=== PATIENT | female | born 1950 ===

== ENCOUNTER 2024-10-18 08:11 | Emergency (ER) | payer MEDICARE, SELFPAY ==
[2024-10-18] VITALS (7 sets, daily range): BP systolic 130–153; BP diastolic 64–79; PULSE 57–75; RESP 15–16; TEMP 36.6; O2SAT 95–98
--- NOTE | ~2024-10-18 | CT_ITS ---
EXAMINATION: CT brain wo con DATE: 10/18/2024 08:46 INDICATION: Unresponsive. Recent stroke. TECHNIQUE: Computed tomography (CT) of the head was performed without intravenous contrast. Sagittal and coronal reconstructions were performed. The mA was adjusted according to patient size. Iterative reconstruction technique was employed. The dose-length product was 605.33 mGy-cm. COMPARISON: None FINDINGS: There is vasogenic edema surrounding a intraparenchymal hemorrhage in the left frontal lobe white mat ter which measures 5.8 x 2.0 x 3.5 cm. There is asymmetric effacement of the left frontal lobe sulci and up to 4 mm left to right midline shift at the septum pellucidum. There is also mass effect upon t he left lateral ventricle which appears slightly decreased in size relative to the right. No uncal he rniation. No evident acute ischemic infarction or abnormal extra axial fluid collection. Centimeters from the hemorrhage, no other masses identified. The orbits are normal with rightward gaze. The paran leta sinuses and mastoid air cells are normal. IMPRESSION: 1. There is vasogenic edema surrounding a 5.8 x 2.0 x 3.5 cm intraparenchymal hemorrhage the left fro ntal lobe with 4 mm left to right midline shift. Dr. Lynch discussed these findings with Dr. Mario martinez at 8:49 AM. Reviewed, dictated and finalized at location A. R SALES REPRESENTATIVE IMPRESSION: 1. There is vasogenic edema surrounding a 5.8 x 2.0 x 3.5 cm intraparenchymal h emorrhage the left frontal lobe with 4 mm left to right midline shift. Dr. Keagan balderas discussed these findings with Dr. Carbajal at 8:49 AM.
--- NOTE | 2024-10-18 08:18 | ECG_ITS ---
Test Date: 2024-10-18 08:16:29 Measurements Intervals [place] Rate: 67 P: 47 WY: 224 QRS: -1 QRSD: 104 T: 25 QT: 373 QTc: 396 Interpretive Statements SINUS RHYTHM WITH FIRST DEGREE AV BLOCK CONSIDER INFERIOR INFARCT, AGE INDETERMINATE BASELINE ARTIFACT- I, II, AVR ABNORMAL ECG No previous ECG available for comparison Electronically Signed On 10-18-2024 08:25:18 LEGAL JOB TITLES by Facundo Oakley D.O.
[2024-10-18 08:39] LABS: Basophils Percent Auto 0.5 % (0.2-1.2); Eosinophils Absolute Auto 0.2 K/mm3 (0-0.3); Eosinophils Percent Auto 2.1 % (0-4.4); Hematocrit 40.4 % (37.0-47.0); Hemoglobin 12.9 g/dL (12.0-15.0); Immature Granulocyte Absolute 0.03 K/mm3 (0.00-0.031); Immature Granulocyte Percent A 0.4 % (0-0.5); Lymphocytes Absolute Auto 2.21 K/mm3 (0.9-3.2); Lymphocytes Percent Auto 27.7 % (18.3-44.2); Mean Corpuscular HGB Conc 31.9 g/dl (32-36); Mean Corpuscular Hemoglobin 28.4 pg (26-34); Mean Platelet Volume 9.9 fl (7.4-10.4); Monocytes Absolute Auto 0.5 K/mm3 (0.1-0.6); Neutrophils Percent Auto 63.3 % (45.5-73.1); Platelet Count Result 281 k/mm3 (150-375); Red Blood Count 4.54 M/mm3 (4.2-5.4); Red Cell Distribution Width 13.3 % (11.5-14.5)
[2024-10-18 08:45] LABS: Add Urine Microscopic? NO; Appearance Urine Clear (Clear); Bilirubin Urine Negative (Negative); Blood Urine Negative (Negative); Color Urine Yellow (Yellow); Glucose Urine UA Negative (Negative); Ketones Urine Trace mg/dL (Negative); Leukocyte Esterase Ur Negative LEU/UL (Negative); Nitrate Urine Negative (Negative); Protein Urine Negative (Negative); Specific Grav Ur 1.026 (1.001-1.035); pH Urine 5.5 (5.0-9.0)
[2024-10-18 08:52] LABS: Alanine Aminotransferase 48 U/L (6-35); Albumin Level 3.8 g/dL (3.5-5.1); Alkaline Phosphatase 75 U/L (38-126); Anion Gap 8 mmol/L (4-12); Aspartate Amino Transferase 50 U/L (14-36); Bilirubin,Total 0.7 mg/dL (0.2-1.3); Blood Urea Nitrogen 24 mg/dL (7-17); Calcium 9.4 mg/dL (8.4-10.2); Carbon Dioxide 30 mmol/L (22-30); Chloride 106 mmol/L (98-107); Estimated CRCL calculation 54 ml/min; Estimated Glomerular Filt Rate > 60; Glucose 90 mg/dL (65-110); Potassium 3.7 mmol/L (3.4-5.0); Sodium 144 mmol/L (137-145)
--- NOTE | 2024-10-18 09:01 | ED_ITS ---
HPI - Altered Mental Status General Chief Complaint: Altered Mental Status Stated Complaint: AMS Time Seen by Provider: 10/18/24 08:49 History of Present Illness HPI narrative: Pt presents unresponsive. Pt had recent cva and was admitted to [facility]. Pt was discharged yesterday to [facility]. Pt was awake and alert this morning sitting up in bed when she suddenly went unresponsive. Pt is not known to be on blood thinners per . Pt is unresponsive no verbal stimuli now, does respond to painful stimuli. Related Data Home Medications ?Medication ?Instructions ?Recorded ?Confirmed ?Last Taken ?Type atorvastatin 40 mg tablet 40 mg PO DAILY 10/18/24 10/18/24 10/17/24 History clotrimazole 1 % topical cream 1 applic topical BID 10/18/24 10/18/24 Unknown History diclofenac sodium 1 % topical gel 4 g topical Q6H PRN knee pain 10/18/24 10/18/24 Unknown History (Arthritis Pain (diclofenac)) docusate sodium 100 mg capsule 100 mg PO BID 10/18/24 10/18/24 Unknown History famotidine 40 mg tablet 40 mg PO HS PRN indigestion 10/18/24 10/18/24 10/17/24 History lisinopril 10 mg tablet 10 mg PO DAILY 10/18/24 10/18/24 10/17/24 History polyethylene glycol 3350 17 gram 17 g PO DAILY 10/18/24 10/18/24 Unknown History oral powder packet (Miralax) Allergies Allergy/AdvReac Type Severity Reaction Status Date / Time Sulfa (Sulfonamide Allergy Unknown Unknown Verified 10/18/24 00:56 Antibiotics) Review of Systems 2 Review of Systems: ROS unobtainable: Yes unobtainable due to mental status [facility] Social History Social History Smoking status: Never smoker Exam 2 Const: Limitations: altered mental status (unresponsive) HENMT: Head: normal to inspection Eyes: Other: eyes deviated to right to midline when eyelids opened then back to right. Resp: Effort & Inspection: normal respiratory effort Auscultation: clear to auscultation bilaterally Cardio: Rate: regular rate Rhythm: regular rhythm GI: GI Palp: Yes Soft to palpation and Yes Tenderness to palpation present (GI) Auscultation: normal bowel sounds Skin: General skin exam: normal color Rashes: no rashes Wounds: no wounds Neuro: Other: responds to painful stimuli only Extrem: General: normal to inspection and no clubbing, cyanosis or edema Psych: Other: unresponsive Course Vital Signs Vital signs: Vital Signs Temperature 97.8 F 10/18/24 08:07 Pulse Rate 72 10/18/24 08:07 Respiratory Rate 16 10/18/24 08:07 Blood Pressure 153/79 H 10/18/24 08:07 Pulse Oximetry 95 10/18/24 08:07 Oxygen Delivery Room Air 10/18/24 08:07 Temperature 97.8 F 10/18/24 08:07 Pulse Rate 57 L 10/18/24 12:04 Respiratory Rate 16 10/18/24 12:04 Blood Pressure 130/66 10/18/24 12:04 Pulse Oximetry 97 10/18/24 12:04 Oxygen Delivery Room Air 10/18/24 09:09 MDM - Altered Mental Status MDM Narrative Medical decision making narrative: discussed with and son. Pt is full code. says not on thinners that he is aware of. discussed with [facility] access line for transfer will call back. Pt has large intraparenchymal bleed with shift. discussd with Dr Weaver at [facility] bleed is in same area but possible larger. discussed with Latoya in neuro ICU at [facility] will accept patient. Would recommend loading with mannitol for swelling and will accept transfer. Lab Data 10/18/24 08:25 10/18/24 08:25 Labs: Lab Results 10/18/24 Range/Units 08:25 WBC 8.0 (4.5-10.0) K/mm3 RBC 4.54 (4.2-5.4) M/mm3 Hgb 12.9 (12.0-15.0) g/dL Hct 40.4 (37.0-47.0) % MCV 89.0 (80-100) fl MCH 28.4 (26-34) pg MCHC 31.9 L (32-36) g/dl RDW 13.3 (11.5-14.5) % Plt Count 281 (150-375) k/mm3 MPV 9.9 (7.4-10.4) fl Immature Gran % (Auto) 0.4 (0-0.5) % Neut % (Auto) 63.3 (45.5-73.1) % Lymph % (Auto) 27.7 (18.3-44.2) % [place] % (Auto) 6.0 (2.6-8.5) % Eos % (Auto) 2.1 (0-4.4) % Baso % (Auto) 0.5 (0.2-1.2) % Lymph # (Auto) 2.21 (0.9-3.2) K/mm3 [place] # (Auto) 0.5 (0.1-0.6) K/mm3 Eos # (Auto) 0.2 (0-0.3) K/mm3 Baso # (Auto) 0.0 (0.0-0.1) K/mm3 Abs Immat Gran (auto) 0.03 (0.00-0.031) K/mm3 Absolute Neuts (auto) 5.0 (1.3-6.7) K/mm3 Absolute Nucleated RBC 0.000 (0.0-0.012) K/mm3 Nucleated RBC % 0.0 (0.0-0.2) % PT 13.4 (11.1-14.7) Seconds INR 1.0 APTT 24.4 (22.3-36.8) Seconds Sodium 144 (137-145) mmol/L Potassium 3.7 (3.4-5.0) mmol/L Chloride 106 (98-107) mmol/L Carbon Dioxide 30 (22-30) mmol/L Anion Gap 8 (4-12) mmol/L BUN 24 H (7-17) mg/dL Creatinine 0.82 (0.7-1.0) mg/dL Estim Creat Clear Calc 54 ml/min Estimated GFR > 60 (59 - ) Glucose 90 (65-110) mg/dL Calcium 9.4 (8.4-10.2) mg/dL Total Bilirubin 0.7 (0.2-1.3) mg/dL AST 50 H (14-36) U/L ALT 48 H (6-35) U/L Alkaline Phosphatase 75 (38-126) U/L Total Protein 7.0 (6.3-8.2) g/dL Albumin 3.8 (3.5-5.1) g/dL Urine Color Yellow (Yellow) Urine Appearance Clear (Clear) Urine pH 5.5 (5.0-9.0) Ur Specific [place] 1.026 (1.001-1.035) Urine Protein Negative (Negative) mg/dL Urine Glucose (UA) Negative (Negative) mg/dL Urine Ketones Trace H (Negative) mg/dL Ur Blood (Man) Negative (Negative) Urine Nitrate Negative (Negative) Urine Bilirubin Negative (Negative) Urine Urobilinogen 1.0 (<2.0) mg/dL Leukocyte Esterase Rfl Negative (Negative) KRISTINA/UL Discharge Plan Discharge Clinical Impression: Altered mental status, Intraparenchymal hemorrhage of brain Patient Disposition: Acute Care Hospital Condition: Critical Patient Language: Serbian Prescriptions: No Action atorvastatin 40 mg tablet 40 mg PO DAILY clotrimazole 1 % cream 1 applic TOPICAL BID Rx Instructions: apply to feet diclofenac sodium [Arthritis Pain (diclofenac)] 1 % gel 4 g topical Q6H PRN (Reason: knee pain) Rx Instructions: apply for knee pain docusate sodium 100 mg capsule 100 mg PO BID famotidine 40 mg tablet 40 mg PO HS PRN (Reason: indigestion) lisinopril 10 mg tablet 10 mg PO DAILY polyethylene glycol 3350 [Miralax] 17 gram powder in packet 17 g PO DAILY Follow-up/Referrals: Dana,MD Nancy [Primary Care Provider] -
[2024-10-18 09:02] LABS: Prothrombin Time 13.4 Seconds (11.1-14.7)
[2024-10-18 09:03] LABS: Partial Thromboplastin Time 24.4 Seconds (22.3-36.8)
--- OUTSIDE RECORDS SUMMARY | 2024-10-18 09:20 | XMS_ITS | Continuity of Care Document ---
Author Organization [facility] Address [address] [place] [address] [place] [address] Phone Care Team Providers Care Food Preparation Supervisor Name Role Phone Joey Sidhu MD Unavailable Unavailable Allergies, Adverse Reactions, Alerts Substance Reaction Status Criticality POLYMYXIN B SULFATE Active No Infor mation Sulfa (Sulfonamide Antibiotics) Active No Information Medications Medication Instructions Dosage Effective Dates (start - stop) Status Comments alprazolam 0.5 mg tablet take 1 tablet by oral route 3 times every day 0.5 MG - Active famotidine 20 mg tablet take 1 tablet by oral route every day 20 MG - Active simvastatin 40 mg tablet take 1 tablet by oral route every day in the evening 40 MG - Active neomycin-polymyxin- dexameth 3.5 mg/mL-10,000 unit/mL-0.1% eye drops instill 1 drop by ophthalmic route 4 times every day into right eye until seen - No Longer Active Procedures Procedure Date No Charge Optomap Fundus Photos 023 Eye Exam & Treatment Office/outpatient Visit, Est Office/outpatient Visit, Est Office/outpatient Visit, Est Office/outpatient Visit, New Advance Directives Directive Yes / No Effective Date File Name No Information Encounters Encounter Description Practice Location Reason(s) For Visit Diagnoses Date Provider Providers Copied on Encounter [facility], [address], [place], [place], [address], [place] tel:[phone] SEC Isaiah CLAUDIO Professional Complete Exam (chief complaint) Unspecified exotropiaAge- related nuclear cataract, bilateralEndo thelial corneal dystrophy, bilateral Edwin- 3 Nahum Cook. [address], [place], [place], [address], . tel:[phone] Referring Provider: Joey Dover, [address], [place], [address] . tel:[phone] Office/outpa tient Visit, [facility], [address] [place] [address] [address], [place], [place], [address], [place] tel:[phone] SEC [place] Professional Follow up visit (chief complaint) Episcleritis, right Apr-0 3 Nahum Cook. [address] [facility], [place], [place], [address], [place]. tel:[phone] Referring Provider: Joey Dover, [address], [place], [address] . tel:[phone] Office/outpa tient Visit, [facility], [address] [place] [address] [address], [place], [place], [address], [place] tel:[phone] SEC [place] Professional pain (chief complaint) Conjunctiviti s of right eye, unspecified conjunctiviti s type Nov-3 3 Nahum Cook. [address], [place], [place], [address], [place]. tel:[phone] Referring Provider: Joey Dover, [address], [place], [address] . tel:[phone] Office/outpa tient Visit, [facility], [address] [place] [address] [address], [place], [place], [address], [place] tel:[phone] SEC [place] Professional Follow up visit (chief complaint) Acute follicular conjunctiviti s, bilateral Dec- 2 Nahum Cook. [address] [facility], [place], [place], [address], . tel:[phone] Referring Provider: Joey Dover, [address] [facility] [address], [place], [address] . tel:[phone] Office/outpa tient Visit, [facility], [address], [place], [place], [address], tel:[phone] [facility] Professional evaluation (chief complaint) Endothelial corneal dystrophy, right eyeAnterior basement membrane dystrophy of right eyeAcute follicular conjunctiviti s, bilateralPter ygium, bilateralAge- related nuclear cataract, bilateral Aug- 2 Nahum Cook. [address] [facility], [place], [place], [address], . tel:[phone] Referring Provider: Joey Dover, [address] [facility], [place], [address] . tel:[phone] Family History Family Member Type Diagnosis Age At Onset No Information Payers Payer name Insurance type Covered alliance party ID Authoriza yaronjosé miguel(s) AARP Medicare Complete CI [id number] Social History Type Description Quantity Date Captured Comments Alcohol Use Details No Caffeine Use Details Tobacco Use Status Current non-smoker Smoking Status Never smoker Non-Smoking Tobacco Use Details : No Details Available : No Details Available Sex Female Chief Complaint And Reason For Visit From encounter dated '02/26/2023 13:00'. Complete Exam (chief complaint). Description: The 72 year old patient presents for evaluation of Complete Exam in the right eye and left eye. Patient denies any changes with [facility]. Patient she will use an OTC tear if eyes get tired or dry. Reason For Referral Reason For Referral No Information Plan Of Treatment Date Type Action Status Patient Education Cataracts: Care Instruc tions completed Patient Education Pinkeye: Care Instructi ons completed Patient Education Pinkeye: Care Instructi ons completed History Of Present Illness Encounter Date Complaint History Of Prese nt Illness Complete Exam The 72 year old patient presents for evaluation of Complete Exam in the right eye and left eye. Patient denies any changes with [facility]. Patient she will use an OTC tear if eyes get tired or dry. Follow up visit The 72 year old patient presents for a 1 week follow up for conjunctivitis OD. Patient is using Luis/poly/dex bid OD. Patient did not use today. Patient states on Wednesday when she put the drop in it burned. Patient states OD is feeling better. Patient states OD is just slightly red. pain The 72 year old patient presents for evaluation of pain in the right eye. Patient states yesterday the right eye started out with feeling tender, woke up this am the right eye was red, tearing, and some pain. Patient using an OTC gtt prn OU Follow up visit The 71 year old patient presents for a 2 week acute follicular conjunctivitis ou. Patient is using FML tid ou. Patient states eyes are better. Patient states she notices if she skips a drop her eyes become itchy again. Patient states sometimes she gets pain in ou. evaluation The 71 year old patient presents for evaluation of possible infection. Patient states on July 03 OS was red and she used Pataday. Patient states ou became itching and burning and on July 21 she seen her PCPs NEW ORDER CLERK and told her to continue Pataday and she added Poly. Patient states July 28 she started Poly and eyes were burning and itching and D/c. Patient hasn't used anything for a few days. Functional Status Date Functional Assessmen t No Information Instructions Date Instruction Additional Infor lizzette Impression/Plan Impression/Plan Impression/Plan Impression/Plan Impression/Plan Assessments Type Assessment Date assessment Unspecified exotropia assessment Age-related nuclear cataract, bi lateral assessment Endothelial corneal dystrophy, b ilateral Patient Care Teams Name Effective Dates (start - stop) Status Members No Information
--- OUTSIDE RECORDS SUMMARY | 2024-10-18 09:20 | XMS_ITS | Encounter Summary ---
Author Organization [facility] Address [address] [place] [address] Care Team Providers Care Debt And Budget Counselor Name Role Phone Unavailable Primary Care Provider Unavailabl e Encounter Details Date Type Department Care Team (Late st Contact Info) Description 10/13/2005 Outpatient Historical [facility] Internal Medicine [address] [address] Daryn Mercado MD [address] [place] [phone] Social History Tobacco Use Types Packs/Day Years Used Date Smoking Tobacco: Never Assessed Comments Unknown Sex and Gender Information Value Date Recorded Sex Assigned at Not on file Legal Sex Female 4:43 AM INSTRUMENT TECH Gender Identity Not on file Sexual Orientation Not on file documented as of this encounter Plan of Treatment Not on file documented as of this encounter Visit Diagnoses Not on filedocumented in this encounter
--- OUTSIDE RECORDS SUMMARY | 2024-10-18 09:20 | XMS_ITS | Encounter Summary ---
Author Organization [facility] Address [address] [place] [address] Care Team Providers Care Return To Service Inspector Name Role Phone Shahana Guzman MD Unavailable Nancy Cortez MD Primary Care Provider [phone] Shiraz Gillespie PT Unavailable Unavailable Joey Sidhu MD Unavailable [phone] Reason for Visit * Reason Onset Date Comments Scheduling Appointments 06/30/2021 Confirmi ng mammogram appt Encounter Details Date Type Department Care Team (Late st Contact Info) Description 06/30/2021 Telephone [facility] [address] [place] [address] Anastasia Greene, Scheduling Appointments (Confirming mammogram appt) Social History Tobacco Use Types Packs/Day Years Used Date Smoking Tobacco: Never Smokeless Tobacco: Never Alcohol Use Standard Drinks/Week Comments Yes 0 (1 standard drink = 0.6 oz pur e alcohol) PHQ-2 Answer Date Recorded PHQ-2 Total Score (If total score is 3 or more points, staff should administer the PHQ-9) 0 04/10/2021 Education Answer Date Recorded What is the highest level of school you have completed or the highest degree you have received? 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[employer] ([employer] & [employer]() Not on f ile Not on file Not on file documented as of this encounter Plan of Treatment Not on file documented as of this encounter Visit Diagnoses Not on filedocumented in this encounter Additional Health Concerns Infection Onset Date Last Indicated Resolved Time COVID: Suspected 07/18/2024 07/18/2024 07/18/2024 11:49 AM VENEER SAWYER documented as of this encounter Care Teams Return To Service Inspector Relationship Specialty [place] [id number] [address] [facility] [address] [place] [address] PCP - General Family Medicine 03/20/19 [place] [address] [facility] [address] [place] [address] Consulting Physician Obstetrics and Gynecology 12/26/18 Shiraz Gillespie, PT Physical Therapist Physical Therapy 01/22/23 Joey Sihdu MD [address] [place] [address] Referring Physician Ophthalmology 05/24/24 documented as of this encounter
--- OUTSIDE RECORDS SUMMARY | 2024-10-18 09:20 | XMS_ITS | Encounter Summary ---
Author Organization [facility] Address [address] [place] [address] Care Team Providers Care Furniture Sander Name Role Phone Unavailable Primary Care Provider Unavailabl e Encounter Details Date Type Department Care Team (Late st Contact Info) Description 10/13/2005 Orders Only [facility] Internal Medicine [address] [address] Daryn Mercado MD [address] [place] [phone] Social History Tobacco Use Types Packs/Day Years Used Date Smoking Tobacco: Never Assessed Comments Unknown Sex and Gender Information Value Date Recorded Sex Assigned at Not on file Legal Sex Female 4:43 AM PRODUCE WEIGHER Gender Identity Not on file Sexual Orientation Not on file documented as of this encounter Progress Notes * Daryn Mercado MD - 06/14/2008 1:57 PM CDT WEIGHT: 170lbs BLOOD PRESSURE: 140/80 Right Arm Sitting NURSE NAME: Mae Lu R CHIEF COMPLAINT c/o heartburn HISTORY: HISTORY: 300.00-ANXIETY occ use of xanax, some inc stress recently 530.81-GASTROESOPHAGEAL REFLUX (GERD) off med, hx of gastritis, worse with spicy foods 786.50-CHEST PAIN UNSPECIFIED vague., occ left arm, not with exertion 401.1-HYPERTENSION ESSENTIAL BENIGN borderline with nurse at [facility] 272.4-HYPERLIPIDEMIA high but HDL 74 ROS: ENT: No hearing loss, epistaxis, hoarseness or dysphagia. No sinus congestion. ENDOCRINE: No heat or cold intolerance, no excessive thirst. RESPIRATORY: No dyspnea, cough, hemoptysis or wheezing. : No frequency, urgency, hematuria or dysuria. FAMILY HISTORY: father LA 62, had first LA 54, mother CVA73 SOCIAL HISTORY: TOBACCO USE: Has no significant smoking history. DISCUSSED SMOKING: neg. 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 CAFFEINE: A minimal amount of caffeinated beverages daily. PHYSICAL EXAMINATION: CONSTITUTIONAL: GENERAL APPEARANCE: Healthy appearing patient in no distress. EARS, NOSE, MOUTH AND THROAT: EXTERNAL/EARS AND NOSE: Overall appearance normal with no scars, lesions or masses. EARS: Tympanic membranes shiny without retraction. Canals unremarkable. Hearing grossly normal. ORAL: Inspection of gums, lips, palate, and teeth normal. No scars, lesions, or masses. Oral mucosaunremarkable with non-inflamed posterior pharynx. NECK/THYROID: Trachea midline. No thyroid enlargement, tenderness, or mass. No supraclavicular or cervical adenopathy. RESPIRATORY: Clear to auscultation and percussion. Normal respiratory effort. CARDIOVASCULAR: CARDIAC: Regular rhythm. No murmurs, rubs, or gallops. ARTERIAL: Aortic pulses of normal amplitude with no bruits. EDEMA/VARICOSITIES OF EXTREMITIES: No edema or varicosities. GASTROINTESTINAL: ABDOMEN: Soft, non-tender, without masses. Bowel sounds active. LIVER/SPLEEN/KIDNEY: No hepatosplenomegaly, tenderness or nodularity. Kidneys not palpable. SKIN: SKIN: Warm, dry, no diaphoresis, no significant lesions, irritation, rashes or ulcers. No induration, obvious subcutaneous nodules or tightening. OFFICE PROCEDURES: EKG INTERPRETATION EKG RHYTHM: The EKG shows normal sinus rhythm. No ischemic changes noted. ASSESSMENT/PLAN: 300.00-ANXIETY discussed, ok prn med MEDICATIONS: ALPRAZOLAM ORAL TABLET 0.25 MG, 1 Every Twelve Hours, As Needed, 40 Dispensed, 1 Fills, status: NEWPRESCRIPTION, 12/26/2004. 272.4-HYPERLIPIDEMIA discussed, likely start med reassess 401.1-HYPERTENSION ESSENTIAL BENIGN start low dose med MEDICATIONS: LISINOPRIL ORAL TABLET 2.5 MG, 1 Every Day, 30 Dispensed, 1 Fills, status: NEW PRESCRIPTION, 10/13/2005. 530.81-GASTROESOPHAGEAL REFLUX (GERD) start med, EGD MEDICATIONS: PREVACID ORAL CAPSULE DELAYED RELEASE 30 MG, 1 Every Day, 30 Dispensed, 3 Fills, status: NEW PRESCRIPTION, 10/13/2005. 786.50-CHEST PAIN UNSPECIFIED vague sx, consider stress test if continues LAB ORDERS: 6 weeks Order number: [id number] Test Ordered: COMPREHENSIVE METABOLIC PANEL 01591 Order number: [id number] Test Ordered: LIPID PANEL 7600 Order number: [id number] Test Ordered: TSH 899 Order number: [id number] Test Ordered: EKG W/ INTERPRETATION & REPORT [id number] SPECIALTY REFERRAL: GASTROENTEROLOGY Isaiah Carbajal , ANAYELI PREVENTIVE COUNSELING The patient was counseled regarding diet, regular sustained exercise for at least 30 minutes 3-4 times per week. RETURN VISIT : Patient instructed to return in 2 months. Electronically Signed by: Daryn Mercado MD on Thursday, October 13, 2005 documented in this encounter Plan of Treatment Not on file documented as of this encounter Visit Diagnoses Not on filedocumented in this encounter
--- OUTSIDE RECORDS SUMMARY | 2024-10-18 09:20 | XMS_ITS | Encounter Summary ---
Author Organization [facility] Address [address] [place] [address] Care Team Providers Care Rod Mill Operator Name Role Phone Unavailable Primary Care Provider Unavailabl e Encounter Details Date Type Department Care Team (Late st Contact Info) Description 12/15/2005 Outpatient Historical [facility] Internal Medicine [address] [address] Daryn Mercado MD [address] [place] [phone] Social History Tobacco Use Types Packs/Day Years Used Date Smoking Tobacco: Never Assessed Comments Unknown Sex and Gender Information Value Date Recorded Sex Assigned at Not on file Legal Sex Female 4:43 AM VP OF GLOBAL MARKETING Gender Identity Not on file Sexual Orientation Not on file documented as of this encounter Last Filed Vital Signs Vital Sign Reading Time Taken Comments Blood Pressure 120/60 12/15/2005 3:00 PM CDT Pulse - - Temperature - - Respiratory Rate - - Oxygen Saturation - - Inhaled Oxygen Concentration - - Weight 75.8 kg (167 lb) 12/15/2005 3:00 PM CDT Height - - Body Mass Index - - documented in this encounter Plan of Treatment Not on file documented as of this encounter Visit Diagnoses Not on filedocumented in this encounter
--- OUTSIDE RECORDS SUMMARY | 2024-10-18 09:20 | XMS_ITS | Encounter Summary ---
Author Organization [facility] Address [address] [place] [address] Care Team Providers Care Corporate Development Analyst Name Role Phone Unavailable Primary Care Provider Unavailabl e Encounter Details Date Type Department Care Team (Late st Contact Info) Description 10/13/[address] [facility] Internal Medicine [address] [address] Daryn Mercado MD [address] [place] [phone] Social History Tobacco Use Types Packs/Day Years Used Date Smoking Tobacco: Never Assessed Comments Unknown Sex and Gender Information Value Date Recorded Sex Assigned at Not on file Legal Sex Female 4:43 AM KITCHEN CLERK Gender Identity Not on file Sexual Orientation Not on file documented as of this encounter Plan of Treatment Not on file documented as of this encounter Visit Diagnoses Not on filedocumented in this encounter
--- OUTSIDE RECORDS SUMMARY | 2024-10-18 09:20 | XMS_ITS | Encounter Summary ---
Author Organization [facility] Address 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
--- OUTSIDE RECORDS SUMMARY | 2024-10-18 09:21 | XMS_ITS | Referral Summary ---
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 prescription medication to help with weight loss including phentermine and GLP-1RAs. She is not a good candidate for phentermine because of her elevated blood pressure. Reviewed side effects assoc with GLP-1RAs. Possible cost, possible availability issues. Potential for weight re-gain once medication is stopped She will consider Assessment & Plan (04/13/2022 9:17 AM CDT): discussed healthy diet, exercise and adequate sleep Body mass index is 36.5 kg/m . Comorbidity - Hyperlipidemia Assessment & Plan (04/10/2021 1:50 PM CDT): discussed healthy diet, exercise and adequate sleep Body mass index is 36.32 kg/m . Comorbidity - Hyperlipidemia Assessment & Plan (05/07/2020 11:23 AM CDT): discussed healthy diet, exercise and adequate sleep Body mass index is 36.32 kg/m . Comorbidity - Hyperlipidemia Assessment & Plan (10/09/2019 5:11 PM SALES AND MERCHANDISING ASSOCIATE): discussed healthy diet, exercise and adequate sleep Body mass index is 37.03 kg/m . Comorbidity - Hyperlipidemia Assessment & Plan (03/20/2019 9:57 AM CDT): discussed healthy diet, exercise and adequate sleep Body mass index is 37.02 kg/m . Comorbidity - Hyperlipidemia Psoriasis 03/20/2019 Generalized anxiety disorder 03/20/2019 Assessment & Plan (04/25/2024 2:45 PM CDT): Acute flare, along with depressive symptoms Start sertraline 25 mg daily Continue alprazolam 0.25 mg t.i.d. p.r.n. Reviewed signs and symptoms to report 4-6 week follow-up with PCP Assessment & Plan (04/06/2024 6:52 AM CDT): Alprazolam 0.25 mg TID PRN stable Assessment & Plan (12/02/2023 6:45 AM CDT): Alprazolam 0.25 mg TID PRN stable Assessment & Plan (07/22/2023 11:53 AM SALES AND MERCHANDISING ASSOCIATE): Alprazolam 0.25 mg TID PRN stable Assessment & Plan (04/20/2023 10:28 PM CDT): Alprazolam 0.25 mg TID PRN stable Assessment & Plan (04/13/2022 6:32 AM CDT): Alprazolam 0.25 mg TID PRN stable Assessment & Plan (04/10/2021 1:53 PM CDT): Alprazolam 0.25 mg TID PRN stable Assessment & Plan (05/07/2020 11:37 AM CDT): Stable on current Assessment & Plan (10/09/2019 5:11 PM SALES AND MERCHANDISING ASSOCIATE): Chronic. Stable on current [place]ed [place] Cont [place] Assessment & Plan (03/20/2019 10:36 AM CDT): Chronic. 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 Changed simvastatin 40 mg daily to atorvastatin November 2023. Cholesterol controlled on current prescription medication Assessment & Plan (04/06/2024 6:53 AM CDT): 04/2023 - Total 171; Trig 56; HDL 74; LDL 86 TSH 2.13 Atorvastatin 40 mg daily Has been on simvastatin since at least 2012. Changed simvastatin 40 mg daily to atorvastatin last office visit (November 2023) Assessment & Plan (12/02/2023 2:10 PM CDT): 04/2023 - Total 171; Trig 56; HDL 74; LDL 86 TSH 2.13 Simvastatin 40 mg QHS Well controlled Has been on simvastatin since at least 2012. Recommend change to atorvastatin 40 mg daily high intensity statin Assessment & Plan (07/22/2023 11:52 AM SALES AND MERCHANDISING ASSOCIATE): 04/23/2023 - Total 171; Trig 56; HDL 74; LDL 86 TSH 2.13 Simvastatin 40 mg QHS Well controlled Assessment & Plan (04/20/2023 10:27 PM CDT): 04/2022 - total 183; Trig 91; HDL 71; LDL 94 TSH 2.27 Simvastatin 40 mg QHS Assessment & Plan (04/13/2022 6:32 AM CDT): 04/2021 - total 152; Trig 74; HDL 67; LDL 70 Simvastatin 40 mg daily Assessment & Plan (04/10/2021 1:51 PM CDT): 06/2020 - total 159; Trig 101; HDL 61; LDL 78 Zocor 40 mg daily Assessment & Plan (05/07/2020 11:37 AM CDT): 12/2018 - total 170; Trig 82; HDL 70; LDL 84 Stable on statin Monitor annually Assessment & Plan (10/09/2019 5:11 PM SALES AND MERCHANDISING ASSOCIATE): 12/2018 - total 170; Trig 82; HDL 70; LDL 84 Stable on statin Monitor annually Assessment & Plan (03/20/2019 10:32 AM CDT): 12/2018 - total 170; Trig 82; HDL 70; LDL 84 Stable on statin Release for prior records. Resolved Problems Problem Noted Date Diagnosed Date Resolved Date Annual physical exam 05/07/2020 023 Assessment & Plan (04/13/2022 10:14 AM CDT): 04/2021 - Cr 0.82, eGFR 73 [facility] go to [facility] for imaging and labs Assessment & Plan (04/10/2021 2:18 PM CDT): DEXA stable 11/2016 - 12/2017 Likely limited usefulness in repeating Patient independant in all ADLs and IADLs. no significant decline in overall physical or mental health over last 12 months. no ER visits or hospital stays. Discussed Hepatitis C screening Assessment & Plan (05/07/2020 11:37 AM CDT): Patient independant in all ADLs and IADLs. no significant decline in overall physical or mental health over last 12 months. no ER visits or hospital stays. recommend at least 10 minutes of moderate intensity exercise most days of the week with a goal of 150 minutes weekly. Screening for condition 05/07/2020 08/0 09/2023 Assessment & Plan (12/02/2023 2:14 PM CDT): Patient screened for future fall risk; documentation of no falls in the past year or only 1 fall without injury in the past year Assessment & Plan (07/22/2023 11:54 AM SALES AND MERCHANDISING ASSOCIATE): Patient screened for future fall risk; documentation of no falls in the past year or only 1 fall without injury in the past year Assessment & Plan (04/21/2023 4:54 PM CDT): Patient screened for future fall risk; documentation of no falls in the past year or only 1 fall without injury in the past year Assessment & Plan (04/13/2022 6:33 AM CDT): Patient screened for future fall risk; documentation of no falls in the past year or only 1 fall without injury in the past year Assessment & Plan (04/10/2021 2:01 PM CDT): Patient screened for future fall risk; documentation of no falls in the past year or only 1 fall without injury in the past year Assessment & Plan (05/07/2020 11:31 AM CDT): Patient screened for future fall risk; documentation of no falls in the past year or only 1 fall without injury in the past year Ingrown nail of great toe of right foot 05/07/2020 04/10/2021 Bronchitis 01/16/2020 05/06/2020 Assessment & Plan (01/16/2020 1:00 PM CDT): Prolonged course, worsening symptoms. Will treat with Zithromax If symptoms continue or worsen, will ask patient to be seen in Respiratory clinic Eye irritation 10/09/2019 05/07/2020 Assessment & Plan (10/09/2019 5:12 PM SALES AND MERCHANDISING ASSOCIATE): I am not convinced that this was pink eye. I did not see her the initial time, but the more recent symptoms last week do not sound like pink eye Normal exam today I recommend follow-up with eye care provider She will call with his name so we can do a referral. Ingrown nail 03/20/2019 05/07/2020 Sprain of ankle 06/19/2016 03/20/2019 Immunizations Name Administration Dates Next Due COVID-19 mRNA (PFIZER) 0.3 m L (30 mcg) vaccine (12 years and up) 06/08/2023 Influenza, Quadrivalent, Hig h Dose, Preservative Free, Intrr 06/08/2023,05/25/2022,06/17/2021,05/21 Influenza, Trivalent, Adjuva nted, Intramuscular 06/23/2024 Influenza, Unspecified 05/21/2020,05/08/2019,09/2017 Pfizer SARS-CoV-2 Monovalent Vaccination (12+ Yrs) PURPLE 07/12/2021,11/24/2020,11/03/2020 Pneumococcal Conjugate PCV 13 10/09/2019 Pneumococcal Polysaccharide PPV23 04/10/2021,03/2010 RSV Vaccine, Pref, Recombina nt, Subunit, Adjuvanted, PF, IM (Arexvy) 08/05/2023 Td, adsorbed 06/04/1999 ZOSTER Recombinant 10/20/2021,08/08/2021 Social History Tobacco Use Types Packs/Day Years Used Date Smoking Tobacco: Never Smokeless Tobacco: Never Tobacco Cessation:Counseling Given: Not Answered Alcohol Use Standard Drinks/Week Comments Yes 0 (1 standard drink = 0.6 oz pur e alcohol) AUDIT-C Answer Date Recorded Q1: How often do you have a drink containing alc ohol? 2-4 times a month 04/21/2023 Q2: How many drinks containi ng alcohol do you have on a typical day when you are drinking? 1 or 2 04/21/2023 Q3: How often do you have si x or more drinks on one occasion? Never 04/21/2023 PHQ-2 Answer Date Recorded PHQ-2 Total Score (If total score is 3 or more points, staff should administer the PHQ-9) 0 12/02/2023 Personal Safety Answer Date Recorded Have you ever been in or are you currently in a harmful physical or emotional relationship or is someone making you feel afraid or unsafe? Patient unable to answer 10/08/2024 Education Answer Date Recorded What is the highest level of school you have completed or the highest degree you have received? 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[employer] ([employer] & [employer]() Not on f ile Not on file Not on file Last Filed Vital Signs Vital Sign Reading Time Taken Comments Blood Pressure 142/88 10/17/2024 9:44 PM SALES AND MERCHANDISING ASSOCIATE Pulse 75 10/17/2024 9:44 PM SALES AND MERCHANDISING ASSOCIATE Temperature 37.1 C (98.8 F) 10/17/2024 9:44 PM SALES AND MERCHANDISING ASSOCIATE Respiratory Rate 16 10/17/2024 9:44 PM SALES AND MERCHANDISING ASSOCIATE Oxygen Saturation 95% 10/17/2024 9:44 PM SALES AND MERCHANDISING ASSOCIATE Inhaled Oxygen Concentration - - Weight 86.5 kg (190 lb 11.2 oz) 025 12:00 PM SALES AND MERCHANDISING ASSOCIATE Height 160 cm (5' 3 ) 10/08/2024 12:00 PM SALES AND MERCHANDISING ASSOCIATE Body Mass Index 33.78 10/08/2024 12:00 PM SALES AND MERCHANDISING ASSOCIATE Plan of Treatment Not on file Procedures Procedure Name Priority Date/Time Associated Diagnosis Comments EGFR Routine 10/17/2024 9:12 PM SALES AND MERCHANDISING ASSOCIATE CBC WITHOUT DIFFERENTIAL Routine 10/17/2024 9:12 PM SALES AND MERCHANDISING ASSOCIATE BASIC METABOLIC PANEL Routine 10/17/2024 9:12 PM SALES AND MERCHANDISING ASSOCIATE XR ABDOMEN AP 1 VIEW ED Urgent/IP Urgent 10/17/2024 2:07 PM SALES AND MERCHANDISING ASSOCIATE EGFR Routine 10/16/2024 8:34 PM SALES AND MERCHANDISING ASSOCIATE CBC WITHOUT DIFFERENTIAL Routine 10/16/2024 8:34 PM SALES AND MERCHANDISING ASSOCIATE BASIC METABOLIC PANEL Routine 10/16/2024 8:34 PM SALES AND MERCHANDISING ASSOCIATE EGFR Routine 10/16/2024 4:14 AM SALES AND MERCHANDISING ASSOCIATE CBC WITHOUT DIFFERENTIAL Routine 10/16/2024 4:14 AM SALES AND MERCHANDISING ASSOCIATE BASIC METABOLIC PANEL Routine 10/16/2024 4:14 AM SALES AND MERCHANDISING ASSOCIATE EGFR Timed 10/14/2024 9:01 PM SALES AND MERCHANDISING ASSOCIATE MAGNESIUM Timed 10/14/2024 9:01 PM SALES AND MERCHANDISING ASSOCIATE CBC WITHOUT DIFFERENTIAL Routine 10/14/2024 9:01 PM SALES AND MERCHANDISING ASSOCIATE PHOSPHORUS Timed 10/14/2024 9:01 PM SALES AND MERCHANDISING ASSOCIATE COMPREHENSIVE METABOLIC PANEL Timed 10/14/2024 9:01 PM SALES AND MERCHANDISING ASSOCIATE POCT GLUCOSE DEVICE Routine 10/14/2024 12:21 PM SALES AND MERCHANDISING ASSOCIATE EGFR Routine 10/13/2024 10:21 PM SALES AND MERCHANDISING ASSOCIATE CBC WITHOUT DIFFERENTIAL Routine 10/13/2024 10:21 PM SALES AND MERCHANDISING ASSOCIATE BASIC METABOLIC PANEL Routine 10/13/2024 10:21 PM SALES AND MERCHANDISING ASSOCIATE EGFR Routine 10/12/2024 8:23 PM SALES AND MERCHANDISING ASSOCIATE CBC WITHOUT DIFFERENTIAL Routine 10/12/2024 8:23 PM SALES AND MERCHANDISING ASSOCIATE BASIC METABOLIC PANEL Routine 10/12/2024 8:23 PM SALES AND MERCHANDISING ASSOCIATE FL MODIFIED BARIUM SWALLOW W VIDEO IP Routine 10/12/2024 2:45 PM SALES AND MERCHANDISING ASSOCIATE HOSE OPERATOR EVALUATE AND TREAT VIDEOFLUOROSCOPIC SWALLOW STUDY Routine 10/12/2024 2:35 PM SALES AND MERCHANDISING ASSOCIATE EGFR Routine 10/11/2024 9:06 PM SALES AND MERCHANDISING ASSOCIATE CBC WITHOUT DIFFERENTIAL Routine 10/11/2024 9:06 PM SALES AND MERCHANDISING ASSOCIATE BASIC METABOLIC PANEL Routine 10/11/2024 9:06 PM SALES AND MERCHANDISING ASSOCIATE CBC WITHOUT DIFFERENTIAL STAT 10/11/2024 2:11 AM SALES AND MERCHANDISING ASSOCIATE POTASSIUM, WHOLE BLOOD STAT 2:11 AM SALES AND MERCHANDISING ASSOCIATE EGFR Routine 10/10/2024 9:30 PM SALES AND MERCHANDISING ASSOCIATE MAGNESIUM Routine 10/10/2024 9:30 PM SALES AND MERCHANDISING ASSOCIATE BASIC METABOLIC PANEL Routine 10/10/2024 9:30 PM SALES AND MERCHANDISING ASSOCIATE XR ABDOMEN AP 1 VIEW ED Urgent/IP Urgent 10/10/2024 9:06 PM SALES AND MERCHANDISING ASSOCIATE EGFR Routine 10/09/2024 9:26 PM SALES AND MERCHANDISING ASSOCIATE MAGNESIUM Routine 10/09/2024 9:26 PM SALES AND MERCHANDISING ASSOCIATE BASIC METABOLIC PANEL Routine 10/09/2024 9:26 PM SALES AND MERCHANDISING ASSOCIATE CBC WITHOUT DIFFERENTIAL Routine 10/09/2024 9:26 PM SALES AND MERCHANDISING ASSOCIATE CONTINUOUS VIDEO EEG Routine 10/09/2024 1:26 PM SALES AND MERCHANDISING ASSOCIATE POCT GLUCOSE DEVICE Routine 10/09/2024 7:53 AM SALES AND MERCHANDISING ASSOCIATE CT HEAD WO CONTRAST IP Routine 10/09/2024 4:37 AM SALES AND MERCHANDISING ASSOCIATE XR ABDOMEN AP 1 VIEW IP Routine 10/08/2024 10:39 PM SALES AND MERCHANDISING ASSOCIATE EGFR Timed 10/08/2024 9:56 PM SALES AND MERCHANDISING ASSOCIATE PHOSPHORUS Timed 10/08/2024 9:56 PM SALES AND MERCHANDISING ASSOCIATE MAGNESIUM Timed 10/08/2024 9:56 PM SALES AND MERCHANDISING ASSOCIATE COMPREHENSIVE METABOLIC PANEL Timed 10/08/2024 9:56 PM SALES AND MERCHANDISING ASSOCIATE CBC WITHOUT DIFFERENTIAL Routine 10/08/2024 9:56 PM SALES AND MERCHANDISING ASSOCIATE XR ABDOMEN AP 1 VIEW IP Routine 10/08/2024 8:39 PM SALES AND MERCHANDISING ASSOCIATE DRUGS OF ABUSE SCREEN, URINE WITH REFLEX CONFIRMATION STAT 10/08/2024 4:48 PM SALES AND MERCHANDISING ASSOCIATE URINALYSIS AND REFLEX TO MICROSCOPIC AND CULTURE STAT 10/08/2024 4:48 PM SALES AND MERCHANDISING ASSOCIATE XR CHEST 1 VIEW ED Urgent/IP Urgent 10/08/2024 12:53 PM SALES AND MERCHANDISING ASSOCIATE CT HEAD WO CONTRAST ED Urgent/IP Urgent 10/08/2024 12:45 PM SALES AND MERCHANDISING ASSOCIATE BLOOD GAS, VENOUS STAT 10/08/2024 12:28 PM SALES AND MERCHANDISING ASSOCIATE B CHECK SAMPLE STAT 10/08/2024 12:07 PM SALES AND MERCHANDISING ASSOCIATE ECG 12-LEAD STAT 10/08/2024 11:55 AM SALES AND MERCHANDISING ASSOCIATE ETHANOL STAT 10/08/2024 11:51 AM SALES AND MERCHANDISING ASSOCIATE EGFR STAT 10/08/2024 11:51 AM SALES AND MERCHANDISING ASSOCIATE TROPONIN I HIGH-SENSITIVITY SERIES (BASELINE, 2HR, 4HR, 6HR) STAT 10/08/2024 11:51 AM SALES AND MERCHANDISING ASSOCIATE PROTIME-INR STAT 10/08/2024 11:51 AM SALES AND MERCHANDISING ASSOCIATE APTT STAT 10/08/2024 11:51 AM SALES AND MERCHANDISING ASSOCIATE TYPE AND SCREEN STAT 10/08/2024 11:51 AM SALES AND MERCHANDISING ASSOCIATE CBC WITHOUT DIFFERENTIAL STAT 10/08/2024 11:51 AM SALES AND MERCHANDISING ASSOCIATE PHOSPHORUS STAT 10/08/2024 11:51 AM SALES AND MERCHANDISING ASSOCIATE MAGNESIUM STAT 10/08/2024 11:51 AM SALES AND MERCHANDISING ASSOCIATE COMPREHENSIVE METABOLIC PANEL STAT 10/08/2024 11:51 AM SALES AND MERCHANDISING ASSOCIATE POCT GLUCOSE DEVICE Routine 10/08/2024 11:34 AM SALES AND MERCHANDISING ASSOCIATE OH CRITICAL CARE ILL/INJURED PATIENT INIT 30-74 MIN Routine 10/08/2024 10:43 AM SALES AND MERCHANDISING ASSOCIATE XR CHEST 1 VIEW ED 10/08/2024 9:50 AM SALES AND MERCHANDISING ASSOCIATE CT STROKE PROTOCOL W WO CONTRAST Critical/Life- Threatening 10/08/2024 9:42 AM SALES AND MERCHANDISING ASSOCIATE ECG 12-LEAD STAT 10/08/2024 9:39 AM SALES AND MERCHANDISING ASSOCIATE EGFR STAT 10/08/2024 9:32 AM SALES AND MERCHANDISING ASSOCIATE MAGNESIUM Add-On 10/08/2024 9:32 AM SALES AND MERCHANDISING ASSOCIATE OSMOLALITY, BLOOD Add-On 10/08/2024 9:32 AM SALES AND MERCHANDISING ASSOCIATE DIFFERENTIAL AUTO STAT 10/08/2024 9:32 AM SALES AND MERCHANDISING ASSOCIATE ANTIBODY SCREEN STAT 10/08/2024 9:32 AM SALES AND MERCHANDISING ASSOCIATE ABO/RH STAT 10/08/2024 9:32 AM SALES AND MERCHANDISING ASSOCIATE TYPE AND SCREEN STAT 10/08/2024 9:32 AM SALES AND MERCHANDISING ASSOCIATE PROTIME-INR STAT 10/08/2024 9:32 AM SALES AND MERCHANDISING ASSOCIATE TROPONIN T HIGH-SENSITIVITY SERIES (BASELINE, 2HR, 4HR, 6HR) STAT 10/08/2024 9:32 AM SALES AND MERCHANDISING ASSOCIATE COMPREHENSIVE METABOLIC PANEL STAT 10/08/2024 9:32 AM SALES AND MERCHANDISING ASSOCIATE CBC WITH AUTO DIFFERENTIAL STAT 10/08/2024 9:32 AM SALES AND MERCHANDISING ASSOCIATE CT STROKE PROTOCOL WO CONTRAST Critical/Life- Threatening 10/08/2024 9:31 AM SALES AND MERCHANDISING ASSOCIATE POCT GLUCOSE DEVICE Routine 10/08/2024 9:20 AM SALES AND MERCHANDISING ASSOCIATE POCT RAPID STREP Routine 07/18/2024 11:48 AM SALES AND MERCHANDISING ASSOCIATE Acute sore throat POCT RAPID RSV Routine 07/18/2024 11:48 AM SALES AND MERCHANDISING ASSOCIATE Bronchitis POC INFLUENZA A/B, COVID-19 ANTIGEN Routine 07/18/2024 11:48 AM SALES AND MERCHANDISING ASSOCIATE Bronchitis SCREENING MAMMOGRAM BILATERAL W BRIAN Schedule Routine, Read Routine (OP Routine) 09/14/2023 9:02 AM SALES AND MERCHANDISING ASSOCIATE Medicare annual wellness visit, subsequent Visit for screening mammogram DEXA AXIAL SKELETON BONE DENSITY 1 OR MORE SITES Schedule Routine, Read Routine (OP Routine) 07/15/2022 10:37 AM SALES AND MERCHANDISING ASSOCIATE Annual physical exam Osteopenia of multiple sites Asymptomatic postmenopausal state COLONOSCOPY 07/17/2021 8:35 AM SALES AND MERCHANDISING ASSOCIATE HEPATITIS C ANTIBODY Routine 04/15/2021 8:55 AM CDT Annual physical exam Screening for viral disease from Last 3 Months or Most Recently Relevant to Health Maintenance Results * eGFR (10/17/2024 9:12 PM SALES AND MERCHANDISING ASSOCIATE) eGFR 69 >=60 mL/min/1. 73 m2 Comment: Interpretive Data Reference Interval Normal >/= 90 mL/min/1.73m2 Mildly decreased* 60 - 89 mL/min/1.73m2 Mildly to moderately decreased 45 - 59 mL/min/1.73m2 Moderately to severely decreased 30 - 44 mL/min/1.73m2 Severely decreased 15 - 29 mL/min/1.73m2 Kidney Failure < 15 mL/min/1.73m2 *Relative to young adult level Estimated glomerular filtration rate is determined by the 2020 CKD-EPI equation recommended by the National Kidney Foundation (A Unifying Approach to GFR Estimation: Recommendations of the NKF-ASK Task Force on Reassessing the Inclusion of Race in Diagnosing Kidney Disease, JASN 2020). The CKD-EPI equation should not be used for patients with unstable renal function and has not been validated in children and those over 70. Current interpretive data was last reviewed 2021. Blood 10/17/2024 9:12 PM SALES AND MERCHANDISING ASSOCIATE 10/17/2024 9:44 PM SALES AND MERCHANDISING ASSOCIATE us Francy Stinson NP LAB BLOOD ORDERABLES Final Result [facility] Department [place] [address] * (ABNORMAL) CBC without differential (10/17/2024 9:12 PM SALES AND MERCHANDISING ASSOCIATE) [facility] WBC 10.5(H) 3.8 - 9.9 K/cumm Hgb 13.0 11.9 - 15.5 g/dL [facility] Hct 40.8 35.6 - 45.5 % [facility] Plt 281 150 - 400 K/cumm [facility] MPV 10.1 9.1 - 12.3 fL [facility] RBC 4.72 3.90 - 5.20 M/cumm [facility] MCV 86.4 81.3 - 96.4 fL [facility] MCH 27.5 27.1 - 33.3 pg [facility] MCHC 31.9(L) 32.3 - 35.7 g/dL [facility] RDW CV 13.0 11.1 - 14.9 % [facility] RDW SD 40.7 35.7 - 48.1 fL [facility] NRBC abs 0.00 0.00 - 0.01 K/cumm [facility] Blood 10/17/2024 9:12 PM SALES AND MERCHANDISING ASSOCIATE 10/17/2024 9:44 PM SALES AND MERCHANDISING ASSOCIATE Josefa Keller NP LAB BLOOD ORDERABLES Final Result [facility] Department [place] [address] * (ABNORMAL) Basic metabolic panel (10/17/2024 9:12 PM SALES AND MERCHANDISING ASSOCIATE) [facility] Sodium 146(H) 135 - 145 mmol/L Potassium, pl 3.9 3.3 - 4.9 mmol/L [facility] Chloride 108 97 - 110 mmol/L [facility] CO2 28 22 - 32 mmol/L [facility] Anion gap 10 2 - 15 mmol/L [facility] BUN 21 6 - 25 mg/dL [facility] Creatinine 0.88 0.60 - 1.10 mg/dL [facility] Glucose 108 70 - 199 mg/dL [facility] Comment: Interpretive Data Fasting glucose >/= 126 mg/dl is diagnostic for diabetes. Fasting is defined as no caloric intake for at least 8 hours. Fasting glucose between 100 mg/dl to 125 mg/dl is diagnostic of prediabetes. In a patient with classic symptoms of hyperglycemia or hyperglycemic crisis, a random glucose >/= 200 mg/dl is diagnostic for diabetes. In the absence of unequivocal hyperglycemia, results should be confirmed by repeat testing. The classification and Diagnosis of Diabetes Diabetes Care 2021; 46: S19-S40. Current interpretive data was last revised 2022. Calcium 9.3 8.5 - 10.3 mg/dL [facility] Blood 10/17/2024 9:12 PM SALES AND MERCHANDISING ASSOCIATE 10/17/2024 9:44 PM SALES AND MERCHANDISING ASSOCIATE Francy Stinson FLYER REPAIRER LAB BLOOD ORDERABLES Final Result Performing Organization Address City/State/[facility] Co de Phone Number [facility] Department [place] [address] * XR Abdomen Ap 1 Vw (10/17/2024 2:07 PM SALES AND MERCHANDISING ASSOCIATE) Anatomical Region Laterality Modality Body, Abdomen N/A Computed Radiogr aphy 10/17/2024 3:01 PM SALES AND MERCHANDISING ASSOCIATE Impressions 10/17/2024 4:32 PM SALES AND MERCHANDISING ASSOCIATE There is contrast material throughout the colon likely post modified barium swallow. Fecal material and contrast in the normally calibrated colon. No dilated small bowel loops. Dictated by: Anastasiia Guillaume M.D. The radiology attending physician has personally reviewed this study, and had reviewed and/or edited this written report and agrees with it. Electronically signed by: Phillip Yoon M.D. Narrative 10/17/2024 4:32 PM SALES AND MERCHANDISING ASSOCIATE EXAMINATION: Abdomen, one view. HISTORY: Constipation. COMPARISON: Radiograph dated 10/11/2024. Procedure Note Phillip Yoon MD - 10/17/2024 EXAMINATION: Abdomen, one view. HISTORY: Constipation. COMPARISON: Radiograph dated 10/11/2024. IMPRESSION: There is contrast material throughout the colon likely post modified barium swallow. Fecal material and contrast in the normally calibrated colon. No dilated small bowel loops. Dictated by: Anastasiia Guillaume M.D. The radiology attending physician has personally reviewed this study, and had reviewed and/or edited this written report and agrees with it. Electronically signed by: Phillip Yono M.D. us Eliceo Sapp MD IMG XR PROCEDURES Final Re sult * eGFR (10/16/2024 8:34 PM SALES AND MERCHANDISING ASSOCIATE) eGFR 73 >=60 mL/min/1. 73 m2 Comment: Interpretive Data Reference Interval Normal >/= 90 mL/min/1.73m2 Mildly decreased* 60 - 89 mL/min/1.73m2 Mildly to moderately decreased 45 - 59 mL/min/1.73m2 Moderately to severely decreased 30 - 44 mL/min/1.73m2 Severely decreased 15 - 29 mL/min/1.73m2 Kidney Failure < 15 mL/min/1.73m2 *Relative to young adult level Estimated glomerular filtration rate is determined by the 2020 CKD-EPI equation recommended by the National Kidney Foundation (A Unifying Approach to GFR Estimation: Recommendations of the NKF-ASK Task Force on Reassessing the Inclusion of Race in Diagnosing Kidney Disease, JASN 202). The CKD-EPI equation should not be used for patients with unstable renal function and has not been validated in children and those over 70. Current interpretive data was last reviewed 2021. Blood 10/16/2024 8:34 PM SALES AND MERCHANDISING ASSOCIATE 10/16/2024 9:44 PM SALES AND MERCHANDISING ASSOCIATE us Francy Stinson NP LAB BLOOD ORDERABLES Final Result [facility] Department [place] [address] * CBC without differential (10/16/2024 8:34 PM SALES AND MERCHANDISING ASSOCIATE) WBC 8.8 3.8 - 9.9 K/cumm Hgb 12.6 11.9 - 15.5 g/dL [facility] Hct 38.9 35.6 - 45.5 % [facility] Plt 253 150 - 400 K/cumm [facility] MPV 10.5 9.1 - 12.3 fL [facility] RBC 4.52 3.90 - 5.20 M/cumm [facility] MCV 86.1 81.3 - 96.4 fL [facility] MCH 27.9 27.1 - 33.3 pg [facility] MCHC 32.4 32.3 - 35.7 g/dL [facility] RDW CV 13.0 11.1 - 14.9 % [facility] RDW SD 40.7 35.7 - 48.1 fL [facility] NRBC abs 0.00 0.00 - 0.01 K/cumm [facility] Blood 10/16/2024 8:34 PM SALES AND MERCHANDISING ASSOCIATE 10/16/2024 9:44 PM SALES AND MERCHANDISING ASSOCIATE Josefa Keller NP LAB BLOOD ORDERABLES Final Result [facility] Department [place] [address] * Basic metabolic panel (10/16/2024 8:34 PM SALES AND MERCHANDISING ASSOCIATE) [facility] Sodium 143 135 - 145 mmol/L Potassium, pl 3.8 3.3 - 4.9 mmol/L [facility] Chloride 105 97 - 110 mmol/L [facility] CO2 27 22 - 32 mmol/L [facility] Anion gap 11 2 - 15 mmol/L [facility] BUN 17 6 - 25 mg/dL [facility] Creatinine 0.84 0.60 - 1.10 mg/dL [facility] Glucose 173 70 - 199 mg/dL [facility] Comment: Interpretive Data Fasting glucose >/= 126 mg/dl is diagnostic for diabetes. Fasting is defined as no caloric intake for at least 8 hours. Fasting glucose between 100 mg/dl to 125 mg/dl is diagnostic of prediabetes. In a patient with classic symptoms of hyperglycemia or hyperglycemic crisis, a random glucose >/= 200 mg/dl is diagnostic for diabetes. In the absence of unequivocal hyperglycemia, results should be confirmed by repeat testing. The classification and Diagnosis of Diabetes Diabetes Care 202; 46: S19-S40. Current interpretive data was last revised 2022. Calcium 8.9 8.5 - 10.3 mg/dL [facility] Blood 10/16/2024 8:34 PM SALES AND MERCHANDISING ASSOCIATE 10/16/2024 9:44 PM SALES AND MERCHANDISING ASSOCIATE Francy Stinson NP LAB BLOOD ORDERABLES Final Result [facility] Department [place] [address] * eGFR (10/16/2024 4:14 AM SALES AND MERCHANDISING ASSOCIATE) eGFR 90 >=60 mL/min/1. 73 m2 Comment: Interpretive Data Reference Interval Normal >/= 90 mL/min/1.73m2 Mildly decreased* 60 - 89 mL/min/1.73m2 Mildly to moderately decreased 45 - 59 mL/min/1.73m2 Moderately to severely decreased 30 - 44 mL/min/1.73m2 Severely decreased 15 - 29 mL/min/1.73m2 Kidney Failure < 15 mL/min/1.73m2 *Relative to young adult level Estimated glomerular filtration rate is determined by the 2020 CKD-EPI equation recommended by the National Kidney Foundation (A Unifying Approach to GFR Estimation: Recommendations of the NKF-ASK Task Force on Reassessing the Inclusion of Race in Diagnosing Kidney Disease, JASN 2020). The CKD-EPI equation should not be used for patients with unstable renal function and has not been validated in children and those over 70. Current interpretive data was last reviewed 2021. Blood 10/16/2024 4:14 AM SALES AND MERCHANDISING ASSOCIATE 10/16/2024 4:24 AM SALES AND MERCHANDISING ASSOCIATE Francy Stinson NP LAB BLOOD ORDERABLES Final Result [facility] Department [place] [address] * (ABNORMAL) CBC without differential (10/16/2024 4:14 AM SALES AND MERCHANDISING ASSOCIATE) [facility] WBC 8.2 3.8 - 9.9 K/cumm Hgb 11.7(L) 11.9 - 15.5 g/dL [facility] Hct 37.1 35.6 - 45.5 % [facility] Plt 257 150 - 400 K/cumm [facility] MPV 9.9 9.1 - 12.3 fL [facility] RBC 4.31 3.90 - 5.20 M/cumm [facility] MCV 86.1 81.3 - 96.4 fL [facility] MCH 27.1 27.1 - 33.3 pg [facility] MCHC 31.5(L) 32.3 - 35.7 g/dL [facility] RDW CV 13.2 11.1 - 14.9 % [facility] RDW SD 41.8 35.7 - 48.1 fL [facility] NRBC abs 0.00 0.00 - 0.01 K/cumm [facility] Blood 10/16/2024 4:14 AM SALES AND MERCHANDISING ASSOCIATE 10/16/2024 4:24 AM SALES AND MERCHANDISING ASSOCIATE Josefa Keller NP LAB BLOOD ORDERABLES Final Result Performing Organization Address City/[facility] Co de Phone Number [facility] Department [place] [address] * Basic metabolic panel (10/16/2024 4:14 AM SALES AND MERCHANDISING ASSOCIATE) [facility] Sodium 144 135 - 145 mmol/L Potassium, pl 3.8 3.3 - 4.9 mmol/L [facility] Chloride 109 97 - 110 mmol/L [facility] CO2 29 22 - 32 mmol/L [facility] Anion gap 6 2 - 15 mmol/L [facility] BUN 20 6 - 25 mg/dL [facility] Creatinine 0.71 0.60 - 1.10 mg/dL [facility] Glucose 105 70 - 199 mg/dL [facility] Comment: Interpretive Data Fasting glucose >/= 126 mg/dl is diagnostic for diabetes. Fasting is defined as no caloric intake for at least 8 hours. Fasting glucose between 100 mg/dl to 125 mg/dl is diagnostic of prediabetes. In a patient with classic symptoms of hyperglycemia or hyperglycemic crisis, a random glucose >/= 200 mg/dl is diagnostic for diabetes. In the absence of unequivocal hyperglycemia, results should be confirmed by repeat testing. The classification and Diagnosis of Diabetes Diabetes Care 2021; 46: S19-S40. Current interpretive data was last revised 2022. Calcium 8.8 8.5 - 10.3 mg/dL [facility] Blood 10/16/2024 4:14 AM SALES AND MERCHANDISING ASSOCIATE 10/16/2024 4:24 AM SALES AND MERCHANDISING ASSOCIATE Francy Stinson NP LAB BLOOD ORDERABLES Final Result [facility] Department [place] [address] * eGFR (10/14/2024 9:01 PM SALES AND MERCHANDISING ASSOCIATE) eGFR 72 >=60 mL/min/1. 73 m2 Comment: Interpretive Data Reference Interval Normal >/= 90 mL/min/1.73m2 Mildly decreased* 60 - 89 mL/min/1.73m2 Mildly to moderately decreased 45 - 59 mL/min/1.73m2 Moderately to severely decreased 30 - 44 mL/min/1.73m2 Severely decreased 15 - 29 mL/min/1.73m2 Kidney Failure < 15 mL/min/1.73m2 *Relative to young adult level Estimated glomerular filtration rate is determined by the 2020 CKD-EPI equation recommended by the National Kidney Foundation (A Unifying Approach to GFR Estimation: Recommendations of the NKF-ASK Task Force on Reassessing the Inclusion of Race in Diagnosing Kidney Disease, JASN 2020). The CKD-EPI equation should not be used for patients with unstable renal function and has not been validated in children and those over 70. Current interpretive data was last reviewed 2021. Blood 10/14/2024 9:01 PM SALES AND MERCHANDISING ASSOCIATE 10/14/2024 9:21 PM SALES AND MERCHANDISING ASSOCIATE Francy Stinson FLYER REPAIRER LAB BLOOD ORDERABLES Final Result Performing Organization Address City/[facility]/ZIP Co de Phone Number [facility] [place] [address] * (ABNORMAL) CBC without differential (10/14/2024 9:01 PM SALES AND MERCHANDISING ASSOCIATE) Pathologist [facility] WBC 9.7 3.8 - 9.9 K/cumm Hgb 13.3 11.9 - 15.5 g/dL [facility] Hct 42.4 35.6 - 45.5 % [facility] Plt 247 150 - 400 K/cumm [facility] MPV 9.7 9.1 - 12.3 fL [facility] RBC 4.91 3.90 - 5.20 M/cumm [facility] MCV 86.4 81.3 - 96.4 fL [facility] MCH 27.1 27.1 - 33.3 pg [facility] MCHC 31.4(L) 32.3 - 35.7 g/dL [facility] RDW CV 13.2 11.1 - 14.9 % [facility] RDW SD 41.6 35.7 - 48.1 fL [facility] NRBC abs 0.00 0.00 - 0.01 K/cumm [facility] Blood 10/14/2024 9:01 PM SALES AND MERCHANDISING ASSOCIATE 10/14/2024 9:20 PM SALES AND MERCHANDISING ASSOCIATE Josefa Keller FLYER REPAIRER LAB BLOOD ORDERABLES Final Result [facility] [place] [address] * Phosphorus (10/14/2024 9:01 PM SALES AND MERCHANDISING ASSOCIATE) Pathologist [facility] Phosphorus, pl 3.3 2.3 - 4.5 mg/dL Blood 10/14/2024 9:01 PM SALES AND MERCHANDISING ASSOCIATE 10/14/2024 9:21 PM SALES AND MERCHANDISING ASSOCIATE Francy Stinson FLYER REPAIRER LAB BLOOD ORDERABLES Final Result [facility] Department [place] [address] * (ABNORMAL) Magnesium (10/14/2024 9:01 PM SALES AND MERCHANDISING ASSOCIATE) Pathologist [facility] Magnesium 2.7(H) 1.4 - 2.5 mg/dL Blood 10/14/2024 9:01 PM SALES AND MERCHANDISING ASSOCIATE 10/14/2024 9:21 PM SALES AND MERCHANDISING ASSOCIATE Josefa Keller FLYER REPAIRER LAB BLOOD ORDERABLES Final Result Performing Organization Address [facility] Co de Phone Number [facility] [place] [address] * (ABNORMAL) Comprehensive metabolic panel (10/14/2024 9:01 PM SALES AND MERCHANDISING ASSOCIATE) Pathologist [facility] Sodium 147(H) 135 - 145 mmol/L Potassium, pl 3.9 3.3 - 4.9 mmol/L [facility] Chloride 109 97 - 110 mmol/L [facility] CO2 31 22 - 32 mmol/L [facility] Anion gap 7 2 - 15 mmol/L [facility] BUN 26(H) 6 - 25 mg/dL [facility] Creatinine 0.85 0.60 - 1.10 mg/dL [facility] Glucose 124 70 - 199 mg/dL [facility] Comment: Interpretive Data Fasting glucose >/= 126 mg/dl is diagnostic for diabetes. Fasting is defined as no caloric intake for at least 8 hours. Fasting glucose between 100 mg/dl to 125 mg/dl is diagnostic of prediabetes. In a patient with classic symptoms of hyperglycemia or hyperglycemic crisis, a random glucose >/= 200 mg/dl is diagnostic for diabetes. In the absence of unequivocal hyperglycemia, results should be confirmed by repeat testing. The classification and Diagnosis of Diabetes Diabetes Care 202; 46: S19-S40. Current interpretive data was last revised 2022. Calcium 9.7 8.5 - 10.3 mg/dL [facility] Bilirubin, total 0.4 0.1 - 1.2 mg/dL [facility] Protein, pl 7.1 6.5 - 8.5 g/dL [facility] Albumin 3.7 3.5 - 5.0 g/dL [facility] Alk phos 76 40 - 130 Units/L [facility] ALT 15 7 - 45 Units/L [facility] AST 22 10 - 45 Units/L [facility] Blood 10/14/2024 9:01 PM SALES AND MERCHANDISING ASSOCIATE 10/14/2024 9:21 PM SALES AND MERCHANDISING ASSOCIATE us Francy Stinson NP LAB BLOOD ORDERABLES Final Result Performing Organization Address City/[facility]/ZIP Co de Phone Number [facility] Department [place] [address] * POCT glucose (10/14/2024 12:21 PM SALES AND MERCHANDISING ASSOCIATE) Glucose, POC 111 70 - 199 mg/dL Blood 10/14/2024 12:2 1 PM SALES AND MERCHANDISING ASSOCIATE 10/14/2024 12:21 PM SALES AND MERCHANDISING ASSOCIATE us Germania Mota MD LAB POCT ORDERABLES - D EVICE Final Result Performing Organization Address City/[facility]/ZIP Co de Phone Number [facility] Department [place] [address] * eGFR (10/13/2024 10:21 PM SALES AND MERCHANDISING ASSOCIATE) eGFR 71 >=60 mL/min/1. 73 m2 Comment: Interpretive Data Reference Interval Normal >/= 90 mL/min/1.73m2 Mildly decreased* 60 - 89 mL/min/1.73m2 Mildly to moderately decreased 45 - 59 mL/min/1.73m2 Moderately to severely decreased 30 - 44 mL/min/1.73m2 Severely decreased 15 - 29 mL/min/1.73m2 Kidney Failure < 15 mL/min/1.73m2 *Relative to young adult level Estimated glomerular filtration rate is determined by the 2020 CKD-EPI equation recommended by the National Kidney Foundation (A Unifying Approach to GFR Estimation: Recommendations of the NKF-ASK Task Force on Reassessing the Inclusion of Race in Diagnosing Kidney Disease, JASN 2020). The CKD-EPI equation should not be used for patients with unstable renal function and has not been validated in children and those over 70. Current interpretive data was last reviewed 2021. Blood 10/13/2024 10:2 1 PM SALES AND MERCHANDISING ASSOCIATE 10/13/2024 10:33 PM SALES AND MERCHANDISING ASSOCIATE Francy Stinson NP LAB BLOOD ORDERABLES Final Result [facility] Department [place] [address] * (ABNORMAL) CBC without differential (10/13/2024 10:21 PM SALES AND MERCHANDISING ASSOCIATE) WBC 10.2(H) 3.8 - 9.9 K/cumm Hgb 12.1 11.9 - 15.5 g/dL [facility] Hct 38.1 35.6 - 45.5 % [facility] Plt 253 150 - 400 K/cumm [facility] MPV 9.5 9.1 - 12.3 fL [facility] RBC 4.47 3.90 - 5.20 M/cumm [facility] MCV 85.2 81.3 - 96.4 fL [facility] MCH 27.1 27.1 - 33.3 pg [facility] MCHC 31.8(L) 32.3 - 35.7 g/dL [facility] RDW CV 13.4 11.1 - 14.9 % [facility] RDW SD 41.9 35.7 - 48.1 fL [facility] NRBC abs 0.00 0.00 - 0.01 K/cumm [facility] Blood 10/13/2024 10:2 1 PM SALES AND MERCHANDISING ASSOCIATE 10/13/2024 10:34 PM SALES AND MERCHANDISING ASSOCIATE us Josefa Keller FLYER REPAIRER LAB BLOOD ORDERABLES Final Result [facility] Department [place] [address] * (ABNORMAL) Basic metabolic panel (10/13/2024 10:21 PM SALES AND MERCHANDISING ASSOCIATE) Pathologist [facility] Sodium 146(H) 135 - 145 mmol/L Potassium, pl 4.2 3.3 - 4.9 mmol/L [facility] Chloride 108 97 - 110 mmol/L [facility] CO2 30 22 - 32 mmol/L [facility] Anion gap 8 2 - 15 mmol/L [facility] BUN 25 6 - 25 mg/dL [facility] Creatinine 0.86 0.60 - 1.10 mg/dL [facility] Glucose 100 70 - 199 mg/dL [facility] Comment: Interpretive Data Fasting glucose >/= 126 mg/dl is diagnostic for diabetes. Fasting is defined as no caloric intake for at least 8 hours. Fasting glucose between 100 mg/dl to 125 mg/dl is diagnostic of prediabetes. In a patient with classic symptoms of hyperglycemia or hyperglycemic crisis, a random glucose >/= 200 mg/dl is diagnostic for diabetes. In the absence of unequivocal hyperglycemia, results should be confirmed by repeat testing. The classification and Diagnosis of Diabetes Diabetes Care 2021; 46: S19-S40. Current interpretive data was last revised 2022. Calcium 9.6 8.5 - 10.3 mg/dL [facility] Blood 10/13/2024 10:2 1 PM SALES AND MERCHANDISING ASSOCIATE 10/13/2024 10:33 PM SALES AND MERCHANDISING ASSOCIATE Francy Stinson FLYER REPAIRER LAB BLOOD ORDERABLES Final Result Performing Organization Address [facility]/ZIP Co de Phone Number [facility] Department [place] [address] * eGFR (10/12/2024 8:23 PM SALES AND MERCHANDISING ASSOCIATE) Pathologist [facility] eGFR 87 >=60 mL/min/1. 73 m2 Comment: Interpretive Data Reference Interval Normal >/= 90 mL/min/1.73m2 Mildly decreased* 60 - 89 mL/min/1.73m2 Mildly to moderately decreased 45 - 59 mL/min/1.73m2 Moderately to severely decreased 30 - 44 mL/min/1.73m2 Severely decreased 15 - 29 mL/min/1.73m2 Kidney Failure < 15 mL/min/1.73m2 *Relative to young adult level Estimated glomerular filtration rate is determined by the 2020 CKD-EPI equation recommended by the National Kidney Foundation (A Unifying Approach to GFR Estimation: Recommendations of the NKF-ASK Task Force on Reassessing the Inclusion of Race in Diagnosing Kidney Disease, JASN 2020). The CKD-EPI equation should not be used for patients with unstable renal function and has not been validated in children and those over 70. Current interpretive data was last reviewed 2021. Blood 10/12/2024 8:23 PM SALES AND MERCHANDISING ASSOCIATE 10/12/2024 9:48 PM SALES AND MERCHANDISING ASSOCIATE Francy Stinson NP LAB BLOOD ORDERABLES Final Result [facility] Department of Laboratories [place], [place] [id number] * (ABNORMAL) CBC without differential (10/12/2024 8:23 PM SALES AND MERCHANDISING ASSOCIATE) WBC 11.1(H) 3.8 - 9.9 K/cumm Hgb 13.1 11.9 - 15.5 g/dL [facility] Hct 41.6 35.6 - 45.5 % [facility] Plt 225 150 - 400 K/cumm [facility] MPV 10.4 9.1 - 12.3 fL [facility] RBC 4.81 3.90 - 5.20 M/cumm [facility] MCV 86.5 81.3 - 96.4 fL [facility] MCH 27.2 27.1 - 33.3 pg [facility] MCHC 31.5(L) 32.3 - 35.7 g/dL [facility] RDW CV 13.6 11.1 - 14.9 % [facility] RDW SD 42.8 35.7 - 48.1 fL [facility] NRBC abs 0.00 0.00 - 0.01 K/cumm [facility] Blood 10/12/2024 8:23 PM SALES AND MERCHANDISING ASSOCIATE 10/12/2024 9:47 PM SALES AND MERCHANDISING ASSOCIATE Josefa Keller FLYER REPAIRER LAB BLOOD ORDERABLES Final Result [facility] Department [place] [address] * Basic metabolic panel (10/12/2024 8:23 PM SALES AND MERCHANDISING ASSOCIATE) Sodium 143 135 - 145 mmol/L Potassium, pl 4.2 3.3 - 4.9 mmol/L [facility] Chloride 104 97 - 110 mmol/L [facility] CO2 30 22 - 32 mmol/L [facility] Anion gap 9 2 - 15 mmol/L [facility] BUN 17 6 - 25 mg/dL [facility] Creatinine 0.73 0.60 - 1.10 mg/dL [facility] Glucose 105 70 - 199 mg/dL [facility] Comment: Interpretive Data Fasting glucose >/= 126 mg/dl is diagnostic for diabetes. Fasting is defined as no caloric intake for at least 8 hours. Fasting glucose between 100 mg/dl to 125 mg/dl is diagnostic of prediabetes. In a patient with classic symptoms of hyperglycemia or hyperglycemic crisis, a random glucose >/= 200 mg/dl is diagnostic for diabetes. In the absence of unequivocal hyperglycemia, results should be confirmed by repeat testing. The classification and Diagnosis of Diabetes Diabetes Care 202; 46: S19-S40. Current interpretive data was last revised 2022. Calcium 9.3 8.5 - 10.3 mg/dL [facility] Blood 10/12/2024 8:23 PM SALES AND MERCHANDISING ASSOCIATE 10/12/2024 9:48 PM SALES AND MERCHANDISING ASSOCIATE Francy Stinson FLYER REPAIRER LAB BLOOD ORDERABLES Final Result [facility] Department [place] [address] * FL Modified Barium Swallow W Video (10/12/2024 2:45 PM SALES AND MERCHANDISING ASSOCIATE) Anatomical Region Laterality Modality Head and Neck N/A Computed Radiogr aphy 10/12/2024 3:29 PM SALES AND MERCHANDISING ASSOCIATE Impressions 10/12/2024 3:29 PM SALES AND MERCHANDISING ASSOCIATE The swallowing mechanism is abnormal; see above comments. Please refer to the Speech Pathology procedure note for safe swallow recommendations as well as additional information regarding the oral-pharyngeal swallow function, plan of care, and recommended follow up. Dictated by: Mario Alberto Quach M.D. ([place]) The radiology attending physician has personally reviewed this study, and had reviewed and/or edited this written report and agrees with it. Electronically signed by: Anjelica Ding M.D. Narrative 10/12/2024 3:29 PM SALES AND MERCHANDISING ASSOCIATE EXAMINATION: MODIFIED BARIUM SWALLOW HISTORY: Dysphagia. TECHNIQUE: This procedure was completed in conjunction with a Speech Language Pathologist. The patient was given barium of multiple different consistencies to swallow. Video fluoroscopy was employed during the exam. FINDINGS: Oral-pharyngeal swallow function is moderately impaired. Penetration: Yes There is penetration of thin liquid, nectar thick liquid. Penetration is sometimes sensed. The penetrated material is not cleared. Aspiration: Yes There is aspiration of nectar thick liquid. Aspiration is sensed. The aspirated material is not cleared. Residue:Yes There is residue of thin liquid, nectar thick liquid, honey thick liquid, puree, solid. Residue is sensed. The residual material is cleared. Other comments: None Procedure Note Anjelica Ding MD - 10/12/2024 EXAMINATION: MODIFIED BARIUM SWALLOW HISTORY: Dysphagia. TECHNIQUE: This procedure was completed in conjunction with a Speech Language Pathologist. The patient was given barium of multiple different consistencies to swallow. Video fluoroscopy was employed during the exam. FINDINGS: Oral-pharyngeal swallow function is moderately impaired. Penetration: Yes There is penetration of thin liquid, nectar thick liquid. Penetration is sometimes sensed. The penetrated material is not cleared. Aspiration: Yes There is aspiration of nectar thick liquid. Aspiration is sensed. The aspirated material is not cleared. Residue:Yes There is residue of thin liquid, nectar thick liquid, honey thick liquid, puree, solid. Residue is sensed. The residual material is cleared. Other comments: None IMPRESSION: The swallowing mechanism is abnormal; see above comments. Please refer to the Speech Pathology procedure note for safe swallow recommendations as well as additional information regarding the oral-pharyngeal swallow function, plan of care, and recommended follow up. Dictated by: Mario Alberto Quach M.D. ([place]) The radiology attending physician has personally reviewed this study, and had reviewed and/or edited this written report and agrees with it. Electronically signed by: Anjelica Ding M.D. Lelia Freitas FLYER REPAIRER IMG FLUOROSCOPY STEPHY CHAVES Final Result * HOSE OPERATOR Evaluate and Treat (VFSS) (10/12/2024 2:35 PM SALES AND MERCHANDISING ASSOCIATE) Narrative Ingris Pierson SLP - 10/12/2024 2:35 PM SALES AND MERCHANDISING ASSOCIATE Ingris Pierson SLP 10/12/2024 3:50 PM Speech-Language Pathology: Videofluoroscopic Study of Swallow (VFSS/MBS) HPI/PMH HPI/PMH: 74 year old woman with history of hypertension, hyperlipidemia, GERD, anxiety disorder who is transferred here from [facility] with a L BG/Internal capsule ICH after a fall (without LOC). Respiratory/Intubation Status: 2L O2 via NC Imaging: hCT 2/3: 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 No definite intraventricular extension or significant midline shift. CXR 2/2: No focal opacity, pleural effusion, or pneumothorax. Precautions: fall, SHAMAR Current Diet Order: NPO Baseline Diet: regular diet/thin liquids General Information Megan Salas 10/12/24 HOSE OPERATOR Received On: 10/12/24 General Observations: Pt seen sitting upright in the evaluation chair with right mitten and right wrist restraint in place, RN present. Pt alert, garbled speech, not following commands, accepting of PO. Reason for Referral: To further assess current function, r/o aspiration, and to determine safest and least restrictive diet. Pain Score: 0 - No pain If pain >4, was RN notified? N/A Patient Stated Goal/Comments: Pt with garbled speech, unintelligible. Clinical Impression & Professional Recommendations Diet Solids Recommendation: Dysphagia diet-Phase 2 Diet Liquids Recommendations: Honey thick via SPOON only (No ice in drinks, no ice cream and no jello, soup must be thickened) Recommended Form of Medications: Crushed, With puree Compensatory Strategies/Modifications: Small bites, Single sips (small sips via spoon only) Postural Recommendations: Upright 90 degrees Assistance with feeding/swallowing: One to one assist with meals Specialty Instructions: (Please assist pt with oral care 2-3 times a day, including teeth brushing (gums and tongue) to improve the oral biome and reduce the risk of aspiration related complications (i.e., PNA) Overall Clinical Impression/Additional Information: 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 Containment improved with spoon sips. Slow, prolonged AP transit of bolus across consistencies and prolonged mastication of hard solids. Reduced lingual to palatal contact resulting in premature spillage of bolus into pharynx. Trace to mild oral residue. Pharyngeal Phase Deficits: delayed swallow initiation to the level of the pyriform sinuses with thin liquid, reduced hyo-laryngeal elevation and excursion, incomplete epiglottic inversion, incomplete laryngeal vestibule closure, base of tongue and pharyngeal weakness Deficits result in: With thin liquids, pt with small bolus size given significant anterior spillage 2/2 poor labial seal. Inconsistent deep penetration to the level of the vocal folds observed with thin liquid; pt did not sense deep penetration and unable to follow commands to attempt cued cough/modifications. Improved oral containment with thicker consistencies with improved containment of nectar thickened liquid and honey thickened liquid via spoon and no anterior spillage with puree or solid consistencies. Pt with consistent aspiration of nectar thickened liquid during the swallow; reflexive cough not productive to clear material from trachea. No penetration or aspiration with any honey thickened liquid (via spoon), puree, or solid trials this date. Assessment Details & Results Purpose and Procedure of Videofluoroscopic Study of Swallow: Videofluoroscopic Study of Swallow completed to assess oropharyngeal swallow function and safety/efficiency of the swallow so that diet recommendations can be made. This test is completed in conjunction with Radiology. Results of this test are indicative of performance at the time of the exam. Standard procedure is in lateral view at 90 degrees. Consistencies Administered: Thin liquids, [place] thickened liquids, Honey thickened liquids, Purees, Solids Administered consistencies contain barium product. Thin Liquids: Laryngeal Penetration: Present Aspiration Present: No Penetration Aspiration Scale-Thin: 5-Material enters the airway, contacts the vocal folds and is not ejected from the airway [place] Thickened Liquids: Laryngeal Penetration: Present Aspiration Present: Yes Amount: Moderate Response to aspiration: Cough reflex Cough: Non-productive Penetration Aspiration Scale-[place]: 7-Material enters the airway, passes below the vocal folds and is not ejected from the trachea despite effort Honey Thickened Liquids: Laryngeal Penetration: None Aspiration Present: No Penetration Aspiration Scale-Honey: 1-Material does not enter airway Purees: Laryngeal Penetration: None Aspiration Present: No Penetration Aspiration Scale-Puree: 1-Material does not enter airway Solids: Laryngeal Penetration: None Aspiration Present: No Penetration Aspiration Scale-Solids: 1-Material does not enter airway MBSImp: MBSImp Results: Lip closure : 4-Escape beyond mid-chin Tongue Control with Bolus Hold: 2-Posterior escape of less than half of bolus Bolus Preparation/Mastication : 2-Disorganized chewing/mashing with solid pieces of bolus unchewed Bolus Transport/Lingual Motion : 2-Slowed tongue motion Oral Residue: 2-Residue collection on oral structures Initiation of Pharyngeal Swallow : 3-Bolus head in pyriforms Soft Palate : 0-No bolus between soft palate and pharyngeal wall Laryngeal Elevation : 1-Partial superior movement of thyroid cartilage with partial approximation of arytenoids to epiglottic petiole Anterior Hyoid Excursion: 1-Partial anterior movement Epiglottic Movement: 1-Partial inversion Laryngeal Vestibular Closure: 1-Incomplete, narrow column of air/contrast in laryngeal vestibule Pharyngeal Stripping Wave: 0-Present and complete Pharyngeal Contraction (AP view only): Not assessed, No AP view Pharyngoesophageal Segment Opening : 0-Complete distention and complete duration, no obstruction of flow Tongue Base Retraction : 2-Narrow column of contrast or air between tongue base and posterior pharyngeal wall Pharyngeal Residue : 2-Collection of residue within or on pharyngeal structures Esophageal Clearance (upright position): Not assessed, No AP view Dysphagia Outcome and Severity Scale: Dysphagia Outcomes and Severity Scale: 3 Moderate dysphagia Levels 1 & 2 on the VALENTE indicate need for nonoral nutrition. Treatment Treatment was not provided this date. Please reference care plan for treatment goals and details, if indicated. Plan HOSE OPERATOR Frequency of Services during current admission: 2-4x/wk HOSE OPERATOR Recommendation (Add'l Services): Inpatient Rehab Facility Next Visit Plan: treatment/therapy Additional Referrals: PT/OT Discharge Summary Statement If this is the last swallow therapy visit, this serves as the discharge summary. Lelia Freitas FLYER REPAIRER HOSE OPERATOR ORDERABLES Edite d Result - Final * eGFR (10/11/2024 9:06 PM SALES AND MERCHANDISING ASSOCIATE) eGFR 85 >=60 mL/min/1. 73 m2 Comment: Interpretive Data Reference Interval Normal >/= 90 mL/min/1.73m2 Mildly decreased* 60 - 89 mL/min/1.73m2 Mildly to moderately decreased 45 - 59 mL/min/1.73m2 Moderately to severely decreased 30 - 44 mL/min/1.73m2 Severely decreased 15 - 29 mL/min/1.73m2 Kidney Failure < 15 mL/min/1.73m2 *Relative to young adult level Estimated glomerular filtration rate is determined by the 2020 CKD-EPI equation recommended by the National Kidney Foundation (A Unifying Approach to GFR Estimation: Recommendations of the NKF-ASK Task Force on Reassessing the Inclusion of Race in Diagnosing Kidney Disease, JASN 2020). The CKD-EPI equation should not be used for patients with unstable renal function and has not been validated in children and those over 70. Current interpretive data was last reviewed 2021. Blood 10/11/2024 9:06 PM SALES AND MERCHANDISING ASSOCIATE 10/11/2024 9:46 PM SALES AND MERCHANDISING ASSOCIATE us Francy Stinson NP LAB BLOOD ORDERABLES Final Result OZIEL SHEPPARD [facility] Department [place] [address] * (ABNORMAL) CBC without differential (10/11/2024 9:06 PM SALES AND MERCHANDISING ASSOCIATE) WBC 12.6(H) 3.8 - 9.9 K/cumm Hgb 12.2 11.9 - 15.5 g/dL [facility] Hct 38.0 35.6 - 45.5 % [facility] Plt 256 150 - 400 K/cumm [facility] MPV 9.8 9.1 - 12.3 fL [facility] RBC 4.37 3.90 - 5.20 M/cumm [facility] MCV 87.0 81.3 - 96.4 fL [facility] MCH 27.9 27.1 - 33.3 pg [facility] MCHC 32.1(L) 32.3 - 35.7 g/dL [facility] RDW CV 13.6 11.1 - 14.9 % [facility] RDW SD 43.5 35.7 - 48.1 fL [facility] NRBC abs 0.00 0.00 - 0.01 K/cumm [facility] Blood 10/11/2024 9:06 PM SALES AND MERCHANDISING ASSOCIATE 10/11/2024 9:45 PM SALES AND MERCHANDISING ASSOCIATE Josefa Kelelr NP LAB BLOOD ORDERABLES Final Result [facility] Department [place] [address] * Basic metabolic panel (10/11/2024 9:06 PM SALES AND MERCHANDISING ASSOCIATE) Sodium 145 135 - 145 mmol/L Potassium, pl 4.2 3.3 - 4.9 mmol/L [facility] Chloride 108 97 - 110 mmol/L [facility] CO2 29 22 - 32 mmol/L [facility] Anion gap 8 2 - 15 mmol/L [facility] BUN 17 6 - 25 mg/dL [facility] Creatinine 0.74 0.60 - 1.10 mg/dL [facility] Glucose 137 70 - 199 mg/dL [facility] Comment: Interpretive Data Fasting glucose >/= 126 mg/dl is diagnostic for diabetes. Fasting is defined as no caloric intake for at least 8 hours. Fasting glucose between 100 mg/dl to 125 mg/dl is diagnostic of prediabetes. In a patient with classic symptoms of hyperglycemia or hyperglycemic crisis, a random glucose >/= 200 mg/dl is diagnostic for diabetes. In the absence of unequivocal hyperglycemia, results should be confirmed by repeat testing. The classification and Diagnosis of Diabetes Diabetes Care 2021; 46: S19-S40. Current interpretive data was last revised 2022. Calcium 9.5 8.5 - 10.3 mg/dL [facility] Blood 10/11/2024 9:06 PM SALES AND MERCHANDISING ASSOCIATE 10/11/2024 9:46 PM SALES AND MERCHANDISING ASSOCIATE Francy Stinson NP LAB BLOOD ORDERABLES Final Result Performing Organization Address City/[facility]/ZIP Co de Phone Number [facility] Department [place] [address] * Potassium, whole blood (10/11/2024 2:11 AM SALES AND MERCHANDISING ASSOCIATE) Pathologist [facility] Potassium, bld 4.8 3.3 - 4.9 mmol/L Blood 10/11/2024 2:11 AM SALES AND MERCHANDISING ASSOCIATE 10/11/2024 2:26 AM SALES AND MERCHANDISING ASSOCIATE Avi Rahman MD LAB BLOOD ORDERABLES Final Resul t Performing Organization Address City/[facility] Co de Phone Number [facility] Department [place] [address] * (ABNORMAL) CBC without differential (10/11/2024 2:11 AM SALES AND MERCHANDISING ASSOCIATE) Pathologist [facility] WBC 10.1(H) 3.8 - 9.9 K/cumm Hgb 12.2 11.9 - 15.5 g/dL [facility] Hct 38.5 35.6 - 45.5 % [facility] Plt 238 150 - 400 K/cumm [facility] MPV 9.7 9.1 - 12.3 fL [facility] RBC 4.40 3.90 - 5.20 M/cumm [facility] MCV 87.5 81.3 - 96.4 fL [facility] MCH 27.7 27.1 - 33.3 pg [facility] MCHC 31.7(L) 32.3 - 35.7 g/dL [facility] RDW CV 13.6 11.1 - 14.9 % [facility] RDW SD 44.1 35.7 - 48.1 fL [facility] NRBC abs 0.00 0.00 - 0.01 K/cumm [facility] Blood 10/11/2024 2:11 AM SALES AND MERCHANDISING ASSOCIATE 10/11/2024 2:36 AM SALES AND MERCHANDISING ASSOCIATE us Avi Rahman MD LAB BLOOD ORDERABLES Final Resul t Performing Organization Address [facility] Co de Phone Number [facility] Department [place] [address] * eGFR (10/10/2024 9:30 PM SALES AND MERCHANDISING ASSOCIATE) eGFR 90 >=60 mL/min/1. 73 m2 Comment: Interpretive Data Reference Interval Normal >/= 90 mL/min/1.73m2 Mildly decreased* 60 - 89 mL/min/1.73m2 Mildly to moderately decreased 45 - 59 mL/min/1.73m2 Moderately to severely decreased 30 - 44 mL/min/1.73m2 Severely decreased 15 - 29 mL/min/1.73m2 Kidney Failure < 15 mL/min/1.73m2 *Relative to young adult level Estimated glomerular filtration rate is determined by the 2020 CKD-EPI equation recommended by the National Kidney Foundation (A Unifying Approach to GFR Estimation: Recommendations of the NKF-ASK Task Force on Reassessing the Inclusion of Race in Diagnosing Kidney Disease, JASN 2020). The CKD-EPI equation should not be used for patients with unstable renal function and has not been validated in children and those over 70. Current interpretive data was last reviewed 2021. Blood 10/10/2024 9:30 PM SALES AND MERCHANDISING ASSOCIATE 10/10/2024 10:23 PM SALES AND MERCHANDISING ASSOCIATE us Francy Stinson NP LAB BLOOD ORDERABLES Final Result Performing Organization Address City/[facility]/ZIP Co de Phone Number [facility] Department [place] [address] * Magnesium (10/10/2024 9:30 PM SALES AND MERCHANDISING ASSOCIATE) Pathologist [facility] Magnesium 2.2 1.4 - 2.5 mg/dL Blood 10/10/2024 9:30 PM SALES AND MERCHANDISING ASSOCIATE 10/10/2024 10:23 PM SALES AND MERCHANDISING ASSOCIATE Lauren Myers FLYER REPAIRER LAB BLOOD ORDERABLES Fi nal Result [facility] Department [place] [address] * Basic metabolic panel (10/10/2024 9:30 PM SALES AND MERCHANDISING ASSOCIATE) Pathologist [facility] Sodium 142 135 - 145 mmol/L Potassium, pl 4.4 3.3 - 4.9 mmol/L [facility] Comment:Hemolyzed; Potassium value may be falsely elevated by as much as 0.6-1.0 mmol/L. Suggest redraw and reanalysis. Chloride 106 97 - 110 mmol/L [facility] CO2 29 22 - 32 mmol/L [facility] Anion gap 7 2 - 15 mmol/L [facility] BUN 15 6 - 25 mg/dL [facility] Creatinine 0.71 0.60 - 1.10 mg/dL [facility] Glucose 137 70 - 199 mg/dL [facility] Comment: Interpretive Data Fasting glucose >/= 126 mg/dl is diagnostic for diabetes. Fasting is defined as no caloric intake for at least 8 hours. Fasting glucose between 100 mg/dl to 125 mg/dl is diagnostic of prediabetes. In a patient with classic symptoms of hyperglycemia or hyperglycemic crisis, a random glucose >/= 200 mg/dl is diagnostic for diabetes. In the absence of unequivocal hyperglycemia, results should be confirmed by repeat testing. The classification and Diagnosis of Diabetes Diabetes Care 2021; 46: S19-S40. Current interpretive data was last revised 2022. Calcium 8.7 8.5 - 10.3 mg/dL [facility] Blood 10/10/2024 9:30 PM SALES AND MERCHANDISING ASSOCIATE 10/10/2024 10:23 PM SALES AND MERCHANDISING ASSOCIATE Francy Stinson FLYER REPAIRER LAB BLOOD ORDERABLES Final Result OZIEL BJAgata [facility] Department [place] [address] * XR Abdomen Ap 1 Vw (10/10/2024 9:06 PM SALES AND MERCHANDISING ASSOCIATE) Anatomical Region Laterality Modality Body, Abdomen N/A Digital Radiogra phy 10/11/2024 8:51 AM SALES AND MERCHANDISING ASSOCIATE Impressions 10/11/2024 9:55 AM SALES AND MERCHANDISING ASSOCIATE Interval repositioning of feeding tube with tip projecting over the gastric fundus. Dictated by: Brian Baker MD The radiology attending physician has personally reviewed this study, and had reviewed and/or edited this written report and agrees with it. Electronically signed by: Phillip Yoon M.D. Narrative 10/11/2024 9:55 AM SALES AND MERCHANDISING ASSOCIATE EXAMINATION: Abdomen, one view. HISTORY: Check tube placement. COMPARISON: 10/08/2024 Procedure Note Phillip Yoon MD - 10/11/2024 EXAMINATION: Abdomen, one view. HISTORY: Check tube placement. COMPARISON: 10/08/2024 IMPRESSION: Interval repositioning of feeding tube with tip projecting over the gastric fundus. Dictated by: Brian Baker MD The radiology attending physician has personally reviewed this study, and had reviewed and/or edited this written report and agrees with it. Electronically signed by: Phillip Yoon M.D. us Avi Rahman MD IMG XR PROCEDURES Final Result * eGFR (10/09/2024 9:26 PM SALES AND MERCHANDISING ASSOCIATE) eGFR 78 >=60 mL/min/1. 73 m2 Comment: Interpretive Data Reference Interval Normal >/= 90 mL/min/1.73m2 Mildly decreased* 60 - 89 mL/min/1.73m2 Mildly to moderately decreased 45 - 59 mL/min/1.73m2 Moderately to severely decreased 30 - 44 mL/min/1.73m2 Severely decreased 15 - 29 mL/min/1.73m2 Kidney Failure < 15 mL/min/1.73m2 *Relative to young adult level Estimated glomerular filtration rate is determined by the 2020 CKD-EPI equation recommended by the National Kidney Foundation (A Unifying Approach to GFR Estimation: Recommendations of the NKF-ASK Task Force on Reassessing the Inclusion of Race in Diagnosing Kidney Disease, JASN 2020). The CKD-EPI equation should not be used for patients with unstable renal function and has not been validated in children and those over 70. Current interpretive data was last reviewed 2021. Blood 10/09/2024 9:26 PM SALES AND MERCHANDISING ASSOCIATE 10/09/2024 9:41 PM SALES AND MERCHANDISING ASSOCIATE Francy Stinson NP LAB BLOOD ORDERABLES Final Result [facility] Department [place] [address] * (ABNORMAL) CBC without differential (10/09/2024 9:26 PM SALES AND MERCHANDISING ASSOCIATE) WBC 9.2 3.8 - 9.9 K/cumm Hgb 12.5 11.9 - 15.5 g/dL [facility] Hct 38.8 35.6 - 45.5 % [facility] Plt 261 150 - 400 K/cumm [facility] MPV 9.3 9.1 - 12.3 fL [facility] RBC 4.52 3.90 - 5.20 M/cumm [facility] MCV 85.8 81.3 - 96.4 fL [facility] MCH 27.7 27.1 - 33.3 pg [facility] MCHC 32.2(L) 32.3 - 35.7 g/dL [facility] RDW CV 13.7 11.1 - 14.9 % [facility] RDW SD 42.9 35.7 - 48.1 fL [facility] NRBC abs 0.00 0.00 - 0.01 K/cumm [facility] Blood 10/09/2024 9:26 PM SALES AND MERCHANDISING ASSOCIATE 10/09/2024 9:41 PM SALES AND MERCHANDISING ASSOCIATE Francy Stinson FLYER REPAIRER LAB BLOOD ORDERABLES Final Result Performing Organization Address City/[facility]/ZIP Co de Phone Number [facility] Department [place] [address] * (ABNORMAL) Magnesium (10/09/2024 9:26 PM SALES AND MERCHANDISING ASSOCIATE) Pathologist [facility] Magnesium 2.6(H) 1.4 - 2.5 mg/dL Blood 10/09/2024 9:26 PM SALES AND MERCHANDISING ASSOCIATE 10/09/2024 9:41 PM SALES AND MERCHANDISING ASSOCIATE Lauren Myers FLYER REPAIRER LAB BLOOD ORDERABLES Fi nal Result Performing Organization Address [facility] de Phone Number [facility] Department [place] [address] * Basic metabolic panel (10/09/2024 9:26 PM SALES AND MERCHANDISING ASSOCIATE) Pathologist [facility] Sodium 145 135 - 145 mmol/L Potassium, pl 4.2 3.3 - 4.9 mmol/L [facility] Chloride 109 97 - 110 mmol/L [facility] CO2 28 22 - 32 mmol/L [facility] Anion gap 8 2 - 15 mmol/L [facility] BUN 12 6 - 25 mg/dL [facility] Creatinine 0.80 0.60 - 1.10 mg/dL [facility] Glucose 134 70 - 199 mg/dL [facility] Comment: Interpretive Data Fasting glucose >/= 126 mg/dl is diagnostic for diabetes. Fasting is defined as no caloric intake for at least 8 hours. Fasting glucose between 100 mg/dl to 125 mg/dl is diagnostic of prediabetes. In a patient with classic symptoms of hyperglycemia or hyperglycemic crisis, a random glucose >/= 200 mg/dl is diagnostic for diabetes. In the absence of unequivocal hyperglycemia, results should be confirmed by repeat testing. The classification and Diagnosis of Diabetes Diabetes Care 2021; 46: S19-S40. Current interpretive data was last revised 2022. Calcium 9.1 8.5 - 10.3 mg/dL [facility] Blood 10/09/2024 9:26 PM SALES AND MERCHANDISING ASSOCIATE 10/09/2024 9:41 PM SALES AND MERCHANDISING ASSOCIATE us Francy Stinson NP LAB BLOOD ORDERABLES Final Result [facility] Department [place] [address] * Continuous Video EEG (10/09/2024 1:26 PM SALES AND MERCHANDISING ASSOCIATE) Anatomical Region Laterality Modality EEG Narrative 10/16/2024 12:27 PM SALES AND MERCHANDISING ASSOCIATE Video-EEG Report Patient Name: Megan Salas [facility] Medical Record Number (MRN): [id number] [facility] Record: [id number] Date of (): 1950 EEG Date: 10/08/2024 Ordering Provider: Francy Stinson NP CC: Holger Cortez Start Time: 10/08/2024 5:15:59 PM End Time: 10/09/2024 11:57:42 AM Introduction: Ms. Slaas is a 74 y.o. female with a history of hypertension, hyperlipidemia, GERD, and anxiety disorder who presented with altered mental status in the setting of a left BG/Internal capsule ICH after a fall (without LOC). The EEG was performed to evaluate for seizures. This is a report of continuous video-EEG monitoring. High definition digital video and digital EEG were recorded continuously with a [employer] EEG acquisition system. This was a 32 channel EEG with additional anterior temporal electrodes. Electrodes were placed with collodion following the 10/20 International System. The patient was monitored and observed continuously by technical personnel. Digital seizure and spike detection were utilized during the recording. EEG description: Epoch 1 : 10/08/2024 5:15:59 PM to 10/09/2024 8:00:00 AM BACKGROUND: The background was continuous, disorganized and there was an 8-9 Hz posterior dominant rhythm, better-formed over the right hemisphere. The background also included diffuse irregular 2-7 Hz theta and polymorphic delta activity, more prominent over the left hemisphere. Sleep structures were seen. The record showed variability. Hyperventilation and photic strobe stimulation were not performed. SPORADIC DISCHARGES: None. PERIODIC OR RHYTHMIC PATTERNS: None. SEIZURES: None. EVENTS: None reported. EKG: No significant dysrhythmia. Epoch 2 : 10/09/2024 8:00:00 AM to 10/09/2024 11:57:42 AM BACKGROUND: The background was continuous, disorganized and there was an 8-9 Hz posterior dominant rhythm, better-formed over the right hemisphere. The background also included diffuse irregular 2-7 Hz theta and polymorphic delta activity, more prominent over the left hemisphere. Sleep structures were seen. The record showed variability. Hyperventilation and photic strobe stimulation were not performed. SPORADIC DISCHARGES: None. PERIODIC OR RHYTHMIC PATTERNS: None. SEIZURES: None. EVENTS: None reported. EKG: No significant dysrhythmia. Interpretation: No clinical or electrographic seizures were recorded during this study. The interictal EEG was abnormal due to 1) left hemisphere slowing and 2) mild generalized slowing. Focal slowing indicates focal cerebral dysfunction. A focal structural or physiologic abnormality should be considered. Generalized slowing indicates diffuse cerebral dysfunction as seen in metabolic, toxic, or diffuse or multifocal structural abnormalities. These findings were discussed with the treating physicians on an at least twice daily basis. By signing this report, the attending Electroencephalographer certifies that he/she personally reviewed the electrodiagnostics study and has edited this report to fully conform with his/her intent. Signing Attending: Jesus Sherwood III, MD Francy Stinson NP NEUROLOGY ORDERABLES Final Result * POCT glucose (10/09/2024 7:53 AM SALES AND MERCHANDISING ASSOCIATE) Glucose, POC 95 70 - 199 mg/dL Blood 10/09/2024 7:53 AM SALES AND MERCHANDISING ASSOCIATE 10/09/2024 7:53 AM SALES AND MERCHANDISING ASSOCIATE us Avi Rahman MD LAB POCT ORDERABLES - DEVICE Fin al Result [facility] Department [place] [address] * CT Head WO Contrast (10/09/2024 4:37 AM SALES AND MERCHANDISING ASSOCIATE) Anatomical Region Laterality Modality Head and Neck N/A Computed Tomogra phy 10/09/2024 8:35 AM SALES AND MERCHANDISING ASSOCIATE Impressions 10/09/2024 8:35 AM SALES AND MERCHANDISING ASSOCIATE 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 No definite intraventricular extension or significant midline shift. Electronically signed by: Daryn Salas M.D. Narrative 10/09/2024 8:35 AM SALES AND MERCHANDISING ASSOCIATE EXAMINATION: CT head without contrast HISTORY: Intraparenchymal hemorrhage follow-up. TECHNIQUE: CT of the head was performed with images acquired from skull base to vertex without intravenous contrast. COMPARISON: Head CT 10/08/2024 FINDINGS: Redemonstrated intraparenchymal hemorrhage centered within the left basal ganglia measuring 6.1 x 2.1 cm, previously 6.1 x 2.2 cm. There is mild surrounding edema and persistent effacement of the left lateral ventricle. Unchanged 2mm rightward midline shift. Basilar cisterns are patent. No definite new intracranial or intraventricular hemorrhage. Mild global cerebral volume loss. Mild periventricular and subcortical hypodensities are nonspecific but likely represent small vessel ischemic change. Intracranial vascular atherosclerotic calcifications. Ventricles are of unchanged size and morphology. The landa-white matter differentiation is maintained. The visualized portions of the orbits are normal. Paranasal sinuses and mastoid air cells are well-aerated. Procedure Note Daryn Salas MD - 10/09/2024 EXAMINATION: CT head without contrast HISTORY: Intraparenchymal hemorrhage follow-up. TECHNIQUE: CT of the head was performed with images acquired from skull base to vertex without intravenous contrast. COMPARISON: Head CT 10/08/2024 FINDINGS: Redemonstrated intraparenchymal hemorrhage centered within the left basal ganglia measuring 6.1 x 2.1 cm, previously 6.1 x 2.2 cm. There is mild surrounding edema and persistent effacement of the left lateral ventricle. Unchanged 2mm rightward midline shift. Basilar cisterns are patent. No definite new intracranial or intraventricular hemorrhage. Mild global cerebral volume loss. Mild periventricular and subcortical hypodensities are nonspecific but likely represent small vessel ischemic change. Intracranial vascular atherosclerotic calcifications. Ventricles are of unchanged size and morphology. The landa-white matter differentiation is maintained. The visualized portions of the orbits are normal. Paranasal sinuses and mastoid air cells are well-aerated. IMPRESSION: 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 No definite intraventricular extension or significant midline shift. Electronically signed by: Daryn Salas M.D. Francy Marie Shantell FLYER REPAIRER IMG CT PROCEDURES Fi nal Result * XR Abdomen Ap 1 Vw (10/08/2024 10:39 PM SALES AND MERCHANDISING ASSOCIATE) Anatomical Region Laterality Modality Body, Abdomen N/A Digital Radiogra phy 10/09/2024 9:04 AM SALES AND MERCHANDISING ASSOCIATE Impressions 10/09/2024 9:14 AM SALES AND MERCHANDISING ASSOCIATE 10/08/2024, 8:16 PM: Feeding tube with tip projecting over the peripyloric region. Normal bowel gas pattern. 10/08/2024, 10:34 PM: The feeding tube has been repositioned. The tip projects over the antrum. Dictated by: Mario Alberto Quach M.D. (Ramanan) The radiology attending physician has personally reviewed this study, and had reviewed and/or edited this written report and agrees with it. Electronically signed by: Len Mohamud M.D. Narrative 10/09/2024 9:14 AM SALES AND MERCHANDISING ASSOCIATE EXAMINATION: Abdomen, one view. HISTORY: Altered mental status, intracerebral hemorrhage. Evaluate nasogastric tube. COMPARISON: 12/30/2018 CT Procedure Note Len Mohamud MD - 10/09/2024 EXAMINATION: Abdomen, one view. HISTORY: Altered mental status, intracerebral hemorrhage. Evaluate nasogastric tube. COMPARISON: 12/30/2018 CT IMPRESSION: 10/08/2024, 8:16 PM: Feeding tube with tip projecting over the peripyloric region. Normal bowel gas pattern. 10/08/2024, 10:34 PM: The feeding tube has been repositioned. The tip projects over the antrum. Dictated by: Mario Alberto Quach M.D. (Ramanan) The radiology attending physician has personally reviewed this study, and had reviewed and/or edited this written report and agrees with it. Electronically signed by: Len Mohamud M.D. us Avi Rahman MD IMG XR PROCEDURES Final Result * eGFR (10/08/2024 9:56 PM SALES AND MERCHANDISING ASSOCIATE) Pathologist [facility] eGFR 85 >=60 mL/min/1. 73 m2 Comment: Interpretive Data Reference Interval Normal >/= 90 mL/min/1.73m2 Mildly decreased* 60 - 89 mL/min/1.73m2 Mildly to moderately decreased 45 - 59 mL/min/1.73m2 Moderately to severely decreased 30 - 44 mL/min/1.73m2 Severely decreased 15 - 29 mL/min/1.73m2 Kidney Failure < 15 mL/min/1.73m2 *Relative to young adult level Estimated glomerular filtration rate is determined by the 2020 CKD-EPI equation recommended by the National Kidney Foundation (A Unifying Approach to GFR Estimation: Recommendations of the NKF-ASK Task Force on Reassessing the Inclusion of Race in Diagnosing Kidney Disease, JASN 2020). The CKD-EPI equation should not be used for patients with unstable renal function and has not been validated in children and those over 70. Current interpretive data was last reviewed 2021. Blood 10/08/2024 9:56 PM SALES AND MERCHANDISING ASSOCIATE 10/08/2024 10:36 PM SALES AND MERCHANDISING ASSOCIATE Francy Stinson FLYER REPAIRER LAB BLOOD ORDERABLES Final Result [facility] Department [place] [address] * (ABNORMAL) CBC without differential (10/08/2024 9:56 PM SALES AND MERCHANDISING ASSOCIATE) [facility] WBC 8.0 3.8 - 9.9 K/cumm Hgb 11.3(L) 11.9 - 15.5 g/dL [facility] Hct 35.6 35.6 - 45.5 % [facility] Plt 217 150 - 400 K/cumm [facility] MPV 9.6 9.1 - 12.3 fL [facility] RBC 4.15 3.90 - 5.20 M/cumm [facility] MCV 85.8 81.3 - 96.4 fL [facility] MCH 27.2 27.1 - 33.3 pg [facility] MCHC 31.7(L) 32.3 - 35.7 g/dL [facility] RDW CV 13.5 11.1 - 14.9 % [facility] RDW SD 41.9 35.7 - 48.1 fL [facility] NRBC abs 0.00 0.00 - 0.01 K/cumm [facility] Blood 10/08/2024 9:56 PM SALES AND MERCHANDISING ASSOCIATE 10/08/2024 10:37 PM SALES AND MERCHANDISING ASSOCIATE Francy Stinson FLYER REPAIRER LAB BLOOD ORDERABLES Final Result Performing Organization Address [facility] de Phone Number [facility] Department [place] [address] * Phosphorus (10/08/2024 9:56 PM SALES AND MERCHANDISING ASSOCIATE) Phosphorus, pl 2.8 2.3 - 4.5 mg/dL Blood 10/08/2024 9:56 PM SALES AND MERCHANDISING ASSOCIATE 10/08/2024 10:36 PM SALES AND MERCHANDISING ASSOCIATE Francy Stinson FLYER REPAIRER LAB BLOOD ORDERABLES Final Result Performing Organization Address [facility] Co de Phone Number [facility] Department [place] [address] * Magnesium (10/08/2024 9:56 PM SALES AND MERCHANDISING ASSOCIATE) Magnesium 1.9 1.4 - 2.5 mg/dL Blood 10/08/2024 9:56 PM SALES AND MERCHANDISING ASSOCIATE 10/08/2024 10:36 PM SALES AND MERCHANDISING ASSOCIATE Francy Stinson FLYER REPAIRER LAB BLOOD ORDERABLES Final Result [facility] Department [place] [address] * (ABNORMAL) Comprehensive metabolic panel (10/08/2024 9:56 PM SALES AND MERCHANDISING ASSOCIATE) Sodium 148(H) 135 - 145 mmol/L Potassium, pl 3.7 3.3 - 4.9 mmol/L [facility] Chloride 114(H) 97 - 110 mmol/L [facility] Comment:Repeated and Verifie d CO2 24 22 - 32 mmol/L [facility] Anion gap 7 2 - 15 mmol/L [facility] BUN 11 6 - 25 mg/dL [facility] Creatinine 0.74 0.60 - 1.10 mg/dL [facility] Glucose 82 70 - 199 mg/dL [facility] Comment: Interpretive Data Fasting glucose >/= 126 mg/dl is diagnostic for diabetes. Fasting is defined as no caloric intake for at least 8 hours. Fasting glucose between 100 mg/dl to 125 mg/dl is diagnostic of prediabetes. In a patient with classic symptoms of hyperglycemia or hyperglycemic crisis, a random glucose >/= 200 mg/dl is diagnostic for diabetes. In the absence of unequivocal hyperglycemia, results should be confirmed by repeat testing. The classification and Diagnosis of Diabetes Diabetes Care 202; 46: S19-S40. Current interpretive data was last revised 2022. Calcium 7.4(L) 8.5 - 10.3 mg/dL [facility] Bilirubin, total 0.2 0.1 - 1.2 mg/dL [facility] Protein, pl 5.5(L) 6.5 - 8.5 g/dL [facility] Albumin 3.1(L) 3.5 - 5.0 g/dL [facility] Alk phos 53 40 - 130 Units/L [facility] ALT 16 7 - 45 Units/L [facility] AST 19 10 - 45 Units/L [facility] Blood 10/08/2024 9:56 PM SALES AND MERCHANDISING ASSOCIATE 10/08/2024 10:36 PM SALES AND MERCHANDISING ASSOCIATE Francy Stinson NP LAB BLOOD ORDERABLES Final Result [facility] Department [place] [address] * XR Abdomen Ap 1 Vw (10/08/2024 8:39 PM SALES AND MERCHANDISING ASSOCIATE) Anatomical Region Laterality Modality Body, Abdomen N/A Computed Radiogr aphy 10/09/2024 9:04 AM SALES AND MERCHANDISING ASSOCIATE Impressions 10/09/2024 9:14 AM SALES AND MERCHANDISING ASSOCIATE 10/08/2024, 8:16 PM: Feeding tube with tip projecting over the peripyloric region. Normal bowel gas pattern. 10/08/2024, 10:34 PM: The feeding tube has been repositioned. The tip projects over the antrum. Dictated by: Mario Alberto Quach M.D. (Ramanan) The radiology attending physician has personally reviewed this study, and had reviewed and/or edited this written report and agrees with it. Electronically signed by: Len Mohamud M.D. Narrative 10/09/2024 9:14 AM SALES AND MERCHANDISING ASSOCIATE EXAMINATION: Abdomen, one view. HISTORY: Altered mental status, intracerebral hemorrhage. Evaluate nasogastric tube. COMPARISON: 12/30/2018 CT Procedure Note Len Mohamud MD - 10/09/2024 EXAMINATION: Abdomen, one view. HISTORY: Altered mental status, intracerebral hemorrhage. Evaluate nasogastric tube. COMPARISON: 12/30/2018 CT IMPRESSION: 10/08/2024, 8:16 PM: Feeding tube with tip projecting over the peripyloric region. Normal bowel gas pattern. 10/08/2024, 10:34 PM: The feeding tube has been repositioned. The tip projects over the antrum. Dictated by: Mario Alberto Quach M.D. (Ramanan) The radiology attending physician has personally reviewed this study, and had reviewed and/or edited this written report and agrees with it. Electronically signed by: Len Mohamud M.D. Avi Rahman MD IMG XR PROCEDURES Final Result * (ABNORMAL) Drugs of Abuse Screen, Urine with Reflex Confirmation (10/08/2024 4:48 PM SALES AND MERCHANDISING ASSOCIATE) Amphetamine, ur Not Detected CutOff 500ng/mL Comment: Interpretive Data - Amphetamines: Samples containing greater than 500 ng/mL d-methamphetamine or other cross-reacting amphetamine compounds are reported as positive. Amphetamine immunoassays are subject to significant false positive rates due to cross-reactivity of non-amphetamine drugs. Confirmatory testing required for definitive results. Current Interpretive Data was last reviewed 2023. Barbiturates, ur Not Detected CutOff 200ng/mL [facility] Comment: Interpretive Data - Barbiturates: Samples containing greater than 200 ng/mL secobarbital or other cross-reacting barbiturate compounds are reported as positive. False positive and false negative results are possible. Confirmatory testing required for definitive results. Current Interpretive Data was last reviewed 2023. Benzodiazepines, ur Screen Positive, presumptive (A) CutOff 100ng/mL [facility] Comment: Interpretive Data - Benzodiazepines: Samples containing greater than 100 ng/mL nordiazepam or other cross-reacting compounds are reported as positive. False positive and false negative results are possible. Confirmatory testing required for definitive results. Current Interpretive Data was last reviewed 2023. Cannabinoids, ur Not Detected CutOff 50 ng/mL [facility] Comment: Interpretive Data - Cannabinoids: Samples containing greater than 50 ng/mL delta-9 THC -COOH or other cross- reacting compounds are reported as positive. False positive and false negative results are possible. Confirmatory testing required for definitive results. Current Interpretive Data was last reviewed 2023. Cocaine, ur Not Detected CutOff 150ng/mL [facility] Comment: Interpretive Data - Cocaine: Samples containing greater than 150 ng/mL benzoylecgonine or other cross- reacting compounds are reported as positive. False positive and false negative results are possible. Confirmatory testing required for definitive results. Current Interpretive Data was last reviewed 2023. Fentanyl, Ur Not Detected CutOff 5 ng/mL [facility] Comment: Interpretive Data - Fentanyl: Samples containing greater than 5 ng/mL norfentanyl, fentanyl, or other cross-reacting fentanyl compounds are reported as positive. False positive and false negative results are possible. Confirmatory testing required for definitive results. Current Interpretive Data was last reviewed 2023. Methadone, ur Not Detected CutOff 300ng/mL [facility] Comment: Interpretive Data - Methadone: Samples containing greater than 300 ng/mL d,l-methadone or other cross-reacting compounds are reported as positive. False positive and false negative results are possible. Confirmatory testing required for definitive results. Current Interpretive Data was last reviewed 2023. Opiates, ur Not Detected CutOff 300ng/mL [facility] Comment: Interpretive Data - Opiates: Samples containing greater than 300 ng/mL morphine or other cross-reacting compounds are reported as positive. False positive and false negative results are possible. Confirmatory testing required for definitive results. Current Interpretive Data was last reviewed 2023. Oxycodone, ur Not Detected CutOff 100ng/mL [facility] Comment: Interpretive Data - Oxycodone: Samples containing greater than 100 ng/mL oxycodone or other cross-reacting compounds are reported as positive. False positive and false negative results are possible. Confirmatory testing required for definitive results. Current Interpretive Data was last reviewed 2023. Phencyclidine, ur Not Detected CutOff 25 ng/mL [facility] Comment: Interpretive Data - Phencyclidine: Samples containing greater than 25 ng/mL phencyclidine or other cross-reacting compounds are reported as positive. False positive and false negative results are possible. Confirmatory testing required for definitive results. Current Interpretive Data was last reviewed 2023. Urine Creatinine 44 mg/dL [facility] Comment: Interpretive Data Urine Creatinine: < 10 mg/dL is extremely dilute = or > 10 but < 20 mg/dL is dilute = or > 20 mg/dL is normal Current Interpretive Data was last revised on 2017. Urine 10/08/2024 4:48 PM SALES AND MERCHANDISING ASSOCIATE 10/08/2024 4:58 PM SALES AND MERCHANDISING ASSOCIATE Narrative [facility] - 10/08/2024 5:34 PM SALES AND MERCHANDISING ASSOCIATE Drug of Abuse screening is performed by immunoassay for medical purposes only. This is not to be used for Pain Management purposes. If Detected, confirmation testing will be performed for Amphetamines, Cocaine, Fentanyl, Methadone, Opiates, Oxycodone or Phencyclidine. Francy Stinson NP LAB URINE ORDERABLES Final Result [facility] Department [place] [address] * (ABNORMAL) Urinalysis reflex to microscopic and culture Urine (10/08/2024 4:48 PM SALES AND MERCHANDISING ASSOCIATE) Color, ur Straw Yellow Clarity, ur Clear Clear [facility] Specific gravity, ur >1.042(H) 1.003 - 1.030 [facility] pH, urine 7.0 [facility] Comment: Interpretive Data U rine pH is affected by diet, medications, systemic acid-base disturbances, and renal tubular function. pH may affect urinary stone formation. For example, urine pH below 6.0 may help reduce the tendency for calcium phosphate stones and pH greater than 6.0 may reduce the tendency for uric acid stone formation. Source: [facility] Current Interpretive Data was last revised on 2017 Protein, ur ql Negative Negative [facility] Glucose, ur ql Negative Negative [facility] Ketones, ur Trace Negative [facility] Bilirubin, ur Negative Negative [facility] Blood, ur Negative Negative [facility] Urobilinogen, ur <2.0 <2.0 mg/dL [facility] Nitrite, ur Negative Negative [facility] Leukocyte esterase, ur Negative Negative [facility] UA reflex comment Reflex conditions for microscopic UA and culture not met. [facility] Urine 10/08/2024 4:48 PM SALES AND MERCHANDISING ASSOCIATE 10/08/2024 4:55 PM SALES AND MERCHANDISING ASSOCIATE Francy Stinson NP LAB MICROBIOLOGY - G ENERAL ORDERABLES Final Result [facility] Department [place] [address] * XR chest 1 view (Portable) (10/08/2024 12:53 PM SALES AND MERCHANDISING ASSOCIATE) Anatomical Region Laterality Modality Body, Chest N/A Digital Radiogra phy 10/09/2024 11:2 6 AM SALES AND MERCHANDISING ASSOCIATE Impressions 10/09/2024 12:23 PM SALES AND MERCHANDISING ASSOCIATE FINDINGS/IMPRESSION: Small lung volumes. Trace pulmonary edema. Mild bilateral lower lobe atelectasis. No pleural effusion or pneumothorax. Cardiomediastinal silhouette is stable from prior exams. Dictated by: Pito Thakur MD The radiology attending physician has personally reviewed this study, and had reviewed and/or edited this written report and agrees with it. Electronically signed by: Arsen Greenfield M.D. Narrative 10/09/2024 12:23 PM SALES AND MERCHANDISING ASSOCIATE EXAMINATION: XR CHEST 1 VIEW HISTORY: new admit COMPARISON: X-ray from 10/08/2024 Procedure Note Arsen Greenfield MD - 10/09/2024 EXAMINATION: XR CHEST 1 VIEW HISTORY: new admit COMPARISON: X-ray from 10/08/2024 IMPRESSION: FINDINGS/IMPRESSION: Small lung volumes. Trace pulmonary edema. Mild bilateral lower lobe atelectasis. No pleural effusion or pneumothorax. Cardiomediastinal silhouette is stable from prior exams. Dictated by: Pito Thakur MD The radiology attending physician has personally reviewed this study, and had reviewed and/or edited this written report and agrees with it. Electronically signed by: Arsen Greenfield M.D. Francy Stinson FLYER REPAIRER IMG XR PROCEDURES Fi nal Result * CT Head WO Contrast (10/08/2024 12:45 PM SALES AND MERCHANDISING ASSOCIATE) Anatomical Region Laterality Modality Head and Neck N/A Computed Tomogra phy 10/08/2024 12:5 8 PM SALES AND MERCHANDISING ASSOCIATE Impressions 10/08/2024 8:59 PM SALES AND MERCHANDISING ASSOCIATE Unchanged left basal ganglia intracerebral hemorrhage measuring up to 6.3 cm. No definite intraventricular extension or significant midline shift. Dictated by: Adarsh Grimes MD The radiology attending physician has personally reviewed this study, and had reviewed and/or edited this written report and agrees with it. Electronically signed by: Kasey Booth MD, PhD Narrative 10/08/2024 8:59 PM SALES AND MERCHANDISING ASSOCIATE EXAMINATION: CT head without contrast HISTORY: Intraparenchymal hemorrhage follow-up. TECHNIQUE: CT of the head was performed with images acquired from skull base to vertex without intravenous contrast. COMPARISON: Same-day CT of the head at 9:27 AM. FINDINGS: Unchanged intraparenchymal hemorrhage centered within the left basal ganglia measuring 6.3 x 2.1 x 3.0 cm, previously 6.3 x 2.0 x 3.2 cm. There is mild surrounding edema and persistent effacement of the left lateral ventricle. No definite intraventricular extension is identified. No significant midline shift. No definite new intracranial hemorrhage. Mild global cerebral volume loss. Mild periventricular and subcortical hypodensities are nonspecific but likely represent small vessel ischemic change. Intracranial vascular atherosclerotic calcifications. Ventricles are of unchanged size and morphology. The landa-white matter differentiation is normal. The visualized portions of the orbits are normal. Trace left mastoid effusion. The visualized portions of the paranasal sinuses are normal apart from mild mucosal thickening in the right maxillary sinus. No fractures are identified. Procedure Note Kasey Booth MD PhD - 10/08/2024 EXAMINATION: CT head without contrast HISTORY: Intraparenchymal hemorrhage follow-up. TECHNIQUE: CT of the head was performed with images acquired from skull base to vertex without intravenous contrast. COMPARISON: Same-day CT of the head at 9:27 AM. FINDINGS: Unchanged intraparenchymal hemorrhage centered within the left basal ganglia measuring 6.3 x 2.1 x 3.0 cm, previously 6.3 x 2.0 x 3.2 cm. There is mild surrounding edema and persistent effacement of the left lateral ventricle. No definite intraventricular extension is identified. No significant midline shift. No definite new intracranial hemorrhage. Mild global cerebral volume loss. Mild periventricular and subcortical hypodensities are nonspecific but likely represent small vessel ischemic change. Intracranial vascular atherosclerotic calcifications. Ventricles are of unchanged size and morphology. The landa-white matter differentiation is normal. The visualized portions of the orbits are normal. Trace left mastoid effusion. The visualized portions of the paranasal sinuses are normal apart from mild mucosal thickening in the right maxillary sinus. No fractures are identified. IMPRESSION: Unchanged left basal ganglia intracerebral hemorrhage measuring up to 6.3 cm. No definite intraventricular extension or significant midline shift. Dictated by: Adarsh Grimes MD The radiology attending physician has personally reviewed this study, and had reviewed and/or edited this written report and agrees with it. Electronically signed by: Kasey Booth MD, PhD Francy Stinson FLYER REPAIRER IMG CT PROCEDURES Fi nal Result * (ABNORMAL) Blood gas, venous (10/08/2024 12:28 PM SALES AND MERCHANDISING ASSOCIATE) Pathologist [facility] pH, Venous 7.35 7.32 - 7.43 PCO2, Venous 52(H) 40 - 50 mmHg [facility] PO2, Venous 38 mmHg [facility] Comment: Interpretive Data No Reference Range Established Current Interpretive Data was last revised on 2017. HCO3 Venous, Calculated 30 20 - 30 mmol/L [facility] BE, venous 2 mmol/L [facility] Comment: Interpretive Data No Reference Range Established Current Interpretive Data was last revised on 2017. Blood 10/08/2024 12:2 8 PM SALES AND MERCHANDISING ASSOCIATE 10/08/2024 12:58 PM SALES AND MERCHANDISING ASSOCIATE Francy Stinson NP LAB BLOOD ORDERABLES Final Result Performing Organization Address [facility]/ZIP Co de Phone Number [facility] Department [place] [address] * Check Sample (10/08/2024 12:07 PM SALES AND MERCHANDISING ASSOCIATE) Pathologist [facility] ABO Rh A Negative [facility] OTHER 10/08/2024 12:0 7 PM SALES AND MERCHANDISING ASSOCIATE 10/08/2024 12:26 PM SALES AND MERCHANDISING ASSOCIATE Avi Rahman MD LAB BLOOD ORDERABLES Final Resul t Performing Organization Address City/[facility]/ZIP Co de Phone Number [facility] Department [place] [address] [facility] * ECG 12 lead (10/08/2024 11:55 AM SALES AND MERCHANDISING ASSOCIATE) Pathologist [facility] Ventricular Rate EKG/Min 76 BPM [facility] Atrial Rate 76 BPM [facility] [place]-Interval (MSEC) 212 ms [facility] QRS-Interval (MSEC) 92 ms [facility] QT-Interval (MSEC) 358 ms [facility] QTc [address] [facility] P Dilliner [address] [facility] R Dilliner [address] [facility] T Dilliner [address] [facility] Diagnosis Sinus rhythm with sinus arrhythmia with 1st degree A-V block Otherwise normal ECG No previous ECGs available Confirmed by STANTON DELA CRUZ M.D ([id number]) on 10/09/2024 1:41:[address] [facility] 10/08/2024 11:5 5 AM SALES AND MERCHANDISING ASSOCIATE 10/09/2024 1:41 PM SALES AND MERCHANDISING ASSOCIATE Francy Stinson FLYER REPAIRER ECG ORDERABLES Kinga l Result Performing Organization Address City/[facility]/ZIP Co de Phone Number [facility] * Troponin I high-sensitivity series (baseline, 2hr, 4hr, 6hr) (10/08/2024 11:51 AM SALES AND MERCHANDISING ASSOCIATE) Trop I hs <4 <=17 ng/L Comment: Interpretive Data For further hscTnI resources including the diagnostic algorithm and an aid in interpretation, copy and paste this link: [email or web address] Current Interpretive Data last revised 2020. Blood 10/08/2024 11:5 1 AM SALES AND MERCHANDISING ASSOCIATE 10/08/2024 12:04 PM SALES AND MERCHANDISING ASSOCIATE Francy Stinson FLYER REPAIRER LAB BLOOD ORDERABLES Final Result [facility] Department [place] [address] * eGFR (10/08/2024 11:51 AM SALES AND MERCHANDISING ASSOCIATE) eGFR 77 >=60 mL/min/1. 73 m2 Comment: Interpretive Data Reference Interval Normal >/= 90 mL/min/1.73m2 Mildly decreased* 60 - 89 mL/min/1.73m2 Mildly to moderately decreased 45 - 59 mL/min/1.73m2 Moderately to severely decreased 30 - 44 mL/min/1.73m2 Severely decreased 15 - 29 mL/min/1.73m2 Kidney Failure < 15 mL/min/1.73m2 *Relative to young adult level Estimated glomerular filtration rate is determined by the 2020 CKD-EPI equation recommended by the National Kidney Foundation (A Unifying Approach to GFR Estimation: Recommendations of the NKF-ASK Task Force on Reassessing the Inclusion of Race in Diagnosing Kidney Disease, JASN 2020). The CKD-EPI equation should not be used for patients with unstable renal function and has not been validated in children and those over 70. Current interpretive data was last reviewed 2021. Blood 10/08/2024 11:5 1 AM SALES AND MERCHANDISING ASSOCIATE 10/08/2024 12:04 PM SALES AND MERCHANDISING ASSOCIATE Francy Stinson LAB BLOOD ORDERABLES Final Result Performing Organization Address [facility] Co de Phone Number [facility] [employer] [address] * aPTT (10/08/2024 11:51 AM SALES AND MERCHANDISING ASSOCIATE) aPTT 31 28 - 38 sec Comment: Interpretive Data Heparin therapeutic range: 66.0 - 100.0 seconds. Range based on correlation with therapeutic heparin activity range of 0.3 - 0.7 Units/mL. Current interpretive data was last revised on 2023. Blood 10/08/2024 11:5 1 AM SALES AND MERCHANDISING ASSOCIATE 10/08/2024 12:06 PM SALES AND MERCHANDISING ASSOCIATE Francy Stinson LAB BLOOD ORDERABLES Final Result Performing Organization Address City/[facility] Co de Phone Number [facility] [place] [employer] [address] * Protime-INR (10/08/2024 11:51 AM SALES AND MERCHANDISING ASSOCIATE) PT 10.8 9.7 - 13.0 sec INR 1.00 0.90 - 1.20 [facility] Comment: Interpretive data Oral anticoagulant therapeutic ranges: Venous thromboembolism prophylaxis or treatment: 2.0-3.0 CARDIOLOGY Standard range: 2.0-3.0 High-intensity range: 2.5-3.5 Refer to indication-specific guidelines for appropriate target ranges for prosthetic heart valve replacement. Current interpretive data was last revised on 2019. Blood 10/08/2024 11:5 1 AM SALES AND MERCHANDISING ASSOCIATE 10/08/2024 12:06 PM SALES AND MERCHANDISING ASSOCIATE Francy Stinson FLYER REPAIRER LAB BLOOD ORDERABLES Final Result [facility] Department of [employer] [address] * (ABNORMAL) CBC without differential (10/08/2024 11:51 AM SALES AND MERCHANDISING ASSOCIATE) WBC 10.2(H) 3.8 - 9.9 K/cumm Hgb 13.5 11.9 - 15.5 g/dL [facility] Hct 43.1 35.6 - 45.5 % [facility] Plt 270 150 - 400 K/cumm [facility] MPV 9.3 9.1 - 12.3 fL [facility] RBC 4.94 3.90 - 5.20 M/cumm [facility] MCV 87.2 81.3 - 96.4 fL [facility] MCH 27.3 27.1 - 33.3 pg [facility] MCHC 31.3(L) 32.3 - 35.7 g/dL [facility] RDW CV 13.2 11.1 - 14.9 % [facility] RDW SD 42.3 35.7 - 48.1 fL [facility] NRBC abs 0.00 0.00 - 0.01 K/cumm [facility] Blood 10/08/2024 11:5 1 AM SALES AND MERCHANDISING ASSOCIATE 10/08/2024 12:04 PM SALES AND MERCHANDISING ASSOCIATE Francy Stinson FLYER REPAIRER LAB BLOOD ORDERABLES Final Result Performing Organization Address City/[facility]/ZIP Co de Phone Number [facility] Department [place] [address] * Type and screen (10/08/2024 11:51 AM SALES AND MERCHANDISING ASSOCIATE) Stephanie, indirect Negative ABO Rh A Negative [facility] Blood 10/08/2024 11:5 1 AM SALES AND MERCHANDISING ASSOCIATE 10/08/2024 12:03 PM SALES AND MERCHANDISING ASSOCIATE Narrative [facility] - 10/08/2024 1:05 PM SALES AND MERCHANDISING ASSOCIATE Has the patient had Daratumumab or Isatuximab in the past 6 months?->Unknown Francy Stinson NP LAB BLOOD BANK TEST ORDERABLES Final Result Performing Organization Address City/[facility]/[place] [address] * Phosphorus (10/08/2024 11:51 AM SALES AND MERCHANDISING ASSOCIATE) Pathologist [facility] Phosphorus, pl 3.0 2.3 - 4.5 mg/dL Blood 10/08/2024 11:5 1 AM SALES AND MERCHANDISING ASSOCIATE 10/08/2024 12:04 PM SALES AND MERCHANDISING ASSOCIATE Francy Stinson NP LAB BLOOD ORDERABLES Final Result Performing Organization Address [facility] [place] [address] * Magnesium (10/08/2024 11:51 AM SALES AND MERCHANDISING ASSOCIATE) [facility] Magnesium 2.3 1.4 - 2.5 mg/dL Blood 10/08/2024 11:5 1 AM SALES AND MERCHANDISING ASSOCIATE 10/08/2024 12:04 PM SALES AND MERCHANDISING ASSOCIATE Francy Stinson FLYER REPAIRER LAB BLOOD ORDERABLES Final Result Performing Organization Address City/[facility] [place] [address] * Ethanol (10/08/2024 11:51 AM SALES AND MERCHANDISING ASSOCIATE) Ethanol <10 <=10 mg/dL Comment: Interpretive Data Legal limit of intoxication > or = 80 mg/dL Levels > or = 400 mg/dL are potentially TOXIC. Current interpretive data was last revised on 2018. Blood 10/08/2024 11:5 1 AM SALES AND MERCHANDISING ASSOCIATE 10/08/2024 12:04 PM SALES AND MERCHANDISING ASSOCIATE us Avi Rahman MD LAB BLOOD ORDERABLES Final Resul t [facility] Department [place] [address] * Comprehensive metabolic panel (10/08/2024 11:51 AM SALES AND MERCHANDISING ASSOCIATE) Sodium 143 135 - 145 mmol/L Potassium, pl 4.4 3.3 - 4.9 mmol/L [facility] Chloride 103 97 - 110 mmol/L [facility] CO2 28 22 - 32 mmol/L [facility] Anion gap 12 2 - 15 mmol/L [facility] BUN 16 6 - 25 mg/dL [facility] Creatinine 0.81 0.60 - 1.10 mg/dL [facility] Glucose 109 70 - 199 mg/dL [facility] Comment: Interpretive Data Fasting glucose >/= 126 mg/dl is diagnostic for diabetes. Fasting is defined as no caloric intake for at least 8 hours. Fasting glucose between 100 mg/dl to 125 mg/dl is diagnostic of prediabetes. In a patient with classic symptoms of hyperglycemia or hyperglycemic crisis, a random glucose >/= 200 mg/dl is diagnostic for diabetes. In the absence of unequivocal hyperglycemia, results should be confirmed by repeat testing. The classification and Diagnosis of Diabetes Diabetes Care 202; 46: S19-S40. Current interpretive data was last revised 2022. Calcium 9.4 8.5 - 10.3 mg/dL [facility] Bilirubin, total 0.4 0.1 - 1.2 mg/dL [facility] Protein, pl 7.2 6.5 - 8.5 g/dL [facility] Albumin 4.1 3.5 - 5.0 g/dL [facility] Alk phos 69 40 - 130 Units/L [facility] ALT 21 7 - 45 Units/L [facility] AST 29 10 - 45 Units/L [facility] Blood 10/08/2024 11:5 1 AM SALES AND MERCHANDISING ASSOCIATE 10/08/2024 12:04 PM SALES AND MERCHANDISING ASSOCIATE Francy Stinson NP LAB BLOOD ORDERABLES Final Result Performing Organization Address [facility] Co de Phone Number [facility] Department [place] [address] * POCT glucose (10/08/2024 11:34 AM SALES AND MERCHANDISING ASSOCIATE) [facility] Signature Glucose, POC 100 70 - 199 mg/dL Blood 10/08/2024 11:3 4 AM SALES AND MERCHANDISING ASSOCIATE 10/08/2024 11:34 AM SALES AND MERCHANDISING ASSOCIATE Avi Rahman MD LAB POCT ORDERABLES - DEVICE Fin al Result Performing Organization Address [facility] Co de Phone Number [facility] Department [place] [address] * [place] CRITICAL CARE ILL/INJURED PATIENT INIT 30-74 MIN (10/08/2024 10:43 AM SALES AND MERCHANDISING ASSOCIATE) Narrative Patrick Patino MD - 10/08/2024 10:43 AM SALES AND MERCHANDISING ASSOCIATE Patrick Patino MD 10/08/2024 10:48 AM Critical Care Performed by: Patrick Patino MD Authorized by: Patrick Patino MD Critical care provider statement: As reflected in the history, physical exam, orders, notes, and/or MDM, I was personally present while the patient was critically ill and provided critical care services for 32 minutes, excluding time involved in separately billable procedures. Critical care was necessary to treat or prevent imminent or life-threatening deterioration of the following condition(s): acute cerebrovascular accident (CVA), acute intracranial hemorrhage and severe neurologic condition Critical care was time spent by me providing the following: continuous telemetry, continuous pulse oximetry, interpretation of bedside monitors, imaging, and arterial/venous lab draws and serial bedside patient exams frequent neurologic exams, initiation of stroke management and initiation of anti-epileptic therapy I provided emergent necessary critical care medicine services to this patient. I ordered and reviewed test results and/or imaging studies. I spent time discussing the management of this critically ill patient with consultants and the medical staff. I spent time discussing the management and therapeutic options for this critically ill patient with the patient themselves or with the appropriate designated surrogate decision-maker. I spent time documenting in the medical record. I admitted this patient to an Intensive Care unit (ICU) and discussed management with the admitting team. us Patrick Patino MD IN CLINIC/BEDSIDE O RDERABLES Final Result * XR Chest 1 View (10/08/2024 9:50 AM SALES AND MERCHANDISING ASSOCIATE) Anatomical Region Laterality Modality Body, Chest N/A Computed Radiogr aphy 10/08/2024 9:59 AM SALES AND MERCHANDISING ASSOCIATE Narrative 10/08/2024 9:59 AM SALES AND MERCHANDISING ASSOCIATE EXAM DESCRIPTION: XR CHEST 1 VIEW REASON FOR STUDY: general weakness, c/f stroke Patient is a 74-year-old woman with a history of hypertension, hyperlipidemia, and obesity who presents with concerns for stroke. Per EMS went into shower around 830. Subsequently collapsed in shower and was caught by . Aphasic since. They think her right side is weaker than the left. History otherwise limited secondary to complete aphasia. TECHNIQUE: Frontal radiographic view(s) of the chest. COMPARISON: Chest radiograph dated 04/22/2022. FINDINGS: LUNGS: No focal opacity, pleural effusion, or pneumothorax. HEART/MEDIASTINUM: Cardiac silhouette normal in size. Mediastinal and hilar contours appear normal. LINES/TUBES: None. BONES: No acute osseous abnormality. IMPRESSION: No acute cardiopulmonary abnormality. THIS IS AN ELECTRONICALLY VERIFIED FINAL REPORT 10/08/2024 9:59 AM - Electronically signed by Adarsh Gale M.D. MF: LAURIE Report ID: [id number] Reading Location: [id number] Procedure Note Adarsh Gale, DO - 10/08/2024 EXAM DESCRIPTION: XR CHEST 1 VIEW REASON FOR STUDY: general weakness, c/f stroke Patient is a 74-year-old woman with a history of hypertension,hyperlipidemia, and obesity who presents with concerns for stroke. Per EMS went intoshower around 830. Subsequently collapsed in shower and was caught by . Aphasic since. They think her right side is weaker than the left.History otherwise limited secondary to complete aphasia. TECHNIQUE: Frontal radiographic view(s) of the chest. COMPARISON: Chest radiograph dated 04/22/2022. FINDINGS: LUNGS: No focal opacity, pleural effusion, or pneumothorax. HEART/MEDIASTINUM: Cardiac silhouette normal in size. Mediastinal andhilar contours appear normal. LINES/TUBES: None. BONES: No acute osseous abnormality. IMPRESSION: No acute cardiopulmonary abnormality. THIS IS AN ELECTRONICALLY VERIFIED FINAL REPORT 10/08/2024 9:59 AM - Electronically signed by Adarsh Gale M.D. MF: LAURIE Report ID: [id number] Reading Location: [place] [address] us Patrick Paitno MD IMG XR PROCEDURES F inal Result * CTA Stroke Head Neck W WO Contrast (10/08/2024 9:42 AM SALES AND MERCHANDISING ASSOCIATE) Anatomical Region Laterality Modality Head and Neck N/A Computed Tomogra phy 10/08/2024 9:53 AM SALES AND MERCHANDISING ASSOCIATE Addenda Addendum by Adarsh Gale DO on 10/08/2024 10:25 AM SALES AND MERCHANDISING ASSOCIATE ADDENDUM: This addendum report supersedes the original report dated 10/08/2024. Findings called by [facility] staff at the 10:08 a.m. on 10/08/2024 to the treatment team as per stroke communication protocol. END OF ADDENDUM REPORT THIS IS AN ELECTRONICALLY VERIFIED FINAL REPORT 10/08/2024 10:25 AM Addendum Electronically signed by Adarsh Gale M.D. MF: LAURIE Report ID: [id number] Reading Location: [id number] Narrative 10/08/2024 9:59 AM SALES AND MERCHANDISING ASSOCIATE EXAM DESCRIPTION: CTA STROKE HEAD NECK W WO CONTRAST REASON FOR STUDY: Last known well at 8:30 this morning when she got of tub and fell TECHNIQUE: Axial images were first obtained through the brain without contrast. Post IV contrast scanning, thin section axial imaging from the great vessel origins through the brain. 3D MIP images rendered on scanning unit and reviewed at time of interpretation. Carotid stenosis measurements are based on NASCET criteria. Automated exposure control was used as a dose optimization technique for this examination. CONTRAST TYPE/DOSE: 100mL of IOVERSOL 350 MG IODINE/ML INTRAVENOUS SYRINGE injected via intravenous COMPARISON: Head CT, performed same day, dated 10/08/2024. FINDINGS: BRAIN: CEREBRUM: Stable large intraparenchymal hematoma centered at the left basal ganglia measuring 5.6 x 2.0 x 3.0 cm with mild mass effect resulting in partial effacement of the left lateral ventricle. No evidence of intraventricular extension or significant midline shift. No evidence of recent infarct. There are a few small scattered patchy subcortical and periventricular white matter hypodensities redemonstrated, compatible with chronic small vessel ischemic changes. EXTRA-AXIAL SPACES: No fluid collections. No masses. ORBITS: No intra-or extraconal masses. Normal appearing globes CALVARIUM: No fracture. PARANASAL SINUSES AND MASTOIDS: No fluid or mucosal thickening. CAROTID AND VERTEBRAL ARTERIES: RIGHT CAROTIDS: Patent. No internal, external or common carotid significant stenosis. LEFT CAROTIDS: Patent. No internal, external or common carotid significant stenosis. LEFT VERTEBRAL: Patent. No significant stenosis. No dissection. RIGHT VERTEBRAL: Patent. No significant stenosis. No dissection. AORTIC ARCH: Normal three-vessel origin. Bilateral subclavian arteries are patent. No dissection. INCLUDED LUNGS: No acute abnormality. No worrisome nodules. NECK SOFT TISSUE: No mass, adenopathy. OTHER: No other significant finding. INTRACRANIAL VESSELS: [place] OF CANALES: The anterior, middle, posterior cerebral arteries are all patent. No evidence of aneurysm, large vessel occlusion, or focal flow-limiting stenosis. POSTERIOR CIRCULATION: The distal vertebral arteries are patent as is the basilar artery. No large vessel occlusion, focal flow-limiting stenosis, or aneurysm. BRAIN: No gross enhancing lesions as visualized. IMPRESSION: 1. BRAIN: Stable large intraparenchymal hematoma centered at the left basal ganglia; as detailed. 2. CAROTID CTA: No occlusion, hemodynamically significant stenosis, or dissection of the extracranial carotid or vertebral arteries. 3. INTRACRANIAL CTA: No large vessel occlusion, focal flow-limiting stenosis, or aneurysm. THIS IS AN ELECTRONICALLY VERIFIED FINAL REPORT 10/08/2024 9:59 AM - Electronically signed by Adarsh Gale M.D. MF: LAURIE Report ID: [id number] Reading Location: [id number] Procedure Note Adarsh Gale, DO - 10/08/2024 EXAM DESCRIPTION: CTA STROKE HEAD NECK W WO CONTRAST REASON FOR STUDY: Last known well at 8:30 this morning when she got of tub and fell TECHNIQUE: Axial images were first obtained through the brain without contrast. Post IV contrast scanning, thin section axial imaging from the great vessel origins through the brain. 3D MIP images rendered onscanning unit and reviewed at time of interpretation. Carotid stenosismeasurements are based on NASCET criteria. Automated exposure control was used as a dose optimization technique forthis examination. CONTRAST TYPE/DOSE: 100mL of IOVERSOL 350 MG IODINE/ML INTRAVENOUSSYRINGE injected via intravenous COMPARISON: Head CT, performed same day, dated 10/08/2024. FINDINGS: BRAIN: CEREBRUM: Stable large intraparenchymal hematoma centered at the leftbasal ganglia measuring 5.6 x 2.0 x 3.0 cm with mild mass effect resulting in partial effacement of the left lateral ventricle. No evidence of intraventricular extension or significant midline shift. No evidence of recent infarct. There are a few small scattered patchy subcortical and periventricular white matter hypodensities redemonstrated, compatible with chronic small vessel ischemic changes. EXTRA-AXIAL SPACES: No fluid collections. No masses. ORBITS: No intra-or extraconal masses. Normal appearing globes CALVARIUM: No fracture. PARANASAL SINUSES AND MASTOIDS: No fluid or mucosal thickening. CAROTID AND VERTEBRAL ARTERIES: RIGHT CAROTIDS: Patent. No internal, external or common carotidsignificant stenosis. LEFT CAROTIDS: Patent. No internal, external or common carotidsignificant stenosis. LEFT VERTEBRAL: Patent. No significant stenosis. No dissection. RIGHT VERTEBRAL: Patent. No significant stenosis. No dissection. AORTIC ARCH: Normal three-vessel origin. Bilateral subclavian arteriesare patent. No dissection. INCLUDED LUNGS: No acute abnormality. No worrisome nodules. NECK SOFT TISSUE: No mass, adenopathy. OTHER: No other significant finding. INTRACRANIAL VESSELS: [place] OF CANALES: The anterior, middle, posterior cerebral arteries areall patent. No evidence of aneurysm, large vessel occlusion, or focal flow-limiting stenosis. POSTERIOR CIRCULATION: The distal vertebral arteries are patent as isthe basilar artery. No large vessel occlusion, focal flow-limiting stenosis,or aneurysm. BRAIN: No gross enhancing lesions as visualized. IMPRESSION: 1. BRAIN: Stable large intraparenchymal hematoma centered at the leftbasal ganglia; as detailed. 2. CAROTID CTA: No occlusion, hemodynamically significant stenosis, or dissection of the extracranial carotid or vertebral arteries. 3. INTRACRANIAL CTA: No large vessel occlusion, focal flow-limiting stenosis, or aneurysm. THIS IS AN ELECTRONICALLY VERIFIED FINAL REPORT 10/08/2024 9:59 AM - Electronically signed by Adarsh Gale M.D. MF: LAURIE Report ID: [id number] Reading Location: [place] [address] Patrick Patino MD IMG CT PROCEDURES E dited Result - Final * ECG 12 lead (10/08/2024 9:39 AM SALES AND MERCHANDISING ASSOCIATE) 10/08/2024 9:39 AM SALES AND MERCHANDISING ASSOCIATE Narrative [facility] - 10/09/2024 6:43 AM SALES AND MERCHANDISING ASSOCIATE Vent Rate: 80 bpm RR Interval: 750 msec OH Interval: 200 msec QRS Duration: 100 msec QT Interval: 360 msec QTC Interval: 395 msec P-R-T Dilliner: 54 - 60 - 55 degrees IMPRESSION: SINUS RHYTHM LOW QRS VOLTAGE IN PRECORDIAL LEADS [QRS DEFLECTION < 1.0 mV IN CHEST LEADS] BORDERLINE ECG Electronically Signed By: Ellis Brennan MD Patrick Patino MD ECG ORDERABLES Fin al Result [facility] * Troponin T high-sensitivity series (baseline, 2hr, 4hr, 6hr) (10/08/2024 9:32 AM SALES AND MERCHANDISING ASSOCIATE) Trop T hs <6 <=14 ng/L Comment: Interpretive Data For further hscTnT resources including the diagnostic algorithm and an aid in interpretation, copy and paste this link: https://nrl.testcatalog.org/show/hsTrop Current Interpretive Data last revised 2020. Blood 10/08/2024 9:32 AM SALES AND MERCHANDISING ASSOCIATE 10/08/2024 9:34 AM SALES AND MERCHANDISING ASSOCIATE us Patrick Patino MD LAB BLOOD ORDERABLE S Final Result OZIEL CONTRERAS [address] Department [place] [address] * eGFR (10/08/2024 9:32 AM SALES AND MERCHANDISING ASSOCIATE) eGFR 79 >=60 mL/min/1. 73 m2 Comment: Interpretive Data Reference Interval Normal >/= 90 mL/min/1.73m2 Mildly decreased* 60 - 89 mL/min/1.73m2 Mildly to moderately decreased 45 - 59 mL/min/1.73m2 Moderately to severely decreased 30 - 44 mL/min/1.73m2 Severely decreased 15 - 29 mL/min/1.73m2 Kidney Failure < 15 mL/min/1.73m2 *Relative to young adult level Estimated glomerular filtration rate is determined by the 2020 CKD-EPI equation recommended by the National Kidney Foundation (A Unifying Approach to GFR Estimation: Recommendations of the NKF-ASK Task Force on Reassessing the Inclusion of Race in Diagnosing Kidney Disease, JASN 2020). The CKD-EPI equation should not be used for patients with unstable renal function and has not been validated in children and those over 70. Current interpretive data was last reviewed 2021. Blood 10/08/2024 9:32 AM SALES AND MERCHANDISING ASSOCIATE 10/08/2024 9:34 AM SALES AND MERCHANDISING ASSOCIATE us Patrick Patino MD LAB BLOOD ORDERABLE S Final Result OZIEL CONTRERAS ([place]) 1 [facility] Department [place] [address] * Differential, auto (10/08/2024 9:32 AM SALES AND MERCHANDISING ASSOCIATE) Neutrophil abs 3.4 1.5 - 6.5 K/cumm Imm gran abs 0.0 0.0 - 0.1 K/cumm [facility] ([place]) Lymphocyte abs 2.2 0.8 - 3.3 K/cumm [facility] ([place]) Monocyte abs 0.4 0.2 - 0.8 K/cumm [facility] ([place]) Eosinophil abs 0.3 0.0 - 0.5 K/cumm [facility] ([place]) Basophil abs 0.1 0.0 - 0.1 K/cumm [facility] ([place]) Neutrophil pct 53.3 % [facility] ([place]) Comment: Interpretive Data Percent cell count reference ranges are not reported, since discordance with absolute values may lead to misinterpretation of CBC data. Current Interpretive Data was last revised on 2017. Imm gran pct 0.2 % [facility] ([place]) Comment: Interpretive Data Percent cell count reference ranges are not reported, since discordance with absolute values may lead to misinterpretation of CBC data. Current Interpretive Data was last revised on 2017. Lymphocyte pct 34.4 % [facility] ([place]) Comment: Interpretive Data Percent cell count reference ranges are not reported, since discordance with absolute values may lead to misinterpretation of CBC data. Current Interpretive Data was last revised on 2017. Monocyte pct 6.3 % [facility] ([place]) Comment: Interpretive Data Percent cell count reference ranges are not reported, since discordance with absolute values may lead to misinterpretation of CBC data. Current Interpretive Data was last revised on 2017. Eosinophil pct 5.0 % [facility] ([place]) Comment: Interpretive Data Percent cell count reference ranges are not reported, since discordance with absolute values may lead to misinterpretation of CBC data. Current Interpretive Data was last revised on 2017. Basophil pct 0.8 % [facility] ([place]) Comment: Interpretive Data Percent cell count reference ranges are not reported, since discordance with absolute values may lead to misinterpretation of CBC data. Current Interpretive Data was last revised on 2017. Blood 10/08/2024 9:32 AM SALES AND MERCHANDISING ASSOCIATE 10/08/2024 9:34 AM SALES AND MERCHANDISING ASSOCIATE us Patrick Patino MD LAB BLOOD ORDERABLE S Final Result [facility] ([place]) 1 [facility] Department [place] [address] * (ABNORMAL) CBC with auto differential (10/08/2024 9:32 AM SALES AND MERCHANDISING ASSOCIATE) WBC 6.4 3.8 - 9.9 K/cumm Hgb 12.7 11.9 - 15.5 g/dL [facility] ([place]) Hct 39.9 35.6 - 45.5 % [facility] ([place]) Plt 241 150 - 400 K/cumm [facility] ([place]) MPV 8.8(L) 9.1 - 12.3 fL [facility]) RBC 4.59 3.90 - 5.20 M/cumm [facility] ([place]) MCV 86.9 81.3 - 96.4 fL [facility] ([place]) MCH 27.7 27.1 - 33.3 pg [facility] ([place]) MCHC 31.8(L) 32.3 - 35.7 g/dL [facility] ([place]) RDW CV 13.2 11.1 - 14.9 % [facility] ([place]) RDW SD 42.2 35.7 - 48.1 fL [facility] ([place]) NRBC abs 0.00 0.00 - 0.01 K/cumm [facility] ([place]) Blood 10/08/2024 9:32 AM SALES AND MERCHANDISING ASSOCIATE 10/08/2024 9:34 AM SALES AND MERCHANDISING ASSOCIATE us Patrick Patino MD LAB BLOOD ORDERABLE S Final Result OZIEL CONTRERAS ([place]) [address] [facility] [place] [address] * ABO/Rh (10/08/2024 9:32 AM SALES AND MERCHANDISING ASSOCIATE) ABO/Rh A Negative Blood 10/08/2024 9:32 AM SALES AND MERCHANDISING ASSOCIATE 10/08/2024 9:34 AM SALES AND MERCHANDISING ASSOCIATE Narrative O[facility]IEL BEN ([place]) - 10/08/2024 10:17 AM SALES AND MERCHANDISING ASSOCIATE Has the patient had Daratumumab or Isatuximab in the past 6 months?->Unknown Patrick Patino MD LAB BLOOD BANK TEST ORDERABLES Final Result Performing Organization Address [facility] Co de Phone Number OZIEL CONTRERAS ([place]) 1 [facility] [place] [address] * Protime-INR (10/08/2024 9:32 AM SALES AND MERCHANDISING ASSOCIATE) PT 10.9 9.7 - 13.0 sec OZIEL CONTRERAS ([place]) INR 1.01 0.90 - 1.20 [facility] ([place]) Comment: Interpretive data Oral anticoagulant therapeutic ranges: Venous thromboembolism prophylaxis or treatment: 2.0-3.0 CARDIOLOGY Standard range: 2.0-3.0 High-intensity range: 2.5-3.5 Refer to indication-specific guidelines for appropriate target ranges for prosthetic heart valve replacement. Current interpretive data was last revised on 2019. Blood 10/08/2024 9:32 AM SALES AND MERCHANDISING ASSOCIATE 10/08/2024 9:34 AM SALES AND MERCHANDISING ASSOCIATE Patrick Patino MD LAB BLOOD ORDERABLE S Final Result Performing Organization Address City/[facility]/ZIP Co de Phone Number OZIEL CONTRERAS ([place]) 1 [facility] [place] [address] * Antibody screen (10/08/2024 9:32 AM SALES AND MERCHANDISING ASSOCIATE) Stephanie, indirect, Gel Interpretation Negative ABSC Blood 10/08/2024 9:32 AM SALES AND MERCHANDISING ASSOCIATE 10/08/2024 9:34 AM SALES AND MERCHANDISING ASSOCIATE Narrative OZIEL CONTRERAS ([place]) - 10/08/2024 10:17 AM SALES AND MERCHANDISING ASSOCIATE Has the patient had Daratumumab or Isatuximab in the past 6 months?->Unknown Patrick Patino MD LAB BLOOD BANK TEST ORDERABLES Final Result OZIEL CONTRERAS ([place]) 1 [place] [address] * Osmolality, blood (10/08/2024 9:32 AM SALES AND MERCHANDISING ASSOCIATE) [facility] Osmo 295 275 - 300 mOsm/kg Comment:Testing performed by : [facility], 1 [place]., [address] Blood 10/08/2024 9:32 AM SALES AND MERCHANDISING ASSOCIATE 10/08/2024 3:56 PM SALES AND MERCHANDISING ASSOCIATE Patrick Patino MD LAB BLOOD ORDERABLE S Final Result Performing Organization Address [facility] Co de Phone Number OZIEL CONTRERAS ([place]) 1 [facility] [place] [address] * Magnesium (10/08/2024 9:32 AM SALES AND MERCHANDISING ASSOCIATE) [facility] Magnesium 2.2 1.4 - 2.5 mg/dL Blood 10/08/2024 9:32 AM SALES AND MERCHANDISING ASSOCIATE 10/08/2024 9:46 AM SALES AND MERCHANDISING ASSOCIATE Patrick Patino MD LAB BLOOD ORDERABLE S Final Result Performing Organization Address City/[facility]/ZIP Co de Phone Number OZIEL CONTRERAS ([place]) 1 [facility] [place] [address] * (ABNORMAL) Comprehensive metabolic panel (10/08/2024 9:32 AM SALES AND MERCHANDISING ASSOCIATE) [facility] Sodium 140 135 - 145 mmol/L Potassium, pl 4.1 3.3 - 4.9 mmol/L [facility]) Chloride 105 97 - 110 mmol/L [facility]) CO2 24 22 - 32 mmol/L [facility]) Anion gap 12 2 - 15 mmol/L [facility] ([place]) BUN 18 6 - 25 mg/dL [facility] ([place]) Creatinine 0.79 0.60 - 1.10 mg/dL [facility] ([place]) Glucose 109 70 - 199 mg/dL [facility]) Comment: Interpretive Data Fasting glucose >/= 126 mg/dl is diagnostic for diabetes. Fasting is defined as no caloric intake for at least 8 hours. Fasting glucose between 100 mg/dl to 125 mg/dl is diagnostic of prediabetes. In a patient with classic symptoms of hyperglycemia or hyperglycemic crisis, a random glucose >/= 200 mg/dl is diagnostic for diabetes. In the absence of unequivocal hyperglycemia, results should be confirmed by repeat testing. The classification and Diagnosis of Diabetes Diabetes Care 2021; 46: S19-S40. Current interpretive data was last revised 2022. Calcium 9.1 8.5 - 10.3 mg/dL [facility]) Bilirubin, total 0.4 0.1 - 1.2 mg/dL [facility] ([place]) Protein, pl 6.4(L) 6.5 - 8.5 g/dL [facility] ([place]) Albumin 3.8 3.5 - 5.0 g/dL [facility] ([place]) Alk phos 63 40 - 130 Units/L [facility] ([place]) ALT 15 7 - 45 Units/L [facility] ([place]) AST 18 10 - 45 Units/L [facility] ([place]) Blood 10/08/2024 9:32 AM SALES AND MERCHANDISING ASSOCIATE 10/08/2024 9:34 AM SALES AND MERCHANDISING ASSOCIATE us Patrick Patino MD LAB BLOOD ORDERABLE S Final Result [facility] ([place]) 1 [facility] Department [place] [address] * CT Stroke Head WO Contrast (10/08/2024 9:31 AM SALES AND MERCHANDISING ASSOCIATE) Anatomical Region Laterality Modality Head N/A Computed Tomogra phy 10/08/2024 9:32 AM SALES AND MERCHANDISING ASSOCIATE Narrative 10/08/2024 9:41 AM SALES AND MERCHANDISING ASSOCIATE EXAM DESCRIPTION: CT STROKE HEAD WO CONTRAST REASON FOR STUDY: Last known well at 830 this morning when she got out of tub and fell TECHNIQUE: Axial images acquired through the brain without intravenous contrast. Images stored on PACS. Automated exposure control was used as a dose optimization technique for this examination. COMPARISON: None available. FINDINGS: BRAIN: There is a large intraparenchymal hematoma centered at left basal ganglia which measures 5.6 x 2.0 x 3.0 cm. There is mild mass effect on the surrounding parenchyma with effacement of the left lateral ventricle. No significant midline shift identified. No evidence of intraventricular extension. No evidence of recent infarct. There are a few scattered small patchy subcortical and periventricular white matter hypodensities compatible with chronic small vessel ischemic changes. EXTRA-AXIAL SPACES: No fluid collections. No masses. CALVARIUM: No fracture. SINUSES/MASTOIDS: No fluid or mucosal thickening. ORBITS: No significant abnormality. OTHER: No other significant abnormality. IMPRESSION: Large intraparenchymal hematoma centered at the left basal ganglia; as detailed. No significant midline shift. Acute findings were discussed with Dr. Patino by Dr. Gale at 9:41 a.m. on 10/08/2024 by telephone. THIS IS AN ELECTRONICALLY VERIFIED FINAL REPORT 10/08/2024 9:41 AM - Electronically signed by Adarsh Gale M.D. MF: LAURIE Report ID: [id number] Reading Location: [id number] Procedure Note Adarsh Gale, DO - 10/08/2024 EXAM DESCRIPTION: CT STROKE HEAD WO CONTRAST REASON FOR STUDY: Last known well at 830 this morning when she got out of tub and fell TECHNIQUE: Axial images acquired through the brain without intravenous contrast. Images stored on PACS. Automated exposure control was used asa dose optimization technique for this examination. COMPARISON: None available. FINDINGS: BRAIN: There is a large intraparenchymal hematoma centered at left basal ganglia which measures 5.6 x 2.0 x 3.0 cm. There is mild mass effect onthe surrounding parenchyma with effacement of the left lateral ventricle. No significant midline shift identified. No evidence of intraventricular extension. No evidence of recent infarct. There are a few scatteredsmall patchy subcortical and periventricular white matter hypodensitiescompatible with chronic small vessel ischemic changes. EXTRA-AXIAL SPACES: No fluid collections. No masses. CALVARIUM: No fracture. SINUSES/MASTOIDS: No fluid or mucosal thickening. ORBITS: No significant abnormality. OTHER: No other significant abnormality. IMPRESSION: Large intraparenchymal hematoma centered at the left basal ganglia; as detailed. No significant midline shift. Acute findings were discussed with Dr. Patino by Dr. Gale at 9:41 a.m. on 10/08/2024 by telephone. THIS IS AN ELECTRONICALLY VERIFIED FINAL REPORT 10/08/2024 9:41 AM - Electronically signed by Adarsh Gale M.D. MF: LAURIE Report ID: [id number] Reading Location: [id number] Patrick Patino MD IMG CT PROCEDURES F inal Result * POCT glucose (10/08/2024 9:20 AM SALES AND MERCHANDISING ASSOCIATE) Glucose, POC 95 70 - 199 mg/dL Blood 10/08/2024 9:20 AM SALES AND MERCHANDISING ASSOCIATE 10/08/2024 9:20 AM SALES AND MERCHANDISING ASSOCIATE Patrick Patino MD LAB POCT ORDERABLES - DEVICE Final Result OZIEL CONTRERAS [place] 1 [facility] Department [place] [address] * POC Influenza A/B, COVID-19 antigen (07/18/2024 11:48 AM SALES AND MERCHANDISING ASSOCIATE) Influenza A Ag, POC Negative Negative [facility] Influenza B Ag, POC Negative Negative [facility] COVID-19 Ag POC Presumptive Negative Presumptive Negative, Invalid [facility] Nasal 07/18/2024 11:4 8 AM SALES AND MERCHANDISING ASSOCIATE Holger Cortez MD POINT OF CARE TEST ORDERA BLES Final Result [facility] [address] [facility] [address] [place] [address] * POCT rapid RSV (07/18/2024 11:48 AM SALES AND MERCHANDISING ASSOCIATE) Rapid RSV, POC Negative Negative Lot Number [id number] QC Control Line Acceptable Swab 07/18/2024 11:4 8 AM SALES AND MERCHANDISING ASSOCIATE Holger Cortez MD POINT OF CARE TEST ORDERA BLES Final Result * POCT rapid strep A (07/18/2024 11:48 AM SALES AND MERCHANDISING ASSOCIATE) Rapid Strep A, POC Negative Negative Swab 07/18/2024 11:4 8 AM SALES AND MERCHANDISING ASSOCIATE Holger Cortez MD POINT OF CARE TEST ORDERA BLES Final Result * SCREENING MAMMOGRAM BILATERAL W BRIAN (09/14/2023 9:02 AM SALES AND MERCHANDISING ASSOCIATE) Anatomical Region Laterality Modality Breast Bilateral Mammography 09/14/2023 9:16 AM SALES AND MERCHANDISING ASSOCIATE Impressions 09/14/2023 9:16 AM SALES AND MERCHANDISING ASSOCIATE There is no mammographic evidence of malignancy. A 1 year screening mammogram is recommended. BI-RADS: 1 - Negative. The patient has been or will be contacted. The patient will be entered into a reminder system with a target due date of 1 year for her next mammogram. Electronically signed by: REBECCA Hairston 09/14/2023 9:16 AM SALES AND MERCHANDISING ASSOCIATE EXAMINATION: SCREENING MAMMOGRAM BILATERAL W BRIAN ORDERING HEALTHCARE PROVIDER: HOLGER CORTEZ HISTORY: Routine screening mammography. COMPARISON: 07/15/2022, 07/01/2021, 06/29/2020, 12/22/2018. TECHNIQUE: CC and MLO views of both breasts were obtained with digital technique using digital breast tomosynthesis with C view. Computer aided detection was utilized. FINDINGS: DENSITY: The breasts have scattered areas of fibroglandular density. BREASTS: There is no new suspicious finding in either breast on mammogram. us Holger Cortez MD IMG MAMMO PROCEDURES King[place] l Result * Dexa Axial Skeleton Bone Density 1 Or 2 Site (07/15/2022 10:37 AM SALES AND MERCHANDISING ASSOCIATE) Anatomical Region Laterality Modality Body N/A Other 07/15/2022 10:0 7 PM SALES AND MERCHANDISING ASSOCIATE Narrative 07/15/2022 10:10 PM SALES AND MERCHANDISING ASSOCIATE EXAM DESCRIPTION: DEXA AXIAL SKELETON BONE DENSITY 1 OR MORE SITES REASON FOR STUDY: 71 y/o year old F with given history of screening. 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 FINDINGS: AP LUMBAR SPINE L1-L4: Total BMD is 0.802 g/cm2 T-score is -2.2 Dissimilar scan types or analysis methods precludes assessment for calculating a significant change. LEFT HIP: Total BMD is 0.883 g/cm2 T-score is -0.5 Dissimilar scan types or analysis methods precludes assessment for calculating a significant change. Femoral neck BMD is 0.721 g/cm2 T-score is -1.2 FRAX: 10 year risk for a major osteoporotic fracture is 13 %, 10 year risk for a hip fracture is 1.4 % IMPRESSION: Based on the lumbar spine bone mineral density (T-score -2.2 ) the patient has low bone mass . REFERENCE: Bone mineral density: Normal (T-score above or = -1.0) Low bone mass (T-score between -1.0 and -2.5) replaces the previously used term osteopenia Osteoporosis (T-score = or below -2.5) Medical evaluation for secondary causes of low bone mineral density may be appropriate. FRAX is a World Health Organization validated fracture risk assessment tool that calculates a person's 10 year probability of a major osteoporosis related fracture and hip fracture. According to the National Osteoporosis Foundation guidelines, postmenopausal women and men age 50 or older with low bone mass and a 10 year probability of a major osteoporosis related fracture = or greater than 20% or a 10 year probability of a hip fracture = or greater than 3% should be considered for treatment. For further information, including treatment recommendations, please refer to the 2013 ISCD Official Positions (http://www.iscd.org) and the NOF's Clinician's Guide to Prevention and Treatment of Osteoporosis (http://www.nof.org/professionals/clinical-guidelines) THIS IS AN ELECTRONICALLY VERIFIED FINAL REPORT 07/15/2022 10:10 PM - Electronically signed by Adarsh Song M.D. MF: LAURIE Report ID: [id number] Reading Location: [place] [address] Procedure Note Adarsh Song MD - 07/15/2022 EXAM DESCRIPTION: DEXA AXIAL SKELETON BONE DENSITY 1 OR MORE SITES REASON FOR STUDY: 71 y/o year old F with given history ofscreening. 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 FINDINGS: AP LUMBAR SPINE L1-L4: Total BMD is 0.802 g/cm2 T-score is -2.2 Dissimilar scan types or analysis methods precludes assessment for calculating a significant change. LEFT HIP: Total BMD is 0.883 g/cm2 T-score is -0.5 Dissimilar scan types or analysis methods precludes assessment for calculating a significant change. Femoral neck BMD is 0.721 g/cm2 T-score is -1.2 FRAX: 10 year risk for a major osteoporotic fracture is 13 %, 10 year risk for ahip fracture is 1.4 % IMPRESSION: Based on the lumbar spine bone mineral density (T-score -2.2 ) the patient has low bone mass . REFERENCE: Bone mineral density: Normal (T-score above or = -1.0) Low bone mass (T-score between -1.0 and -2.5) replaces thepreviously used term osteopenia Osteoporosis (T-score = or below -2.5) Medical evaluation for secondary causes of low bone mineral density may be appropriate. FRAX is a World Health Organization validated fracture risk assessmenttool that calculates a person's 10 year probability of a major osteoporosisrelated fracture and hip fracture. According to the National OsteoporosisFoundation guidelines, postmenopausal women and men age 50 or older with low bonemass and a 10 year probability of a major osteoporosis related fracture = or greater than 20% or a 10 year probability of a hip fracture = or greaterthan 3% should be considered for treatment. For further information, including treatment recommendations, please referto the 2013 ISCD Official Positions (http://www.iscd.org) and the NOF's Clinician's Guide to Prevention and Treatment of Osteoporosis (http://www.nof.org/professionals/clinical-guidelines) THIS IS AN ELECTRONICALLY VERIFIED FINAL REPORT 07/15/2022 10:10 PM - Electronically signed by Adarsh Song M.D. MF: LAURIE Report ID: [id number] Reading Location: [place] [address] Holger Cortez MD IM DXA PROCEDURES Final Result * COLONOSCOPY (07/17/2021 8:35 AM SALES AND MERCHANDISING ASSOCIATE) Anatomical Region Laterality Modality Other Narrative Procedure Note Toño Morel MD - 07/17/2021 8:35 AM CST [facility] Patient Name: Megan Salas Procedure Date: 07/17/2021 8:35 AM Date of : 1950 Admit Type: Outpatient Age: 70 Gender: Female Attending MD: Tñoo Morel M.D. Room: [facility] ENDOSCOPY ROOM 1 Note Status: Finalized Patient Profile: This is a 70 year old female. Normal and mother possibly had colon cancer. No specific GIcomplaint Procedure: Colonoscopy Indications: Screening for colorectal malignant neoplasm, Last colonoscopy: June 2011 Referring MD: Holger Cortez M.D. Providers: Toño Morel M.D. Impression: - One 5 mm polyp in the proximal sigmoid colon, removed with a jumbo cold forceps. Resected and retrieved. - Diverticulosis in the mid sigmoid colon and inthe distal sigmoid colon. - Internal hemorrhoids. Recommendation: - Await pathology results. - Repeat colonoscopy in 5-10 years for screening purposes. - Continue present medications. Medicines: Monitored Anesthesia Care Complications: No immediate complications. Estimated Blood Loss: Estimated blood loss: none. Procedure: Pre-Anesthesia Assessment: - Prior to the procedure, a History and Physicalwas performed, and patient medications and allergieswere reviewed. The patient's tolerance of previous anesthesia was also reviewed. The risks andbenefits of the procedure and the sedation options and risks were discussed with the patient. All questions were answered, and informed consent was obtained. Prior Anticoagulants: The patient has taken no previous anticoagulant or antiplatelet agents. ASA Grade Assessment: II - A patient with mild systemicdisease. After reviewing the risks and benefits, the patient was deemed in satisfactory condition to undergo the procedure. The benefits, risks and alternatives of theprocedure and sedation were discussed and informed consentwas obtained. All questions were answered. Please referto the signed informed consent document in the medical record. The bowel preparation used was Miralax via split dose instruction. The bowel preparation usedwas bisacodyl tablets via split dose instruction. The scope was passed under direct vision. The Pediatric Colonoscope [id number]-[id number] was introducedthrough the anus and advanced to the the cecum, identifiedby appendiceal orifice and ileocecal valve. Thequality of the bowel preparation was good. Bowel prep was administered using a split dose. Findings: The perianal and digital rectal examinations were normal. The cecum appeared normal. The descending colon, transverse colon and ascending colon appeared normal. A 5 mm polyp was found in the proximal sigmoid colon. The polyp was flat. The polyp was removed with a jumbo cold forceps. Resection and retrieval were complete. Multiple small-mouthed diverticula were found in the mid sigmoidcolon and distal sigmoid colon. Internal hemorrhoids were found during retroflexion. The hemorrhoids were medium-sized. Electronically signed by Toño Morel M.D. Toño Morel M.D. 07/17/2021 9:46:07 AM Number of Addenda: 0 Note Initiated On: 07/17/2021 8:35 AM Procedure Code(s): --- Professional --- 85917, Colonoscopy, flexible; with biopsy, single or multiple Diagnosis Code(s): --- Professional --- Z12.11, Encounter for screening for malignant neoplasm of colon K64.8, Other hemorrhoids K63.5, Polyp of colon K57.30, Diverticulosis of large intestine without perforation orabscess without bleeding CPT copyright 2019 [employer]. All rights reserved. The codes documented in this report are preliminary and upon legal services professional reviewmay be revised to meet current compliance requirements. Recognized by the [employer] for promoting quality in endoscopy us Toño Morel MD ENDOSCOPY PROCEDURES Final Result * Hepatitis C antibody (04/15/2021 8:55 AM CDT) Hep C Ab Nonreactive Nonreactive [facility]) Comment: Interpretive Data Nonreactive: Antibodies to HCV not detected. Does NOT exclude the possibility of recent exposure to HCV. Equivocal: Equivocal for HCV antibodies. Supplemental molecular testing will be automatically performed to determine infection status in accordance with current CDC screening recommendations. Reactive: Positive for HCV antibodies. This may represent current or past HCV infection. Supplemental molecular testing will be automatically performed to determine current infection status in accordance with current CDC screening recommendations. Interpretive data was last revised on 2019. Testing performed by: [facility], [address] [place] [address]., [id number] Blood specimen (specimen) 04/15/2021 8:55 AM CDT 04/15/2021 3:06 PM CDT Holger Cortez MD LAB MICROBIOLOGY - GENERA L ORDERABLES Final Result [facility] ([place]) 1 [facility] Department [place] [address] from Last 3 Months or Most Recently Relevant to Health Maintenance Insurance MEDICARE SOLUTIONS MEDICARE SOLUTIONS Member Subscriber Plan / Payer (Ef fective 2022-Present) Name:Megan Salas Relation to Subscriber:Self Name:Megan Salas Payer ID:[id number] (NAIC) Type:[employer] MEDICARE Address: [place] [id number] MEDICARE SOLUTIONS Advance Directives For more information, please contact: [phone] * Full Code (Latest Code Status on File) Date Activated Date Inactivated Comments 10/08/2024 11:42 AM 10/18/2024 3:10 AM * Full Code Date Activated Date Inactivated Comments 07/17/2021 8:43 AM 07/17/2021 2:26 PM Care Teams Keypuncher Relationship Specialty [place] [id number] [facility] [address] [place] [address] PCP - General Family Medicine 03/20/19 [place] [id number] [address] [facility] [address] [place] [address] Consulting Physician Obstetrics and Gynecology 12/26/18 Shiraz Gillespie, PT Physical Therapist Physical Therapy 01/22/23 Joey Sidhu MD [address] [place] [address] Referring Physician Ophthalmology 05/24/24
--- OUTSIDE RECORDS SUMMARY | 2024-10-18 09:21 | XMS_ITS | Clinical Summary ---
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 PM MEDIA BUYER 10/14/2024 9:21 PM MEDIA BUYER Francy Stinson NETWORK CONTROLLER LAB BLOOD ORDERABLES Final Result [facility] Department [place] [address] * (ABNORMAL) CBC without differential (10/14/2024 9:01 PM MEDIA BUYER) WBC 9.7 3.8 - 9.9 K/cumm Hgb 13.3 11.9 - 15.5 g/dL [facility] Hct 42.4 35.6 - 45.5 % [facility] Plt 247 150 - 400 K/cumm [facility] MPV 9.7 9.1 - 12.3 fL [facility] RBC 4.91 3.90 - 5.20 M/cumm [facility] MCV 86.4 81.3 - 96.4 fL [facility] MCH 27.1 27.1 - 33.3 pg [facility] MCHC 31.4(L) 32.3 - 35.7 g/dL [facility] RDW CV 13.2 11.1 - 14.9 % [facility] RDW SD 41.6 35.7 - 48.1 fL [facility] NRBC abs 0.00 0.00 - 0.01 K/cumm [facility] Blood 10/14/2024 9:01 PM MEDIA BUYER 10/14/2024 9:20 PM MEDIA BUYER Josefa Keller NETWORK CONTROLLER LAB BLOOD ORDERABLES Final Result Performing Organization Address City/[facility]/ZIP Co de Phone Number [facility] [place] [address] * Phosphorus (10/14/2024 9:01 PM MEDIA BUYER) Pathologist [facility] Phosphorus, pl 3.3 2.3 - 4.5 mg/dL Blood 10/14/2024 9:01 PM MEDIA BUYER 10/14/2024 9:21 PM MEDIA BUYER Francy Stinson NETWORK CONTROLLER LAB BLOOD ORDERABLES Final Result Performing Organization Address [facility] de Phone Number [facility] [place] [address] * (ABNORMAL) Magnesium (10/14/2024 9:01 PM MEDIA BUYER) [facility] Magnesium 2.7(H) 1.4 - 2.5 mg/dL Blood 10/14/2024 9:01 PM MEDIA BUYER 10/14/2024 9:21 PM MEDIA BUYER Josefa Keller NETWORK CONTROLLER LAB BLOOD ORDERABLES Final Result Performing Organization Address [facility] [place] [address] * (ABNORMAL) Comprehensive metabolic panel (10/14/2024 9:01 PM MEDIA BUYER) Sodium 147(H) 135 - 145 mmol/L Potassium, pl 3.9 3.3 - 4.9 mmol/L [facility] Chloride 109 97 - 110 mmol/L [facility] CO2 31 22 - 32 mmol/L [facility] Anion gap 7 2 - 15 mmol/L [facility] BUN 26(H) 6 - 25 mg/dL [facility] Creatinine 0.85 0.60 - 1.10 mg/dL [facility] Glucose 124 70 - 199 mg/dL [facility] Comment: Interpretive Data Fasting glucose >/= 126 [...] 2022. Calcium 9.7 8.5 - 10.3 mg/dL [facility] Bilirubin, total 0.4 0.1 - 1.2 mg/dL [facility] Protein, pl 7.1 6.5 - 8.5 g/dL [facility] Albumin 3.7 3.5 - 5.0 g/dL [facility] Alk phos 76 40 - 130 Units/L [facility] ALT 15 7 - 45 Units/L [facility] AST 22 10 - 45 Units/L [facility] Blood 10/14/2024 9:01 PM MEDIA BUYER 10/14/2024 9:21 PM MEDIA BUYER Francy Stinson NETWORK CONTROLLER LAB BLOOD ORDERABLES Final Result [facility] Department [place] [address] * POCT glucose (10/14/2024 12:21 PM MEDIA BUYER) Glucose, POC 111 70 - 199 mg/dL Blood 10/14/2024 12:2 1 PM MEDIA BUYER 10/14/2024 12:21 PM MEDIA BUYER us Germania Mota MD LAB POCT ORDERABLES - D EVICE Final Result Performing Organization Address [facility] Co de Phone Number [facility] [place] [address] * eGFR (10/13/2024 10:21 PM MEDIA BUYER) eGFR 71 >=60 mL/min/1. 73 m2 Comment: [...] reviewed 2021. Blood 10/13/2024 10:2 1 PM MEDIA BUYER 10/13/2024 10:33 PM MEDIA BUYER Francy Stinson NP LAB BLOOD ORDERABLES Final Result Performing Organization Address [facility] Co de Phone Number [facility] Department [place] [address] * (ABNORMAL) CBC without differential (10/13/2024 10:21 PM MEDIA BUYER) WBC 10.2(H) 3.8 - 9.9 K/cumm Hgb 12.1 11.9 - 15.5 g/dL [facility] Hct 38.1 35.6 - 45.5 % [facility] Plt 253 150 - 400 K/cumm [facility] MPV 9.5 9.1 - 12.3 fL [facility] RBC 4.47 3.90 - 5.20 M/cumm [facility] MCV 85.2 81.3 - 96.4 fL [facility] MCH 27.1 27.1 - 33.3 pg [facility] MCHC 31.8(L) 32.3 - 35.7 g/dL [facility] RDW CV 13.4 11.1 - 14.9 % [facility] RDW SD 41.9 35.7 - 48.1 fL [facility] NRBC abs 0.00 0.00 - 0.01 K/cumm [facility] Blood 10/13/2024 10:2 1 PM MEDIA BUYER 10/13/2024 10:34 PM MEDIA BUYER Josefa Keller NP LAB BLOOD ORDERABLES Final Result Performing Organization Address City/State/[facility] Co de Phone Number [facility] Department [place] [address] * (ABNORMAL) Basic metabolic panel (10/13/2024 10:21 PM MEDIA BUYER) Sodium 146(H) 135 - 145 mmol/L Potassium, pl 4.2 3.3 - 4.9 mmol/L [facility] Chloride 108 97 - 110 mmol/L [facility] CO2 30 22 - 32 mmol/L [facility] Anion gap 8 2 - 15 mmol/L [facility] BUN 25 6 - 25 mg/dL [facility] Creatinine 0.86 0.60 - 1.10 mg/dL [facility] Glucose 100 70 - 199 mg/dL [facility] Comment: Interpretive Data Fasting glucose >/= 126 [...] 2022. Calcium 9.6 8.5 - 10.3 mg/dL [facility] Blood 10/13/2024 10:2 1 PM MEDIA BUYER 10/13/2024 10:33 PM MEDIA BUYER Francy Stinson NP LAB BLOOD ORDERABLES Final Result Performing Organization Address City/[facility]/ZIP Co de Phone Number [facility] Department [place] [address] * eGFR (10/12/2024 8:23 PM MEDIA BUYER) eGFR 87 >=60 mL/min/1. 73 m2 Comment: [...] last reviewed 2021. Blood 10/12/2024 8:23 PM MEDIA BUYER 10/12/2024 9:48 PM MEDIA BUYER Francy Stinson NETWORK CONTROLLER LAB BLOOD ORDERABLES Final Result Performing Organization Address City/[facility]/ZIP Co de Phone Number [facility] Department [place] [address] * (ABNORMAL) CBC without differential (10/12/2024 8:23 PM MEDIA BUYER) [facility] WBC 11.1(H) 3.8 - 9.9 K/cumm Hgb 13.1 11.9 - 15.5 g/dL [facility] Hct 41.6 35.6 - 45.5 % [facility] Plt 225 150 - 400 K/cumm [facility] MPV 10.4 9.1 - 12.3 fL [facility] RBC 4.81 3.90 - 5.20 M/cumm [facility] MCV 86.5 81.3 - 96.4 fL [facility] MCH 27.2 27.1 - 33.3 pg [facility] MCHC 31.5(L) 32.3 - 35.7 g/dL [facility] RDW CV 13.6 11.1 - 14.9 % [facility] RDW SD 42.8 35.7 - 48.1 fL [facility] NRBC abs 0.00 0.00 - 0.01 K/cumm [facility] Blood 10/12/2024 8:23 PM MEDIA BUYER 10/12/2024 9:47 PM MEDIA BUYER Josefa Keller NP LAB BLOOD ORDERABLES Final Result [facility] Department [place] [address] * Basic metabolic panel (10/12/2024 8:23 PM MEDIA BUYER) [facility] Sodium 143 135 - 145 mmol/L Potassium, pl 4.2 3.3 - 4.9 mmol/L [facility] Chloride 104 97 - 110 mmol/L [facility] CO2 30 22 - 32 mmol/L [facility] Anion gap 9 2 - 15 mmol/L [facility] BUN 17 6 - 25 mg/dL [facility] Creatinine 0.73 0.60 - 1.10 mg/dL [facility] Glucose 105 70 - 199 mg/dL [facility] Comment: Interpretive Data Fasting glucose >/= 126 [...] 2022. Calcium 9.3 8.5 - 10.3 mg/dL [facility] Blood 10/12/2024 8:23 PM MEDIA BUYER 10/12/2024 9:48 PM MEDIA BUYER us Francy Stinson NP LAB BLOOD ORDERABLES Final Result [facility] Department [place] [address] * FL Modified Barium Swallow W Video (10/12/2024 2:45 PM MEDIA BUYER) Anatomical Region Laterality Modality Head and Neck N/A Computed Radiogr aphy 10/12/2024 3:29 PM MEDIA BUYER Impressions 10/12/2024 3:29 PM MEDIA BUYER The swallowing mechanism is abnormal; see above [...] Anjelica Ding M.D. Narrative 10/12/2024 3:29 PM MEDIA BUYER EXAMINATION: MODIFIED BARIUM SWALLOW HISTORY: Dysphagia. TECHNIQUE: [...] signed by: Anjelica Ding M.D. Lelia Freitas NP IMG FLUOROSCOPY STEPHY CHAVES Final Result * JAVA APPLICATION DEVELOPER Evaluate and Treat (VFSS) (10/12/2024 2:35 PM MEDIA BUYER) Narrative Ingris Pierson SLP - 10/12/2024 2:35 PM MEDIA BUYER Ingris Pierson SLP 10/12/2024 3:50 PM Speech-Language Pathology: Videofluoroscopic Study of Swallow (VFSS/MBS) HPI/PMH HPI/PMH: 74 year old woman with history of hypertension, hyperlipidemia, GERD, anxiety disorder who is transferred here from [facility] with a L BG/Internal capsule ICH after [...] diet/thin liquids General Information Megan Salas 10/12/24 JAVA APPLICATION DEVELOPER Received On: 10/12/24 General Observations: Pt seen [...] at 90 degrees. Consistencies Administered: Thin liquids, Panacea thickened liquids, Honey thickened liquids, Purees, Solids Administered consistencies contain barium product. Thin Liquids: Laryngeal Penetration: Present Aspiration Present: No Penetration Aspiration Scale-Thin: 5-Material enters the airway, contacts the vocal folds and is not ejected from the airway Panacea Thickened Liquids: Laryngeal Penetration: Present Aspiration Present: Yes Amount: Moderate Response to aspiration: Cough reflex Cough: Non-productive Penetration Aspiration Scale-Panacea: 7-Material enters the airway, passes below the [...] treatment goals and details, if indicated. Plan JAVA APPLICATION DEVELOPER Frequency of Services during current admission: 2-4x/wk JAVA APPLICATION DEVELOPER Recommendation (Add'l Services): Inpatient Rehab Facility Next Visit Plan: treatment/therapy Additional Referrals: PT/OT Discharge Summary Statement If this is the last swallow therapy visit, this serves as the discharge summary. Lelia Freitas NP JAVA APPLICATION DEVELOPER ORDERABLES Edite d Result - Final * eGFR (10/11/2024 9:06 PM MEDIA BUYER) eGFR 85 >=60 mL/min/1. 73 m2 Comment: [...] last reviewed 2021. Blood 10/11/2024 9:06 PM MEDIA BUYER 10/11/2024 9:46 PM MEDIA BUYER Francy Stinson NETWORK CONTROLLER LAB BLOOD ORDERABLES Final Result Performing Organization Address City/[facility]/ZIP Co de Phone Number [facility] Department of [employer] [place] [address] * (ABNORMAL) CBC without differential (10/11/2024 9:06 PM MEDIA BUYER) WBC 12.6(H) 3.8 - 9.9 K/cumm Hgb 12.2 11.9 - 15.5 g/dL [facility] Hct 38.0 35.6 - 45.5 % [facility] Plt 256 150 - 400 K/cumm [facility] MPV 9.8 9.1 - 12.3 fL [facility] RBC 4.37 3.90 - 5.20 M/cumm [facility] MCV 87.0 81.3 - 96.4 fL [facility] MCH 27.9 27.1 - 33.3 pg [facility] MCHC 32.1(L) 32.3 - 35.7 g/dL [facility] RDW CV 13.6 11.1 - 14.9 % [facility] RDW SD 43.5 35.7 - 48.1 fL [facility] NRBC abs 0.00 0.00 - 0.01 K/cumm [facility] Blood 10/11/2024 9:06 PM MEDIA BUYER 10/11/2024 9:45 PM MEDIA BUYER Josefa Keller NETWORK CONTROLLER LAB BLOOD ORDERABLES Final Result Performing Organization Address [facility]/ZIP Co de Phone Number [facility] Department [place] [address] * Basic metabolic panel (10/11/2024 9:06 PM MEDIA BUYER) Sodium 145 135 - 145 mmol/L Potassium, pl 4.2 3.3 - 4.9 mmol/L [facility] Chloride 108 97 - 110 mmol/L [facility] CO2 29 22 - 32 mmol/L [facility] Anion gap 8 2 - 15 mmol/L [facility] BUN 17 6 - 25 mg/dL [facility] Creatinine 0.74 0.60 - 1.10 mg/dL [facility] Glucose 137 70 - 199 mg/dL [facility] Comment: Interpretive Data Fasting glucose >/= 126 [...] 2022. Calcium 9.5 8.5 - 10.3 mg/dL [facility] Blood 10/11/2024 9:06 PM MEDIA BUYER 10/11/2024 9:46 PM MEDIA BUYER us Francy Stinson NP LAB BLOOD ORDERABLES Final Result Performing Organization Address City/[facility]/ZIP Co de Phone Number [facility] Department [place] [address] * Potassium, whole blood (10/11/2024 2:11 AM MEDIA BUYER) Potassium, bld 4.8 3.3 - 4.9 mmol/L Blood 10/11/2024 2:11 AM MEDIA BUYER 10/11/2024 2:26 AM MEDIA BUYER us Avi Rahman MD LAB BLOOD ORDERABLES Final Resul t Performing Organization Address City/[facility]/ZIP Co de Phone Number [facility] Department [place] [address] * (ABNORMAL) CBC without differential (10/11/2024 2:11 AM MEDIA BUYER) [facility] WBC 10.1(H) 3.8 - 9.9 K/cumm Hgb 12.2 11.9 - 15.5 g/dL [facility] Hct 38.5 35.6 - 45.5 % [facility] Plt 238 150 - 400 K/cumm [facility] MPV 9.7 9.1 - 12.3 fL [facility] RBC 4.40 3.90 - 5.20 M/cumm [facility] MCV 87.5 81.3 - 96.4 fL [facility] MCH 27.7 27.1 - 33.3 pg [facility] MCHC 31.7(L) 32.3 - 35.7 g/dL [facility] RDW CV 13.6 11.1 - 14.9 % [facility] RDW SD 44.1 35.7 - 48.1 fL [facility] NRBC abs 0.00 0.00 - 0.01 K/cumm [facility] Blood 10/11/2024 2:11 AM MEDIA BUYER 10/11/2024 2:36 AM MEDIA BUYER us Avi Rahman MD LAB BLOOD ORDERABLES Final Resul t [facility] Department [place] [address] * eGFR (10/10/2024 9:30 PM MEDIA BUYER) [facility] eGFR 90 >=60 mL/min/1. 73 m2 Comment: [...] last reviewed 2021. Blood 10/10/2024 9:30 PM MEDIA BUYER 10/10/2024 10:23 PM MEDIA BUYER Francy Stinson NETWORK CONTROLLER LAB BLOOD ORDERABLES Final Result [facility] Department [place] [address] * Magnesium (10/10/2024 9:30 PM MEDIA BUYER) [facility] Magnesium 2.2 1.4 - 2.5 mg/dL Blood 10/10/2024 9:30 PM MEDIA BUYER 10/10/2024 10:23 PM MEDIA BUYER Lauren Myers NETWORK CONTROLLER LAB BLOOD ORDERABLES Fi nal Result [facility] [place] [address] * Basic metabolic panel (10/10/2024 9:30 PM MEDIA BUYER) Sodium 142 135 - 145 mmol/L Potassium, pl 4.4 3.3 - 4.9 mmol/L [facility] Comment:Hemolyzed; Potassium value may be falsely elevated by as much as 0.6-1.0 mmol/L. Suggest redraw and reanalysis. Chloride 106 97 - 110 mmol/L [facility] CO2 29 22 - 32 mmol/L [facility] Anion gap 7 2 - 15 mmol/L [facility] BUN 15 6 - 25 mg/dL [facility] Creatinine 0.71 0.60 - 1.10 mg/dL [facility] Glucose 137 70 - 199 mg/dL [facility] Comment: Interpretive Data Fasting glucose >/= 126 [...] 2022. Calcium 8.7 8.5 - 10.3 mg/dL [facility] Blood 10/10/2024 9:30 PM MEDIA BUYER 10/10/2024 10:23 PM MEDIA BUYER Francy Stinson NETWORK CONTROLLER LAB BLOOD ORDERABLES Final Result [facility] Department [place] [address] * XR Abdomen Ap 1 Vw (10/10/2024 9:06 PM MEDIA BUYER) Anatomical Region Laterality Modality Body, Abdomen N/A Digital Radiogra phy 10/11/2024 8:51 AM MEDIA BUYER Impressions 10/11/2024 9:55 AM MEDIA BUYER Interval repositioning of feeding tube with tip projecting over the gastric fundus. Dictated by: Brian Baker MD The radiology attending physician has personally reviewed this study, and had reviewed and/or edited this written report and agrees with it. Electronically signed by: Phillip Yoon M.D. Narrative 10/11/2024 9:55 AM MEDIA BUYER EXAMINATION: Abdomen, one view. HISTORY: Check tube [...] and agrees with it. Electronically signed by: hPillip Yoon M.D. us Avi Rahman MD IMG XR PROCEDURES Final Result * eGFR (10/09/2024 9:26 PM MEDIA BUYER) eGFR 78 >=60 mL/min/1. 73 m2 Comment: [...] last reviewed 2021. Blood 10/09/2024 9:26 PM MEDIA BUYER 10/09/2024 9:41 PM MEDIA BUYER us Francy Stinson NETWORK CONTROLLER LAB BLOOD ORDERABLES Final Result [facility] Department of Laboratories [place], [place] [id number] * (ABNORMAL) CBC without differential (10/09/2024 9:26 PM MEDIA BUYER) Pathologist [facility] WBC 9.2 3.8 - 9.9 K/cumm Hgb 12.5 11.9 - 15.5 g/dL [facility] Hct 38.8 35.6 - 45.5 % [facility] Plt 261 150 - 400 K/cumm [facility] MPV 9.3 9.1 - 12.3 fL [facility] RBC 4.52 3.90 - 5.20 M/cumm [facility] MCV 85.8 81.3 - 96.4 fL [facility] MCH 27.7 27.1 - 33.3 pg [facility] MCHC 32.2(L) 32.3 - 35.7 g/dL [facility] RDW CV 13.7 11.1 - 14.9 % [facility] RDW SD 42.9 35.7 - 48.1 fL [facility] NRBC abs 0.00 0.00 - 0.01 K/cumm [facility] Blood 10/09/2024 9:26 PM MEDIA BUYER 10/09/2024 9:41 PM MEDIA BUYER Francy Stinson NETWORK CONTROLLER LAB BLOOD ORDERABLES Final Result Performing Organization Address City/[facility]/ZIP Co de Phone Number [facility] Department [place] [address] * (ABNORMAL) Magnesium (10/09/2024 9:26 PM MEDIA BUYER) [facility] Magnesium 2.6(H) 1.4 - 2.5 mg/dL Blood 10/09/2024 9:26 PM MEDIA BUYER 10/09/2024 9:41 PM MEDIA BUYER Lauren Myers NETWORK CONTROLLER LAB BLOOD ORDERABLES Fi nal Result [facility] Department [place] [address] * Basic metabolic panel (10/09/2024 9:26 PM MEDIA BUYER) [facility] Sodium 145 135 - 145 mmol/L Potassium, pl 4.2 3.3 - 4.9 mmol/L [facility] Chloride 109 97 - 110 mmol/L [facility] CO2 28 22 - 32 mmol/L [facility] Anion gap 8 2 - 15 mmol/L [facility] BUN 12 6 - 25 mg/dL [facility] Creatinine 0.80 0.60 - 1.10 mg/dL [facility] Glucose 134 70 - 199 mg/dL [facility] Comment: Interpretive Data Fasting glucose >/= 126 [...] 2022. Calcium 9.1 8.5 - 10.3 mg/dL [facility] Blood 10/09/2024 9:26 PM MEDIA BUYER 10/09/2024 9:41 PM MEDIA BUYER us Francy Stinson NP LAB BLOOD ORDERABLES Final Result [facility] Department [place] [address] * Continuous Video EEG (10/09/2024 1:26 PM MEDIA BUYER) Anatomical Region Laterality Modality EEG Narrative 10/16/2024 12:27 PM MEDIA BUYER Video-EEG Report Patient Name: Megan Salas [facility] Medical Record Number (MRN): [id number] [facility] Record: [id number] Date of (): 1950 EEG Date: 10/08/2024 Ordering Provider: Francy Stinson NP CC: Holger Cortez Start Time: 10/08/2024 5:15:59 PM End Time: 10/09/2024 11:57:42 AM Introduction: Ms. Salas is a 74 y.o. female with a history of hypertension, hyperlipidemia, GERD, and anxiety disorder who presented with altered mental status in the setting of a left BG/Internal capsule ICH after a fall (without LOC). The EEG was performed to evaluate for seizures. This is a report of continuous video-EEG monitoring. High definition digital video and digital EEG were recorded continuously with a [employer] EEG acquisition system. This was a 32 [...] intent. Signing Attending: Jesus Sherwood III, MD us Francy Stinson NETWORK CONTROLLER NEUROLOGY ORDERABLES Final Result * POCT glucose (10/09/2024 7:53 AM MEDIA BUYER) Glucose, POC 95 70 - 199 mg/dL Blood 10/09/2024 7:53 AM MEDIA BUYER 10/09/2024 7:53 AM MEDIA BUYER us Avi Rahman MD LAB POCT ORDERABLES - DEVICE Fin al Result [facility] Department [place] [address] * CT Head WO Contrast (10/09/2024 4:37 AM MEDIA BUYER) Anatomical Region Laterality Modality Head and Neck N/A Computed Tomogra phy 10/09/2024 8:35 AM MEDIA BUYER Impressions 10/09/2024 8:35 AM MEDIA BUYER 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 No definite intraventricular extension or significant midline shift. Electronically signed by: Daryn Salas M.D. Narrative 10/09/2024 8:35 AM MEDIA BUYER EXAMINATION: CT head without contrast HISTORY: Intraparenchymal [...] Electronically signed by: Daryn Salas M.D. Francy Stinson NETWORK CONTROLLER IMG CT PROCEDURES Fi nal Result * XR Abdomen Ap 1 Vw (10/08/2024 10:39 PM MEDIA BUYER) Anatomical Region Laterality Modality Body, Abdomen N/A Digital Radiogra phy 10/09/2024 9:04 AM MEDIA BUYER Impressions 10/09/2024 9:14 AM MEDIA BUYER 10/08/2024, 8:16 PM: Feeding tube with tip [...] Len Mohamud M.D. Narrative 10/09/2024 9:14 AM MEDIA BUYER EXAMINATION: Abdomen, one view. HISTORY: Altered mental [...] Final Result * eGFR (10/08/2024 9:56 PM MEDIA BUYER) eGFR 85 >=60 mL/min/1. 73 m2 Comment: [...] last reviewed 2021. Blood 10/08/2024 9:56 PM MEDIA BUYER 10/08/2024 10:36 PM MEDIA BUYER Francy Stinson NETWORK CONTROLLER LAB BLOOD ORDERABLES Final Result [facility] Department [place] [address] * (ABNORMAL) CBC without differential (10/08/2024 9:56 PM MEDIA BUYER) [facility] WBC 8.0 3.8 - 9.9 K/cumm Hgb 11.3(L) 11.9 - 15.5 g/dL [facility] Hct 35.6 35.6 - 45.5 % [facility] Plt 217 150 - 400 K/cumm [facility] MPV 9.6 9.1 - 12.3 fL [facility] RBC 4.15 3.90 - 5.20 M/cumm [facility] MCV 85.8 81.3 - 96.4 fL [facility] MCH 27.2 27.1 - 33.3 pg [facility] MCHC 31.7(L) 32.3 - 35.7 g/dL [facility] RDW CV 13.5 11.1 - 14.9 % [facility] RDW SD 41.9 35.7 - 48.1 fL [facility] NRBC abs 0.00 0.00 - 0.01 K/cumm [facility] Blood 10/08/2024 9:56 PM MEDIA BUYER 10/08/2024 10:37 PM MEDIA BU[employer]ER Francy Stinson NETWORK CONTROLLER LAB BLOOD ORDERABLES Final Result [facility] [place] [address] * Phosphorus (10/08/2024 9:56 PM MEDIA BUYER) [facility] Phosphorus, pl 2.8 2.3 - 4.5 mg/dL Blood 10/08/2024 9:56 PM MEDIA BUYER 10/08/2024 10:36 PM MEDIA BUYER Francy Maldonado Shantell NETWORK CONTROLLER LAB BLOOD ORDERABLES Final Result Performing Organization Address City/[facility]/ZIP Co de Phone Number [facility] [place] [address] * Magnesium (10/08/2024 9:56 PM MEDIA BUYER) Pathologist [facility] Magnesium 1.9 1.4 - 2.5 mg/dL Blood 10/08/2024 9:56 PM MEDIA BUYER 10/08/2024 10:36 PM MEDIA BUYER Francy Bobbytracy LAB BLOOD ORDERABLES Final Result Performing Organization Address [facility] de Phone Number [facility] Department [place] [address] * (ABNORMAL) Comprehensive metabolic panel (10/08/2024 9:56 PM MEDIA BUYER) Pathologist [facility] Sodium 148(H) 135 - 145 mmol/L Potassium, pl 3.7 3.3 - 4.9 mmol/L [facility] Chloride 114(H) 97 - 110 mmol/L [facility] Comment:Repeated and Verifie d CO2 24 22 - 32 mmol/L [facility] Anion gap 7 2 - 15 mmol/L [facility] BUN 11 6 - 25 mg/dL [facility] Creatinine 0.74 0.60 - 1.10 mg/dL [facility] Glucose 82 70 - 199 mg/dL [facility] Comment: Interpretive Data Fasting glucose >/= 126 [...] 2022. Calcium 7.4(L) 8.5 - 10.3 mg/dL [facility] Bilirubin, total 0.2 0.1 - 1.2 mg/dL [facility] Protein, pl 5.5(L) 6.5 - 8.5 g/dL [facility] Albumin 3.1(L) 3.5 - 5.0 g/dL [facility] Alk phos 53 40 - 130 Units/L [facility] ALT 16 7 - 45 Units/L [facility] AST 19 10 - 45 Units/L [facility] Blood 10/08/2024 9:56 PM MEDIA BUYER 10/08/2024 10:36 PM MEDIA BUYER Francy Stinson NETWORK CONTROLLER LAB BLOOD ORDERABLES Final Result [facility] Department [place] [address] * XR Abdomen Ap 1 Vw (10/08/2024 8:39 PM MEDIA BUYER) Anatomical Region Laterality Modality Body, Abdomen N/A Computed Radiogr aphy 10/09/2024 9:04 AM MEDIA BUYER Impressions 10/09/2024 9:14 AM MEDIA BUYER 10/08/2024, 8:16 PM: Feeding tube with tip [...] Len Mohamud M.D. Narrative 10/09/2024 9:14 AM MEDIA BUYER EXAMINATION: Abdomen, one view. HISTORY: Altered mental [...] Urine with Reflex Confirmation (10/08/2024 4:48 PM MEDIA BUYER) Amphetamine, ur Not Detected CutOff 500ng/mL Comment: Interpretive Data - Amphetamines: Samples containing greater than 500 ng/mL d-methamphetamine or other cross-reacting amphetamine compounds are reported as positive. Amphetamine immunoassays are subject to significant false positive rates due to cross-reactivity of non-amphetamine drugs. Confirmatory testing required for definitive results. Current Interpretive Data was last reviewed 2023. Barbiturates, ur Not Detected CutOff 200ng/mL [facility] Comment: Interpretive Data - Barbiturates: Samples containing greater than 200 ng/mL secobarbital or other cross-reacting barbiturate compounds are reported as positive. False positive and false negative results are possible. Confirmatory testing required for definitive results. Current Interpretive Data was last reviewed 2023. Benzodiazepines, ur Screen Positive, presumptive (A) CutOff 100ng/mL [facility] Comment: Interpretive Data - Benzodiazepines: Samples containing greater than 100 ng/mL nordiazepam or other cross-reacting compounds are reported as positive. False positive and false negative results are possible. Confirmatory testing required for definitive results. Current Interpretive Data was last reviewed 2023. Cannabinoids, ur Not Detected CutOff 50 ng/mL [facility] Comment: Interpretive Data - Cannabinoids: Samples containing greater than 50 ng/mL delta-9 THC -COOH or other cross- reacting compounds are reported as positive. False positive and false negative results are possible. Confirmatory testing required for definitive results. Current Interpretive Data was last reviewed 2023. Cocaine, ur Not Detected CutOff 150ng/mL [facility] Comment: Interpretive Data - Cocaine: Samples containing greater than 150 ng/mL benzoylecgonine or other cross- reacting compounds are reported as positive. False positive and false negative results are possible. Confirmatory testing required for definitive results. Current Interpretive Data was last reviewed 2023. Fentanyl, Ur Not Detected CutOff 5 ng/mL [facility] Comment: Interpretive Data - Fentanyl: Samples containing greater than 5 ng/mL norfentanyl, fentanyl, or other cross-reacting fentanyl compounds are reported as positive. False positive and false negative results are possible. Confirmatory testing required for definitive results. Current Interpretive Data was last reviewed 2023. Methadone, ur Not Detected CutOff 300ng/mL [facility] Comment: Interpretive Data - Methadone: Samples containing greater than 300 ng/mL d,l-methadone or other cross-reacting compounds are reported as positive. False positive and false negative results are possible. Confirmatory testing required for definitive results. Current Interpretive Data was last reviewed 2023. Opiates, ur Not Detected CutOff 300ng/mL [facility] Comment: Interpretive Data - Opiates: Samples containing greater than 300 ng/mL morphine or other cross-reacting compounds are reported as positive. False positive and false negative results are possible. Confirmatory testing required for definitive results. Current Interpretive Data was last reviewed 2023. Oxycodone, ur Not Detected CutOff 100ng/mL [facility] Comment: Interpretive Data - Oxycodone: Samples containing greater than 100 ng/mL oxycodone or other cross-reacting compounds are reported as positive. False positive and false negative results are possible. Confirmatory testing required for definitive results. Current Interpretive Data was last reviewed 2023. Phencyclidine, ur Not Detected CutOff 25 ng/mL [facility] Comment: Interpretive Data - Phencyclidine: Samples containing greater than 25 ng/mL phencyclidine or other cross-reacting compounds are reported as positive. False positive and false negative results are possible. Confirmatory testing required for definitive results. Current Interpretive Data was last reviewed 2023. Urine Creatinine 44 mg/dL [facility] Comment: Interpretive Data Urine Creatinine: < 10 mg/dL is extremely dilute = or > 10 but < 20 mg/dL is dilute = or > 20 mg/dL is normal Current Interpretive Data was last revised on 2017. Urine 10/08/2024 4:48 PM MEDIA BUYER 10/08/2024 4:58 PM MEDIA BUYER Narrative [facility] - 10/08/2024 5:34 PM MEDIA BUYER Drug of Abuse screening is performed by immunoassay for medical purposes only. This is not to be used for Pain Management purposes. If Detected, confirmation testing will be performed for Amphetamines, Cocaine, Fentanyl, Methadone, Opiates, Oxycodone or Phencyclidine. Francy Stinson NP LAB URINE ORDERABLES Final Result [facility] Department [place] [address] * (ABNORMAL) Urinalysis reflex to microscopic and culture Urine (10/08/2024 4:48 PM MEDIA BUYER) Color, ur Straw Yellow Clarity, ur Clear Clear [facility] Specific gravity, ur >1.042(H) 1.003 - 1.030 [facility] pH, urine 7.0 [facility] Comment: Interpretive Data U rine pH is affected by diet, medications, systemic acid-base disturbances, and renal tubular function. pH may affect urinary stone formation. For example, urine pH below 6.0 may help reduce the tendency for calcium phosphate stones and pH greater than 6.0 may reduce the tendency for uric acid stone formation. Source: [facility] [employer] Current Interpretive Data was last revised on 2017 Protein, ur ql Negative Negative [facility] Glucose, ur ql Negative Negative [facility] Ketones, ur Trace Negative [facility] Bilirubin, ur Negative Negative [facility] Blood, ur Negative Negative [facility] Urobilinogen, ur <2.0 <2.0 mg/dL [facility] Nitrite, ur Negative Negative [facility] Leukocyte esterase, ur Negative Negative [facility] UA reflex comment Reflex conditions for microscopic UA and culture not met. [facility] Urine 10/08/2024 4:48 PM MEDIA BUYER 10/08/2024 4:55 PM MEDIA BUYER Francy Stinson NP LAB MICROBIOLOGY - G ENERAL ORDERABLES Final Result [facility] Department [place] [address] * XR chest 1 view (Portable) (10/08/2024 12:53 PM MEDIA BUYER) Anatomical Region Laterality Modality Body, Chest N/A Digital Radiogra phy 10/09/2024 11:2 6 AM MEDIA BUYER Impressions 10/09/2024 12:23 PM MEDIA BUYER FINDINGS/IMPRESSION: Small lung volumes. Trace pulmonary edema. Mild bilateral lower lobe atelectasis. No pleural effusion or pneumothorax. Cardiomediastinal silhouette is stable from prior exams. Dictated by: Pito Thakur MD The radiology attending physician has personally reviewed this study, and had reviewed and/or edited this written report and agrees with it. Electronically signed by: Arsen Greenfield M.D. Narrative 10/09/2024 12:23 PM MEDIA BUYER EXAMINATION: XR CHEST 1 VIEW HISTORY: new [...] signed by: Arsen Greenfield M.D. Francy Stinson NETWORK CONTROLLER IMG XR PROCEDURES Fi nal Result * CT Head WO Contrast (10/08/2024 12:45 PM MEDIA BUYER) Anatomical Region Laterality Modality Head and Neck N/A Computed Tomogra phy 10/08/2024 12:5 8 PM MEDIA BUYER Impressions 10/08/2024 8:59 PM MEDIA BUYER Unchanged left basal ganglia intracerebral hemorrhage measuring up to 6.3 cm. No definite intraventricular extension or significant midline shift. Dictated by: Adarsh Grimes MD The radiology attending physician has personally reviewed this study, and had reviewed and/or edited this written report and agrees with it. Electronically signed by: Kasey Booth MD, PhD Narrative 10/08/2024 8:59 PM MEDIA BUYER EXAMINATION: CT head without contrast HISTORY: Intraparenchymal [...] by: Kasey Booth MD, PhD Francy Stinson NP IMG CT PROCEDURES Fi nal Result * (ABNORMAL) Blood gas, venous (10/08/2024 12:28 PM MEDIA BUYER) Pathologist [facility] pH, Venous 7.35 7.32 - 7.43 PCO2, Venous 52(H) 40 - 50 mmHg [facility] PO2, Venous 38 mmHg [facility] Comment: Interpretive Data No Reference Range Established Current Interpretive Data was last revised on 2017. HCO3 Venous, Calculated 30 20 - 30 mmol/L [facility] BE, venous 2 mmol/L [facility] Comment: Interpretive Data No Reference Range Established Current Interpretive Data was last revised on 2017. Blood 10/08/2024 12:2 8 PM MEDIA BUYER 10/08/2024 12:58 PM MEDIA BUYER Francy Stinson NP LAB BLOOD ORDERABLES Final Result [facility] [place] [address] * Check Sample (10/08/2024 12:07 PM MEDIA BUYER) Pathologist [facility] ABO Rh A Negative [facility] HCLL OTHER 10/08/2024 12:0 7 PM MEDIA BUYER 10/08/2024 12:26 PM MEDIA BUYER us Avi Rahman MD LAB BLOOD ORDERABLES Final Resul t [facility] Department [place] [address] [facility] * ECG 12 lead (10/08/2024 11:55 AM MEDIA BUYER) Ventricular Rate EKG/Min 76 BPM [facility] Atrial Rate 76 BPM [facility] NM-Interval (MSEC) 212 ms [facility] QRS-Interval (MSEC) 92 ms [facility] QT-Interval (MSEC) 358 ms [facility] QTc 402 ms [facility] P [place] 67 degrees [facility] R [place] 6 degrees [facility] T [place] 15 degrees [facility] Diagnosis Sinus rhythm with sinus arrhythmia with 1st degree A-V block Otherwise normal ECG No previous ECGs available Confirmed by STANTON DELA CRUZ M.D ([id number]) on 10/09/2024 1:41:11 PM [facility] 10/08/2024 11:5 5 AM MEDIA BUYER 10/09/2024 1:41 PM MEDIA BUYER Francy Stinson NETWORK CONTROLLER ECG ORDERABLES Kinga l Result Performing Organization Address City/[facility]/ZIP Co de Phone Number [facility] * Troponin I high-sensitivity series (baseline, 2hr, 4hr, 6hr) (10/08/2024 11:51 AM MEDIA BUYER) Trop I hs <4 <=17 ng/L Comment: Interpretive Data For further hscTnI resources including the diagnostic algorithm and an aid in interpretation, copy and paste this link: https://bjhlab.testcatalog.org/show/hsTrop-1 Current Interpretive Data last revised 2020. Blood 10/08/2024 11:5 1 AM MEDIA BUYER 10/08/2024 12:04 PM MEDIA BUYER Francy Maldonado Shantell NETWORK CONTROLLER LAB BLOOD ORDERABLES Final Result Performing Organization Address [facility] Co de Phone Number OZIEL SHEPPARD Margie [facility] Department [place] [address] * eGFR (10/08/2024 11:51 AM MEDIA BUYER) eGFR 77 >=60 mL/min/1. 73 m2 Comment: [...] reviewed 2021. Blood 10/08/2024 11:5 1 AM MEDIA BUYER 10/08/2024 12:04 PM MEDIA BUYER Francy Maldonado Shantell NETWORK CONTROLLER LAB BLOOD ORDERABLES Final Result Performing Organization Address City/[facility]/ZIP Co de Phone Number OZIEL SHEPPARD Margie [facility] Department [place] [address] * aPTT (10/08/2024 11:51 AM MEDIA BUYER) aPTT 31 28 - 38 sec Comment: Interpretive Data Heparin therapeutic range: 66.0 - 100.0 seconds. Range based on correlation with therapeutic heparin activity range of 0.3 - 0.7 Units/mL. Current interpretive data was last revised on 2023. Blood 10/08/2024 11:5 1 AM MEDIA BUYER 10/08/2024 12:06 PM MEDIA BUYER Francy Stinson NETWORK CONTROLLER LAB BLOOD ORDERABLES Final Result Performing Organization Address [facility] [place] [address] * Protime-INR (10/08/2024 11:51 AM MEDIA BUYER) Pathologist [facility] PT 10.8 9.7 - 13.0 sec INR 1.00 0.90 - 1.20 [facility] Comment: Interpretive data Oral anticoagulant therapeutic ranges: Venous thromboembolism prophylaxis or treatment: 2.0-3.0 CARDIOLOGY Standard range: 2.0-3.0 High-intensity range: 2.5-3.5 Refer to indication-specific guidelines for appropriate target ranges for prosthetic heart valve replacement. Current interpretive data was last revised on 2019. Blood 10/08/2024 11:5 1 AM MEDIA BUYER 10/08/2024 12:06 PM MEDIA BUYER Francy Stinson NP LAB BLOOD ORDERABLES Final Result Performing Organization Address [facility] [place] [address] * (ABNORMAL) CBC without differential (10/08/2024 11:51 AM MEDIA BUYER) WBC 10.2(H) 3.8 - 9.9 K/cumm Hgb 13.5 11.9 - 15.5 g/dL [facility] Hct 43.1 35.6 - 45.5 % [facility] Plt 270 150 - 400 K/cumm [facility] MPV 9.3 9.1 - 12.3 fL [facility] RBC 4.94 3.90 - 5.20 M/cumm [facility] MCV 87.2 81.3 - 96.4 fL [facility] MCH 27.3 27.1 - 33.3 pg [facility] MCHC 31.3(L) 32.3 - 35.7 g/dL [facility] RDW CV 13.2 11.1 - 14.9 % [facility] RDW SD 42.3 35.7 - 48.1 fL [facility] NRBC abs 0.00 0.00 - 0.01 K/cumm [facility] Blood 10/08/2024 11:5 1 AM MEDIA BUYER 10/08/2024 12:04 PM MEDIA BUYER Francy Stinson NP LAB BLOOD ORDERABLES Final Result Performing Organization Address [facility] Co de Phone Number [facility] Department [place] [address] * Type and screen (10/08/2024 11:51 AM MEDIA BUYER) Stephanie, indirect Negative ABO Rh A Negative [facility] Blood 10/08/2024 11:5 1 AM MEDIA BUYER 10/08/2024 12:03 PM MEDIA BUYER Narrative [facility] - 10/08/2024 1:05 PM MEDIA BUYER Has the patient had Daratumumab or Isatuximab in the past 6 months?->Unknown Francy Stinson NP LAB BLOOD BANK TEST ORDERABLES Final Result Performing Organization Address [facility] de Phone Number [facility] Department [place] [address] * Phosphorus (10/08/2024 11:51 AM MEDIA BUYER) Phosphorus, pl 3.0 2.3 - 4.5 mg/dL Blood 10/08/2024 11:5 1 AM MEDIA BUYER 10/08/2024 12:04 PM MEDIA BUYER Francy Stinson NETWORK CONTROLLER LAB BLOOD ORDERABLES Final Result [facility] Department [place] [address] * Magnesium (10/08/2024 11:51 AM MEDIA BUYER) [facility] Magnesium 2.3 1.4 - 2.5 mg/dL Blood 10/08/2024 11:5 1 AM MEDIA BUYER 10/08/2024 12:04 PM MEDIA BUYER Francy Stinson NP LAB BLOOD ORDERABLES Final Result Performing Organization Address [facility] [place] [address] * Ethanol (10/08/2024 11:51 AM MEDIA BUYER) [facility] Ethanol <10 <=10 mg/dL Comment: Interpretive Data Legal limit of intoxication > or = 80 mg/dL Levels > or = 400 mg/dL are potentially TOXIC. Current interpretive data was last revised on 2018. Blood 10/08/2024 11:5 1 AM MEDIA BUYER 10/08/2024 12:04 PM MEDIA BUYER Avi Rahman MD LAB BLOOD ORDERABLES Final Resul t Performing Organization Address [facility] Co de Phone Number [facility] Department [place] [address] * Comprehensive metabolic panel (10/08/2024 11:51 AM MEDIA BUYER) [facility] Sodium 143 135 - 145 mmol/L Potassium, pl 4.4 3.3 - 4.9 mmol/L [facility] Chloride 103 97 - 110 mmol/L [facility] CO2 28 22 - 32 mmol/L [facility] Anion gap 12 2 - 15 mmol/L [facility] BUN 16 6 - 25 mg/dL [facility] Creatinine 0.81 0.60 - 1.10 mg/dL [facility] Glucose 109 70 - 199 mg/dL [facility] Comment: Interpretive Data Fasting glucose >/= 126 [...] 2022. Calcium 9.4 8.5 - 10.3 mg/dL [facility] Bilirubin, total 0.4 0.1 - 1.2 mg/dL [facility] Protein, pl 7.2 6.5 - 8.5 g/dL [facility] Albumin 4.1 3.5 - 5.0 g/dL [facility] Alk phos 69 40 - 130 Units/L [facility] ALT 21 7 - 45 Units/L [facility] AST 29 10 - 45 Units/L [facility] Blood 10/08/2024 11:5 1 AM MEDIA BUYER 10/08/2024 12:04 PM MEDIA BUYER us Francy Stinson NP LAB BLOOD ORDERABLES Final Result Performing Organization Address [facility] Co de Phone Number [facility] Department [place] [address] * POCT glucose (10/08/2024 11:34 AM MEDIA BUYER) Glucose, POC 100 70 - 199 mg/dL Blood 10/08/2024 11:3 4 AM MEDIA BUYER 10/08/2024 11:34 AM MEDIA BUYER us Avi Rahman MD LAB POCT ORDERABLES - DEVICE Fin al Result Performing Organization Address [facility]/ZIP Co de Phone Number [facility] Department [place] [address] * NM CRITICAL CARE ILL/INJURED PATIENT INIT 30-74 MIN (10/08/2024 10:43 AM MEDIA BUYER) Narrative Patrick Patino MD - 10/08/2024 10:43 AM MEDIA BUYER Patrick Patino MD 10/08/2024 10:48 AM Critical [...] XR Chest 1 View (10/08/2024 9:50 AM MEDIA BUYER) Anatomical Region Laterality Modality Body, Chest N/A Computed Radiogr aphy 10/08/2024 9:59 AM MEDIA BUYER Narrative 10/08/2024 9:59 AM MEDIA BUYER EXAM DESCRIPTION: XR CHEST 1 VIEW REASON [...] Adarsh Gale M.D. MF: LAURIE Report ID: [id number] Reading Location: [id number] Procedure Note Adarsh Gale, DO - 10/08/2024 [...] Adarsh Gale M.D. MF: LAURIE Report ID: [id number] Reading Location: [id number] us Patrick Patino MD IMG XR PROCEDURES F inal Result * CTA Stroke Head Neck W WO Contrast (10/08/2024 9:42 AM MEDIA BUYER) Anatomical Region Laterality Modality Head and Neck N/A Computed Tomogra phy 10/08/2024 9:53 AM MEDIA BUYER Addenda Addendum by Adarsh Gale DO on 10/08/2024 10:25 AM MEDIA BUYER ADDENDUM: This addendum report supersedes the original report dated 10/08/2024. Findings called by [facility] staff at the 10:08 a.m. on 10/08/2024 to the treatment team as per stroke communication protocol. END OF ADDENDUM REPORT THIS IS AN ELECTRONICALLY VERIFIED FINAL REPORT 10/08/2024 10:25 AM Addendum Electronically signed by Adarsh Gale M.D. MF: LAURIE Report ID: [id number] Reading Location: [id number] Narrative 10/08/2024 9:59 AM MEDIA BUYER EXAM DESCRIPTION: CTA STROKE HEAD NECK W [...] OTHER: No other significant finding. INTRACRANIAL VESSELS: CHEESH-NA OF CANALES: The anterior, middle, posterior cerebral [...] Adarsh Gale M.D. MF: LAURIE Report ID: [id number] Reading Location: [place] [id number] Procedure Note Adarsh Gale, DO - 10/08/2024 [...] OTHER: No other significant finding. INTRACRANIAL VESSELS: CHEESH-NA OF CANALES: The anterior, middle, posterior cerebral [...] Adarsh Gale M.D. MF: LAURIE Report ID: [id number] Reading Location: [id number] Patrick Patino MD IMG CT PROCEDURES E dited Result - Final * ECG 12 lead (10/08/2024 9:39 AM MEDIA BUYER) 10/08/2024 9:39 AM MEDIA BUYER Narrative [facility] - 10/09/2024 6:43 AM MEDIA BUYER Vent Rate: 80 bpm RR Interval: 750 msec NM Interval: 200 msec QRS Duration: 100 msec QT Interval: 360 msec QTC Interval: 395 msec P-R-T [place]: 54 - 60 - 55 degrees IMPRESSION: SINUS RHYTHM LOW QRS VOLTAGE IN PRECORDIAL LEADS [QRS DEFLECTION < 1.0 mV IN CHEST LEADS] BORDERLINE ECG Electronically Signed By: Ellis Brennan MD Patrick Patino MD ECG ORDERABLES Fin al Result [facility] Ex[facility] * Troponin T high-sensitivity series (baseline, 2hr, 4hr, 6hr) (10/08/2024 9:32 AM MEDIA BUYER) Trop T hs <6 <=14 ng/L Comment: Interpretive Data For further hscTnT resources including the diagnostic algorithm and an aid in interpretation, copy and paste this link: https://nrl.testcatalog.org/show/hsTrop Current Interpretive Data last revised 2020. Blood 10/08/2024 9:32 AM MEDIA BUYER 10/08/2024 9:34 AM MEDIA BUYER Patrick Patino MD LAB BLOOD ORDERABLE S Final Result [facility] ([facility]) 1 [facility] Department of Laboratories [place], [place] [id number] * eGFR (10/08/2024 9:32 AM MEDIA BUYER) eGFR 79 >=60 mL/min/1. 73 m2 Comment: [...] last reviewed 2021. Blood 10/08/2024 9:32 AM MEDIA BUYER 10/08/2024 9:34 AM MEDIA BUYER us Patrick Patino MD LAB BLOOD ORDERABLE S Final Result [facility] ([facility]) 1 [facility] Department [place] [address] * Differential, auto (10/08/2024 9:32 AM MEDIA BUYER) Neutrophil abs 3.4 1.5 - 6.5 K/cumm [...] revised on 2017. Blood 10/08/2024 9:32 AM MEDIA BUYER 10/08/2024 9:34 AM MEDIA BUYER us Patrick Patino MD LAB BLOOD ORDERABLE S Final Result [facility]EL [facility] ([place]) 1 [facility] Department [place] [address] * (ABNORMAL) CBC with auto differential (10/08/2024 9:32 AM MEDIA BUYER) WBC 6.4 3.8 - 9.9 K/cumm Hgb 12.7 11.9 - 15.5 g/dL [facility] ([place]) Hct 39.9 35.6 - 45.5 % [facility] ([place]) Plt 241 150 - 400 K/cumm [facility] ([place]) MPV 8.8(L) 9.1 - 12.3 fL [facility] ([place]) RBC 4.59 3.90 - 5.20 M/cumm [facility] ([place]) MCV 86.9 81.3 - 96.4 fL [facility] ([place]) MCH 27.7 27.1 - 33.3 pg [facility] ([place]) MCHC 31.8(L) 32.3 - 35.7 g/dL [facility] ([place]) RDW CV 13.2 11.1 - 14.9 % [facility] ([place]) RDW SD 42.2 35.7 - 48.1 fL [facility] NRBC abs 0.00 0.00 - 0.01 K/cumm [facility] Blood 10/08/2024 9:32 AM MEDIA BUYER 10/08/2024 9:34 AM MEDIA BUYER Patrick Patino MD LAB BLOOD ORDERABLE S Final Result Performing Organization Address [facility]/ZIP Co de Phone Number OZIEL CONTRERAS ([place]) 1 [facility] [place] [address] * ABO/Rh (10/08/2024 9:32 AM MEDIA BUYER) ABO/Rh A Negative Blood 10/08/2024 9:32 AM MEDIA BUYER 10/08/2024 9:34 AM MEDIA BUYER Narrative [facility] - 10/08/2024 10:17 AM MEDIA BUYER Has the patient had Daratumumab or Isatuximab in the past 6 months?->Unknown us Patrick Patino MD LAB BLOOD BANK TEST ORDERABLES Final Result O[facility] CONTRERAS ([place]) 1 [facility] [place] [address] * Protime-INR (10/08/2024 9:32 AM MEDIA BUYER) PT 10.9 9.7 - 13.0 sec [facility] INR 1.01 0.90 - 1.20 [facility] Comment: Interpretive data Oral anticoagulant therapeutic ranges: Venous thromboembolism prophylaxis or treatment: 2.0-3.0 CARDIOLOGY Standard range: 2.0-3.0 High-intensity range: 2.5-3.5 Refer to indication-specific guidelines for appropriate target ranges for prosthetic heart valve replacement. Current interpretive data was last revised on 2019. Blood 10/08/2024 9:32 AM MEDIA BUYER 10/08/2024 9:34 AM MEDIA BUYER Patrick Patino MD LAB BLOOD ORDERABLE S Final Result OZIEL CONTRERAS (COIN) 1 [facility] [employer] [place] [address] * Antibody screen (10/08/2024 9:32 AM MEDIA BUYER) Stephanie, indirect, Gel Interpretation Negative ABSC Blood 10/08/2024 9:32 AM MEDIA BUYER 10/08/2024 9:34 AM MEDIA BUYER Narrative OZI[facility] CONTRERAS (COIN) - 10/08/2024 10:17 AM MEDIA BUYER Has the patient had Daratumumab or Isatuximab in the past 6 months?->Unknown Patrick Patino MD LAB BLOOD BANK TEST ORDERABLES Final Result Performing Organization Address [facility] Co de Phone Number OZIEL CONTRERAS (COIN) 1 [facility] [place] [address] * Osmolality, blood (10/08/2024 9:32 AM MEDIA BUYER) Osmo 295 275 - 300 mOsm/kg Comment:Testing performed by : [facility], 1 [facility], [place]., [address] Blood 10/08/2024 9:32 AM MEDIA BUYER 10/08/2024 3:56 PM MEDIA BUYER Patrick Patino MD LAB BLOOD ORDERABLE S Final Result OZIEL CONTRERAS (COIN) 1 [facility] [place] [address] * Magnesium (10/08/2024 9:32 AM MEDIA BUYER) Magnesium 2.2 1.4 - 2.5 mg/dL Blood 10/08/2024 9:32 AM MEDIA BUYER 10/08/2024 9:46 AM MEDIA BUYER us Patrick Patino MD LAB BLOOD ORDERABLE S Final Result [facility] ([place]) 1 [facility] Department [place] [address] * (ABNORMAL) Comprehensive metabolic panel (10/08/2024 9:32 AM MEDIA BUYER) Sodium 140 135 - 145 mmol/L Potassium, [...] [facility] ([place]) Blood 10/08/2024 9:32 AM MEDIA BUYER 10/08/2024 9:34 AM MEDIA BUYER us Patrick Patino MD LAB BLOOD ORDERABLE S Final Result [facility] ([place]) 1 [facility] [place] [address] * CT Stroke Head WO Contrast (10/08/2024 9:31 AM MEDIA BUYER) Anatomical Region Laterality Modality Head N/A Computed Tomogra phy 10/08/2024 9:32 AM MEDIA BUYER Narrative 10/08/2024 9:41 AM MEDIA BUYER EXAM DESCRIPTION: CT STROKE HEAD WO CONTRAST [...] 9:41 AM - Electronically signed by Adarsh SULLIVAN: LAURIE Report ID: [id number] Reading Location: [id number] Procedure Note Adarsh Gale, DO - 10/08/2024 [...] 9:41 AM - Electronically signed by Adarsh SULLIVAN: LAURIE Report ID: [id number] Reading Location: [id number] Patrick Patino MD [facility]EDURES F inal Result * POCT glucose (10/08/2024 9:20 AM MEDIA BUYER) Pathologist [facility] Glucose, POC 95 70 - 199 mg/dL Blood 10/08/2024 9:20 AM MEDIA BUYER 10/08/2024 9:20 AM MEDIA BUYER Patrick Patino MD LAB POCT ORDERABLES - DEVICE Final Result OZIEL CONTRERAS (COIN) 1 [facility] Department [place] [address] * POC Influenza A/B, COVID-19 antigen (07/18/2024 11:48 AM MEDIA BUYER) [facility] Influenza A Ag, POC Negative Negative [facility] Influenza B Ag, POC Negative Negative [facility] COVID-19 Ag POC Presumptive Negative Presumptive Negative, Invalid [facility] Nasal 07/18/2024 11:4 8 AM MEDIA BUYER us Holger Cortez MD POINT OF CARE TEST ORDERA BLES Final Result Performing Organization Address City/[facility]/ZIP Co de Phone Number [facility] [address] [facility] [address] [place] [address] * POCT rapid RSV (07/18/2024 11:48 AM MEDIA BUYER) [facility] Rapid RSV, POC Negative Negative Lot Number [id number] QC Control Line Acceptable Swab 07/18/2024 11:4 8 AM MEDIA BUYER us Holger Cortez MD POINT OF CARE TEST ORDERA BLES Final Result * POCT rapid strep A (07/18/2024 11:48 AM MEDIA BUYER) [facility] Rapid Strep A, POC Negative Negative Swab 07/18/2024 11:4 8 AM MEDIA BUYER Holger Cortez MD POINT OF CARE TEST ORDERA BLES Final Result * SCREENING MAMMOGRAM BILATERAL W BRIAN (09/14/2023 9:02 AM MEDIA BUYER) Anatomical Region Laterality Modality Breast Bilateral Mammography 09/14/2023 9:16 AM MEDIA BUYER Impressions 09/14/2023 9:16 AM MEDIA BUYER There is no mammographic evidence of malignancy. A 1 year screening mammogram is recommended. BI-RADS: 1 - Negative. The patient has been or will be contacted. The patient will be entered into a reminder system with a target due date of 1 year for her next mammogram. Electronically signed by: REBECCA ZAPATA Narrative 09/14/2023 9:16 AM MEDIA BUYER EXAMINATION: SCREENING MAMMOGRAM BILATERAL W BRIAN ORDERING [...] 1 Or 2 Site (07/15/2022 10:37 AM MEDIA BUYER) Anatomical Region Laterality Modality Body N/A Other 07/15/2022 10:0 7 PM MEDIA BUYER Narrative 07/15/2022 10:10 PM MEDIA BUYER EXAM DESCRIPTION: DEXA AXIAL SKELETON BONE DENSITY 1 OR MORE SITES REASON FOR STUDY: 71 y/o year old F with given history of screening. 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 MF: LAURIE Report ID: [id number] Reading Location: [place] [address] Procedure Note Adarsh Song MD - 07/15/2022 EXAM DESCRIPTION: DEXA AXIAL SKELETON BONE DENSITY 1 OR MORE SITES REASON FOR STUDY: 71 y/o year old F with given history ofscreening. 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 Room: [facility] ENDOSCOPY ROOM 1 Note Status: Finalized Patient [...] under direct vision. The Pediatric Colonoscope [id number] was introducedthrough the anus and advanced to [...] 8:35 AM Procedure Code(s): --- Professional --- 57717, Colonoscopy, flexible; with biopsy, single or multiple Diagnosis Code(s): --- Professional --- Z12.11, Encounter for screening for malignant neoplasm of colon K64.8, Other hemorrhoids K63.5, Polyp of colon K57.30, Diverticulosis of large intestine without perforation orabscess without bleeding CPT copyright 2019 [employer]. All rights reserved. The codes documented in this report are preliminary and upon composer teaching artist reviewmay be revised to meet current compliance requirements. Recognized by the [employer] for promoting quality in endoscopy Toño Morel MD ENDOSCOPY PROCEDURES Final Result * Hepatitis C antibody (04/15/2021 8:55 AM CDT) Hep C Ab Nonreactive Nonreactive OZIEL CONTRERAS (COIN) Comment: Interpretive Data Nonreactive: Antibodies to HCV [...] last revised on 2019. Testing performed by: [facility], [address] [place] [address]., [id number] Blood specimen (specimen) 04/15/2021 8:55 AM CDT 04/15/2021 3:06 PM CDT us Holger Cortez MD LAB MICROBIOLOGY - GENERA L ORDERABLES Final Result OZIEL CONTRERAS (COIN) 1 [facility] Department of [employer] [place] [address] from Last 3 Months or Most Recently Relevant to Health Maintenance Insurance [employer]ARE [employer]IONS [place] [id number] MEDICARE [employer] MED[employer]ARE [employer]IONS Advance Directives For more information, please contact: [phone] * Full Code (Latest Code Status on File) Date Activated Date Inactivated Comments 10/08/2024 11:42 AM 10/18/2024 3:10 AM * Full Code Date Activated Date Inactivated Comments 07/17/2021 8:43 AM 07/17/2021 2:26 PM Care Teams Reporting Specialist Relationship Specialty [place] [id number] [address] [address] PCP - General Family Medicine 03/20/19 [place] [id number] [address] [address] Consulting Physician Obstetrics and Gynecology 12/26/18 Shiraz Gillespie, PT Physical Therapist Physical Therapy 01/22/23 Joey Sidhu MD [address] [place] [address] Referring Physician Ophthalmology 05/24/24
--- OUTSIDE RECORDS SUMMARY | 2024-10-18 09:21 | XMS_ITS | Encounter Summary ---
Author Organization [facility] Healthcare Address [address] [place] [address] Care Team Providers Care Fitness Plan Coordinator Name Role Phone Shahana Guzman MD Unavailable Nancy Cortez MD Primary Care Provider [phone] Shiraz Gillespie PT Unavailable Unavailable Joey Sidhu MD Unavailable [phone] Reason for Referral * MRI/CAT/PET Scan (Routine) - Pending Review Specialty Diagnoses / Procedures Referred By Contac t Referred To Contact Radiology Diagnoses Brain bleed (HCC) Procedures MRI Brain W WO Contrast Eliceo Sapp MD [address] [address] Phone: tel: fax: [address] [phone] Referral ID Status Reason Start Date Expiration Date V isits Requested Visits Authorized [id number] Pending Review 10/17/2024 11/16/2025 1 1 ULUS TUTOR * Consultation (Routine) - Pending Review Specialty Diagnoses / Procedures Referred By Contac t Referred To Contact Neurology Diagnoses Brain bleed (HCC) Eliceo Sapp MD [address] [place] [address] Phone: tel: fax: [facility] Stroke [address] [facility] [address] [place] [address] Phone: tel: fax: Referral ID Status Reason Start Date Expiration Date Visits Requested Visits Authorized [id number] Pending Review Specialty Services Required 10/17/2024 11/16/2025 1 1 Question Answer Please select the performing region: [facility] (All Locations) [167] # of visits: 1 Comments Please schedule patient for follow up appointment. Section: Stroke Provider: Travis Salas NP post-admission Time Frame: 2-4 weeks -hypertensive L BG/IC IPH; likely hypertensive but needs bMRI wwo in 3 months. Discharged to [facility] ULUS TUTOR Reason for Visit * Auth/Cert Specialty Diagnoses / Procedures Referred By Contac t Referred To Contact Diagnoses Brain bleed (HCC) IPH Procedures na Referral ID Status Reason Start Date Expiration Date Visits Re quested Visits Authorized [id number] 1 1 Encounter Details Date Type Department Care Team (Latest Contact Info) Description 10/08/2024 11:38 AM CALCULUS TUTOR - 10/17/2024 10:45 PM CALCULUS TUTOR Hospital Encounter [facility] [address] [place] [address] Avi Rahman MD [address] [address] Germania Mota MD [address] [place] [address] Eliceo Sapp MD [address] [place] [address] Brain bleed (HCC) (Primary Dx) Discharge Disposition: Discharge to an IP Rehab facility Social History Tobacco Use Types Packs/Day Years [...] Master's degree (e.g., MA, MS, Jerod, MEd, RN COMPLIANCE, CHIKI) 05/07/2020 Comments No Sex and Gender Information Value Date Recorded Sex Assigned at Not on file Legal Sex Female 11:47 AM CALCULUS TUTOR Gender Identity Not on file Sexual Orientation Choose not to disclose 2019 12:49 PM CDT 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[employer] ([employer] Not on f ile Not on file Not on file documented as of this encounter Last Filed Vital Signs Vital Sign Reading Time Taken Comments Blood Pressure 142/88 10/17/2024 9:44 PM CALCULUS TUTOR Pulse 75 10/17/2024 9:44 PM CALCULUS TUTOR Temperature 37.1 C (98.8 F) 10/17/2024 9:44 PM CALCULUS TUTOR Respiratory Rate 16 10/17/2024 9:44 PM CALCULUS TUTOR Oxygen Saturation 95% 10/17/2024 9:44 PM CALCULUS TUTOR Inhaled Oxygen Concentration - - Weight 86.5 kg (190 lb 11.2 oz) 025 12:00 PM CALCULUS TUTOR Height 160 cm (5' 3 ) 10/08/2024 12:00 PM CALCULUS TUTOR Body Mass Index 33.78 10/08/2024 12:00 PM CALCULUS TUTOR documented in this encounter Discharge Instructions * Discharge Instructions* Ashok Hauser MD - 10/11/2024 12:18 PM CALCULUS TUTOR Images from the original note were not included. Dear Megan Salas, You were admitted to [facility] from 10/08/2024 to 10/17/24 for difficulty speaking and right sided weakness. While you were here we found that you had a brain bleed on the left side. Whileit is not clear the exact cause of your bleed, these are often seen with high blood pressure, even when it is well controlled. However, we do recommend that you get a brain MRI in about 3 months (January2025), after the blood has been absorbed, to look for any other potential cause. We increased your home dose of lisinopril from 5 mg to 10 mg. We also stopped your xanax and doxepin to prevent you from getting more confused and tired. We will be discharging you to inpatient rehab so that you can get stronger. Follow Up You have the following appointments scheduled: Future Appointments Date Time Provider Department Center 11/22/2024 11:00 AM [facility] R[facility]A [facility] Main 11/22/2024 11:45 AM [facility] DIG MAMMB [facility] Br[facility] Main Neurology ([facility]): We have asked the the Stroke Clinic to call you to arrange a follow-up appointment. IF YOU DO NOT HEAR FROM THE CLINIC WITHIN THE NEXT 7 DAYS, please call them at [phone] (option #3, Specialty Care Clinic) // [phone] to make an appointment. You may also call them with anyquestions that arise in the meantime. It will be important to follow up with your primary care doctor. Your primary care provider is Nancy Cortez MD and can be reached at [phone]. To establish with a primary care doctor please call Call Your Doctor If: CALL [phone] IF YOU HAVE NEW SIGNS OF A STROKE, SUCH : * Your arm, leg or face suddenly becomes numb; especially on one side of your body. * You suddenly become confused or have a hard time talking. * You began having double vision or are not able to see in one or both eyes. * You have a hard time walking, become dizzy or feel like you may fall. * Your head begins to hurt very badly. Additional Information: LIFESTYLE CHANGES TO REDUCE STROKE / TIA RISK: * If you smoke, STOP - smoking doubles your risk of stroke. Discuss aids to quit smoking with your primary care doctor. * If you drink alcohol, no more than one drink per day - more than this increases your risk of stroke. (One drink means 1.5 ounces of hard liquor, 4 ounces of wine or 12 ounces of beer.) * High blood pressure is a leading cause of stroke. If you have it, work with your doctor to control it. * Include exercise in your daily routine. Check with your primary doctor regarding exercise restrictions. * If you are overweight, discuss weight loss with you primary doctor. This helps control high bloodpressure, diabetes, and high cholesterol. For more lifestyle tips to reduce your risk of stroke, we recommend you check out the [place] [employer]'s Life's Essential 8 tips for heart and brain health. They can be found at https://www. heart.org/en/healthy-living/healthy-lifestyle/xfztc-liryjitvv-9 We wish you the very best, Neurology Team [facility] [phone] Your Stroke Recovery and Prevention Guide Intracerebral Hemorrhage (ICH) General Instructions: During your admission, we found that you experienced a stroke. Understanding why your stroke occurred is important to preventing future strokes. This guide will help you and your healthcare providersunderstand and manage your personal risk factors. You experienced a hemorrhagic stroke. An hemorrhagic stroke occurs when one of the vessels that supply blood to the brain ruptures. There are two main types of hemorrhagic strokes, intracerebral hemorrhage (ICH) or subarachnoid hemorrhage (SAH). Use the QR code or link below to find more information about the types and causes of hemorrhagic strokes, as well as in-depth information about aneurysmsat the [place] [employer] Association website. www.stroke.org Intracerebral Hemorrhage (ICH) Intracerebral hemorrhage (bleeding into the brain tissue) is the second most common cause of stroke(15-30% of strokes). Blood vessels carry blood to and from the brain. Arteries or veins can rupture, either from abnormal pressure or abnormal development or trauma. The blood itself can damage the brain tissue. The extra blood in the brain may also increase the pressure within the skull to a pointthat further damages the brain. ([place] [employer], https://www.aans.org/patients/conditions-treatments/intracerebral-hemorrhage/) Studies have found that up to 80% of strokes are PREVENTABLE! Many strokes can be prevented though healthy lifestyle changes. Following a diet low in saturated or trans fats and high in fiber can help prevent high cholesterol. Limiting salt can help lower your blood pressure. Regular physical activity with a healthy diet will help reduce obesity. Other lifestyle modifications such as avoiding alcohol and quitting smoking will have both an immediate and long-term positive impact on your overall health and cardiovascular risk. In order to prevent another stroke, it is important to focus on yourpersonal risks. Common risks for intracerebral hemorrhage (ICH) are listed below: High Blood Pressure: Chronic high blood pressure causes changes to the arteries of the brain which can make them much more likely to rupture. Age: Risk increases after age of 55, with buildup of protein in reyes of arteries called amyloid angiopathy. Gender: ICH is more common in men. Race: Americans and Asians are at higher risk than whites; likely related to higher prevalence of high blood pressure in those races. Previous history of stroke: Previous stroke increases risk 23 times. Alcohol use and street drugs: Drugs such as cocaine and amphetamines increase risk. Liver disease: Increases risk due to issues with blood clotting. Anticoagulant Therapy: Use of blood thinners increases risk of ICH. Primary Brain Causes: Tumors, vascular anomalies (AVM), infection and venous sinus thrombosis. Blood Pressure Monitoring Increased blood pressure, or hypertension, is one of the leading risk factors for all stroke types.It is important to continue to measure your blood pressure after discharge. Keep a log of your blood pressure readings and bring it with you to your follow up appointment with your primary care doctor. Your doctor may need to make adjustments to your blood pressure medications after discharge. Long-term, the [place] [employer] recommends a target blood pressure less than 140/80 mm Hg for patients that have had a stroke, or less than 130/80 mm Hg if you also have diabetes or kidney disease. Follow Up Care Stroke Neurology You have been referred to the Neurology Clinic. You should expect to be contacted with appointment details within the next week if your appointment has not already been finalized. If you have not heard from the office or if you need to change/cancel your appointment please contact the office at thetelephone number provided in the What's Next/Referrals section above. Primary Care It is recommended that you have a primary care provider for further coordination of care in the outpatient setting. You should meet with your primary care provider within 1-2 weeks of discharge for further coordinator and optimization of care and your medication regimen. If you do not have a primary care provider you could consider calling our Primary Care Clinic to schedule an appointment at [phone] or call [phone] ([phone]) for the [facility] Physician Referral Line. You can also find a doctor online at [email or web address]. CALL [phone] IF YOU HAVE NEW SIGNS OF A STROKE, SUCH : * Your arm, leg or face suddenly becomes weak; especially on one side of your body. * Your arm, leg or face suddenly becomes numb; especially on one side of your body. * You suddenly become confused or have a hard time talking. * You began having double vision or are not able to see in one or both eyes. * You have a hard time walking, become dizzy or feel like you may fall. * Your head begins to hurt very badly. Activity: Follow the instructions given to you by Physical Therapy and Occupational Therapy. It is important to keep all your follow-up appointments after discharge. Your journey to recovery and future stroke prevention will continue after you are released from the hospital. There are many resources available in the community to help you navigate life after stroke. Your care team can help direct you to these resources including, but not limited to, stroke support groups, therapy services, respite care services, and driving evaluations. Do not hesitate to reach out to the team if you have any questions or concerns. ULUS TUTOR ULUS TUTOR ULUS TUTOR ULUS TUTOR documented in this encounter Medications at Time of Discharge atorvastatin (LIPITOR) 40 mg tabletIndication s:hyperlipidemia Take 1 tablet (40 mg total) by mouth daily 90 tablet 3 12/02/2023 clotrimazole 1 % creamIndications :tinea pedis Apply topically 2 (two) times a day to feet 30 g 1 05/24/2024 diclofenac sodium (VOLTAREN) 1 % gelIndications:O steoarthritis of the Knee Apply 4 g topically every 6 (six) hours as needed (for knee pain) 04/06/2024 docusate sodium (COLACE) 100 mg capsuleIndicatio ns:constipation, Stool Softener Take 1 capsule (100 mg total) by mouth 2 (two) times a day 10/17/2024 famotidine (PEPCID) 40 mg tabletIndication s:Heartburn Take 1 tablet (40 mg total) by mouth nightly as needed for indigestion or heartburn 90 tablet 12/02/2023 lisinopriL (PRINIVIL,ZESTRI L) 10 mg tablet Take 1 tablet (10 mg total) by mouth daily 10/18/2024 6 polyethylene glycol (MIRALAX) 17 gram/dose bulk powderIndication s:constipation Take 17 g by mouth daily 10/17/2024 documented as of this encounter Ordered Prescriptions Prescription Sig Dispense Quantity Refills Last Filled Start Date End Date polyethylene glycol (MIRALAX) 17 gram/dose bulk powderIndications: constipation Take 17 g by mouth daily 10/17/2024 docusate sodium (COLACE) 100 mg capsuleIndications :constipation,Stoo l Softener Take 1 capsule (100 mg total) by mouth 2 (two) times a day 10/17/2024 lisinopriL (PRINIVIL,ZESTRIL) 10 mg tablet Take 1 tablet (10 mg total) by mouth daily 10/18/2024 6 documented in this encounter Discharge Disposition Disposition Code Departure Means Destination Comment s Discharge to an Rehab facility Ambulance/EMS Pt sent with charted belongings, backpack and glasses, as well as other items found in the room including blanket, glasses case, vickey bear, glnyn with vase. documented in this encounter Progress Notes * Zora Peralta, RN - 10/17/2024 4:31 PM CST 10/17/24 1626 Discharge Summary Discharge Disposition Acute Rehab Specify Facility [facility] Contact Number Kristin [phone] Yosvany Ellis Facility Attending Contact Number [phone] Discharge Records Chart Copied Recommended Discharge Level of Care Acute Rehab Actual Discharge Level of Care Acute Rehab Does Actual Level of Care Match Care Team Recommendation? Yes Post Acute Care Plan Home Care Services N/A OP Services N/A DME N/A Post Acute Care Facility Yes Referral Status Accepted Accepted Post Acute Care Location and Contact [address] [address]/ Kristin [phone] Accepted Post Acute Care Discharge Additional Assistance Financial assistance Other (comment) (No financial needs identified.) Does the patient need discharge transport arranged? Yes Type of Transportation Ambulance/EMS Has discharge transport been arranged? Yes Details of Transportation [facility] D/C Transport Anticipated Date 10/17/24 D/C Transport Anticipated Time 1814 Discharge Transportation Communication Mode of transport has been discussed with the patient/family. All are agreeable to the plan and understand their responsibilities to ensure the safe transfer. No further CM/SW intervention is anticipated at this time. Post Discharge Care Provider Post Discharge Care Plan DC Summary has been faxed to next level of care provider (see Follow Up Providers) Per medical team, patient is medically stable for discharge at this time. Patient has been acceptedto [facility]. CM spoke with the patient/family, admissions, medical team, and RN regarding discharge planning, and all are agreeable to discharge. Post-acute care transfer packet completed and will be sent with the patient. RN provided with report number to nurses station. Room # not provided by facility. Mode of transport has been discussed with the patient/family, MD, nursing staff. All are agreeable to plan and understand their responsibilities to ensure the safe transfer. ULUS TUTOR * Catrina Dumont, PT - 10/17/2024 1:28 PM CST Physical Therapy Physical Therapy Progress Note NOTE: This is a summary note of the olguin components of the treatment session. For full details, review chart for all flowsheets documented on by this physical therapy clinician on this date. Vital signs documented in vital signs flowsheet. Care plan progress documented in Care Plan Activity. For questions, please review the treatment team and contact the PT or ASSISTANT MANAGER TRAINEE currently assigned to this patient. If a physical therapy clinician is not assigned to this patient, please call [phone]. 10/17/24 1328 PT Last Visit Session Type Treatment PT Received On 10/17/24 Safe Environment Arm band checked;Patient found in supine;Gait belt utilized for all out of bed mobility Subjective Agreeable to Therapy Family/Caregiver Present No Precautions Precautions Fall risk Activity Tolerance Activity Tolerance Comments BETTINA: unable to utilize due to cognition Pain Assessment Pain Assessment Adult Non-Verbal Pain Scale Adult Non-Verbal Pain Score Facial Expression 0 Activity/Movement 0 Guarding 0 Vital Signs 0 Respiratory Function 0 Adult Nonverbal Pain Score 0 Cognition Arousal/Alertness Alert Orientation Unable to assess (appears that pt has global aphasia) Compliance/Behavior Easy to engage Static Sitting Balance Static Sitting-Balance Support Bilateral 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 supported;Feet supported Static Sitting-Sitting Surface Bed Static Sitting-Level of Assistance Close supervision Static Sitting-Comment/# of Minutes for safety Static Standing Balance Static Standing-Balance Support Bilateral 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 supported Static Standing-Standing Surface Floor Static Standing-Level of Assistance Moderate assistance Static Standing-Comment/# of Minutes for safety, due to loss of balance posteriorly and to the right, to prevent bilateral knee buckling (right more significant than the left) Bed Mobility 1 Bed Mobility From 1 Supine Bed Mobility Type 1 To and from Bed Mobility to 1 Short sit;Edge of bed Level of Assistance 1 Moderate Assist Bed Mobility Comments 1 head of bed elevated, out of bed to the left side, into bed to the right side; performed two reps of supine to sit and one rep of sit to supine this date Transfer 1 Transfer From 1 Sit Transfer Type 1 To and from Transfer to 1 Stand Technique 1 Sit to stand;Stand to sit Transfer Device 1 Hand held assist (of 2 people) Transfer Level of Assistance 1 Moderate Assist Trials/Comments 1 assist for force production and balance; assist due to weakness and impaired motor planning Transfers 2 Transfer From 2 Sit;Bed Transfer Type 2 To Transfer to 2 Sit;Chair with arms Technique 2 Stand and step Transfer Device 2 Hand held assist (of 2 people) Transfer Level of Assistance 2 Moderate Assist Trials/Comments 2 assist for force production, balance, weightshift, stepping, preventing knee buckling Ambulation Ambulation Yes Ambulation 1 Distance (ft) 1 16 (8 feet plus 8 feet) Surface 1 Level tile Device 1 Other (comments) (handrail in hallway) Assistance 1 Maximum Assist (of 2 people and a third person for a chair follow) Gait: Requires assist with 1 Maintaining balance;Preventing knee buckling;Weight shifting Gait: Requires verbal cues to 1 Increase step length;Utilize appropriate gait sequencing Gait Deviations 1 Step length - decreased;Base of support - decreased;Delfina - decreased (difficulty shifting weight) Ambulation Comments 1 pt did really well using the handrail in the hallway; pt needed assist for her right LE to advance and for weightshifting; performed with PT and 2 PT students Other Comments Other PT Comments Pt with difficulty following verbal commands, but pt did well with visual and tactile cues. Pt. also did really well performing gait training with hallway rail, considering it was her first time since being hospitalized. Pt appeared to have global aphasia during communication thisdate. Basic Mobility - 6 Click How much difficulty does the patient have: Turning over in bed 2 How much difficulty does the patient currently have: Sitting down and standing up from a chair witharms? 2 How much difficulty does the patient have: Moving from lying on back to sitting on the side of the bed? 2 How much difficulty does the patient have: Moving to and from a bed to a chair including wheelchair? 2 How much help does the patient currently need: Walk in hospital room? 2 How much help from another person does the patient currently need: Climbing 3-5 steps with a railing? 1 Total 6 Click Score (range 6-24) 11 Score Interpretation 30.25 Safe Environment End of Therapy Session Safe Environment End of Therapy Session RN notified;Call light within reach;Overbed table within reach;Patient left in recliner;Chair alarm in place and activated Assessment Prognosis Good Barriers to Discharge Current Mobility Status Plan Plan If this is the last note, consider this the discharge summary;Alter current plan (updated based on pt performance this date) Recommendation/Plan PT Recommendation/Plan Inpatient Rehab Facility Recommend Inpatient Rehab/Acute Rehab due to Ability to actively participate in intensive therapy 3hours/day, 5 days/week or 900 minutes per week;Highly motivated to participate in therapy;Not at baseline due to impaired ability to complete ADLs;Impaired ability to complete functional mobility;Likely to return to the community at discharge with support system in place;Requires greater than 25% physical assistance with most mobility tasks;Requires greater than 25% physical assistance with most ADL tasks;Requires multiple therapy disciplines to address functional deficits Patient at high risk for Falls;Injury due to decreased ability to care for self;Injury due to reduced functional status;Injury due to balance deficits;Injury at home as patient has not returned to prior level of function PT Frequency during current admission 3-5x/wk Treatment/Interventions during current admission Balance Training;Bed mobility;Functional transfer training;Gait training;Neuromuscular re- education;Strengthening;Therapeutic activity;Therapeutic exercise Progress during current admission Progressing toward goals PT - Next Appointment 10/18/24 PT Time Calculation PT Start Time 1328 PT Stop Time 1355 PT Time Calculation (min) 27 min PT Time Reason for interruption abdominal xray being performed bedside PT Start Time 2 1400 PT Stop Time 2 1445 PT Time Calculation 2 (min) 45 min PT Total Time Calculation (min) 72 min Multi-Disciplinary Problems (from Physical Therapy) Active Problems Problem: Mobility Start Date: 10/10/24 Goal Start Date Expected End Date End Date LTG - Patient will demonstrate functional mobility with the following level of assist: SBA 10/10/2503/05/25 -- Problem: Transfers Start Date: 10/10/24 Goal Start Date Expected End Date End Date STG - Transfer from bed to chair with min assist 10/10/24 10/24/24 -- Goal Start Date Expected End Date End Date STG - Patient to transfer to and from sit to supine with min assist 10/10/24 10/24/24 -- Goal Start Date Expected End Date End Date STG - Patient will transfer sit to and from stand with min assist 10/10/24 10/24/24 -- Problem: Mobility Start Date: 10/17/24 Goal Start Date Expected End Date End Date STG - Patient will ambulate Patient will ambulate 25 feet with handrail in hallway and minimal assist 10/17/24 10/24/24 -- ULUS TUTOR * Zulema Edouard - 10/17/2024 9:38 AM CST NUTRITION ASSESSMENT Nutrition Status: Patient appears adequately nourished at this time. REASON FOR ASSESSMENT: Follow Up Encounter Date: 10/17/24 9:39 AM Admission Date: 10/08/2024 LOS: 9 days HPI: Patient is a 74 y.o. female with female fall. PMHx of hypertension, hyperlipidemia, GERD, generalized anxiety disorder transferring from [facility] to [facility]. Objective Past Medical History: Diagnosis Date Closed right ankle fracture 12/2012 Essential hypertension 07/22/2023 Fibrocystic breast Hyperlipidemia Pneumonia 04/06/2010 Prediabetes 04/23/2023 Past Surgical History: Procedure Laterality Date CARDIOVASCULAR STRESS TEST 04/05/2012 COLONOSCOPY 06/26/2011 COLONOSCOPY W/ POLYPECTOMY 07/17/2021 DILATION AND CURETTAGE, DIAGNOSTIC / THERAPEUTIC 1985 TONSILLECTOMY Social History Tobacco Use Smoking status: Never Smokeless tobacco: Never Substance and Sexual Activity Drug use: Never Sexual activity: Not Currently Alcohol Use: Not At Risk (04/21/2023) AUDIT-C Frequency of Alcohol Consumption: 2-4 times a month Average Number of Drinks: 1 or 2 Frequency of Binge Drinking: Never MEDICATION/LAB REVIEW: Scheduled Meds: atorvastatin, 40 mg, feeding tube, Daily docusate sodium, 100 mg, oral, BID Or docusate, 100 mg, feeding tube, BID famotidine, 20 mg, feeding tube, BID heparin, 5,000 Units, subcutaneous, Q8H ARELY lisinopriL, 10 mg, feeding tube, Daily polyethylene glycol, 17 g, feeding tube, BID ramelteon, 8 mg, feeding tube, Nightly Continuous Infusions: PRN Meds: acetaminophen labetalol OR hydrALAZINE ondansetron Recent Labs Lab Units 10/16/24 2034 10/16/24 0414 10/14/24 2101 10/11/24 2106 10/10/24 2130 SODIUM mmol/L 143 < > 147* < > 142 POTASSIUM PLASMA mmol/L 3.8 < > 3.9 < > 4.4 CHLORIDE mmol/L 105 < > 109 < > 106 CO2 mmol/L 27 < > 31 < > 29 BUN SERUM mg/dL 17 < > 26* < > 15 CREATININE mg/dL 0.84 < > 0.85 < > 0.71 [id number] mL/min/1.73 m2 73 < > 72 < > 90 CALCIUM mg/dL 8.9 < > 9.7 < > 8.7 ALBUMIN g/dL -- -- 3.7 -- -- PHOSPHORUS PLASMA mg/dL -- -- 3.3 -- -- MAGNESIUM mg/dL -- -- 2.7* -- 2.2 < > = values in this interval not displayed. Recent Labs Lab Units 10/16/24203310/16/24 0414 10/14/24210010/14/24 1221 10/13/24 22210/12/24202210/11/242105 GLUCOSE mg/dL 173 105 124 -- 100 105 137 POC GLUCOSE MONITOR mg/dL -- -- -- 111 -- -- -- ALT Date Value Ref Range Status 10/14/2024 15 7 - 45 Units/L Final AST Date Value Ref Range Status 10/14/2024 22 10 - 45 Units/L Final Alk phos Date Value Ref Range Status 10/14/2024 76 40 - 130 Units/L Final Lab Results Component Value Date HGBA1C 5.8 (H) 04/13/2024 HDL 70 04/13/2024 LDLCALC 71 04/13/2024 CHOL 153 04/13/2024 TRIG 58 04/13/2024 NURSING ASSESSMENT: Last BM Date: 10/12/24 Bowel Sounds (All Quadrants): Present, Audible Hi Scale Score: 14 Skin Integrity: Bruising Vital Signs @FLOW(5) Temp: 36.3 ??C (97.3 ??F) Pulse: 58 Resp: 19 SpO2: 97 % Intake/Output Summary (Last 24 hours) at 10/17/2024 0939 Last data filed at 10/16/2024 1505 Gross per 24 hour Intake 370 ml Output 500 ml Net -130 ml Adult Malnutrition Scoring Tool (MST) What diet do you follow at home?: jason Have You Recently Lost Weight Without Trying?: Unsure Have you been eating poorly because of a decreased appetite?: No Malnutrition Screening Tool (MST) Score: 2 Anthropometrics Weight: 86.5 kg (190 lb 11.2 oz) Admission Weight : 86.5 kg Weight Change: -1.58 kg (-3.50 lbs) IBW/kg (Calculated) : 52.2 kg Height: 160 cm (5' 3 ) Weight in (lb) to have BMI = 25: 140.8 BMI (Calculated): 33.8 Wt Readings from Last 10 Encounters: 10/08/24 86.5 kg (190 lb 11.2 oz) 10/08/24 88.1 kg (194 lb 3.2 oz) 07/18/24 83.5 kg (184 lb) 05/24/24 82.6 kg (182 lb) 04/25/24 84 kg (185 lb 3.2 oz) 04/06/24 85.3 kg (188 lb) 12/02/23 90.3 kg (199 lb) 07/22/23 89.8 kg (198 lb) 04/21/23 94.3 kg (208 lb) 12/28/22 94.3 kg (208 lb) ESTIMATED NEEDS: Total Kcal/kg Estimated Needs : 1557 Kcal/k (6142-6248 kcal/day). Type of Weight Used for Estimated Kcals: Current Total Protein Estimated Needs (gm): 73.08 Protein Needs Based on g/k.4 (62- 73 G/protein/day) Type of Weight Used for Estimated Protein : [place] Dietary Orders (From admission, onward) Start Ordered 10/16/24 1148 Adult Diet Regular; Honey Thick Liquids Diet effective now Comments: OK for hard solids, still on honey thickened liquid via spoon only. She will need 100% supervision with all PO Question Answer Comment ([facility]) Diet type Regular Fluid Consistency: Honey Thick Liquids 10/16/24 1149 10/13/24 1501 Oral Nutrition Supplements ([facility]) Select Supplement: Ensure PLUS High Protein - Any Flavor All Meals Question: ([facility]) Select Supplement: Answer: Ensure PLUS High Protein - Any Flavor 10/13/24 1500 Allergies: Reviewed, NKFA. IMPRESSION: Pt seen for follow-up. Pt on regular diet- dysphagia 2 + honey thick liquids. Noted advancement to introduction of solids, but still on honey thick, spoon only, supervision and assistance with meals.NG tube removed 10/15. 2 BM noted on 10/12 & 10/13, 0 emesis. Per chart review, pt has been eating anywhere from a few bites-90% of meals, and 25% of ensure. Pt unable for interview today, will try again tomorrow. Special Labs: 04/2024: LDL (71- WNL), HgbA1c (5.8% - H). AAIM ([facility]) MALNUTRITION ASSESSMENT: Date of completion: 10/09/24 [facility]/AND Malnutrition Screening: Patient does not meet malnutrition criteria NUTRITION FOCUSED PHYSICAL EXAM: Completed, no signs of wasting noted. NUTRITION DIAGNOSIS: Nutrition Diagnosis 1: Inadequate oral intake Related to: Acute illness/injury Evidenced by: PO under 50% INTERVENTION(S): Summary: Assess for nutrition changes, Meals and snacks, Medical food supplement Monitor appetite, PO intake, supplement tolerance RD to follow labs, I/O, meds, diet tolerance, plan of care, nutritional needs. Encourage PO intakes >50% of meals Continue ensure protein supplement Assist pt with all meals GOAL(S): Oral intake to meet 75% estimated nutritional needs by next assessment, Tolerance of medical food supplement by next assessment MONITORING/EVALUATION: Appetite, Blood glucoses, Food preferences, Hydration status, I/O, Plan of care, Labs, PO intake, Stool patterns, Weight changes, Supplement tolerance Zulema Edouard, [employer] RD weekend clinical documentation nurse #: [phone] Cosigned by Otilia Cline RD at 10/17/2024 3:42 PM CALCULUS TUTOR ULUS TUTOR ULUS TUTOR ULUS TUTOR * Ashok Hauser MD - 10/17/2024 7:34 AM CST Stroke Daily Progress Note Name: Megan Salas Today: October 17, 2024 : 1950 Age: 74 y.o. female Admit: 10/08/2024 Bed: [id number] Subjective Megan Salas is a 74 year old with PMH of hypertension, hyperlipidemia, GERD, generalized anxietydisorder transferring from [facility] to [facility] 10/08. Interval Events: - NAOE, VSS - eating well - BMP, CBC wnl Brief plan: -encourage PO -rec'd for IPR Objective Medications: Scheduled: atorvastatin, 40 mg, feeding tube, Daily docusate sodium, 100 mg, oral, BID Or docusate, 100 mg, feeding tube, BID famotidine, 20 mg, feeding tube, BID heparin, 5,000 Units, subcutaneous, Q8H ARELY lisinopriL, 10 mg, feeding tube, Daily polyethylene glycol, 17 g, feeding tube, BID ramelteon, 8 mg, feeding tube, Nightly Infusions: PRN: acetaminophen labetalol OR hydrALAZINE ondansetron Vitals: 24hr Min/Max: Temp Min: 36.3 ??C (97.3 ??F) Max: 37.2 ??C (99 ??F) Pulse Min: 58 Max: 81 BP Min: 115/62 Max: 146/68 Resp Min: 19 Max: 19 SpO2 Min: 95 % Max: 98 % Most Recent: Vitals: 10/17/24 0649 BP: 115/62 Pulse: 58 Resp: 19 Temp: 36.3 ??C (97.3 ??F) SpO2: 97% Intake/Output Summary (Last 24 hours) at 10/17/2024 0734 Last data filed at 10/16/2024 1505 Gross per 24 hour Intake 370 ml Output 500 ml Net -130 ml Physical Exam: Mental Status Awake, alert, eyes open spontaneously, regards, does not follow commands, mimics, able to count fingers, unable to assess orientation. Speech is mostly incomprehensible aside from some automatic greetings. Asked her if she was Megan, I don't know Cranial Nerves PERRL 3mm, tracks and regards, but does not fully bury, right facial weakness, severe dysarthria Motor LUE/LLE moving spontaneously 4+/5 RUE movement distally within plane of bed RLE brief antigravity, spontaneous movement of foot Lab/Diagnostic Review: Recent Labs Lab Units 10/16/242033 WBC K/cumm 8.8 HEMOGLOBIN g/dL 12.6 HEMATOCRIT % 38.9 PLATELETS K/cumm 253 Recent Labs Lab Units 10/16/24203310/16/24 0414 10/14/24 2101 SODIUM mmol/L 143 < > 147* POTASSIUM PLASMA mmol/L 3.8 < > 3.9 CHLORIDE mmol/L 105 < > 109 CO2 mmol/L 27 < > 31 ANIONGAP mmol/L 11 < > 7 GLUCOSE mg/dL 173 < > 124 BUN SERUM mg/dL 17 < > 26* CREATININE mg/dL 0.84 < > 0.85 CALCIUM mg/dL 8.9 < > 9.7 ALBUMIN g/dL -- -- 3.7 ALK PHOS Units/L -- -- 76 ALT Units/L -- -- 15 AST Units/L -- -- 22 BILIRUBIN TOTAL mg/dL -- -- 0.4 < > = values in this interval not displayed. Recent Labs Lab Units 10/14/24 210 MAGNESIUM mg/dL 2.7* Glc range last 24hr: Recent Labs Lab Units 10/16/24203310/16/24 0414 10/14/24210010/14/24 1221 GLUCOSE mg/dL 173 105 124 -- POC GLUCOSE MONITOR mg/dL -- -- -- 111 I have reviewed the laboratory results. Imaging Results: XR Abdomen Ap 1 Vw Result Date: 10/11/2024 Interval repositioning of feeding tube with tip projecting over the gastric fundus. Dictated by: Brian Baker MD The radiology attending physician has personally reviewed this study, and had reviewed and/or edited this written report and agrees with it. Electronically signed by: Phillip Yoon M.D. Assessment Megan Salas is a 74 y.o. female with PMH of hypertension, hyperlipidemia, GERD, generalized anxiety disorder, who presented on 10/08 to [place] with acute onset right-sided weakness and aphasia, found to have large left basal ganglia and internal capsule intraparenchymal hematoma (ICH score 1 for GCS), subsequently transferred to [facility]. Her ICU course was complicated by persistent encephalopathy felt out of proportion to her IPH. 24 hour cvEEG was without seizures, just L>R slowing. Other workup for toxic-metabolic causes negative, and her encephalopathy improved over time, still withdense aphasia. Etiology of her IPH presumed to be hypertensive, although she will need a brain MRI with and without contrast in 3 months (01/2025). She was evaluated by PT and OT, who recommended discharge to inpatient rehab. Plan # L BG/IC IPH (hemorrhagic CVA) Patient presented 10/08 after a fall at home. Found by her leaning to her right side and not speaking. Arrived to [facility] alert, but mute, globally weak. NIHSS 23 (aphasia, globally weak). CTH with6.3 x 2.0 x 3.2 cm. Exam here notable for dense global aphasia, LUE and LLE 4/5, RUE and RLE 2/5. 24h EEG 10/08 - 10/09 with L>R slowing, no seizures. Etiology likely hypertensive, although BP fairly well controlled over the past 10+ years. UDS just with home benzos. CTA without vascular abnormality. Will need to obtain bMRI in 3 months. - BP control as in hypertension - goal normotension - brain MRI wwo 3 months (01/2025) # Hypertension Home lisinopril 5 mg daily. Longitudinal SBP 120s-140s over past 10 years. 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 # Likely SHAMAR While hospitalized, she intermittently had O2 sats 90-91% when sleeping. She will require outpatient follow up for sleep study. # Constipation -Continue Miralax/docusate BID # GERD -Continue home pepcid 20 mg BID #Delirium # Insomnia -Nightly ramelteon -Delirium precautions # Mood disorder -Held home xanax 0.25 mg TID PRN and home doxepin 10 mg daily Code: Full Code Diet: Adult Diet Regular; Honey Thick Liquids LDA: PIV DVT: subQ heparin Dispo: IPR Ashok Hauser MD Neurology Resident PGY-2 10/17/24 7:34 AM Cosigned by Eliceo Sapp MD at 10/17/2024 3:16 PM CALCULUS TUTOR ULUS TUTOR ULUS TUTOR ULUS TUTOR Associated attestation - Eliceo Sapp MD - 10/17/2024 3:16 PM CALCULUS TUTOR I have seen and examined the patient on 10/17/24. I agree with the findings and plan of care as documented in the resident's/fellow's note.. * Alejandra Navarrete, OT - 10/16/2024 12:26 PM CST Occupational Therapy Occupational Therapy Progress Note NOTE: This is a summary note of the olguin components of the treatment session. For full details, review chart for all flowsheets documented on by this occupational therapy clinician on this date. Vitalsigns documented in vital signs flowsheet. Care plan progress documented in Care Plan Activity. For questions, please review the treatment team and contact the occupational therapist currently assigned to this patient. If an occupational therapist is not assigned to this patient, please call [phone]. 10/16/24 1222 General Session Type Treatment OT Received On 10/16/24 Safe Environment Arm band checked;Patient found in supine;Session completed bedside;Gait belt utilized for all out of bed mobility Subjective Agreeable to Therapy Family/Caregiver Present No Precautions Precautions Fall risk;SHAMAR Pain Assessment Pain Assessment No/denies pain Pain Score 0 - No pain Cognition Arousal/Alertness Alert;Appropriate responses to stimuli Orientation Oriented x 0 Following Commands Follows one step commands with repetition Compliance/Behavior Easy to engage Tinetti Sitting Balance 0 Arises 0 Attempts to Arise 0 Immediate Standing Balance (First 5 Seconds) 0 Standing Balance 0 Nudged 0 Eyes Closed 0 Turned 360 Degrees: Steadiness 0 Turned 360 Degrees: Continuity of Steps 0 Sitting Down 0 Balance Score 0 Static Sitting Balance Static Sitting-Level of Assistance Close supervision Dynamic Sitting Balance Dynamic Sitting-Level of Assistance Contact guard Static Standing Balance Static Standing-Level of Assistance Moderate assistance Dynamic Standing Balance Dynamic Standing-Level of Assistance Moderate assistance Feeding Feeding: Where assessed Chair Feeding: Level of assistance Minimum Assist (Min A for spillage) Grooming Grooming: Where assessed Chair Grooming: Level of assistance Maximum Assist (Mod A task; Unable to perform in standing) LE Dressing LE Dressing: Where assessed Chair LE Dressing: Level of assistance Dependent Transfer 1 Transfer From 1 Sit Transfer Type 1 To and from Transfer to 1 Stand Technique 1 Sit to stand;Stand to sit Transfer Device 1 No device Transfer Level of Assistance 1 Moderate Assist Trials/Comments 1 Mod A for balance and safety, decreased force production, blocking of right LE Transfers 2 Transfer From 2 Chair with arms Transfer Type 2 To and from Transfer to 2 Bed Technique 2 Stand and step Transfer Device 2 No device Transfer Level of Assistance 2 Moderate Assist Trials/Comments 2 Mod A for balance and safety, blocking of right LE Other Comments Comments Pt with episode of urinary incontinence requiring tech assist to clean patient and change linens on chair. Daily Activity - 6 Clicks Putting on and taking off regular lower body clothing 1 Bathing 2 Toileting 1 Putting on and taking off upper body clothing 2 Personal Grooming 2 Eating Meals 3 Total Score (range 6-24) 11 Score Interpretation 29.04 Safe Environment End of Therapy Session Safe Environment End of Therapy Session Patient left in chair;Chair alarm in place and activated;RNnotified;Call light within reach;Overbed table within reach Assessment Problem List Decreased ADL independence;Decreased IADL independence;Debility;Decreased mobility;Decreased 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 strength;Decreased safe judgment during ADL;Decreased cognition;Decreased endu madeleine;Decreased balance;Decreased fine motor control;Decreased functional mobility;Decreased gross motor control Barriers to Discharge Current Mobility Status;Cognition Plan Plan Continue with current plan;If this is the last note, consider this the discharge summary Recommendation/Plan OT Recommendation Inpatient Rehab Facility Recommend Inpatient Rehab/Acute Rehab due to Ability to actively participate in intensive therapy 3hours/day, 5 days/week or 900 minutes per week;Highly motivated to participate in therapy;Requires greater than 25% physical assistance with most mobility tasks;Requires greater than 25% physical assi stance with most ADL tasks;Requires multiple therapy disciplines to address functional deficits;Requires skilled therapy interventions to address neurological deficits OT Frequency during current admission 5-7x/wk Treatment/Interventions during current admission ADL/IADL retraining;Balance Training;Bed mobility;Cognitive retraining;Compensatory technique education;Endurance training;Equipment eval/education;Functional activity;Functional mobility training;Functional transfer training;Neuromuscular re-education;Parent/caregiver training and education;Positioning;Strengthening;Therapeutic activity;Therapeutic exercise;Transfer training Progress during current admission Progressing toward goals OT - Next Appointment 10/17/24 OT Time Calculation OT Start Time 1226 OT Stop Time 1252 OT Time Calculation (min) 26 min Multi-Disciplinary Problems (from Occupational Therapy) Active Problems Problem: Dressings Lower Extremities Start Date: 10/09/24 Goal Start Date Expected End Date End Date STG - Patient to complete lower body dressing with supervision 10/09/24 10/30/24 -- Problem: Grooming Start Date: 10/09/24 Goal Start Date Expected End Date End Date STG - Patient will complete grooming with supervision 10/09/24 10/30/24 -- Problem: Transfers Start Date: 10/09/24 Goal Start Date Expected End Date End Date STG - Patient will perform toilet transfer with supervision 10/09/24 10/30/24 -- Problem: OT Misc Start Date: 10/09/24 Goal Start Date Expected End Date End Date OT LTG - Pt will complete ADLs with modified independence. 10/09/24 11/13/24 -- ULUS TUTOR * Adarsh Regan, PT - 10/16/2024 11:25 AM CST Physical Therapy Progress Note NOTE: This is a summary note of the olguin components of the treatment session. For full details, review chart for all flowsheets documented on by this physical therapy clinician on this date. Vital signs documented in vital signs flowsheet. Care plan progress documented in Care Plan Activity. For questions, please review the treatment team and contact the PT or ASSISTANT MANAGER TRAINEE currently assigned to this patient. If a physical therapy clinician is not assigned to this patient, please call [phone]. 10/16/24 1037 PT Last Visit Session Type Treatment PT Received On 10/16/24 Safe Environment Patient found in supine;Arm band checked;Session completed bedside;Gait belt utilized for all out of bed mobility Subjective Agreeable to Therapy Family/Caregiver Present Yes (spouse) Precautions Precautions Fall risk;SHAMAR Precaution Comments Verbally reviewed precautions, patient unable to verbalize understanding d/t aphasia. Activity Tolerance Activity Tolerance Comments Bettina: Unable to rate d/t aphasia. Pain Assessment Pain Assessment No/denies pain Cognition Arousal/Alertness Alert;Appropriate responses to stimuli Orientation Oriented x 0 Following Commands Follows one step commands with repetition Static Sitting Balance Static Sitting-Balance Support Feet supported;Left 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 supported Static Sitting-Sitting Surface Bed Static Sitting-Level of Assistance Minimum assistance Static Sitting-Comment/# of Minutes Leans to R requiring assist Static Standing Balance Static Standing-Balance Support Bilateral 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 supported Static Standing-Standing Surface Floor Static Standing-Level of Assistance Minimum assistance Static Standing-Comment/# of Minutes assist steadying, 30 seconds Bed Mobility 1 Bed Mobility From 1 Supine Bed Mobility Type 1 To Bed Mobility to 1 Edge of bed Level of Assistance 1 Moderate Assist;Minimal verbal cues Bed Mobility Comments 1 assist scooting hips and elevating trunk Transfer 1 Transfer From 1 Sit Transfer Type 1 To and from Transfer to 1 Stand Technique 1 Sit to stand;Stand to sit Transfer Device 1 No device;Hand held assist Transfer Level of Assistance 1 Moderate Assist Trials/Comments 1 assist with force production, cues for positioning Transfers 2 Transfer From 2 Bed Transfer Type 2 To Transfer to 2 Chair with arms Technique 2 Stand and step Transfer Device 2 Hand held assist;No device Transfer Level of Assistance 2 Moderate Assist;Minimal verbal cues Trials/Comments 2 assist with weight shifting, pivoting, stepping, and cues for positioning. Ambulation Functional Ambulation Category 0 Ambulation No Ambulation 1 Ambulation Comments 1 NT 2/2 assist required for transfers and command following. Able to take steps during transfer. Strength RLE R Hip Flexion 0/5 R Knee Flexion 2/5 R Knee Extension 0/5 R Ankle Dorsiflexion 3/5 Basic Mobility - 6 Click How much difficulty does the patient have: Turning over in bed 3 How much difficulty does the patient currently have: Sitting down and standing up from a chair witharms? 2 How much difficulty does the patient have: Moving from lying on back to sitting on the side of the bed? 2 How much difficulty does the patient have: Moving to and from a bed to a chair including wheelchair? 2 How much help does the patient currently need: Walk in hospital room? 1 How much help from another person does the patient currently need: Climbing 3-5 steps with a railing? 1 Total 6 Click Score (range 6-24) 11 Score Interpretation 30.25 Safe Environment End of Therapy Session Safe Environment End of Therapy Session Patient left in chair;Chair alarm in place and activated;RNnotified;Call light within reach ( in room) Assessment Prognosis Good Problem List Reduced mobility;Decreased strength;Decreased range of motion;Decreased endurance;Impaired balance Barriers to Discharge Current Mobility Status Plan Plan Continue with current plan;If this is the last note, consider this the discharge summary Recommendation/Plan PT Recommendation/Plan (S) Inpatient Rehab Facility Patient is motivated to actively participate in therapy 3hr/day, 5days/wk (900min) Yes Final discharge destination post acute care will be community based (home, independent living, assisted living) Yes Patient requires more than one skilled therapy discipline Yes Patient requires at least minimal assistance with toileting/toilet transfers, transfers AND locomotion (amb or w/c mobility) Yes Patient has cognitive function to actively participate and benefit from intensive rehab Yes Recommend Inpatient Rehab/Acute Rehab due to Ability to actively participate in intensive therapy 3hours/day, 5 days/week or 900 minutes per week;Highly motivated to participate in therapy;Impaired ability to complete functional mobility;Requires multiple therapy disciplines to address functional d eficits;Requires greater than 25% physical assistance with most mobility tasks Patient at high risk for Falls;Readmission;Injury due to reduced functional status;Injury at home as patient has not returned to prior level of function PT Recommendation/Plan Comments Patient and spouse agreeable with PT POC PT Frequency during current admission 5-7x/wk Treatment/Interventions during current admission Balance Training;Bed mobility;Functional transfer training;Gait training;Therapeutic exercise;Therapeutic activity Progress during current admission Progressing toward goals PT - Next Appointment 10/17/24 PT Time Calculation PT Start Time 1037 PT Stop Time 1104 PT Time Calculation (min) 27 min Multi-Disciplinary Problems (from Physical Therapy) Active Problems Problem: Mobility Start Date: 10/10/24 Goal Start Date Expected End Date End Date LTG - Patient will demonstrate functional mobility with the following level of assist: SBA 10/10/2503/05/25 -- Problem: Transfers Start Date: 10/10/24 Goal Start Date Expected End Date End Date STG - Transfer from bed to chair with min assist 10/10/24 10/24/24 -- Goal Start Date Expected End Date End Date STG - Patient to transfer to and from sit to supine with min assist 10/10/24 10/24/24 -- Goal Start Date Expected End Date End Date STG - Patient will transfer sit to and from stand with min assist 10/10/24 10/24/24 -- Vital Signs: (view date/time stamps in vital signs flowsheet) Vital Signs 1 Vital Signs 2 Pulse: 81 76 Resp: BP: 146/68 132/76 BP Location: Right arm Right arm BP Method: Automatic Automatic Patient Position: HOB 30 degrees Reclining SpO2: 98 % 98 % O2 Therapy: None (Room air) None (Room air) O2 Del Method: FiO2 (%): O2 Flow Rate: Patient Activity: *Additional details and documentation are located in the Vital Signs flowsheet. ULUS TUTOR * Abdon Maher MD - 10/16/2024 7:22 AM CST Stroke Daily Progress Note Name: Megan Salas Today: October 16, 2024 : 1950 Age: 74 y.o. female Admit: 10/08/2024 Bed: [id number] Subjective Megan Salas is a 74 year old with PMH of hypertension, hyperlipidemia, GERD, generalized anxietydisorder transferring from [facility] to [facility] 10/08. Interval Events: - NAOE, VSS - little PO intake yesterday. UOP 650 cc. Fluids this morning - ate 25% of dinner last night; continued to encourage PO - Notable labs: BMP Na 144, K 3.8, Hgb 11.7 Brief plan: -encourage PO -MACHINE ASSEMBLER SUPERVISOR re-evaluate today -hopefully if she can drink by straw, then she can take more fluids in -rec'd for IPR Objective Medications: Scheduled: atorvastatin, 40 mg, feeding tube, Daily docusate sodium, 100 mg, oral, BID Or docusate, 100 mg, feeding tube, BID famotidine, 20 mg, feeding tube, BID heparin, 5,000 Units, subcutaneous, Q8H ARELY lisinopriL, 10 mg, feeding tube, Daily polyethylene glycol, 17 g, feeding tube, BID ramelteon, 8 mg, feeding tube, Nightly Infusions: PRN: acetaminophen labetalol OR hydrALAZINE ondansetron Vitals: 24hr Min/Max: Temp Min: 36.5 ??C (97.7 ??F) Max: 37.4 ??C (99.3 ??F) Pulse Min: 57 Max: 72 BP Min: 125/58 Max: 142/73 Resp Min: 17 Max: 19 SpO2 Min: 95 % Max: 100 % Most Recent: Vitals: 10/16/24 0631 BP: 129/76 Pulse: 57 Resp: 19 Temp: 37 ??C (98.6 ??F) SpO2: 99% Intake/Output Summary (Last 24 hours) at 10/16/2024 0722 Last data filed at 10/15/20242024 Gross per 24 hour Intake 308 ml Output 650 ml Net -342 ml Physical Exam: Mental Status Awake, alert, eyes open spontaneously, regards, does not follow commands, mimics, able to count fingers, unable to assess orientation. Speech is mostly incomprehensible aside from some automatic greetings. Asked her if she was Megan, I don't know Cranial Nerves PERRL 3mm, tracks and regards, but does not fully bury, right facial weakness, severe dysarthria Motor LUE/LLE moving spontaneously 4/5 RUE movement distally within plane of bed RLE brief antigravity, spontaneous movement of foot Lab/Diagnostic Review: Recent Labs Lab Units 10/16/24413 WBC K/cumm 8.2 HEMOGLOBIN g/dL 11.7* HEMATOCRIT % 37.1 PLATELETS K/cumm 257 Recent Labs Lab Units 10/16/244 10/14/24 2101 SODIUM mmol/L 144 147* POTASSIUM PLASMA mmol/L 3.8 3.9 CHLORIDE mmol/L 109 109 CO2 mmol/L 29 31 ANIONGAP mmol/L 6 7 GLUCOSE mg/dL 105 124 BUN SERUM mg/dL 20 26* CREATININE mg/dL 0.71 0.85 CALCIUM mg/dL 8.8 9.7 ALBUMIN g/dL -- 3.7 ALK PHOS Units/L -- 76 ALT Units/L -- 15 AST Units/L -- 22 BILIRUBIN TOTAL mg/dL -- 0.4 Recent Labs Lab Units 10/14/24 210 MAGNESIUM mg/dL 2.7* Glc range last 24hr: Recent Labs Lab Units 10/16/2441310/14/24 21010/14/24 1221 10/13/24 2221 GLUCOSE mg/dL 105 124 -- 100 POC GLUCOSE MONITOR mg/dL -- -- 111 -- I have reviewed the laboratory results. Imaging Results: XR Abdomen Ap 1 Vw Result Date: 10/11/2024 Interval repositioning of feeding tube with tip projecting over the gastric fundus. Dictated by: Brian Baker MD The radiology attending physician has personally reviewed this study, and had reviewed and/or edited this written report and agrees with it. Electronically signed by: Phillip Yoon M.D. Assessment Megan Salas is a 74 y.o. female with PMH of hypertension, hyperlipidemia, GERD, generalized anxiety disorder, who presented on 10/08 to [place] with acute onset right-sided weakness and aphasia, found to have large left BG/IC IPH (ICH score 1 for GCS?), transferred to [facility] 10/08. Plan # L BG/IC IPH Patient presented 10/08 after a fall at home. Found by her leaning to her right side and not speaking. Arrived to [facility] alert, but mute, globally weak. NIHSS 23 (aphasia, globally weak). CTH with6.3 x 2.0 x 3.2 cm. Exam here notable for dense global aphasia, LUE and LLE 4/5, RUE and RLE 2/5. 24h EEG 10/08 - 10/09 with L>R slowing, no seizures. Etiology likely hypertensive, although BP fairly well controlled over the past 10+ years. UDS just with home benzos. CTA without vascular abnormality. Will need to obtain bMRI in 3 months. - SMART c/s - PT/OT rec IPR - MACHINE ASSEMBLER SUPERVISOR w MBS: rec dysphagia 2 diet and thin liquids - NC q4hr, add SH - goal normotension - brain MRI wwo 3 months # Hypertension Home lisinopril 5 mg daily. Longitudinal SBP 120s-140s over past 10 years. - lisinopril 10 daily - PRN labetalol/hydralazine # HLD - continue home atorvastatin 40 mg daily # Nutrition # Dysphagia MACHINE ASSEMBLER SUPERVISOR consulted, s/p MBS 10/12. Recommending dysphagia 2 diet with thin liquids. Initially having poor PO intake with hypernatremia. Partially I suspect because she can only take fluids by spoonful. - NGT removed 10/15 - MACHINE ASSEMBLER SUPERVISOR to re-evaluate 10/16; goal to have her be able to drink via straw # Urinary retention Had been voiding spontaneously, with purwic in place, but 10/10 began to retain reqiring multiple straight caths, jj replaced 10/11. Adequate UOP with jj (0.5-1.5 mL/kg/hr). - void trial 10/14: jj removed but due to low PO intake, she made minimal urine. Will need ongoingvoid trial - straight cath >500 ml # Likely SHAMAR - intermittently with O2 sats 90-91% when sleeping, resolves with NC 2L - unable to participate with IS, OOBTC - O2 for SPO2 >92% - outpatient follow up for sleep study # Constipation -Continue Miralax/docusate BID # GERD -Continue home pepcid 20 mg BID #Delirium # Insomnia -Nightly ramelteon -Delirium precautions # Mood disorder -Hold home xanax 0.25 mg TID PRN -Hold home doxepin 10 mg daily Code: Full Code Diet: Adult Diet Restricted; Dysphagia 2 (mech altered); Honey Thick Liquids LDA: PIVs, Jj, NGT DVT: subQ heparin Dispo: IPR Abdon Maher MD Neurology Resident PGY-2 10/16/24 7:22 AM Cosigned by Eliceo Sapp MD at 10/16/2024 2:30 PM CALCULUS TUTOR ULUS TUTOR ULUS TUTOR ULUS TUTOR Associated attestation - Eliceo Sapp MD - 10/16/2024 2:30 PM CALCULUS TUTOR I have seen and examined the patient on 10/16/24. I agree with the findings and plan of care as documented in the resident's/fellow's note.. * Ashok Hauser MD - 10/15/2024 7:59 AM CST Stroke Daily Progress Note Name: Megan Salas Today: October 15, 2024 : 1950 Age: 74 y.o. female Admit: 10/08/2024 Bed: [place] [id number] Subjective Megan Salas is a 74 year old with PMH of hypertension, hyperlipidemia, GERD, generalized anxietydisorder transferring from [facility] to [facility] 10/08. Interval Events: - NAOE, VSS - little PO intake yesterday with minimal UOP on bladder scan. Started NS 100 ml/hr this morning with improvement in volumes on bladder scan. - ate 75% of breakfast this AM; continued to encourage PO - Notable labs: BMP Na 147 (146); CBC wnl Brief plan: -1L NS @100/hr -encourage PO -MACHINE ASSEMBLER SUPERVISOR re-evaluate Monday 10/16 -hopefully if she can drink by straw, then she can take more fluids in Objective Medications: Scheduled: atorvastatin, 40 mg, feeding tube, Daily docusate sodium, 100 mg, oral, BID Or docusate, 100 mg, feeding tube, BID famotidine, 20 mg, feeding tube, BID heparin, 5,000 Units, subcutaneous, Q8H ARELY lisinopriL, 10 mg, feeding tube, Daily polyethylene glycol, 17 g, feeding tube, BID ramelteon, 8 mg, feeding tube, Nightly Infusions: PRN: acetaminophen labetalol OR hydrALAZINE ondansetron Vitals: 24hr Min/Max: Temp Min: 36.3 ??C (97.4 ??F) Max: 37.7 ??C (99.9 ??F) Pulse Min: 71 Max: 79 BP Min: 122/62 Max: 155/69 Resp Min: 16 Max: 18 SpO2 Min: 92 % Max: 97 % Most Recent: Vitals: 10/15/24 0748 BP: 137/72 Pulse: 72 Resp: 17 Temp: 36.5 ??C (97.7 ??F) SpO2: 95% Intake/Output Summary (Last 24 hours) at 10/15/2024 0759 Last data filed at 10/15/2024 0356 Gross per 24 hour Intake -- Output 200 ml Net -200 ml Physical Exam: Mental Status Awake, alert, eyes open spontaneously, regards, does not follow commands, mimics, able to count fingers, unable to assess orientation. Speech is mostly incomprehensible aside from some automatic greetings, No , and I need to go to the bathroom Cranial Nerves PERRL 3mm, tracks and regards, but does not fully bury, right facial weakness, severe dysarthria Motor LUE/LLE moving spontaneously 4/5 RUE movement distally within plane of bed RLE brief antigravity, spontaneous movement of foot Lab/Diagnostic Review: Recent Labs Lab Units 10/14/24 2101 WBC K/cumm 9.7 HEMOGLOBIN g/dL 13.3 HEMATOCRIT % 42.4 PLATELETS K/cumm 247 Recent Labs Lab Units 10/08/24 1151 APTT sec 31 INR 1.00 Recent Labs Lab Units 10/14/24 2101 SODIUM mmol/L 147* POTASSIUM PLASMA mmol/L 3.9 CHLORIDE mmol/L 109 CO2 mmol/L 31 ANIONGAP mmol/L 7 GLUCOSE mg/dL 124 BUN SERUM mg/dL 26* CREATININE mg/dL 0.85 CALCIUM mg/dL 9.7 ALBUMIN g/dL 3.7 ALK PHOS Units/L 76 ALT Units/L 15 AST Units/L 22 BILIRUBIN TOTAL mg/dL 0.4 Recent Labs Lab Units 10/14/242100 MAGNESIUM mg/dL 2.7* Glc range last 24hr: Recent Labs Lab Units 10/14/24 2101 10/14/24 1221 10/13/24 2221 10/12/242022 GLUCOSE mg/dL 124 -- 100 105 POC GLUCOSE MONITOR mg/dL -- 111 -- -- I have reviewed the laboratory results. Imaging Results: XR Abdomen Ap 1 Vw Result Date: 10/11/2024 Interval repositioning of feeding tube with tip projecting over the gastric fundus. Dictated by: Brian Baker MD The radiology attending physician has personally reviewed this study, and had reviewed and/or edited this written report and agrees with it. Electronically signed by: Phillip Yoon M.D. Assessment Megan Salas is a 74 y.o. female with PMH of hypertension, hyperlipidemia, GERD, generalized anxiety disorder, who presented on 10/08 to [place] with acute onset right-sided weakness and aphasia, found to have large left BG/IC IPH (ICH score 1 for GCS?), transferred to [facility] 10/08. Plan # L BG/IC IPH Patient presented 10/08 after a fall at home. Found by her leaning to her right side and not speaking. Arrived to [facility] alert, but mute, globally weak. NIHSS 23 (aphasia, globally weak). CTH with6.3 x 2.0 x 3.2 cm. Exam here notable for dense global aphasia, LUE and LLE 4/5, RUE and RLE 2/5. 24h EEG 10/08 - 10/09 with L>R slowing, no seizures. Etiology likely hypertensive, although BP fairly well controlled over the past 10+ years. UDS just with home benzos. CTA without vascular abnormality. Will need to obtain bMRI in 3 months. - SMART c/s - PT/OT rec IPR - MACHINE ASSEMBLER SUPERVISOR w MBS: rec dysphagia 2 diet and thin liquids - NC q4hr, add SH - goal normotension - brain MRI wwo 3 months # Hypertension Home lisinopril 5 mg daily. Longitudinal SBP 120s-140s over past 10 years. - lisinopril 10 daily - PRN labetalol/hydralazine # HLD - continue home atorvastatin 40 mg daily # Nutrition # Dysphagia MACHINE ASSEMBLER SUPERVISOR consulted, s/p MBS 10/12. Recommending dysphagia 2 diet with thin liquids. Initially having poor PO intake with hypernatremia. Partially I suspect because she can only take fluids by spoonful. - NGT removed 10/15 - MACHINE ASSEMBLER SUPERVISOR to re-evaluate 10/16; goal to have her be able to drink via straw # Urinary retention Had been voiding spontaneously, with purwic in place, but 10/10 began to retain reqiring multiple straight caths, jj replaced 10/11. Adequate UOP with jj (0.5-1.5 mL/kg/hr). - void trial 10/14: jj removed but due to low PO intake, she made minimal urine. Will need ongoingvoid trial - straight cath >500 ml # Likely SHAMAR - intermittently with O2 sats 90-91% when sleeping, resolves with NC 2L - unable to participate with IS, OOBTC - O2 for SPO2 >92% - outpatient follow up for sleep study # Constipation -Continue Miralax/docusate BID # GERD -Continue home pepcid 20 mg BID #Delirium # Insomnia -Nightly ramelteon -Delirium precautions # Mood disorder -Hold home xanax 0.25 mg TID PRN -Hold home doxepin 10 mg daily Code: Full Code Diet: Adult Diet Restricted; Dysphagia 2 ([facility] altered); Honey Thick Liquids LDA: PIVs, Jj, NGT DVT: subQ heparin Dispo: IPR Ashok Hauser MD Neurology Resident PGY-2 10/15/24 7:59 AM Cosigned by Eliceo Sapp MD at 10/15/2024 11:58 AM CALCULUS TUTOR ULUS TUTOR ULUS TUTOR Associated attestation - Eliceo Sapp MD - 10/15/2024 11:58 AM CALCULUS TUTOR I have seen and examined the patient on 10/15/24. I agree with the findings and plan of care as documented in the resident's/fellow's note. Monitor nutrition including creatinine level. * Ashok Hauser MD - 10/14/2024 7:55 AM CST Stroke Daily Progress Note Name: Megan Salas Today: October 14, 2024 : 1950 Age: 74 y.o. female Admit: 10/08/2024 Bed: [id number] Subjective Megan Salas is a 74 year old with PMH of hypertension, hyperlipidemia, GERD, generalized anxietydisorder transferring from [facility] to [facility] 10/08. Interval Events: - NAOE, VSS - patient remains aphasic with right hemiparesis - Notable labs: BMP Na 146 (143), WBC downtrending Objective Medications: Scheduled: atorvastatin, 40 mg, feeding tube, Daily docusate sodium, 100 mg, oral, BID Or docusate, 100 mg, feeding tube, BID famotidine, 20 mg, feeding tube, BID heparin, 5,000 Units, subcutaneous, Q8H ARELY lisinopriL, 10 mg, feeding tube, Daily polyethylene glycol, 17 g, feeding tube, BID ramelteon, 8 mg, feeding tube, Nightly Infusions: PRN: acetaminophen labetalol OR hydrALAZINE ondansetron Vitals: 24hr Min/Max: Temp Min: 36.3 ??C (97.3 ??F) Max: 36.8 ??C (98.3 ??F) Pulse Min: 64 Max: 91 BP Min: 134/78 Max: 149/74 Resp Min: 16 Max: 20 SpO2 Min: 91 % Max: 98 % Most Recent: Vitals: 10/13/24 2345 BP: 135/61 Pulse: 67 Resp: 18 Temp: 36.3 ??C (97.3 ??F) SpO2: 94% Intake/Output Summary (Last 24 hours) at 10/14/2024 0755 Last data filed at 10/13/2024 1049 Gross per 24 hour Intake -- Output 550 ml Net -550 ml Physical Exam: Mental Status Awake, alert, eyes open spontaneously, regards, does not follow commands, mimics, able to count fingers, unable to assess orientation. Speech is mostly incomprehensible aside from some automatic greetings, No , and I need to go to the bathroom Cranial Nerves PERRL 3mm, tracks and regards, but does not fully bury, right facial weakness, severe dysarthria Motor LUE/LLE moving spontaneously 4/5 RUE movement distally within plane of bed RLE brief antigravity, spontaneous movement of foot Lab/Diagnostic Review: Recent Labs Lab Units 10/13/24 222 WBC K/cumm 10.2* HEMOGLOBIN g/dL 12.1 HEMATOCRIT % 38.1 PLATELETS K/cumm 253 Recent Labs Lab Units 10/08/24 1151 APTT sec 31 INR 1.00 Recent Labs Lab Units 10/13/24222010/09/24 0753 10/08/24 2156 SODIUM mmol/L 146* < > 148* POTASSIUM PLASMA mmol/L 4.2 < > 3.7 CHLORIDE mmol/L 108 < > 114* CO2 mmol/L 30 < > 24 ANIONGAP mmol/L 8 < > 7 GLUCOSE mg/dL 100 < > 82 POC GLUCOSE MONITOR -- < > -- BUN SERUM mg/dL 25 < > 11 CREATININE mg/dL 0.86 < > 0.74 CALCIUM mg/dL 9.6 < > 7.4* ALBUMIN g/dL -- -- 3.1* ALK PHOS Units/L -- -- 53 ALT Units/L -- -- 16 AST Units/L -- -- 19 BILIRUBIN TOTAL mg/dL -- -- 0.2 < > = values in this interval not displayed. Recent Labs Lab Units 10/10/24 2130 MAGNESIUM mg/dL 2.2 Glc range last 24hr: Recent Labs Lab Units 10/13/24 22210/12/24202210/11/24 2106 10/10/24 2130 GLUCOSE mg/dL 100 105 137 137 I have reviewed the laboratory results. Imaging Results: XR Abdomen Ap 1 Vw Result Date: 10/11/2024 Interval repositioning of feeding tube with tip projecting over the gastric fundus. Dictated by: Brian Baker MD The radiology attending physician has personally reviewed this study, and had reviewed and/or edited this written report and agrees with it. Electronically signed by: Phillip Yoon M.D. Assessment Megan Salas is a 74 y.o. female with PMH of hypertension, hyperlipidemia, GERD, generalized anxiety disorder, who presented on 10/08 to [place] with acute onset right-sided weakness and aphasia, found to have large left BG/IC IPH (ICH score 1 for GCS?), transferred to [facility] 10/08. Plan # L BG/IC IPH Patient presented 10/08 after a fall at home. Found by her leaning to her right side and not speaking. Arrived to [facility] alert, but mute, globally weak. NIHSS 23 (aphasia, globally weak). CTH with6.3 x 2.0 x 3.2 cm. Exam here notable for dense global aphasia, LUE and LLE 4/5, RUE and RLE 2/5. 24h EEG 10/08 - 10/09 with L>R slowing, no seizures. Etiology likely hypertensive, although BP fairly well controlled over the past 10+ years. UDS just with home benzos. CTA without vascular abnormality. Will need to obtain bMRI in 3 months. - SMART c/s - PT/OT rec IPR - MACHINE ASSEMBLER SUPERVISOR w MBS: rec dysphagia 2 diet and thin liquids - NC q4hr, add SH - SBP <160 -> normotension - repeat CT head for exam changes - brain MRI wwo 3 months # Hypertension Home lisinopril 5 mg daily. Longitudinal SBP 120s-140s over past 10 years. - SBP <160 - lisinopril 10 daily - PRN labetalol/hydralazine # HLD - continue home atorvastatin 40 mg daily # Nutrition # Dysphagia - MACHINE ASSEMBLER SUPERVISOR c/s, s/p MBS 10/12 - dysphagia 2 diet with thin liquids - NGT removed 10/13 - previously on TF Jevity 1.5 @ 40ml/hr goal + NS flushes 150ml q4hr # Urinary retention Had been voiding spontaneously, with purwic in place, but 2/ began to retain reqiring multiple straight caths, jj replaced 10/11. Adequate UOP with jj (0.5-1.5 mL/kg/hr). - void trial 10/14 # Likely SHAMAR - intermittently with O2 sats 90-91% when sleeping, resolves with NC 2L - unable to participate with IS, OOBTC - O2 for SPO2 >92% - outpatient follow up for sleep study # Constipation -Continue Miralax/docusate BID # GERD -Continue home pepcid 20 mg BID #Delirium # Insomnia -Nightly ramelteon -Delirium precautions # Mood disorder -Hold home xanax 0.25 mg TID PRN -Hold home doxepin 10 mg daily Code: Full Code Diet: Adult Diet Restricted; Dysphagia 2 (mech altered); Honey Thick Liquids LDA: PIVs, Jj, NGT DVT: subQ heparin Dispo: IPR Ashok Hauser MD Neurology Resident PGY-2 10/14/24 7:55 AM Cosigned by Eliceo Sapp MD at 10/14/2024 6:17 PM CALCULUS TUTOR ULUS TUTOR ULUS TUTOR ULUS TUTOR Associated attestation - Eliceo Sapp MD - 10/14/2024 6:17 PM CALCULUS TUTOR I have seen and examined the patient on 10/14/24. I agree with the findings and plan of care as documented in the resident's/fellow's note.. * Otilia Cline, ARIS - 10/13/2024 3:00 PM CST NUTRITION ASSESSMENT Nutrition Status: Patient appears adequately nourished at this time. REASON FOR ASSESSMENT: follow up Encounter Date: 10/13/24 3:06 PM Admission Date: 10/08/2024 LOS: 5 days HPI: Patient is a 74 y.o. female fall. PMH of hypertension, hyperlipidemia, GERD, generalized anxiety disorder transferring from [facility] to [facility]. Per , the patient was having a warm bath. He noticed the bathroom door was open and heard a loud thud. He saw his leaning on her right side against the wall, without loss of consciousness. Objective Past Medical History: Diagnosis Date Closed right ankle fracture 12/2012 Essential hypertension 07/22/2023 Fibrocystic breast Hyperlipidemia Pneumonia 04/06/2010 Prediabetes 04/23/2023 Past Surgical History: Procedure Laterality Date CARDIOVASCULAR STRESS TEST 04/05/2012 COLONOSCOPY 06/26/2011 COLONOSCOPY W/ POLYPECTOMY 07/17/2021 DILATION AND CURETTAGE, DIAGNOSTIC / THERAPEUTIC 1985 TONSILLECTOMY Social History Tobacco Use Smoking status: Never Smokeless tobacco: Never Substance and Sexual Activity Drug use: Never Sexual activity: Not Currently Alcohol Use: Not At Risk (04/21/2023) AUDIT-C Frequency of Alcohol Consumption: 2-4 times a month Average Number of Drinks: 1 or 2 Frequency of Binge Drinking: Never MEDICATION/LAB REVIEW: Scheduled Meds: atorvastatin, 40 mg, feeding tube, Daily docusate sodium, 100 mg, oral, BID Or docusate, 100 mg, feeding tube, BID famotidine, 20 mg, feeding tube, BID heparin, 5,000 Units, subcutaneous, Q8H ARELY [START ON 10/14/2024] lisinopriL, 10 mg, feeding tube, Daily polyethylene glycol, 17 g, feeding tube, BID ramelteon, 8 mg, feeding tube, Nightly Continuous Infusions: PRN Meds: acetaminophen labetalol OR hydrALAZINE ondansetron Recent Labs Lab Units 10/12/24202210/11/24210510/10/24 21310/09/246 10/08/24 2156 SODIUM mmol/L 143 < > 142 145 148* POTASSIUM PLASMA mmol/L 4.2 < > 4.4 4.2 3.7 CHLORIDE mmol/L 104 < > 106 109 114* CO2 mmol/L 30 < > 29 28 24 BUN SERUM mg/dL 17 < > 15 12 11 CREATININE mg/dL 0.73 < > 0.71 0.80 0.74 [id number] mL/min/1.73 m2 87 < > 90 78 85 CALCIUM mg/dL 9.3 < > 8.7 9.1 7.4* ALBUMIN g/dL -- -- -- -- 3.1* PHOSPHORUS PLASMA mg/dL -- -- -- -- 2.8 MAGNESIUM mg/dL -- -- 2.2 2.6* 1.9 < > = values in this interval not displayed. Recent Labs Lab Units 10/12/24202210/11/24210510/10/24212910/09/24212510/09/24 0753 10/08/24215510/08/24 1151 GLUCOSE mg/dL 105 137 137 134 -- 82 109 POC GLUCOSE MONITOR mg/dL -- -- -- -- 95 -- -- No results found for: ALT , AST , BILIRUBIN , ALKPHOS , LIPASE Lab Results Component Value Date HGBA1C 5.8 (H) 04/13/2024 HDL 70 04/13/2024 LDLCALC 71 04/13/2024 CHOL 153 04/13/2024 TRIG 58 04/13/2024 NURSING ASSESSMENT: Last BM Date: 10/12/24 Bowel Sounds (All Quadrants): Present Hi Scale Score: 12 Skin Integrity: Blanchable redness Vital Signs BP: 134/78 Temp: 36.8 ??C (98.3 ??F) Pulse: 91 Resp: 16 SpO2: 98 % Intake/Output Summary (Last 24 hours) at 10/13/2024 1506 Last data filed at 10/13/2024 1049 Gross per 24 hour Intake -- Output 700 ml Net -700 ml Adult Malnutrition Scoring Tool (MST) What diet do you follow at home?: jason Have You Recently Lost Weight Without Trying?: Unsure Have you been eating poorly because of a decreased appetite?: No Malnutrition Screening Tool (MST) Score: 2 Anthropometrics Weight: 86.5 kg (190 lb 11.2 oz) Admission Weight : 86.5 kg Weight Change: -1.58 kg (-3.50 lbs) IBW/kg (Calculated) : 52.2 kg Height: 160 cm (5' 3 ) Weight in (lb) to have BMI = 25: 140.8 BMI (Calculated): 33.8 Wt Readings from Last 10 Encounters: 10/08/24 86.5 kg (190 lb 11.2 oz) 10/08/24 88.1 kg (194 lb 3.2 oz) 07/18/24 83.5 kg (184 lb) 05/24/24 82.6 kg (182 lb) 04/25/24 84 kg (185 lb 3.2 oz) 04/06/24 85.3 kg (188 lb) 12/02/23 90.3 kg (199 lb) 07/22/23 89.8 kg (198 lb) 04/21/23 94.3 kg (208 lb) 12/28/22 94.3 kg (208 lb) ESTIMATED NEEDS: Total Kcal/kg Estimated Needs : 1557 Kcal/k (2300-2535 kcal/day). Type of Weight Used for Estimated Kcals: Current Total Protein Estimated Needs (gm): 73.08 Protein Needs Based on g/k.4 (62- 73 G/protein/day) Type of Weight Used for Estimated Protein : [place] Dietary Orders (From admission, onward) Start Ordered 10/13/24 1501 Oral Nutrition Supplements ([facility]) Select Supplement: Ensure PLUS High Protein - Any Flavor All Meals Question: ([facility]) Select Supplement: Answer: Ensure PLUS High Protein - Any Flavor 10/13/24 1500 10/12/24 1607 Adult Diet Restricted; Dysphagia 2 ([facility] altered); Honey Thick Liquids Diet effectivenow Comments: NDD2 diet with honey thickened liquid via spoon only. She will need 100% supervision withall PO Question Answer Comment ([facility]) Diet type Restricted Modified Consistency: Dysphagia 2 ([facility] altered) Fluid Consistency: Honey Thick Liquids 10/12/24 1606 Allergies: Reviewed. IMPRESSION: Diet advanced to dysphagia 2 + honey thick liquids. Pt with mittens on, needs assistance with all meals. Assist with meals order placed. Ordered Ensure Plus HP TID any flavor, can adjust per pt preference. NG tube still in place, TF stopped. Recommend keep NG tube until PO intakes improve. No documented nausea or vomiting, +BM 2/6. AAIM ([facility]) MALNUTRITION ASSESSMENT: Date of completion: 10/09/24 [facility]/AND Malnutrition Screening: Patient does not meet malnutrition criteria NUTRITION FOCUSED PHYSICAL EXAM: Completed, no signs of wasting noted. NUTRITION DIAGNOSIS: Nutrition Diagnosis 1: Inadequate oral intake Related to: Acute illness/injury Evidenced by: PO under 50% INTERVENTION(S): Summary: Assess for nutrition changes, Meals and snacks, Medical food supplement Monitor appetite, PO intake, supplement tolerance Encourage PO intakes >50% of meals Ordered Ensure Plus HP TID any flavor, adjust per pt preference Assist pt with all meals GOAL(S): Oral intake to meet 75% estimated nutritional needs by next assessment, Tolerance of medical food supplement by next assessment MONITORING/EVALUATION: Appetite, Blood glucoses, Food preferences, Hydration status, I/O, Plan of care, Labs, PO intake, Stool patterns, Weight changes, Supplement tolerance ULUS TUTOR * Mirna Walters MD - 10/13/2024 7:07 AM CST Stroke Daily Progress Note Name: Megan Salas Today: October 13, 2024 : 1950 Age: 74 y.o. female Admit: 10/08/2024 Bed: [id number] Subjective Megan Salas is a 74 year old with PMH of hypertension, hyperlipidemia, GERD, generalized anxietydisorder transferring from [facility] to [facility] 10/08. Interval Events: - NAEO; MACHINE ASSEMBLER SUPERVISOR rec dysphagia 2 diet w honey thick liquids - on exam, pt is awake and alert. Able to say No and I need to go to the bathroom . Does not follow commands. - UOP 625 mL - AVSS, SBP 120s-170s, on room air - Notable labs: BMP wnl, WBC 12.6 > 11.1 Objective Medications: Scheduled: atorvastatin, 40 mg, feeding tube, Daily docusate sodium, 100 mg, oral, BID Or docusate, 100 mg, feeding tube, BID famotidine, 20 mg, feeding tube, BID heparin, 5,000 Units, subcutaneous, Q8H ARELY lisinopriL, 5 mg, feeding tube, Daily polyethylene glycol, 17 g, feeding tube, BID ramelteon, 8 mg, feeding tube, Nightly Infusions: PRN: acetaminophen labetalol OR hydrALAZINE ondansetron Vitals: 24hr Min/Max: Temp Min: 36.6 ??C (97.9 ??F) Max: 37.6 ??C (99.7 ??F) Pulse Min: 74 Max: 97 BP Min: 118/74 Max: 174/90 Resp Min: 17 Max: 25 SpO2 Min: 94 % Max: 98 % Most Recent: Vitals: 10/13/24 0000 BP: 154/78 Pulse: 97 Resp: 21 Temp: 37.6 ??C (99.7 ??F) SpO2: 94% Intake/Output Summary (Last 24 hours) at 10/13/2024 0708 Last data filed at 10/12/2024 1800 Gross per 24 hour Intake 400 ml Output 625 ml Net -225 ml Physical Exam: Mental Status Awake, alert, eyes open spontaneously, regards, does not follow commands, mimics, able to count fingers, unable to assess orientation. Speech is mostly incomprehensible aside from some automatic greetings, No , and I need to go to the bathroom Cranial Nerves PERRL 3mm, tracks and regards, but does not fully bury, right facial weakness, severe dysarthria Motor LUE/LLE moving spontaneously 4/5 RUE movement distally within plane of bed RLE brief antigravity, spontaneous movement of foot Lab/Diagnostic Review: Recent Labs Lab Units 10/12/242022 WBC K/cumm 11.1* HEMOGLOBIN g/dL 13.1 HEMATOCRIT % 41.6 PLATELETS K/cumm 225 Recent Labs Lab Units 10/08/24 1151 APTT sec 31 INR 1.00 Recent Labs Lab Units 10/12/24202210/09/24 0753 10/08/24 2156 SODIUM mmol/L 143 < > 148* POTASSIUM PLASMA mmol/L 4.2 < > 3.7 CHLORIDE mmol/L 104 < > 114* CO2 mmol/L 30 < > 24 ANIONGAP mmol/L 9 < > 7 GLUCOSE mg/dL 105 < > 82 POC GLUCOSE MONITOR -- < > -- BUN SERUM mg/dL 17 < > 11 CREATININE mg/dL 0.73 < > 0.74 CALCIUM mg/dL 9.3 < > 7.4* ALBUMIN g/dL -- -- 3.1* ALK PHOS Units/L -- -- 53 ALT Units/L -- -- 16 AST Units/L -- -- 19 BILIRUBIN TOTAL mg/dL -- -- 0.2 < > = values in this interval not displayed. Recent Labs Lab Units 10/10/24 2130 MAGNESIUM mg/dL 2.2 Glc range last 24hr: Recent Labs Lab Units 10/12/24202210/11/24210510/10/24212910/09/24 2126 GLUCOSE mg/dL 105 137 137 134 I have reviewed the laboratory results. Imaging Results: XR Abdomen Ap 1 Vw Result Date: 10/11/2024 Interval repositioning of feeding tube with tip projecting over the gastric fundus. Dictated by: Brian Baker MD The radiology attending physician has personally reviewed this study, and had reviewed and/or edited this written report and agrees with it. Electronically signed by: Phillip Yoon M.D. Assessment Megan Salas is a 74 y.o. female with PMH of hypertension, hyperlipidemia, GERD, generalized anxiety disorder, who presented on 10/08 to [facility] with acute onset right-sided weakness and aphasia, found to have large left BG/IC IPH (ICH score 1 for GCS?), transferred to [facility] 10/08. Plan # L BG/IC IPH Patient presented 10/08 after a fall at home. Found by her leaning to her right side and not speaking. Arrived to [facility] alert, but mute, globally weak. NIHSS 23 (aphasia, globally weak). CTH with6.3 x 2.0 x 3.2 cm. Exam here notable for dense global aphasia, LUE and LLE 4/5, RUE and RLE 2/5. 24h EEG 10/08 - 10/09 with L>R slowing, no seizures. Etiology likely hypertensive, although BP fairly well controlled over the past 10+ years. UDS just with home benzos. CTA without vascular abnormality. Will need to obtain bMRI in 3 months. - SMART c/s - PT/OT rec IPR - MACHINE ASSEMBLER SUPERVISOR w MBS: rec dysphagia 2 diet and thin liquids - NC q4hr, add SH - SBP <160 - repeat CT head for exam changes - brain MRI wwo 3 months # Hypertension Home lisinopril 5 mg daily. Longitudinal SBP 120s-140s over past 10 years. - SBP <160 - lisinopril 5 daily - PRN labetalol/hydralazine # HLD - continue atorvastatin 40 mg daily # Nutrition # Dysphagia - MACHINE ASSEMBLER SUPERVISOR c/s, s/p MBS 10/12 - dysphagia 2 diet with thin liquids - NGT removed 10/13 - previously on TF Jevity 1.5 @ 40ml/hr goal + NS flushes 150ml q4hr # Urinary retention Had been voiding spontaneously, with purwic in place, but 2/4 began to retain reqiring multiple straight caths, jj replaced 2/5. Adequate UOP with jj (0.5-1.5 mL/kg/hr). - consider void trial 10/14 or 10/15 # Likely SHAMAR - intermittently with O2 sats 90-91% when sleeping, resolves with NC 2L - unable to participate with IS, OOBTC - O2 for SPO2 >92% - outpatient follow up for sleep study # Constipation -1x BM on 10/12 -Continue Miralax/docusate BID # GERD -Continue home pepcid 20 mg BID #Delirium # Insomnia -Nightly ramelteon -Delirium precautions # Mood disorder -Hold home xanax 0.25 mg TID PRN -Hold home doxepin 10 mg daily Code: Full Code Diet: Adult Diet Restricted; [facility] Honey Thick Liquids LDA: PIVsParviz, NGT DVT: subQ heparin Dispo: IPR Mirna Walters MD Neurology Resident PGY-1 10/13/24 7:08 AM Cosigned by Germania Mota MD at 10/13/2024 8:23 PM CALCULUS TUTOR ULUS TUTOR ULUS TUTOR ULUS TUTOR ULUS TUTOR Associated attestation - Germania Mota MD - 10/13/2024 8:23 PM CALCULUS TUTOR My total encounter time on 10/13/2024 was 15 minutes which was spent in the activities documented in the note. This includes time spent prior to the visit and after the visit in direct care of the patient. This time does not include time spent in any separately reportable services. Patient passed swallowing evaluation yesterday. Her exam is unchanged (she is aphasic, with more ofa fluid component). Increasing lisinopril dose to 10 mg daily to treat elevated blood pressure. Urine void trial in a few days from now. * TiaragabbyDuong, PT - 10/12/2024 11:54 AM CST Physical Therapy Physical Therapy Progress Note NOTE: This is a summary note of the olguin components of the treatment session. For full details, review chart for all flowsheets documented on by this physical therapy clinician on this date. Vital signs documented in vital signs flowsheet. Care plan progress documented in Care Plan Activity. For questions, please review the treatment team and contact the PT or ASSISTANT MANAGER TRAINEE currently assigned to this patient. If a physical therapy clinician is not assigned to this patient, please call [phone]. 10/12/24 1154 PT Last Visit Session Type Treatment PT Received On 10/12/24 Safe Environment Arm band checked;Patient found in supine;Gait belt utilized for all out of bed mobility Subjective Agreeable to Therapy Family/Caregiver Present Yes Precautions Precautions Fall risk Precaution Comments Verbally reviewed precautions prior to mobility. Activity Tolerance Activity Tolerance Comments BETTINA: Unable to assess Pain Assessment Pain Assessment N-PAT Pain Score 0 - No pain Cognition Arousal/Alertness Alert Orientation Oriented to person;Oriented to place;Oriented to situation;Able to orient when providedwith multiple choice options Following Commands Follows one step commands with repetition Compliance/Behavior Easy to engage Static Sitting Balance Static Sitting-Balance Support Feet supported;Left 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 supported Static Sitting-Sitting Surface Bed Static Sitting-Level of Assistance Minimum assistance Static Sitting-Comment/# of Minutes Progresses to SBA w/ increased time Static Standing Balance Static Standing-Balance Support Bilateral 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 supported (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) Static Standing-Standing Surface Floor Static Standing-Level of Assistance Moderate assistance Static Standing-Comment/# of Minutes For balance Seated Seated-Exercises Lower extremity;Specific exercises Seated-Exercise Type Ankle pumps;Hip flexion;Long arc quads Reps/Sets 10/1 Seated-Motion AROM Seated-Exercise Comments Visual demonstration provided for participation Bed Mobility 1 Bed Mobility From 1 Supine Bed Mobility Type 1 To Bed Mobility to 1 Edge of bed Level of Assistance 1 Moderate Assist Bed Mobility Comments 1 HOB Elevated, Pt initiates LE to EOB, requires assist for LE and trunk Transfer 1 Transfer From 1 Sit Transfer Type 1 To Transfer to 1 Stand Technique 1 Sit to stand;Stand to sit Transfer Device 1 Hand held assist Transfer Level of Assistance 1 Moderate Assist Trials/Comments 1 Assist for balance and force production Transfers 2 Transfer From 2 Bed Transfer Type 2 To Transfer to 2 Chair with arms Technique 2 Stand pivot Transfer Device 2 Hand held assist Transfer Level of Assistance 2 Maximum Assist Trials/Comments 2 Emerging Mod A, difficulty w/ RLE movement toward chair, minor knee buckling, attempts to sit prior to appropriate proximty to chair Ambulation Ambulation No (2/2 safety concerns) Other Comments Other PT Comments Pt exhibits improved command following and sitting balance, able demonstrate unsupported sitting. Pt continues to exhibit significant expressive communication deficits throughout, but is able to orient when provided options. Basic Mobility - 6 Click How much difficulty does the patient have: Turning over in bed 3 How much difficulty does the patient currently have: Sitting down and standing up from a chair witharms? 2 How much difficulty does the patient have: Moving from lying on back to sitting on the side of the bed? 2 How much difficulty does the patient have: Moving to and from a bed to a chair including wheelchair? 2 How much help does the patient currently need: Walk in hospital room? 1 How much help from another person does the patient currently need: Climbing 3-5 steps with a railing? 1 Total 6 Click Score (range 6-24) 11 Score Interpretation 30.25 Safe Environment End of Therapy Session Safe Environment End of Therapy Session RN notified;Call light within reach;Overbed table within reach;Restraint or restraint alternative in place;Patient left in chair;Chair alarm in place and activated Assessment Prognosis Good Problem List Reduced mobility;Gait deviations;Decreased strength;Impaired balance;Decreased cognition;Decreased safety awareness Plan Plan Continue with current plan;If this is the last note, consider this the discharge summary Recommendation/Plan PT Recommendation/Plan (S) Inpatient Rehab Facility Patient is motivated to actively participate in therapy 3hr/day, 5days/wk (900min) Yes Final discharge destination post acute care will be community based (home, independent living, assisted living) Yes Patient requires more than one skilled therapy discipline Yes Patient requires at least minimal assistance with toileting/toilet transfers, transfers AND locomotion (amb or w/c mobility) Yes Patient has cognitive function to actively participate and benefit from intensive rehab Yes Recommend Inpatient Rehab/Acute Rehab due to Ability to actively participate in intensive therapy 3hours/day, 5 days/week or 900 minutes per week Patient at high risk for Falls;Readmission;Injury due to reduced functional status;Injury due to impaired cognition;Injury due to balance deficits;Injury at home as patient has not returned to prior level of function PT Recommendation/Plan Comments Patient in agreement with PT plan of care. PT Frequency during current admission 5-7x/wk Treatment/Interventions during current admission Balance Training;Bed mobility;Endurance training;Functional transfer training;Neuromuscular re- education;Positioning;Range of motion;Therapeutic activity;Therapeutic exercise;Strengthening;Transfer training PT Equipment Recommended Other (Comment) (Defer to next level of care) Progress during current admission Progressing toward goals PT - Next Appointment 10/13/24 PT Time Calculation PT Start Time 1154 PT Stop Time 1227 PT Time Calculation (min) 33 min Multi-Disciplinary Problems (from Physical Therapy) Active Problems Problem: Mobility Start Date: 10/10/24 Goal Start Date Expected End Date End Date LTG - Patient will demonstrate functional mobility with the following level of assist: SBA 10/10/2503/05/25 -- Problem: Transfers Start Date: 10/10/24 Goal Start Date Expected End Date End Date STG - Transfer from bed to chair with min assist 10/10/24 10/24/24 -- Goal Start Date Expected End Date End Date STG - Patient to transfer to and from sit to supine with min assist 10/10/24 10/24/24 -- Goal Start Date Expected End Date End Date STG - Patient will transfer sit to and from stand with min assist 10/10/24 10/24/24 -- ULUS TUTOR * Tana Goldman MD - 10/12/2024 2:00 AM CST Stroke Daily Progress Note Name: Megan Salas Today: October 11, 2024 : 1950 Age: 74 y.o. female Admit: 10/08/2024 Bed: [id number] Subjective Megan Salas is a 74 year old with PMH of hypertension, hyperlipidemia, GERD, generalized anxietydisorder transferring from [facility] to [facility] 10/08. HPI and ICU course: At baseline, she was active, independent. She just started a swimming membership. Lives with . Ms. Salas's last known well was 10/08 08:30 am. Per , the patient was having a warm bath. He noticed the bathroom door was open and heard a loud thud. He saw his leaning on her right side against the wall, without loss of consciousness. She was looking around and acting confused. The became concerned for stroke and called EMS. When EMS arrived, they noted she was alert but oriented x0 with some right sided weakness. She was then taken to the [facility]. Initial blood pressure was 115/91, glucose 92. NIHSS 23. CT head revealed a large left basal ganglia IPH with no MLS but notable effacement of left lateral ventricle. CTA was negative for aneurysm or vascular malformation. While at the ED, she was given zofran 4 mg IV. She was taken to [facility] for further monitoring. On arrival to the NNICU, she was hemodynamically stable and saturating well on 2L nasal cannula. In NNICU, initial CTH stable. Exam with lack of regard, inability to follow commands or answer orientation questions. Unable to fixate eye movements with occasional nystagmus. Right facial weakness, LUE/LLE spontaneous movement, RUE flexion to nox stim, RLE triple flexion. Given encephalopathy out of proportion to lesion size, 24 hr EEG performed which showed L>R slowing, no seizures. Repeat CTH 2/3 stable. Over the next few days, exam improved with increasing level of alertness, improved gaze dysconjugation, still with global aphasia, and hemiparesis improving. For her HTN, she was started on lisinopril 2.5 mg 2/5 (home 5 mg); last PRN was 2/3. Objective Medications: Scheduled: atorvastatin, 40 mg, feeding tube, Daily docusate sodium, 100 mg, oral, BID Or docusate, 100 mg, feeding tube, BID famotidine, 20 mg, feeding tube, BID heparin, 5,000 Units, subcutaneous, Q8H ARELY lisinopriL, 2.5 mg, feeding tube, Daily ramelteon, 8 mg, feeding tube, Nightly senna, 1 tablet, oral, BID Or senna, 8.8 mg, feeding tube, BID Infusions: PRN: acetaminophen labetalol OR hydrALAZINE ondansetron Vitals: 24hr Min/Max: Temp Min: 36.7 ??C (98.1 ??F) Max: 37.6 ??C (99.7 ??F) Pulse Min: 58 Max: 93 BP Min: 109/62 Max: 150/80 Resp Min: 12 Max: 24 SpO2 Min: 93 % Max: 100 % Most Recent: Vitals: 10/11/24 1900 BP: 143/70 Pulse: 80 Resp: 18 Temp: 37.6 ??C (99.7 ??F) SpO2: 93% Intake/Output Summary (Last 24 hours) at 10/11/20242056 Last data filed at 10/11/2024 1900 Gross per 24 hour Intake 1780 ml Output 1350 ml Net 430 ml Physical Exam: Mental Status Awake, alert, eyes open spontaneously, regards, does not follow commands, mimics, unable to assess orientation, attempts speech but mostly incomprehensible Cranial Nerves PERRL 3mm, tracks and regards, but does not fully bury, right facial weakness, severe dysarthria Motor LUE/LLE moving spontaneously 4/5 RUE movement distally within plane of bed RLE brief antigravity, spontaneous movement of foot Lab/Diagnostic Review: Recent Labs Lab Units 10/11/24 0211 WBC K/cumm 10.1* HEMOGLOBIN g/dL 12.2 HEMATOCRIT % 38.5 PLATELETS K/cumm 238 Recent Labs Lab Units 10/08/24 1151 APTT sec 31 INR 1.00 Recent Labs Lab Units 10/10/24 2130 10/09/24 0753 10/08/24 2156 SODIUM mmol/L 142 < > 148* POTASSIUM PLASMA mmol/L 4.4 < > 3.7 CHLORIDE mmol/L 106 < > 114* CO2 mmol/L 29 < > 24 ANIONGAP mmol/L 7 < > 7 GLUCOSE mg/dL 137 < > 82 POC GLUCOSE MONITOR -- < > -- BUN SERUM mg/dL 15 < > 11 CREATININE mg/dL 0.71 < > 0.74 CALCIUM mg/dL 8.7 < > 7.4* ALBUMIN g/dL -- -- 3.1* ALK PHOS Units/L -- -- 53 ALT Units/L -- -- 16 AST Units/L -- -- 19 BILIRUBIN TOTAL mg/dL -- -- 0.2 < > = values in this interval not displayed. Recent Labs Lab Units 10/10/24 2130 MAGNESIUM mg/dL 2.2 Glc range last 24hr: Recent Labs Lab Units 10/10/24 2130 10/09/24 2126 10/09/24 0753 10/08/24 2156 GLUCOSE mg/dL 137 134 -- 82 POC GLUCOSE MONITOR mg/dL -- -- 95 -- I have reviewed the laboratory results. Imaging Results: XR Abdomen Ap 1 Vw Result Date: 10/11/2024 Interval repositioning of feeding tube with tip projecting over the gastric fundus. Dictated by: Brian Baker MD The radiology attending physician has personally reviewed this study, and had reviewed and/or edited this written report and agrees with it. Electronically signed by: Phillip Yoon M.D. Assessment Megan Salas is a 74 y.o. female with PMH of hypertension, hyperlipidemia, GERD, generalized anxiety disorder, who presented on 10/08 to [place] with acute onset right-sided weakness and aphasia, found to have large left BG/IC IPH (ICH score 1 for GCS?), transferred to [facility] 10/08. Plan # L BG/IC IPH Patient presented 10/08 after a fall at home. Found by her leaning to her right side and not speaking. Arrived to [facility] alert, but mute, globally weak. NIHSS 23 (aphasia, globally weak). CTH with6.3 x 2.0 x 3.2 cm. Exam here notable for dense global aphasia, LUE and LLE 4/5, RUE and RLE 2/5. 24h EEG 10/08 - 10/09 with L>R slowing, no seizures. Etiology likely hypertensive, although BP fairly well controlled over the past 10+ years. UDS just with home benzos. CTA without vascular abnormality. Will need to obtain bMRI in 3 months. - SMART c/s; PT/OT - NC q4hr, add SH - SBP <160 - repeat CT head for exam changes - brain MRI wwo 3 months # Hypertension Home lisinopril 5 mg daily. Longitudinal SBP 120s-140s over past 10 years. - SBP <160 - started reduced dose of home lisinopril of 2.5mg daily 2/5 - PRN labetalol/hydralazine # HLD - continue atorvastatin 40 mg daily # Nutrition # Dysphagia - NGT in situ, conitnue TF Jevity 1.5 @ 40ml/hr goal + NS flushes 150ml q4hr - MACHINE ASSEMBLER SUPERVISOR following # Urinary retention Had been voiding spontaneously, with purwic in place, but 2/4 began to retain reqiring multiple straight caths, jj replaced 2/5. - consider void trial again with Flomax in next 1-2 days # Likely SHAMAR - intermittently with O2 sats 90-91% when sleeping, resolves with NC 2L - unable to participate with IS, OOBTC - O2 for SPO2 >92% - outpatient follow up for sleep study # Constipation -No BM since admission -Continue Miralax/ Senna BID # GERD -Continue home pepcid 20 mg BID # Insomnia -Nightly ramelteon -Delirium precautions # Mood disorder -Hold home xanax 0.25 mg TID PRN -Hold home doxepin 10 mg daily Code: Full Code Diet: No diet orders on file LDA: PIVs, Jj, NGT DVT: subQ heparin Dispo: IPR Tana Nuñez MD Neurology Resident PGY-2 10/11/24 8:57 PM Cosigned by Germania Mota MD at 10/12/2024 11:16 AM CALCULUS TUTOR ULUS TUTOR ULUS TUTOR Associated attestation - Germania Mota MD - 10/12/2024 11:16 AM CALCULUS TUTOR My total encounter time on 10/12/2024 was 25 minutes which was spent in the activities documented in the note. This includes time spent prior to the visit and after the visit in direct care of the patient. This time does not include time spent in any separately reportable services. Patient got transferred from the neuro ICU yesterday. She has a history of hypertension and hyperlipidemia. Admitted a few days ago with a left putaminal hemorrhage felt to be hypertensive in origin.CTA was unrevealing. On exam, she is very alert and attentive, globally aphasic though seems to be more fluent than nonfluent (neologisms and nonsensical speech). She is weak on the right side. Blood pressure control. We are increasing lisinopril to 5 mg (from 2.5 mg daily). She is getting a modified barium swallow test today. I suspect at some point she will pass her swallowing evaluation so we are not going to [place] a G- tube placement. * Shiraz Sy - 10/11/2024 1:29 PM CST Physical Therapy Physical Therapy Progress Note NOTE: This is a summary note of the olguin components of the treatment session. For full details, review chart for all flowsheets documented on by this physical therapy clinician on this date. Vital signs documented in vital signs flowsheet. Care plan progress documented in Care Plan Activity. For questions, please review the treatment team and contact the PT or ASSISTANT MANAGER TRAINEE currently assigned to this patient. If a physical therapy clinician is not assigned to this patient, please call [phone]. 10/11/24 1329 PT Last Visit Session Type Treatment PT Received On 10/11/24 Safe Environment Arm band checked;Patient found in supine;Gait belt utilized for all out of bed mobility Subjective Other (Unable to agree due to aphasia, RN stated appropriate for PT) Family/Caregiver Present Yes Precautions Precautions Fall risk Pain Assessment Pain Assessment N-PAT N-PAT Verbal Pain Assessment Tool N-PAT Verbal Emotion 0 N-PAT Verbal Movement 0 N-PAT Verbal Cues 0 N-PAT Verbal Facial Cues 0 N-PAT Verbal Position/Guarding 0 N-PAT Verbal Score 0 Cognition Arousal/Alertness Appropriate responses to stimuli Orientation Oriented x 0 Following Commands Unable to follow commands Balance Balance Yes Static Sitting Balance Static Sitting-Balance Support Bilateral 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 supported;Feet unsupported Static Sitting-Sitting Surface Bed Static Sitting-Level of Assistance Moderate assistance Static Standing Balance Static Standing-Balance Support No 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 supported Static Standing-Standing Surface Floor Static Standing-Level of Assistance Maximum assistance Bed Mobility Bed Mobility Yes Bed Mobility 1 Bed Mobility From 1 Supine Bed Mobility Type 1 To Bed Mobility to 1 Edge of bed Level of Assistance 1 Moderate Assist Bed Mobility Comments 1 assist with elevation of trunk and mobility of LEs Transfers Transfer Yes Transfer 1 Transfer From 1 Sit Transfer Type 1 To and from Transfer to 1 Stand Technique 1 Sit to stand;Stand to sit Transfer Device 1 No device Transfer Level of Assistance 1 Maximum Assist Trials/Comments 1 Assist with decreased force production (B knee buckling), balance Transfers 2 Transfer From 2 Bed Transfer Type 2 To Transfer to 2 Chair with arms Technique 2 Stand pivot Transfer Device 2 No device Transfer Level of Assistance 2 Maximum Assist Trials/Comments 2 Assist with decreased force production and balance Ambulation Ambulation No Stairs Stairs No Basic Mobility - 6 Click How much difficulty does the patient have: Turning over in bed 2 How much difficulty does the patient currently have: Sitting down and standing up from a chair witharms? 2 How much difficulty does the patient have: Moving from lying on back to sitting on the side of the bed? 2 How much difficulty does the patient have: Moving to and from a bed to a chair including wheelchair? 2 How much help does the patient currently need: Walk in hospital room? 1 How much help from another person does the patient currently need: Climbing 3-5 steps with a railing? 1 Total 6 Click Score (range 6-24) 10 Score Interpretation 28.13 Safe Environment End of Therapy Session Safe Environment End of Therapy Session Patient left in recliner;Chair alarm in place and activated;Call light within reach Plan Plan Continue with current plan;If this is the last note, consider this the discharge summary Recommendation/Plan PT Recommendation/Plan Inpatient Rehab Facility Recommend Inpatient Rehab/Acute Rehab due to Highly motivated to participate in therapy;Requires greater than 25% physical assistance with most mobility tasks;Not at baseline due to impaired ability to complete ADLs;Impaired ability to complete functional mobility;Requires multiple therapy disciplines to address functional deficits Patient at high risk for Falls;Injury due to reduced functional status;Injury due to balance deficits PT Frequency during current admission 5-7x/wk Treatment/Interventions during current admission Balance Training;Bed mobility;Endurance training;Functional activity;Functional transfer training;Gait training;Strengthening;Therapeutic activity;Therapeutic exercise;Transfer training Progress during current admission Progressing toward goals PT - Next Appointment 10/12/24 PT Time Calculation PT Start Time 1329 PT Stop Time 1401 PT Time Calculation (min) 32 min Multi-Disciplinary Problems (from Physical Therapy) Active Problems Problem: Mobility Start Date: 10/10/24 Goal Start Date Expected End Date End Date LTG - Patient will demonstrate functional mobility with the following level of assist: SBA 10/10/2503/05/25 -- Problem: Transfers Start Date: 10/10/24 Goal Start Date Expected End Date End Date STG - Transfer from bed to chair with min assist 10/10/24 10/24/24 -- Goal Start Date Expected End Date End Date STG - Patient to transfer to and from sit to supine with min assist 10/10/24 10/24/24 -- Goal Start Date Expected End Date End Date STG - Patient will transfer sit to and from stand with min assist 10/10/24 10/24/24 -- Cosigned by Verona Wise, PT at 10/11/2024 3:23 PM CALCULUS TUTOR ULUS TUTOR ULUS TUTOR * Miky Pierce - 10/11/2024 9:55 AM CST Spiritual Care Note MARQUITA Braxton, [facility] 10/11/24 0955 Time Spent Start Time 0955 Stop Time 1010 Time Calculation (min) 15 min Patient Spiritual Assessment Spirituality Assessed Unable to assess Clinical Encounter Type Visited With Patient and family together Response Type Routine visit Routine Visit Introduction Reason for visit Support Outcomes and Progress Demonstrating care and respect Partially Achieved Establish rapport and connectedness Partially Achieved Interventions Interventions Offer emotional support;Offer spiritual/gnosticist support;Prayer ULUS TUTOR * Avi Rahman MD - 10/11/2024 8:53 AM CST Brief Neurocritical Care Attending Note Megan Salas [id number] Brief Attending Documentation Admission Diagnoses: 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 Interval events: NS Flushes and SQH started. NGT pulled out partially overnight but was repositioned correctly. Required straight cath several times overnight for retained urine and had jj replaced. Temp: [36.7 ??C (98.1 ??F)-37.2 ??C (99 ??F)] 36.7 ??C (98.1 ??F) Pulse: [58-88] 70 Resp: [13-19] 14 BP: (106-146)/(51-97) 127/61 Intake/Output Summary (Last 24 hours) at 10/11/2024 0853 Last data filed at 10/11/2024 0700 Gross per 24 hour Intake 1920 ml Output 1150 ml Net 770 ml Physical Examination: HEENT: Normocephalic, atraumatic. Cardiovascular: Regular rate and rhythm. Normal S1 and S2. No murmurs rubs or gallops Pulmonary: Clear to auscultation bilaterally. No wheezing, rales or rhonchi. GI: Soft, nontender, nondistended. Normoactive bowel sounds. No hepatomegaly Ext: Atraumatic, no pitting edema Neurologic: Awake and alert. Eyes open. Regards. Mimics but does not follow commands Speaks in single syllables nonsensically. PERRL, Dysconjugate gaze, can look left fully and look right past midline and nearly buries it all the way rightward today Right facial weakness, dysarthric Left side spontaneous and strong RUE: 10/11 RLE: antigravity Current Medication List: I have reviewed the patient's current active medication list and discussed it with our clinical pharmacist. Labs/Microbiology: I have reviewed all laboratory/microbiology results over the past 24 hours. Imaging: I have reviewed all imaging over the past 24 hours. Assessment and Plan of Critical Problems: # L BG/IC ICH with mass effect - Improvement of exam is reassuring - CTA without vascular lesion - UDS only positive for benzodiazepines which she has a prescription for. - MRI brain when able, after blood from ICH has cleared - Close neurologic monitoring - SBP < 160 - SMART - Neurochecks q4h with sleep hygiene # Encephalopathy - Multifactorial - Delirium precautions # Hyperlipidemia - Continue atorvastatin # Hypertension: - PRN hydral/labetalol - Start lisinopril 2,5 mg which is half her home dose. # At risk for atelectasis - close monitoring of respiratory status - may benefit from outpatient sleep study - OOBTC # Urinary Retention - Temporary and now resolved - Bladder scan with in and out cath as needed # FEN: - Continue Jevity 1.5 @ 40cc/hr - NS flushes 150cc q4h - Touch base with speech for re-evaluation # Dysphagia Re-eval today or tomorrow if continued imrpovement. # Constipation - Bowel regimen Prophylaxis: SCDs. Subcutaneous heparin. Access:PIV x 2, NGT, Jj reinsterted overnight Code status: Full code Disposition: Intensive Care Unit Attending Critical Care Attestation Critical Care Time: I have spent 32 minutes in full attendance with this critically ill patient making frequent reassessments and decisions regarding this patient's complex medical care. Critical care time was exclusive of separately billable procedures, treating other patients and teaching time. Critical care was necessary to treat or prevent imminent or life-threatening clinical/neurological deterioration due to: Active Critical Care Problem(s): - ICH with mass effect - Encephalopathy I have seen and examined this patient on the day of service on 10/11/2024. I have reviewed and confirmed the history, physical exam, laboratory and radiographic data with the house staff and/or non-physician provider. I have reviewed and discussed my treatment plan with the ICU team and other medical/obiee consultant staff as documented in the referenced note except for what is documented here. ULUS TUTOR * Lelia Freitas NP - 10/11/2024 6:32 AM CST Neuro Critical Care Daily Progress Note Dx: L Basal ganglia IPH HPI: Megan Salas is a 74 year old with PMH of hypertension, hyperlipidemia, GERD, generalized anxietydisorder [facility] Ms. Salas's last known well was 10/08 08:30 am. Per , the patient was having a warm bath. He noticed the bathroom door was open and heard a loud thud. He saw his leaning on her right side against the wall, without loss of consciousness. She was looking around and acting confused. The became concerned for stroke and called EMS. When EMS arrived, they noted she was alert but oriented x0 with some right sided weakness. She was then taken to the [facility]. Initial blood pressure was 115/91, glucose 92. NIHSS 23. CT head revealed a large left basal ganglia IPH with no MLS but notable effacement of left lateral ventricle. CTA was negative for aneurysm or vascular malformation. While at the ED, she was given zofran 4 mg IV. She was taken to [facility] for further monitoring. On arrival to the NNICU, she was hemodynamically stable and saturating well on 2L nasal cannula. Interval Events: Yesterday began NS flushes, started SQ heparin, began having urinary retention in the afternoon, required straight cath. Overnight patient pulled NGT out partially, replaced and KUB confirmed placement, required straight cath again, placed jj Vitals 24hr Temp Min: 36.5 ??C (97.7 ??F) Max: 37.2 ??C (99 ??F) Pulse Min: 58 Max: 88 NIBP BP Min: 106/87 Max: 146/59 MAP (mmHg) Av.3 Min: 72 Max: 110 A-line No data recorded I/O: Intake/Output Summary (Last 24 hours) at 10/11/2024 0632 Last data filed at 10/11/2024 0600 Gross per 24 hour Intake 1980 ml Output 1250 ml Net 730 ml UOP 1250 mL + x1 unmeasured void last 24hrs LABS Recent Labs Lab Units 10/10/24212910/09/24212510/09/24 0753 10/08/24215510/08/24 1151 SODIUM mmol/L 142 145 -- 148* 143 POTASSIUM PLASMA mmol/L 4.4 4.2 -- 3.7 4.4 CHLORIDE mmol/L 106 109 -- 114* 103 CO2 mmol/L 29 28 -- 24 28 ANIONGAP mmol/L 7 8 -- 7 12 GLUCOSE mg/dL 137 134 -- 82 109 POC GLUCOSE MONITOR mg/dL -- -- 95 -- -- BUN SERUM mg/dL 15 12 -- 11 16 CREATININE mg/dL 0.71 0.80 -- 0.74 0.81 CALCIUM mg/dL 8.7 9.1 -- 7.4* 9.4 MAGNESIUM mg/dL 2.2 2.6* -- 1.9 2.3 PHOSPHORUS PLASMA mg/dL -- -- -- 2.8 3.0 Recent Labs Lab Units 10/11/2421010/09/24212510/08/24215510/08/24 1151 10/08/24 0932 WBC K/cumm 10.1* 9.2 8.0 10.2* 6.4 HEMATOCRIT % 38.5 38.8 35.6 43.1 39.9 HEMOGLOBIN g/dL 12.2 12.5 11.3* 13.5 12.7 PLATELETS K/cumm 238 261 217 270 241 APTT sec -- -- -- 31 -- INR -- -- -- 1.00 1.01 Recent Labs Lab Units 10/08/24 2156 10/08/24 1151 10/08/24 0932 ALK PHOS Units/L 53 69 63 BILIRUBIN TOTAL mg/dL 0.2 0.4 0.4 TOTAL PROTEIN g/dL 5.5* 7.2 6.4* ALBUMIN g/dL 3.1* 4.1 3.8 ALT Units/L 16 21 15 AST Units/L 19 29 18 IMAGING (Most recent) NEURO IMAGING: CTA Head Neck W WO Contrast (10/08): IMPRESSION: 1. BRAIN: Stable large intraparenchymal hematoma centered at the left basal ganglia; as detailed. 2. CAROTID CTA: No occlusion, hemodynamically significant stenosis, or dissection of the extracranial carotid or vertebral arteries. 3. INTRACRANIAL CTA: No large vessel occlusion, focal flow-limiting stenosis, or aneurysm. CT Head WO Contrast (10/08): Large intraparenchymal hematoma centered at the left basal ganglia; as detailed. No significant midline shift. PHYSICAL EXAM: General: sitting up in bed, NAD HEENT: Mucous membranes moist, sclera anicteric Cardiac: S1, S2, RRR, no M/R/G Pulmonary: Even, unlabored respirations. Symmetric chest rise and fall. Lungs clear with diminishedbases to auscultation anterior guo. Abdomen: Obese abdomen, Non-distended in appearance, bowel sounds present, soft/non-tender to palpation. NGT in situ Ext: No peripheral edema or digital cyanosis Skin: No rashes or lesions NEURO EXAM Mental Status Awake, alert, eyes open spontaneously, regards, does not follow commands, mimics (protrudes tongue,thumbs up), unable to assess orientation, attempts speech but mostly incomprehensible, can understand some one syllable words okay hello Cranial Nerves PERRL 3mm, able to look to right past midline, but does not fully bury, right facial weakness, severe dysarthria Motor LUE/LLE moving spontaneously, full RUE movement distally within plane of bed RLE brief antigravity, spontaneous movement of foot NEUROLOGICAL Meds: Ramelteon 8 mg nightly PRN Tylenol 650 mg q4h (x2 dose last 24hrs) # Large left basal ganglia IPH -- ICH score 1 -- etiology likely hypertensive -- SMART c/s -- NC q4hr, add SH -- SBP <160 -- repeat CT head for exam changes -- brain MRI at some point -- UDS +benzos, ethanol <10 -- 2/2-2/3 cEEG: no sz, L slowing # Insomnia -- nightly ramelteon -- delirium precautions # Acute pain -- PRN Tylenol 650 mg q4h # Mood disorder -- hold home xanax 0.25 mg TID PRN -- hold home doxepin 10 mg daily CARDIOVASCULAR and HEME Meds: Atorvastatin 40 mg daily PRN Labetalol (x0 doses last 24hr) PRN hydralazine (x0 doses last 24hr) EKG: normal sinus rhythm with AV1 # Hypertension -- hold home lisinopril 5 mg daily -- SBP <160 -- PRN labetalol/hydralazine -- start reduced dose of home lisinopril of 2.5mg daily # HLD -- continue atorvastatin 40 mg daily PULMONARY Resp Min: 13 Max: 19 SpO2 Min: 94 % Max: 100 % Currently on 2L NC CXR (10/08): No acute cardiopulmonary abnormality Meds: None # Likely SHAMAR -- intermittently with O2 sats 90-91% when sleeping, resolves with NC 2L -- unable to participate with IS, OOBTC today -- O2 for SPO2 >92% -- outpatient follow up for sleep study RENAL Meds: none # Urinary retention -- 2/3 discontinued tamsulosin -- had been voiding spontaneously, with purwic in place, but 2/4 began to retain reqiring multiple straight caths, jj replaced 2/5 -- consider void trial again in nect 1-2 days GI and ENDO Meds: Colace 100 mg BID Famotidine 20 mg BID Senna 1 tab BID Diet: TF Jevity 1.5 @ 40ml/hr goal IV fluids: none Flushes: NS flushes 150ml q4hr Last BM: ASSISTANT MANAGER TRAINEE # Nutrition # Dysphagia -- NGT in situ, conitnue TF Jevity 1.5 @ 40ml/hr goal + NS flushes 150ml q4hr -- MACHINE ASSEMBLER SUPERVISOR following # Constipation -- no BM since admission -- continue colace/senna BID -- give dulcolax suppository today # GERD -- continue home pepcid 20 mg BID INFECTION RELEVANT/MOST RECENT MICRO LAB DATA: Blood cultures: none Respiratory cultures: none Urinalysis/Urine culture: 2/2 noninfectious Meds: none No active issues, CBC daily, qureshi-culture for temp >38.5C ACCESS Lines PIV x2 Jj Replaced 10/11 due to retention VTE Prophylaxis Last Venous Doppler: none Prophylaxis: SCDs, SQH CODE STATUS: Full Code Disposition: NNICU Family: Patient's daughter and granddaughter at bedside during NNICU rounds, reviewed plan of care Lelia Freitas NP Cosigned by Avi Rahman MD at 10/11/2024 1:00 PM CALCULUS TUTOR ULUS TUTOR ULUS TUTOR * Citlalli Eason - 10/10/2024 1:50 PM CST Occupational Therapy Progress Note NOTE: This is a summary note of the olguin components of the treatment session. For full details, review chart for all flowsheets documented on by this occupational therapy clinician on this date. Vitalsigns documented in vital signs flowsheet. Care plan progress documented in Care Plan Activity. For questions, please review the treatment team and contact the occupational therapist currently assigned to this patient. If an occupational therapist is not assigned to this patient, please call [phone]. 10/10/24 0876 General Session Type Treatment OT Received On 10/10/24 Safe Environment Arm band checked;Patient found sitting in chair;Gait belt utilized for all out of bed mobility Subjective Agreeable to Therapy Family/Caregiver Present Yes (Son) Precautions Precautions Fall risk Pain Assessment Pain Assessment N-PAT N- PAT Non-Verbal Pain Assessment Tool N-PAT N-V Smiling.calm, relaxed none 0 N-PAT N-V Movement 0 N-PAT N-V Facial Cues 0 N-PAT N-V Position/Guarding 0 N-PAT N-V Score 0 Cognition Arousal/Alertness Alert Attention Span Unable to attend/complete tasks (Brief attention to grooming task) Memory Unable to assess Orientation Oriented to person (Pt nodded yes to her name 1/2 trials) Static Sitting Balance Static Sitting-Level of Assistance Minimum assistance Static Standing Balance Static Standing-Level of Assistance Moderate assistance Grooming Grooming: Where assessed Chair Grooming: Level of assistance Dependent (Pt maintained grasp on item and initiated appropriate use) LE Dressing LE Dressing: Where assessed Chair LE Dressing: Level of assistance Dependent Bed Mobility Bed Mobility Yes Bed Mobility 1 Bed Mobility From 1 Edge of bed Bed Mobility Type 1 To Bed Mobility to 1 Supine Level of Assistance 1 Moderate Assist Bed Mobility Comments 1 assist with balance, maneuver LEs, control descent of trunk Transfers Transfer Yes Transfer 1 Transfer From 1 Chair with arms Transfer Type 1 To Transfer to 1 Bed Technique 1 Stand and step Transfer Level of Assistance 1 Moderate Assist Trials/Comments 1 Impaired balance, decreased force production Transfers 2 Transfer From 2 Sit Transfer Type 2 To and from Transfer to 2 Stand Technique 2 Sit to stand;Stand to sit Transfer Level of Assistance 2 Moderate Assist Trials/Comments 2 Decreased force production, impaired balance, to control descent Therapeutic Exercise - ROM/STRENGTH ROM/STRENGTH Yes (R PROM shoulder flexion/extension, elbow flexion/extension, forearm supination/pronation, wrist flexion/extension, thumb extension/flexion, finger flexion/extension) Daily Activity - 6 Clicks Putting on and taking off regular lower body clothing 1 Bathing 1 Toileting 1 Putting on and taking off upper body clothing 1 Personal Grooming 1 Eating Meals 1 Total Score (range 6-24) 6 Score Interpretation 17.07 Safe Environment End of Therapy Session Safe Environment End of Therapy Session Patient left supine in bed;RN notified;Restraint or restraint alternative in place Assessment Problem List Decreased mobility;Decreased 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 strength;Decreased safe judgment during ADL;Decreased cognition;Decreased endurance;Decreased balance;Decreased functional mobility;DecreasedADL independence;Decreased IADL independence;Decreased response to environment;Decreased fine motorcontrol Plan Plan Continue with current plan;If this is the last note, consider this the discharge summary Recommendation/Plan OT Recommendation Inpatient Rehab Facility Patient is motivated to actively participate in therapy 3hr/day, 5days/wk (900min) Yes Final discharge destination post acute care will be community based (home, independent living, assisted living) Yes Patient requires more than one skilled therapy discipline Yes Patient requires at least minimal assistance with toileting/toilet transfers, transfers AND locomotion (amb or w/c mobility) Yes Patient has cognitive function to actively participate and benefit from intensive rehab Yes Recommend Inpatient Rehab/Acute Rehab due to Not at baseline due to impaired ability to complete ADLs;Requires greater than 25% physical assistance with most mobility tasks;Requires greater than 25% physical assistance with most ADL tasks;Requires multiple therapy disciplines to address functional deficits Patient at high risk for Falls;Injury due to decreased ability to care for self;Injury due to reduced functional status;Injury due to impaired cognition;Injury due to balance deficits;Injury at home as patient has not returned to prior level of function OT Frequency during current admission 5-7x/wk Treatment/Interventions during current admission ADL/IADL retraining;Balance Training;Bed mobility;Cognitive retraining;Endurance training;Functional activity;Functional mobility training;Functional transfer training;Neuromuscular re-education;Range of motion;Strengthening;Therapeutic activity;Therapeutic exercise;Transfer training Progress during current admission Progressing toward goals OT - Next Appointment 10/11/24 OT Time Calculation OT Start Time 1350 OT Stop Time 1417 OT Time Calculation (min) 27 min Multi-Disciplinary Problems (from Occupational Therapy) Active Problems Problem: Dressings Lower Extremities Start Date: 10/09/24 Goal Start Date Expected End Date End Date STG - Patient to complete lower body dressing with supervision 10/09/24 10/16/24 -- Problem: Grooming Start Date: 10/09/24 Goal Start Date Expected End Date End Date STG - Patient will complete grooming with supervision 10/09/24 10/16/24 -- Problem: Transfers Start Date: 10/09/24 Goal Start Date Expected End Date End Date STG - Patient will perform toilet transfer with supervision 10/09/24 10/16/24 -- Problem: OT Misc Start Date: 10/09/24 Goal Start Date Expected End Date End Date OT LTG - Pt will complete ADLs with modified independence. 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 Interval events: EEG DC, no seizures seen. Temp: [37.2 ??C (99 ??F)-37.4 ??C (99.3 ??F)] 37.3 ??C (99.1 ??F) Pulse: [63-100] 78 Resp: [15-29] 19 BP: (100-155)/(61-122) 131/98 Intake/Output Summary (Last 24 hours) at 10/10/2024 0916 Last data filed at 10/10/2024 0800 Gross per 24 hour Intake 1022.5 ml Output 825 ml Net 197.5 ml Physical Examination: HEENT: Normocephalic, atraumatic. Cardiovascular: Regular rate and rhythm. Normal S1 and S2. No murmurs rubs or gallops Pulmonary: Clear to auscultation bilaterally. No wheezing, rales or rhonchi. GI: Soft, nontender, nondistended. Normoactive bowel sounds. No hepatomegaly Ext: Atraumatic, no pitting edema Neurologic: Awake and alert. Eyes open. Regards. Mimics occasionally but does not follow commands. Paucity of speech and what little comes out is nonsensical. Does not answer orientation questions. PERRL Dysconjugate gaze, can look left fully and look right past midline but not quite bury Right facial weakness, dysarthric Cough intact Left side spontaneous and strong RUE: moving better but not antigravy RLE: antigravity Current Medication List: I have reviewed the patient's current active medication list and discussed it with our clinical pharmacist. Labs/Microbiology: I have reviewed all laboratory/microbiology results over the past 24 hours. Imaging: I have reviewed all imaging over the past 24 hours. Assessment and Plan of Critical Problems: # L BG/IC ICH with mass effect - Improvement of exam is reassuring - CTA without vascular lesion - UDS only positive for benzodiazepines which she has a prescription for. - MRI brain when able, after blood from ICH has cleared. - Close neurologic monitoring - SBP < 160 - SMART - Neurochecks q2h # Encephalopathy - Multifactorial - Delirium precautions # Hyperlipidemia - Continue atorvastatin # Hypertension: - PRN hydral/labetalol - Holding home lisinopril # At risk for atelectasis - close monitoring of respiratory status # Urinary Retention - Temporary and now resolved - Bladder scan with in and out cath as needed # FEN: - Continue Jevity 1.5 @ 40cc/hr - NS flushes 150cc q4h - Speech followign. Re-eval today or tomorrow if continued imrpovement. - Bowel regimen Prophylaxis: SCDs. Subcutaneous heparin. Access:PIV x 2, NGT, purewick Code status: Full code Disposition: Intensive Care Unit Attending Critical Care Attestation Critical Care Time: I have spent 35 minutes in full attendance with this critically ill patient making frequent reassessments and decisions regarding this patient's complex medical care. Critical care time was exclusive of separately billable procedures, treating other patients and teaching time. Critical care was necessary to treat or prevent imminent or life-threatening clinical/neurological deterioration due to: Active Critical Care Problem(s): - ICH with mass effect - Encephalopathy I have seen and examined this patient on the day of service on 10/10/2024. I have reviewed and confirmed the history, physical exam, laboratory and radiographic data with the house staff and/or non-physician provider. I have reviewed and discussed my treatment plan with the ICU team and other medical/obiee consultant staff as documented in the referenced note except for what is documented here. ULUS TUTOR ULUS TUTOR ULUS TUTOR * Nikki Taylor, PT - 10/10/2024 8:25 AM CST Physical Therapy Physical Therapy Evaluation Note NOTE: This is a summary note of the olguin components of the evaluation session. For full details, review chart for all flowsheets documented on by this physical therapy clinician on this date. Vital signs are documented in the vital signs flowsheet. For questions, please review the treatment team and contact the PT or ASSISTANT MANAGER TRAINEE currently assigned to this patient. If a physical therapy clinician is not assigned to this patient, please call [phone]. 10/10/24 0853 General Chart Reviewed Yes Session Type Evaluation PT Received On 10/10/24 Safe Environment Arm band checked;Session completed bedside;Gait belt utilized for all out of bed mobility;Patient found in supine Subjective Agreeable to Therapy Family/Caregiver Present Yes (, son) Precautions Precautions Fall risk Home Living Type of Home House Home Layout One level Home Mobility Equipment-Available None Home Mobility Equipment-Currently Using None Prior Function Level of [place] Independent with ADLs;Independent functional transfers;Independent with ambulation Lives With Spouse Receives Help From Spouse/Significant other Fall within the last 6 months No Pain Assessment Pain Assessment N-PAT N- PAT Non-Verbal Pain Assessment Tool N-PAT N-V Smiling.calm, relaxed none 0 N-PAT N-V Movement 0 N-PAT N-V Facial Cues 0 N-PAT N-V Position/Guarding 0 N-PAT N-V Score 0 Vision - Complex Assessment Vision Comments left gaze preference Cognition Arousal/Alertness Alert Orientation Unable to assess Following Commands Unable to follow commands Sensation Light Touch Not tested (patient unable to follow commands for testing) Grande Balance Scale 1. Sitting to Standing 0 2. Standing Unsupported 0 3. Sitting with Back Unsupported but Feet Supported on Floor or on a Stool 3 4. Standing to Sitting 0 5. Transfers 0 6. Standing Unsupported with Eyes Closed 0 7. Standing Unsupported with Feet Together 0 8. Reach Forward with Outstretched Arm While Standing 0 9. Cosmetology Instructor Object from Floor from a Standing Position 0 10. Turning to Look Behind Over Left and Right Shoulders While Standing 0 11. Turn [address] Altern[address] Foot on Step or Stool While Standing Unsupported 0 13. Standing Unsupported One Foot in Front 0 14. Standing on One Leg 0 Grande Balance Score 3 Static Sitting Balance Static Sitting-Level of Assistance Contact guard Static Standing Balance Static Standing-Level of Assistance Moderate assistance Bed Mobility 1 Bed Mobility From 1 Supine Bed Mobility Type 1 To Bed Mobility to 1 Edge of bed Level of Assistance 1 Moderate Assist Bed Mobility Comments 1 assist with manuevering LEs and elevation of trunk Transfer 1 Transfer From 1 Sit Transfer Type 1 To and from Transfer to 1 Stand Technique 1 Sit to stand;Stand to sit Transfer Device 1 Hand held assist Transfer Level of Assistance 1 Moderate Assist Trials/Comments 1 decreased force production, blocking right knee, assist with balance Transfers 2 Transfer From 2 Bed;Sit Transfer Type 2 To Transfer to 2 Chair with arms Technique 2 Stand pivot Transfer Device 2 Hand held assist Transfer Level of Assistance 2 Maximum Assist Trials/Comments 2 decreased force production, blocking right knee, assist with balance RUE Assessment RUE Comments PROM WFL RUE Strength R Shoulder Flexion 2/5 R Elbow Flexion 2/5 R Elbow Extension 0/5 LUE Assessment LUE Assessment WFL LUE Comments at least 3/5 RLE Assessment RLE Comments PROM WFL Strength RLE R Hip Flexion 0/5 R Knee Flexion 2/5 R Knee Extension 0/5 R Ankle Dorsiflexion 0/5 LLE Assessment LLE Assessment WFL LLE Comments at least 3/5 Basic Mobility - 6 Click How much difficulty does the patient have: Turning over in bed 2 How much difficulty does the patient currently have: Sitting down and standing up from a chair witharms? 2 How much difficulty does the patient have: Moving from lying on back to sitting on the side of the bed? 2 How much difficulty does the patient have: Moving to and from a bed to a chair including wheelchair? 2 How much help does the patient currently need: Walk in hospital room? 1 How much help from another person does the patient currently need: Climbing 3-5 steps with a railing? 1 Total 6 Click Score (range 6-24) 10 Score Interpretation 28.13 Safe Environment End of Therapy Session Safe Environment End of Therapy Session Patient left in recliner;Chair alarm in place and activated;RN notified;Call light within reach Assessment Problem List Reduced mobility;Gait deviations;Decreased strength;Decreased range of motion;Impairedbalance Problem List Comments Pt with left BG IPH presents with deficits in all functional mobility due to impairments in strength, balance, cognition. These deficits prevent full participation in home ambulation. Plan Plan Plan of care initiated;If this is the last note, consider this the discharge summary Recommendation/Plan PT Recommendation/Plan Inpatient Rehab Facility Recommend Inpatient Rehab/Acute Rehab due to Ability to actively participate in intensive therapy 3hours/day, 5 days/week or 900 minutes per week;Highly motivated to participate in therapy;Impaired ability to complete functional mobility;Likely to return to the community at discharge with support system in place;Requires greater than 25% physical assistance with most mobility tasks;Requires multiple therapy disciplines to address functional deficits;Patient and caregiver require specialized skilled training due to new level of function/diagnosis;Requires skilled therapy interventions to address neurological deficits PT Frequency during current admission 5-7x/wk Treatment/Interventions during current admission Balance Training;Bed mobility;Endurance training;Functional activity;Functional transfer training;Strengthening;Therapeutic activity;Therapeutic exercise;Transfer training PT - Next Appointment 10/11/24 PT Evaluation Complete Yes PT Time Calculation PT Start Time 0825 PT Stop Time 0850 PT Time Calculation (min) 25 min Multi-Disciplinary Problems (from Physical Therapy) Active Problems Problem: Mobility Start Date: 10/10/24 Goal Start Date Expected End Date End Date LTG - Patient will demonstrate functional mobility with the following level of assist: SBA 10/10/2503/05/25 -- Problem: Transfers Start Date: 10/10/24 Goal Start Date Expected End Date End Date STG - Transfer from bed to chair with min assist 10/10/24 10/24/24 -- Goal Start Date Expected End Date End Date STG - Patient to transfer to and from sit to supine with min assist 10/10/24 10/24/24 -- Goal Start Date Expected End Date End Date STG - Patient will transfer sit to and from stand with min assist 10/10/24 10/24/24 -- ULUS TUTOR * Lelia Freitas, BRAILLE PROOFREADER - 10/10/2024 6:18 AM CST Neuro Critical Care Daily Progress Note Dx: L Basal ganglia IPH HPI: Megan Salas is a 74 year old with PMH of hypertension, hyperlipidemia, GERD, generalized anxietydisorder transferring from [facility] to [facility]. Ms. Salas's last known well was 10/08 08:30 am. Per , the patient was having a warm bath. He noticed the bathroom door was open and heard a loud thud. He saw his leaning on her right side against the wall, without loss of consciousness. She was looking around and acting confused. The became concerned for stroke and called EMS. When EMS arrived, they noted she was alert but oriented x0 with some right sided weakness. She was then taken to the [facility] ED. Initial blood pressure was 115/91, glucose 92. NIHSS 23. CT head revealed a large left basal ganglia IPH with no MLS but notable effacement of left lateral ventricle. CTA was negative for aneurysm or vascular malformation. While at the ED, she was given zofran 4 mg IV. She was taken to [facility] NNICU for further monitoring. On arrival to the NNICU, she was hemodynamically stable and saturating well on 2L nasal cannula. Interval Events: Yesterday cEEG (no sz, L side slowing),discontinued, started TF, discontinued mIVF, discontinued tamsulosin. Overnight, no acute events. Vitals 24hr Temp Min: 37 ??C (98.6 ??F) Max: 37.4 ??C (99.3 ??F) Pulse Min: 63 Max: 100 NIBP BP Min: 100/72 Max: 155/108 MAP (mmHg) Av.3 Min: 77 Max: 129 A-line No data recorded I/O: Intake/Output Summary (Last 24 hours) at 10/10/2024 0618 Last data filed at 10/10/2024 0600 Gross per 24 hour Intake 1117.5 ml Output 1125 ml Net -7.5 ml UOP 1125 mL last 24hrs LABS Recent Labs Lab Units 10/09/24 2126 10/09/24 0753 10/08/24 2156 10/08/24 1151 SODIUM mmol/L 145 -- 148* 143 POTASSIUM PLASMA mmol/L 4.2 -- 3.7 4.4 CHLORIDE mmol/L 109 -- 114* 103 CO2 mmol/L 28 -- 24 28 ANIONGAP mmol/L 8 -- 7 12 GLUCOSE mg/dL 134 -- 82 109 POC GLUCOSE MONITOR mg/dL -- 95 -- -- BUN SERUM mg/dL 12 -- 11 16 CREATININE mg/dL 0.80 -- 0.74 0.81 CALCIUM mg/dL 9.1 -- 7.4* 9.4 MAGNESIUM mg/dL 2.6* -- 1.9 2.3 PHOSPHORUS PLASMA mg/dL -- -- 2.8 3.0 Recent Labs Lab Units 10/09/24212510/08/24215510/08/24115010/08/24 0932 WBC K/cumm 9.2 8.0 10.2* 6.4 HEMATOCRIT % 38.8 35.6 43.1 39.9 HEMOGLOBIN g/dL 12.5 11.3* 13.5 12.7 PLATELETS K/cumm 261 217 270 241 APTT sec -- -- 31 -- INR -- -- 1.00 1.01 Recent Labs Lab Units 10/08/24215510/08/24115010/08/24 0932 ALK PHOS Units/L 53 69 63 BILIRUBIN TOTAL mg/dL 0.2 0.4 0.4 TOTAL PROTEIN g/dL 5.5* 7.2 6.4* ALBUMIN g/dL 3.1* 4.1 3.8 ALT Units/L 16 21 15 AST Units/L 19 29 18 IMAGING (Most recent) NEURO IMAGING: CTA Head Neck W WO Contrast (10/08): IMPRESSION: 1. BRAIN: Stable large intraparenchymal hematoma centered at the left basal ganglia; as detailed. 2. CAROTID CTA: No occlusion, hemodynamically significant stenosis, or dissection of the extracranial carotid or vertebral arteries. 3. INTRACRANIAL CTA: No large vessel occlusion, focal flow-limiting stenosis, or aneurysm. CT Head WO Contrast (10/08): Large intraparenchymal hematoma centered at the left basal ganglia; as detailed. No significant midline shift. PHYSICAL EXAM: General: sitting up in bed, NAD HEENT: Mucous membranes moist, sclera anicteric Cardiac: S1, S2, RRR, no M/R/G Pulmonary: Even, unlabored respirations. Symmetric chest rise and fall. Lungs clear with diminishedbases to auscultation anterior guo. Abdomen: Obese abdomen, Non-distended in appearance, bowel sounds present, soft/non-tender to palpation. NGT in situ Ext: No peripheral edema or digital cyanosis Skin: No rashes or lesions NEURO EXAM Mental Status Awake, alert, eyes open spontaneously, regards, does not follow commands, mimics (protrudes tongue), unable to assess orientation Cranial Nerves PERRL 3mm, able to look to right past midline, but does not fully bury, right facial weakness, severe dysarthria Motor LUE/LLE moving spontaneously, full RUE movement distally within plane of bed RLE brief antigravity NEUROLOGICAL Meds: Ramelteon 8 mg nightly PRN Tylenol 650 mg q4h (x1 dose last 24hrs) # Large left basal ganglia IPH -- ICH score 1 -- etiology likely hypertensive -- SMART c/s -- change NC to q4hr -- SBP <160 -- repeat CT head for exam changes -- brain MRI at some point -- UDS +benzos, ethanol <10 -- 2/2-2/3 cEEG: no sz, L slowing # Insomnia -- nightly ramelteon -- delirium precautions # Acute pain -- PRN Tylenol 650 mg q4h # Mood disorder -- hold home xanax 0.25 mg TID PRN -- hold home doxepin 10 mg daily CARDIOVASCULAR and HEME Meds: Atorvastatin 40 mg daily PRN Labetalol (x0 doses last 24hr) PRN hydralazine (x0 doses last 24hr) EKG: normal sinus rhythm with AV1 # Hypertension -- hold home lisinopril 5 mg daily -- SBP <160 -- PRN labetalol/hydralazine # HLD -- continue atorvastatin 40 mg daily PULMONARY Resp Min: 15 Max: 29 SpO2 Min: 91 % Max: 100 % Currently on 2L NC CXR (10/08): No acute cardiopulmonary abnormality Meds: None # Likely SHAMAR -- intermittently with O2 sats 90-91% when sleeping, resolves with NC 2L -- unable to participate with IS, OOBTC today -- O2 for SPO2 >92% -- outpatient follow up for sleep study RENAL Meds: none # Urinary retention, resolved -- 2/3 discontinued tamsulosin -- voiding spontaneously, purwic in place -- bladder scan PRN GI and ENDO Meds: Colace 100 mg BID Famotidine 20 mg BID Senna 1 tab BID Diet: TF Jevity 1.5 @ 40ml/hr goal IV fluids: none Flushes: none Last BM: ASSISTANT MANAGER TRAINEE # Nutrition # Dysphagia -- NGT in situ , conitnue TF Jevity 1.5 @ 40ml/hr goal -- start NS flushes 150ml q4hr -- MACHINE ASSEMBLER SUPERVISOR following -- bowel regimen: colace/senna BID # GERD -- continue home pepcid 20 mg BID INFECTION RELEVANT/MOST RECENT MICRO LAB DATA: Blood cultures: none Respiratory cultures: none Urinalysis/Urine culture: 2/2 noninfectious Meds: none No active issues, CBC daily, qureshi-culture for temp >38.5C ACCESS Lines PIV x2 Jj None, external VTE Prophylaxis Last Venous Doppler: none Prophylaxis: SCDs, start SQH today CODE STATUS: Full Code Disposition: NNICU Family: Patient's and son at bedside during NNICU rounds, reviewed plan of care Lelia Freitas NP Cosigned by Avi Rahman MD at 10/10/2024 3:39 PM CALCULUS TUTOR ULUS TUTOR ULUS TUTOR ULUS TUTOR ULUS TUTOR * Kristi Robles OT - 10/09/2024 2:30 PM CST Occupational Therapy Evaluation Note NOTE: This is a summary note of the olguin components of the evaluation session. For full details, review chart for all flowsheets documented on by this occupational therapy clinician on this date. Vital signs are documented in vital signs flowsheet. For questions, please review the treatment team and contact the occupational therapist currently assigned to this patient. If an occupational therapist is not assigned to this patient, please call [phone]. 10/09/24 1571 General Chart Reviewed Yes Session Type Evaluation OT Received On 10/09/24 Safe Environment Arm band checked;Patient found in supine;Gait belt utilized for all out of bed mobility Subjective (RN and family agreeable to OT eval) Family/Caregiver Present Yes (spouse, sister, brother in law) Occupational Therapy-Patient Goal pt unable to state goals due to language impairments Precautions Precautions Fall risk Home Living Type of Home House Home Layout One level;Basement;Laundry in basement Home Mobility Equipment-Currently Using None Prior Function Level of [place] Independent with ADLs;Independent with homemaking with ambulation Lives With Spouse Driving Yes ADL Assistance Independent Instrumental ADL (IADL) Assistance Independent Vocational/Occupation Retired Fall within the last 6 months No Prior Function Comments Information provided by pt's spouse Grooming Grooming: Where assessed Supine, bed Grooming: Level of assistance Dependent (pt grasped item, some carryover noted once task was initiated) LE Dressing LE Dressing: Where assessed Edge of bed LE Dressing: Level of assistance Dependent Toilet Transfers Toilet Transfers Comments RN requested pt return to supine at end of session Pain Assessment Pain Assessment N-PAT N- PAT Non-Verbal Pain Assessment Tool N-PAT N-V Smiling.calm, relaxed none 0 N-PAT N-V Movement 0 N-PAT N-V Facial Cues 0 N-PAT N-V Position/Guarding 0 N-PAT N-V Score 0 Vision - Complex Assessment Vision Comments Pt unable to report vision changes or participate in vision screenings. Cognition Arousal/Alertness Alert Attention Span Unable to attend/complete tasks Memory Unable to assess (due to language deficits) Current communication (expressive and receptive language impairments) Orientation Unable to assess Following Commands Unable to follow commands (mimicked 1/4 commands) Safety Judgment Decreased awareness of need for assistance Short Blessed Test Short Blessed Comments pt unable to participate in screening due to language deficits Mesulam Cancellation Test Mes[place]am Unable to complete standardized testing Trails A & B ([place] Making Test) Unable to complete Trails A due to Cognition Unable to complete Trails B due to Cognition Unable to complete Trails B Verbal due to Cognition Coordination Serial Opposition (pt unable to follow commands for screening) Reach/Grasp RUE Grasp (1/5) LUE Grasp (at least 4/5) Tinetti Sitting Balance 0 Arises 0 Attempts to Arise 0 Immediate Standing Balance (First 5 Seconds) 0 Standing Balance 0 Nudged 0 Eyes Closed 0 Turned 360 Degrees: Steadiness 0 Turned 360 Degrees: Continuity of Steps 0 Sitting Down 0 Balance Score 0 Static Sitting Balance Static Sitting-Sitting Surface Bed Static Sitting-Level of Assistance Minimum assistance Static Standing Balance Static Standing-Standing Surface Floor Static Standing-Level of Assistance Moderate assistance Bed Mobility 1 Bed Mobility From 1 Supine Bed Mobility Type 1 To and from Bed Mobility to 1 Edge of bed Level of Assistance 1 Moderate Assist Bed Mobility Comments 1 assist to elevate trunk, to bring hips to EOB, to control descent of trunk Transfer 1 Transfer From 1 Sit Transfer Type 1 To and from Transfer to 1 Stand Transfer Device 1 No device Transfer Level of Assistance 1 Moderate Assist Trials/Comments 1 impaired balance, decreased force production, assist to control descent, performed x2 trials RUE Assessment RUE Assessment X RUE Comments no active movement, PROM WFL LUE Assessment LUE Assessment X LUE Comments spontaneous movement, PROM WFL Daily Activity - 6 Clicks Putting on and taking off regular lower body clothing 1 Bathing 1 Toileting 1 Putting on and taking off upper body clothing 1 Personal Grooming 1 Eating Meals 1 Total Score (range 6-24) 6 Score Interpretation 17.07 Safe Environment End of Therapy Session Safe Environment End of Therapy Session Patient left supine in bed;RN notified;Call light within reach;Bed in lowest position with wheels locked;Restraint or restraint alternative in place;Bed rails up per protocol Assessment Problem List Decreased gross motor control;Decreased fine motor control;Decreased balance;Decreasedfunctional mobility;Decreased IADL independence;Decreased ADL independence;Decreased cognition;Decreased safe judgment during ADL;Decreased 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 strength;Decreased UE function;Decreased trunk control for functional activities;Poor/Decreased functional positioning;Non-functional right 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;Decreased frequency/variety of movement Plan Plan Plan of care initiated;If this is the last note, consider this the discharge summary Recommendation/Plan OT Recommendation Inpatient Rehab Facility Recommend Inpatient Rehab/Acute Rehab due to Not at baseline due to impaired ability to complete ADLs;Requires greater than 25% physical assistance with most ADL tasks;Requires multiple therapy disciplines to address functional deficits Patient at high risk for Falls;Injury due to impaired cognition;Injury due to balance deficits;Developing impaired skin integrity;Prolonged dependence for self care tasks OT Frequency during current admission 5-7x/wk Treatment/Interventions during current admission ADL/IADL retraining;Balance Training;Bed mobility;Cognitive retraining;Compensatory technique education;Functional activity;Functional mobility training;Functional transfer training;Neuromuscular re-education;Positioning;Parent/caregiver training and education;Therapeutic exercise;Therapeutic activity;Upper extremity motor function/functional skills;Range of motion OT - Next Appointment 10/10/24 OT Evaluation Complete Yes OT Time Calculation OT Start Time 1430 OT Stop Time 1501 OT Time Calculation (min) 31 min Multi-Disciplinary Problems (from Occupational Therapy) Active Problems Problem: Dressings Lower Extremities Start Date: 10/09/24 Goal Start Date Expected End Date End Date STG - Patient to complete lower body dressing with supervision 10/09/24 10/16/24 -- Problem: Grooming Start Date: 10/09/24 Goal Start Date Expected End Date End Date STG - Patient will complete grooming with supervision 10/09/24 10/16/24 -- Problem: Transfers Start Date: 10/09/24 Goal Start Date Expected End Date End Date STG - Patient will perform toilet transfer with supervision 10/09/24 10/16/24 -- Problem: OT Misc Start Date: 10/09/24 Goal Start Date Expected End Date End Date OT LTG - Pt will complete ADLs with modified independence. 10/09/24 11/13/24 -- ULUS TUTOR * Jesus Sherwood III, MD - 10/09/2024 12:31 PM CST Video-EEG Daily Epoch Report Patient Name: Megan Salas [facility] Medical Record Number (MRN): [id number] [facility] Ed Record: [id number] Date of (): 1950 Start Time: 10/09/2024 08:00:00 AM End Time: 10/09/2024 11:57:42 AM Introduction: Ms. Salas is a 74 y.o. female with a history of hypertension, hyperlipidemia, GERD, and anxiety disorder who presented with altered mental status in setting of a left BG/Internal capsule ICH after a fall (without LOC). Video-EEG was performed to characterize the events and guide subsequent treatment. This is a report of continuous video-EEG monitoring. High definition digital video and digital EEG were recorded continuously with a [employer] EEG acquisition system. This was a 32 channel EEG with additional anterior temporal electrodes. Electrodes were placed with collodion following the 10/20 International System. The patient was monitored and observed continuously by technical personnel. Digital seizure and spike detection were utilized during the recording. EEG description: Epoch 2 : 10/09/2024 8:00:00 AM to [...] indicates diffuse cerebral dysfunction as seen in metabolic,toxic, or diffuse or multifocal structural abnormalities. These findings were discussed with the treating physicians on an at least twice daily basis. By signing this report, the attending Electroencephalographer certifies that he/she personally reviewed the electrodiagnostics study and has edited this report to fully conform with his/her intent. Signing Attending: Jesus Sherwood III, MD ULUS TUTOR ULUS TUTOR * Avi Rahman MD - 10/09/2024 11:30 AM CST Brief Neurocritical Care Attending Note Megan Salas [id number] Brief Attending Documentation Admission Diagnoses: 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 Interval events: Hooked up to EEG due to encephalopathy out of proportion to hemorrhage which showed L sided slowingand no seizure Trazodone 25mg given overnight Temp: [36.1 ??C (97 ??F)-37.4 ??C (99.3 ??F)] 37.2 ??C (99 ??F) Pulse: [69-122] 91 Resp: [13-32] 24 BP: (76-183)/(40-152) 147/70 Intake/Output Summary (Last 24 hours) at 10/09/2024 1130 Last data filed at 10/09/2024 1000 Gross per 24 hour Intake 2439.33 ml Output 1675 ml Net 764.33 ml Physical Examination: HEENT: Normocephalic, atraumatic. Cardiovascular: Regular rate and rhythm. Normal S1 and S2. No murmurs rubs or gallops Pulmonary: Clear to auscultation bilaterally. No wheezing, rales or rhonchi. GI: Soft, nontender, nondistended. Normoactive bowel sounds. No hepatomegaly Ext: Atraumatic, no pitting edema Neurologic: Eyes open. Regards. Mimics occasionally but does not follow commands. Paucity of speech and what little comes out is nonsensical. Does not answer orientation questions. PERRL Dysconjugate gaze Right facial weakness Cough intact Left side spontaneous and strong RUE: flex to nox stim RLE: triple flex Current Medication List: I have reviewed the patient's current active medication list and discussed it with our clinical pharmacist. Labs/Microbiology: I have reviewed all laboratory/microbiology results over the past 24 hours. Imaging: I have reviewed all imaging over the past 24 hours. Assessment and Plan of Critical Problems: # L BG/IC ICH with mass effect - Repeat CT head with stable size of ICH - CTA without vascular lesion - UDS only positive for benzodiazepines which she has a prescription for. - MRI brain when able, after blood from ICH has cleared. - Close neurologic monitoring - SBP < 160 - SMART - Neurochecks q2h # Encephalopathy - Multifactorial - Delirium precautions # Hyperlipidemia - Continue atorvastatin # Hypertension: - Receiving prn hydral/labetalol - Holding home lisinopril # At risk for atelectasis - close monitoring of respiratory status # FEN: - Start jevity 1.5 tube feeds - Did not pass swallow. Re-evaluate per MACHINE ASSEMBLER SUPERVISOR Prophylaxis: SCDs. Subcutaneous heparin contraindicated for now. Access:PIV x 2, NGT, purewick Code status: Full code Disposition: Intensive Care Unit Attending Critical Care Attestation Critical Care Time: I have spent 32 minutes in full attendance with this critically ill patient making frequent reassessments and decisions regarding this patient's complex medical care. Critical care time was exclusive of separately billable procedures, treating other patients and teaching time. Critical care was necessary to treat or prevent imminent or life-threatening clinical/neurological deterioration due to: Active Critical Care Problem(s): - ICH with mass effect - Encephalopathy I have seen and examined this patient on the day of service on 10/09/2024. I have reviewed and confirmed the history, physical exam, laboratory and radiographic data with the house staff and/or non-physician provider. I have reviewed and discussed my treatment plan with the ICU team and other medical/obiee consultant staff as documented in the referenced note except for what is documented here. ULUS TUTOR ULUS TUTOR * Jesus Sherwood III, MD - 10/09/2024 9:52 AM CST Video-EEG Daily Epoch Report Patient Name: Megan Salas [facility] Medical Record Number (MRN): [id number] [facility] Ed Record: [id number] Date of (): 1950 Start Time: 10/08/2024 5:15:59 PM End Time: 10/09/2024 8:00:00 AM Introduction: Ms. Salas is a 74 y.o. female with a history of hypertension, hyperlipidemia, GERD, and anxiety disorder who presented with altered mental status in setting of a left BG/Internal capsule ICH after a fall (without LOC) . Video-EEG was performed to characterize the events and guide subsequent treatment. This is a report of continuous video-EEG monitoring. High definition digital video and digital EEG were recorded continuously with a [employer] EEG acquisition system. This was a 32 [...] indicates diffuse cerebral dysfunction as seen in metabolic,toxic, or diffuse or multifocal structural abnormalities. These findings were discussed with the treating physicians on an at least twice daily basis. By signing this report, the attending Electroencephalographer certifies that he/she personally reviewed the electrodiagnostics study and has edited this report to fully conform with his/her intent. Signing Attending: Jesus Sherwood III, MD ULUS TUTOR ULUS TUTOR ULUS TUTOR * Lauren Myers, ISHA - 10/09/2024 7:00 AM CST Neuro Critical Care Daily Progress Note Dx: L Basal ganglia IPH HPI: Megan Salas is a 74 year old with PMH of hypertension, hyperlipidemia, GERD, generalized anxietydisorder transferring from [facility] to [facility]. Ms. Salas's last known well was 10/08 08:30 am. Per , the patient was having a warm bath. He noticed the bathroom door was open and heard a loud thud. He saw his leaning on her right side against the wall, without loss of consciousness. She was looking around and acting confused. The became concerned for stroke and called EMS. When EMS arrived, they noted she was alert but oriented x0 with some right sided weakness. She was then taken to [facility]. Initial blood pressure was 115/91, glucose 92. NIHSS 23. CT head revealed a large left basal ganglia IPH with no MLS but notable effacement of left lateral ventricle. CTA was negative for aneurysm or vascular malformation. While at the ED, she was given zofran 4 mg IV. She was taken to [facility] for further monitoring. On arrival to the NNICU, she was hemodynamically stable and saturating well on 2L nasal cannula. Interval Events: Gave trazodone 25mg overnight. cEEG read as no sz, L slowing. Vitals 24hr Temp Min: 36.1 ??C (97 ??F) Max: 37.4 ??C (99.3 ??F) Pulse Min: 69 Max: 122 NIBP BP Min: 76/40 Max: 183/87 MAP (mmHg) Av.4 Min: 51 Max: 164 A-line No data recorded I/O: Intake/Output Summary (Last 24 hours) at 10/09/2024 0700 Last data filed at 10/09/2024 0600 Gross per 24 hour Intake 2214.33 ml Output 1375 ml Net 839.33 ml UOP 1375 mL LABS Recent Labs Lab Units 10/08/24215510/08/24 11510/08/24 0932 SODIUM mmol/L 148* 143 140 POTASSIUM PLASMA mmol/L 3.7 4.4 4.1 CHLORIDE mmol/L 114* 103 105 CO2 mmol/L 24 28 24 ANIONGAP mmol/L 7 12 12 GLUCOSE mg/dL 82 109 109 BUN SERUM mg/dL 11 16 18 CREATININE mg/dL 0.74 0.81 0.79 CALCIUM mg/dL 7.4* 9.4 9.1 MAGNESIUM mg/dL 1.9 2.3 2.2 PHOSPHORUS PLASMA mg/dL 2.8 3.0 -- Recent Labs Lab Units 10/08/24215510/08/24 11510/08/24 0932 WBC K/cumm 8.0 10.2* 6.4 HEMATOCRIT % 35.6 43.1 39.9 HEMOGLOBIN g/dL 11.3* 13.5 12.7 PLATELETS K/cumm 217 270 241 APTT sec -- 31 -- INR -- 1.00 1.01 Recent Labs Lab Units 10/08/24215510/08/241 10/08/24 0932 ALK PHOS Units/L 53 69 63 BILIRUBIN TOTAL mg/dL 0.2 0.4 0.4 TOTAL PROTEIN g/dL 5.5* 7.2 6.4* ALBUMIN g/dL 3.1* 4.1 3.8 ALT Units/L 16 21 15 AST Units/L 19 29 18 IMAGING (Most recent) NEURO IMAGING: CTA Head Neck W WO Contrast (10/08): IMPRESSION: 1. BRAIN: Stable large intraparenchymal hematoma centered at the left basal ganglia; as detailed. 2. CAROTID CTA: No occlusion, hemodynamically significant stenosis, or dissection of the extracranial carotid or vertebral arteries. 3. INTRACRANIAL CTA: No large vessel occlusion, focal flow-limiting stenosis, or aneurysm. CT Head WO Contrast (10/08): Large intraparenchymal hematoma centered at the left basal ganglia; as detailed. No significant midline shift. PHYSICAL EXAM: General: sitting up in bed, NAD HEENT: Mucous membranes moist, sclera anicteric Cardiac: RRR, no M/R/G Pulmonary: Even, unlabored respirations. Symmetric chest rise and fall. Lungs clear with diminishedbases to auscultation anterior guo. Abdomen: Obese abdomen, Non-distended in appearance, bowel sounds present, soft/non-tender to palpation. Ext: No peripheral edema or digital cyanosis Skin: No rashes or lesions NEURO EXAM Mental Status Eyes open spontaneously, regards, does not follow commands, mimics (protrudes tongue), unable to assess orientation Cranial Nerves PERRL 3mm, EOMI, right facial weakness, severe dysarthria Motor LUE/LLE moving spontaneously, full RUE weak flexion RLE brief antigravity NEUROLOGICAL Meds: Ramelteon 8 mg nightly PRN Tylenol 650 mg q4h x0 # Large left basal ganglia IPH -- ICH score 1 -- etiology likely HTN-sive -- SMART c/s -- neuro checks q1h -> q2h -- SBP <160 -- repeat CT head for exam changes -- brain MRI at some point -- UDS +benzos, ethanol <10 -- cEEG: no sz, L slowing # Insomnia -- nightly ramelteon -- trazodone overnight x1 # Acute pain -- PRN Tylenol 650 mg q4h # Mood disorder -- hold home xanax 0.25 mg TID PRN -- hold home doxepin 10 mg daily CARDIOVASCULAR and HEME Meds: Atorvastatin 40 mg daily PRN Labetalol x0 PRN hydralazine x3 EKG: normal sinus rhythm with AV1 # Hypertension -- hold home lisinopril 5 mg daily -- SBP <160 -- PRN labetalol/hydral # HLD -- cont atorvastatin 40 mg daily PULMONARY Resp Min: 13 Max: 32 SpO2 Min: 93 % Max: 100 % CXR (10/08): No acute cardiopulmonary abnormality Meds: None # No active issues -- unable to participate with IS -- OOB when able -- SPO2 >92% RENAL Meds: Tamsulosin 0.4 mg daily # Urinary retention -- cont tamsulosin -> dc -- bladder scan q6h prn # Hypokalemia -- repleted w/ 40 meq KCl -- BMP daily # Hypomagnesemia -- repleted w/ 1g -- Mg in AM GI and ENDO Meds: Colace 100 mg BID Famotidine 20 mg BID Senna 1 tab BID Diet: NPO IV fluids: NS 75 Flushes: none Last BM: ASSISTANT MANAGER TRAINEE # Nutrition # Dysphagia -- NPO -- dc IVF, start TF Jevity 1.5 @ 40 -- MACHINE ASSEMBLER SUPERVISOR # Constipation -- bowel regimen: colace/senna BID # GERD -- pepcid 20 mg BID INFECTION RELEVANT/MOST RECENT MICRO LAB DATA: Blood cultures: none Respiratory cultures: none Urinalysis/Urine culture: pending Meds: none # No active issues -- CBC daily -- panculture for temp >38.5C ACCESS Lines PIV x2 Jj None, external VTE Prophylaxis Last Venous Doppler: none Prophylaxis: SCDs, chemoprophylaxis contraindication -> start SQH tomorrow 10/10 CODE STATUS: Full Code Disposition: NNICU Lauren Myers NP ULUS TUTOR documented in this encounter H&P Notes * Avi Rahman MD - 10/08/2024 1:20 PM CST Brief Neurocritical Care Attending Note Megan Snehal Salas [id number] Brief Attending Documentation Admission Diagnoses: 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 Past medical: as above Meds: Xanax 0.25 mg TID PRN Atorvastatin 40mg qhs Lisinopril 5mg qday Doxepin 10mg qday FH: Non contributory SH: occasional alcohol use. No tobacco or drugs. ROS: Negative except as noted in HPI. Interval events: Admitted to [facility] Neuro ICU Temp: [36.1 ??C (97 ??F)-37 ??C (98.6 ??F)] 36.1 ??C (97 ??F) Pulse: [74-87] 74 Resp: [13-21] 14 BP: (115-147)/(65-91) 134/82 No intake or output data in the 24 hours ending 10/08/24 1320 Physical Examination: HEENT: Normocephalic, atraumatic. Cardiovascular: Regular rate and rhythm. Normal S1 and S2. No murmurs rubs or gallops Pulmonary: Clear to auscultation bilaterally. No wheezing, rales or rhonchi. GI: Soft, nontender, nondistended. Normoactive bowel sounds. No hepatomegaly Ext: Atraumatic, no pitting edema Neurologic: Eyes open but does not regard. Does not follow commands. Does not answer orientation questions. PERRL Unable to fixate eye movements and looking in all directions with smooth pursuits and with occasional nystagmus Right facial weakness Cough intact Left side spontaneous RUE: flex to nox stim RLE: triple flex Current Medication List: I have reviewed the patient's current active medication list and discussed it with our clinical pharmacist. Labs/Microbiology: I have reviewed all laboratory/microbiology results over the past 24 hours. Imaging: I have reviewed all imaging over the past 24 hours. Assessment and Plan of Critical Problems: # L BG/IC ICH with mass effect - Repeat Head CT looks relatively stable possibly some mild interval enlargment. Repeat Head CT in AM - SBP < 160 - SMART - UDS - CTA without vascular lesion - MRI brain when able, after blood from ICH has cleared. - Close neurologic monitoring # Encephalopathy - Exam is not fully explained by the ICH. - Connect to cvEEG # Hypertension: - Holding home lisinopril - antihypertensive gtts is needed to maintain SBP < 160. # At risk for atelectasis - close monitoring of respiratory status # FEN: - NPO for now. Swallow evaluation Prophylaxis: SCDs. Subcutaneous heparin contraindicated for now. Access:PIV x 2 Code status: Full code Disposition: Intensive Care Unit Attending Critical Care Attestation Critical Care Time: I have spent 35 minutes in full attendance with this critically ill patient making frequent reassessments and decisions regarding this patient's complex medical care. Critical care time was exclusive of separately billable procedures, treating other patients and teaching time. Critical care was necessary to treat or prevent imminent or life-threatening clinical/neurological deterioration due to: Active Critical Care Problem(s): - ICH with mass effect I have seen and examined this patient on the day of service on 10/08/2024. I have reviewed and confirmed the history, physical exam, laboratory and radiographic data with the house staff and/or non-physician provider. I have reviewed and discussed my treatment plan with the ICU team and other medical/obiee consultant staff as documented in the referenced note except for what is documented here. ULUS TUTOR * Francy Stinson NP - 10/08/2024 9:57 AM CST Neuro Critical Care Admission H&P CC: fall HPI: Megan Salas is a 74 year old with PMH of hypertension, hyperlipidemia, GERD, generalized anxietydisorder transferring from [facility] to [facility]ICU. Ms. Salas's last known well was 10/08 08:30 am. Per , the patient was having a warm bath. He noticed the bathroom door was open and heard a loud thud. He saw his leaning on her right side against the wall, without loss of consciousness. She was looking around and acting confused. The became concerned for stroke and called EMS. When EMS arrived, they noted she was alert but oriented x0 with some right sided weakness. She was then taken to the [facility] ED. Initial blood pressure was 115/91, glucose 92. NIHSS 23. CT head revealed a large left basal ganglia IPH with no MLS but notable effacement of left lateral ventricle. CTA was negative for aneurysm or vascular malformation. While at the ED, she was given zofran 4 mg IV. She was taken to [facility]ICU for further monitoring. On arrival to the NNICU, she was hemodynamically stable and saturating well on 2L nasal cannula. Home Meds: Xanax 0.25 mg TID PRN Lipitor 40 mg daily Lisinopril 5 mg daily Doxepin 10 mg daily Past Medical History: Diagnosis Date Closed right ankle fracture 12/2012 Essential hypertension 07/22/2023 Fibrocystic breast Hyperlipidemia Pneumonia 04/06/2010 Prediabetes 04/23/2023 Past Surgical History: Procedure Laterality Date CARDIOVASCULAR STRESS TEST 04/05/2012 COLONOSCOPY 06/26/2011 COLONOSCOPY W/ POLYPECTOMY 07/17/2021 DILATION AND CURETTAGE, DIAGNOSTIC / THERAPEUTIC 1985 TONSILLECTOMY Social History Tobacco Use Smoking status: Never Smokeless tobacco: Never Substance and Sexual Activity Drug use: Never Sexual activity: Not Currently Alcohol Use: Not At Risk (04/21/2023) AUDIT-C Frequency of Alcohol Consumption: 2-4 times a month Average Number of Drinks: 1 or 2 Frequency of Binge Drinking: Never Family History Problem Relation Age of Onset Cancer Mother Diabetes type II Mother Diabetes type II Sister Obesity Sister Diabetes type II Sister No Known Problems Daughter Colon cancer Paternal Grandmother Breast cancer Maternal Great-Grandmother Heart attack Father 55 No Known Problems Son Heart disease Other Hypertension Other Cancer Other Bladder Cancer Other Ovarian cancer Neg Hx Thyroid cancer Neg Hx Allergies Allergen Reactions Sulfa (Sulfonamide Antibiotics) Unknown No medications prior to admission. Review of Systems: All other systems negative except as indicated in HPI. Interval Events: new admit Vitals 24hr Temp Min: 36.1 ??C (97 ??F) Max: 37 ??C (98.6 ??F) Pulse Min: 74 Max: 87 NIBP BP Min: 115/91 Max: 147/71 MAP (mmHg) Av Min: 82 Max: 99 A-line No data recorded I/O:No intake or output data in the 24 hours ending 10/08/24 0958 LABS Recent Labs Lab Units 10/08/24 1151 10/08/24 0932 SODIUM mmol/L 143 140 POTASSIUM PLASMA mmol/L 4.4 4.1 CHLORIDE mmol/L 103 105 CO2 mmol/L 28 24 ANIONGAP mmol/L 12 12 GLUCOSE mg/dL 109 109 BUN SERUM mg/dL 16 18 CREATININE mg/dL 0.81 0.79 CALCIUM mg/dL 9.4 9.1 MAGNESIUM mg/dL 2.3 2.2 PHOSPHORUS PLASMA mg/dL 3.0 -- Recent Labs Lab Units 10/08/24 1151 10/08/24 0932 WBC K/cumm 10.2* 6.4 HEMATOCRIT % 43.1 39.9 HEMOGLOBIN g/dL 13.5 12.7 PLATELETS K/cumm 270 241 APTT sec 31 -- INR 1.00 1.01 Recent Labs Lab Units 10/08/24 1151 10/08/24 0932 ALK PHOS Units/L 69 63 BILIRUBIN TOTAL mg/dL 0.4 0.4 TOTAL PROTEIN g/dL 7.2 6.4* ALBUMIN g/dL 4.1 3.8 ALT Units/L 21 15 AST Units/L 29 18 IMAGING (Most recent) NEURO IMAGING: CTA Head Neck W WO Contrast (2): IMPRESSION: 1. BRAIN: Stable large intraparenchymal hematoma centered at the left basal ganglia; as detailed. 2. CAROTID CTA: No occlusion, hemodynamically significant stenosis, or dissection of the extracranial carotid or vertebral arteries. 3. INTRACRANIAL CTA: No large vessel occlusion, focal flow-limiting stenosis, or aneurysm. CT Head WO Contrast (2/): Large intraparenchymal hematoma centered at the left basal ganglia; as detailed. No significant midline shift. PHYSICAL EXAM: General: NAD HEENT: Mucous membranes moist, sclera anicteric Cardiac: RRR, no M/R/G Pulmonary: Even, unlabored respirations. Symmetric chest rise and fall. Lungs clear with diminishedbases to auscultation anterior guo. Abdomen: Non-distended in appearance, bowel sounds present, soft/non-tender to palpation. No massesor HSM. Ext: No peripheral edema or digital cyanosis Skin: No rashes or lesions NEURO EXAM Mental Status Eyes open spontaneously, does not regard or follow commands, non-verbal Cranial Nerves PERRL 3-->2mm, roving eye movements, right facial weakness, +spontaneously blinking Motor LUE/LLE moving spontaneously RUE internal rotation RLE triple flexion NEUROLOGICAL Meds: PRN Tylenol 650 mg q4h Ventriculostomy: No data recorded EVD Output: n/a # Large left basal ganglia IPH -- ICH score 1 -- neuro checks q1h -- SBP <160 -- repeat CT head am -- brain MRI at some point -- UDS pending, ethanol <10 -- SMART c/s # Acute pain -- PRN Tylenol 650 mg q4h # Agitation -- precedex gtts for RASS goal 0 to +1 # Mood disorder -- hold home xanax 0.25 mg TID PRN -- hold home doxepin 10 mg daily CARDIOVASCULAR and HEME Meds: PRN Labetalol/hydralazine EKG: normal sinus rhythm with AV1 # Hypertension -- hold home lisinopril 5 mg daily -- PRN labetalol/hydral for SBP <160 # HLD -- resume home atorvastatin 40 mg daily PULMONARY Resp Min: 18 Max: 18 SpO2 Min: 100 % Max: 100 % CXR (10/08): No acute cardiopulmonary abnormality Meds: None # No active issues -- likely not participate with IS -- agitated currently, unsafe to be OOB -- SPO2 >92% RENAL Meds: NPO # No active issues -- BMP daily -- CMP, Mg, phos weekly GI and ENDO Meds: Colace 100 mg BID Famotidine 20 mg BID Senna 1 tab BID Diet: NPO IV fluids: SLIV Flushes: none Last BM: ASSISTANT MANAGER TRAINEE # Nutrition -- NPO -- bowel regimen: colace/senna BID # GERD -- CrCl 51.8, resume home pepcid 20 mg BID INFECTION RELEVANT/MOST RECENT MICRO LAB DATA: Blood cultures: none Respiratory cultures: none Urinalysis/Urine culture: pending Meds: none # No active issues -- CBC daily -- panculture for temp >38.5C ACCESS Lines PIV x2 Jj None VTE Prophylaxis Last Venous Doppler: none Prophylaxis: SCDs, chemoprophylaxis contraindication CODE STATUS: Prior Disposition: [facility] Francy Stinson NP Cosigned by Avi Rahman MD at 10/08/2024 6:09 PM CALCULUS TUTOR ULUS TUTOR ULUS TUTOR documented in this encounter Procedure Notes * Ingris Pierson SLP - 10/12/2024 2:35 PM CSTAssociated Order(s): MACHINE ASSEMBLER SUPERVISOR EVALUATE AND TREAT VIDEOFLUOROSCOPIC SWALLOW STUDY Speech-Language Pathology: Videofluoroscopic Study of Swallow (VFSS/MBS) HPI/PMH HPI/PMH: 74 year old woman with history of hypertension, hyperlipidemia, GERD, anxiety disorder whois transferred here from [facility] with a L BG/Internal capsule ICH after [...] diet/thin liquids General Information Megan Salas 10/12/24 MACHINE ASSEMBLER SUPERVISOR Received On: 10/12/24 General Observations: Pt seen [...] hyo-laryngeal elevation and excursion, incomplete epiglottic inversion, incompletelaryngeal vestibule closure, base of tongue and pharyngeal weakness Deficits result in: With thin liquids, pt with small bolus size given significant anterior spillage2/2 poor labial seal. Inconsistent deep penetration to the level of the vocal folds observed with thin liquid; pt did not sense deep penetration and unable to follow commands to attempt cued cough/modifications. Improved oral containment with thicker consistencies with improved containment of nectar thickened liquid and honey thickened liquid via spoon and no anterior spillage with puree or solidconsistencies. Pt with consistent aspiration of nectar thickened liquid during the swallow; reflexive cough not productive to clear material from trachea. No penetration or aspiration with any honey t hickened liquid (via spoon), puree, or solid trials [...] at 90 degrees. Consistencies Administered: Thin liquids, [place] thickened liquids, Honey thickened liquids, Purees, Solids Administered consistencies contain barium product. Thin Liquids: Laryngeal Penetration: Present Aspiration Present: No Penetration Aspiration Scale-Thin: 5-Material enters the airway, contacts the vocal folds and is not ejected from the airway [place] Thickened Liquids: Laryngeal Penetration: Present Aspiration Present: Yes Amount: Moderate Response to aspiration: Cough reflex Cough: Non-productive Penetration Aspiration Scale-[place]: 7-Material enters the airway, passes below the vocal folds andis not ejected from the trachea despite effort [...] 0-Complete distention and complete duration, no obstruction offlow Tongue Base Retraction : 2-Narrow column of [...] treatment goals and details, if indicated. Plan MACHINE ASSEMBLER SUPERVISOR Frequency of Services during current admission: 2-4x/wk MACHINE ASSEMBLER SUPERVISOR Recommendation (Add'l Services): Inpatient Rehab Facility Next Visit Plan: treatment/therapy Additional Referrals: PT/OT Discharge Summary Statement If this is the last swallow therapy visit, this serves as the discharge summary. ULUS TUTOR ULUS TUTOR * Edd Pelaez SLP - 10/11/2024 12:05 PM CST Speech-Language Pathology: Clinical Bedside Swallow HPI/PMH 74 year old woman with history of hypertension, hyperlipidemia, GERD, anxiety disorder who is transferred here from [facility] with a L BG/Internal capsule ICH after a fall (without LOC). Respiratory/Intubation Status: 2L O2 via NC Imaging: hCT 2/3: 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 No definite intraventricular extension or significant midline shift. CXR 2/2: No focal opacity, pleural effusion, or pneumothorax. Precautions: fall Current Diet Order: NPO Baseline Diet: Regular diet per family report General Information Megan Salas 10/11/24 General Observations: Pt awake laying in bed, daughter present at bedside throughout the evaluation. NPAT: 0 If pain >4, was RN notified? No Patient Stated Goal/Comments: Pt did not state any ST related goals. Clinical Impression & Professional Recommendations Diet Solids Recommendation: NPO Diet Liquids Recommendations: Ice chips only (with supervision) Recommended Form of Medications: Feeding tube, Non-orally Specialty Instructions: good oral care Dysphagia Diagnosis: Suspect dysphagia Overall Clinical Impression/Additional Information: Pt alert throughout exam, intermittently following commands with repetition and modeling. Aphasic. Noted R side facial weakness, poor labial seal around spoon and straw, speech is intermittently jargon and unintelligible. Required feeding assistance to accept tsps water, ice chips, thin liquids via straw, puree and hard solids. Slow yet completemastication. Extended time to suck from straw. Noted only x2 coughing episodes during this session with thin liquids, coughing was accompanied by facial reddening, could be suggestive of aspiration. Recommend MBS to further assess safety and efficiency of the swallow prior to initiation of diet if i ndicated by results. Assessment Details & Results Consistencies Administered: Ice chips, Thin liquids, Purees, Solids MASA: [place] Assessment of Swallowing Ability (MASA) Alertness: Alert Cooperation: Cooperative Auditory Comprehension: Occasional motor resonse if cued Respiration: Chest clear Respiratory Rate (for swallow): Able to control breath rate for swallow Aphasia: No functional speech/sounds/single words Apraxia: Unable to assess Dysarthria: Unable to assess Saliva: No abnormality detected Lip Seal: Unilaterally weak/poor maintenance Tongue Movement: Full range of motion Tongue Strength: No abnormality detected Tongue Coordination: No abnormality detected Gag: No gag (did not assess) Palate: No spread or elevation (unable to assess) Cough Reflex: No deficit noted Voluntary Cough: No attempt/unable Voice: No abnormality detected Trach: No trach Oral Preparation: No deficits noted Bolus Clearance: Fully cleared Oral Transit: No deficits noted Pharyngeal Phase: Immediate laryngeal elevation Pharyngeal Response: Cough before, during, or after swallow MASA Score: 156 Dysphagia: Moderate dysphagia (139-167) Aspiration Risk: Mild aspiration risk (149-169) Plan MACHINE ASSEMBLER SUPERVISOR Frequency of Services during current admission: Pending instrumental assessment MACHINE ASSEMBLER SUPERVISOR Recommendation (Add'l Services): Defer at this time Further Assessment/Follow up Indicated: Recommendations: Ongoing speech therapy, Follow-up videofluoroscopic swallowing study Next Visit Plan:instrumental evaluation Additional Referrals: n/a Please reference care plan for treatment goals, if indicated. Discharge Summary Statement If this is the last swallow therapy visit, this serves as the discharge summary. ULUS TUTOR ULUS TUTOR * Ingris Pierson SLP - 10/09/2024 9:14 AM CST Speech-Language Pathology: Clinical Bedside Swallow HPI/PMH HPI/PMH: 74 year old woman with history of hypertension, hyperlipidemia, GERD, anxiety disorder whois transferred here from [facility] with a L BG/Internal capsule ICH after a fall (without LOC). Respiratory/Intubation Status: 2L O2 via NC Imaging: hCT 2/3: Grossly unchanged left basal ganglia intracerebral hemorrhage measuring up to 6.1cm. No definite intraventricular extension or significant midline shift. CXR 2/2: No focal opacity, pleural effusion, or pneumothorax. Precautions: fall Current Diet Order:NPO Baseline Diet: regular diet/thin liquids per pt's son report General Information Megan Salas 10/09/24 General Observations: Pt seen sitting upright in bed with left mitten and left wrist restraint in place. Pt lethargic but able to maintain alertness t/o evaluation with mild stimulation. Questionableattempt to protrude tongue on command? No other commands followed, garbled speech. 0 via NPAT If pain >4, was RN notified? N/A Patient Stated Goal/Comments: Pt with garbled speech, unintelligible. Clinical Impression & Professional Recommendations Diet Solids Recommendation: NPO Diet Liquids Recommendations: NPO for liquids. Oral swabs for comfort Recommended Form of Medications: Non-orally, Feeding tube Specialty Instructions: (Please assist pt with oral care 2-3 times a day, including teeth brushing (gums and tongue) to improve the oral biome and reduce the risk of aspiration related complications (i.e., PNA) Dysphagia Diagnosis: Suspect dysphagia Overall Clinical Impression/Additional Information: Pt was repositioned upright to 90 degrees. Verylimited [facility] given pt unable to follow commands, appeared to exhibit right facial droop at rest. Pt was presented with trials of ice chips and thin liquid via teaspoon (attempted straw but pt with no attempts to form lip seal around straw). Pt with delayed and disorganized mastication of ice chips with intermittent spillage of ice from oral cavity 2/2 reduced labial seal. Pt without swallow initiation x1 and delayed swallow initiation x1 with ice. Hyo-laryngeal elevationand excursion appeared reduced upon laryngeal palpation. Upon presentation of thin liquid via spoon, pt with significant anterior spillage of thins from right side of oral cavity 2/2 incomplete labial seal. Pt again with significantly delayed swallow initiation and cough x1 with thin liquid, suggestive of penetration/aspiration. Assessment Details & Results Consistencies Administered: Ice chips, Thin liquids MASA: [place] Assessment of Swallowing Ability (MASA) Alertness: Fluctuates Cooperation: Cooperative Auditory Comprehension: Occasional motor resonse if cued Respiration: Chest clear Respiratory Rate (for swallow): Some control/uncoordinated Aphasia: No functional speech/sounds/single words Apraxia: Unable to assess Dysarthria: Speech unintelligible Saliva: Frothy/expectorated Lip Seal: Incomplete seal Tongue Movement: Minimal movement Tongue Strength: Gross weakness Tongue Coordination: Gross incoordination Gag: No gag (did not assess) Palate: No spread or elevation (unable to assess) Cough Reflex: Weak reflexive cough Voluntary Cough: Attempt, bovine Voice: Mild impairment/slight huskiness Trach: No trach Oral Preparation: Minimal chew gravity assisted Bolus Clearance: Some clearance/residue Oral Transit: Delay > 10 seconds Delay consistency: Thin liquids Pharyngeal Phase: Pooling/gurgling, Incomplete laryngeal elevation Pharyngeal Response: Cough before, during, or after swallow MASA Score: 114 Dysphagia: Severe dysphagia (<138) Aspiration Risk: Severe aspiration risk (<140) Plan MACHINE ASSEMBLER SUPERVISOR Frequency of Services during current admission: Pending re-evaluation MACHINE ASSEMBLER SUPERVISOR Recommendation (Add'l Services): Defer at this time Further Assessment/Follow up Indicated: Recommendations: Other (Comment) Next Visit Plan:re-evaluate at the bedside Additional Referrals: PT/OT Please reference care plan for treatment goals, if indicated. Discharge Summary Statement If this is the last swallow therapy visit, this serves as the discharge summary. ULUS TUTOR documented in this encounter Consult Notes * Carmelina Sweeney RD - 10/12/2024 11:38 AM CST NUTRITION ASSESSMENT Nutrition Status: Patient appears adequately nourished at this time. REASON FOR ASSESSMENT: follow up Encounter Date: 10/12/24 11:38 AM Admission Date: 10/08/2024 LOS: 4 days HPI: Patient is a 74 y.o. female fall. PMH of hypertension, hyperlipidemia, GERD, generalized anxiety disorder transferring from [facility] to [facility]. Per , the patient was having a warm bath. He noticed the bathroom door was open and heard a loud thud. He saw his leaning on her right side against the wall, without loss of consciousness. Objective Past Medical History: Diagnosis Date Closed right ankle fracture 12/2012 Essential hypertension 07/22/2023 Fibrocystic breast Hyperlipidemia Pneumonia 04/06/2010 Prediabetes 04/23/2023 Past Surgical History: Procedure Laterality Date CARDIOVASCULAR STRESS TEST 04/05/2012 COLONOSCOPY 06/26/2011 COLONOSCOPY W/ POLYPECTOMY 07/17/2021 DILATION AND CURETTAGE, DIAGNOSTIC / THERAPEUTIC 1985 TONSILLECTOMY Social History Tobacco Use Smoking status: Never Smokeless tobacco: Never Substance and Sexual Activity Drug use: Never Sexual activity: Not Currently Alcohol Use: Not At Risk (04/21/2023) AUDIT-C Frequency of Alcohol Consumption: 2-4 times a month Average Number of Drinks: 1 or 2 Frequency of Binge Drinking: Never MEDICATION/LAB REVIEW: Scheduled Meds: atorvastatin, 40 mg, feeding tube, Daily docusate sodium, 100 mg, oral, BID Or docusate, 100 mg, feeding tube, BID famotidine, 20 mg, feeding tube, BID heparin, 5,000 Units, subcutaneous, Q8H ARELY lisinopriL, 2.5 mg, oral, Once [START ON 10/13/2024] lisinopriL, 5 mg, feeding tube, Daily polyethylene glycol, 17 g, feeding tube, BID ramelteon, 8 mg, feeding tube, Nightly Continuous Infusions: PRN Meds: acetaminophen labetalol OR hydrALAZINE ondansetron Recent Labs Lab Units 10/11/24210510/10/24212910/09/24212510/08/242155 SODIUM mmol/L 145 142 145 148* POTASSIUM PLASMA mmol/L 4.2 4.4 4.2 3.7 CHLORIDE mmol/L 108 106 109 114* CO2 mmol/L 29 29 28 24 BUN SERUM mg/dL 17 15 12 11 CREATININE mg/dL 0.74 0.71 0.80 0.74 [id number] mL/min/1.73 m2 85 90 78 85 CALCIUM mg/dL 9.5 8.7 9.1 7.4* ALBUMIN g/dL -- -- -- 3.1* PHOSPHORUS PLASMA mg/dL -- -- -- 2.8 MAGNESIUM mg/dL -- 2.2 2.6* 1.9 Recent Labs Lab Units 10/11/24210510/10/24212910/09/24212510/09/24 0753 10/08/24215510/08/24 1151 10/08/24 1134 GLUCOSE mg/dL 137 137 134 -- 82 109 -- POC GLUCOSE MONITOR mg/dL -- -- -- 95 -- -- 100 No results found for: ALT , AST , BILIRUBIN , ALKPHOS , LIPASE Lab Results Component Value Date HGBA1C 5.8 (H) 04/13/2024 HDL 70 04/13/2024 LDLCALC 71 04/13/2024 CHOL 153 04/13/2024 TRIG 58 04/13/2024 NURSING ASSESSMENT: Last BM Date: (ASSISTANT MANAGER TRAINEE) Bowel Sounds (All Quadrants): Active Hi Scale Score: 14 Skin Integrity: Abrasion Vital Signs BP: 155/78 Temp: 36.6 ??C (97.9 ??F) Pulse: 78 Resp: 17 SpO2: 97 % Intake/Output Summary (Last 24 hours) at 10/12/2024 1138 Last data filed at 10/12/2024 0824 Gross per 24 hour Intake 1420 ml Output 925 ml Net 495 ml Adult Malnutrition Scoring Tool (MST) What diet do you follow at home?: jason Have You Recently Lost Weight Without Trying?: Unsure Have you been eating poorly because of a decreased appetite?: No Malnutrition Screening Tool (MST) Score: 2 Anthropometrics Weight: 86.5 kg (190 lb 11.2 oz) Admission Weight : 86.5 kg Weight Change: -1.58 kg (-3.50 lbs) IBW/kg (Calculated) : 52.2 kg Height: 160 cm (5' 3 ) Weight in (lb) to have BMI = 25: 140.8 BMI (Calculated): 33.8 Wt Readings from Last 10 Encounters: 10/08/24 86.5 kg (190 lb 11.2 oz) 10/08/24 88.1 kg (194 lb 3.2 oz) 07/18/24 83.5 kg (184 lb) 05/24/24 82.6 kg (182 lb) 04/25/24 84 kg (185 lb 3.2 oz) 04/06/24 85.3 kg (188 lb) 12/02/23 90.3 kg (199 lb) 07/22/23 89.8 kg (198 lb) 04/21/23 94.3 kg (208 lb) 12/28/22 94.3 kg (208 lb) ESTIMATED NEEDS: Total Kcal/kg Estimated Needs : 1557 Kcal/k (0571-0929 kcal/day). Type of Weight Used for Estimated Kcals: Current Total Protein Estimated Needs (gm): 73.08 Protein Needs Based on g/k.4 (62- 73 G/protein/day) Type of Weight Used for Estimated Protein : Cros[place] Dietary Orders (From admission, onward) Start Ordered 10/10/24928 Tube Feeding Diet Continuous; Jevity 1.5 Mauro; 40; Nasogastric tube (NGT); 150; Saline; Every 4 hours (Tube Feeding Diet Panel) Diet effective now Comments: Start at 10 ml/hr and increase 10 ml Q 4 hours goal 40 ml/hour Question Answer Comment Tube feeding type: Continuous (BJ) Tube Feeding Formula: Jevity 1.5 Mauro Tube Feeding Continuous (mL/hr): 40 Per Tube: Nasogastric tube (NGT) Tube Feeding Flush (mL): 150 Flush Type: Saline Flush Frequency: Every 4 hours 10/10/24928 Allergies: Reviewed. IMPRESSION: Pt is oriented to person. In mitten restraints. Speech is incomprehensible 10/11 MACHINE ASSEMBLER SUPERVISOR: NPO Jevity 1.5 mauro at 40 ml/hour per NGT. Tolerating TF at goal. No issues with NV per flowsheets Labs noted Skin intact per nursing assessments Last BM ASSISTANT MANAGER TRAINEE, colace, senna. 73% TF given over last 3 days AAIM (ASPEN) MALNUTRITION ASSESSMENT: Date of completion: 10/09/24 NUTRITION FOCUSED PHYSICAL EXAM: Completed, no signs of wasting noted. NUTRITION DIAGNOSIS: Nutrition Diagnosis 1: Inadequate oral intake Related to: NPO status Evidenced by: Need for full tube feeding INTERVENTION(S): Summary: Enteral nutrition administration Recommend transition to bolus TF. Jevity 1.5 to begin with 60 ml bolus. Increase 60 ml Q 4 hr to goal 240 ml QID via nasogastric tube Add 1 packet Prosource daily 150 ml saline flush Q 4 hr Enteral regimen provides 1,480 calories ( calories / kg), 72 g protein (1.4 g/kg IBW), 207 g carbohydrate, 729 mL free water. Monitor electrolytes replete PRN. Follow aspiration precautions. GOAL(S): Tolerance of enteral feeding at goal rate MONITORING/EVALUATION: Labs, Stool patterns, Weight changes, TF tolerance [phone] (weekend clinical documentation nurse) ULUS TUTOR * Sai Gotti RN - 10/11/2024 11:55 AM CSTAssociated Order(s): PSYCH ASSISTANT CONSULT Alteration Specialist Note Patient is in division 94-ICU with a clinical diagnosis of Left basal ganglia / internal capsule ICH with symptoms of: fall, confusion Thrombolytic given: No Location Given: N/A Thrombectomy: No Other intervention: None NIH Stroke Scale Interval: Other (Comment) (SMART consult) Level of Consciousness (1a.): 0 LOC Questions (1b.): 2 LOC Commands (1c.): 1 Best Gaze (2.): 1 Visual (3.): 1 Facial Palsy (4.): 2 Motor Arm, Left (5a.): 0 Motor Arm, Right (5b.): 3 Motor Leg, Left (6a.): 0 Motor Leg, Right (6b.): 3 Limb Ataxia (7.): 0 Sensory (8.): 1 Best Language (9.): 2 Dysarthria (10.): 2 Extinction and Inattention (11.) (Formerly Neglect): 0 Total: 18 Premorbid Modified Terry Modified Joy (mRS) Modified Joy Score: No symptoms. (premorbid) Depression Screening (PHQ2 and PHQ9) Stroke education Education provided to Patient, Written education left at bedside, and Family/Caregiver not available at this time Type of education provided: Verbal and Written Education Provided: Stroke warning signs and symptoms of stroke (BEFAST), Activations of EMS (Call 911), Follow up after discharge, Medication compliance, Individualized risk factors, and Secondary stroke prevention Personal Risk Factors: hypertension, elevated cholesterol, inactivity, obesity, and age greater than 55 Secondary Stroke Prevention Measures: Achieve/maintain a healthy weight, Get regular physical activity, Take daily cholesterol/statin medication as prescribed, Take blood pressure medication as prescribed, Blood pressure monitoring, and Maintain regular physician appointments Response to education: Needs reinforcement and Caregiver not present Patient Stated Goal: unable to set goals due to aphasia Recommendation: SMART to evaluate and develop appropriate rehabilitation plan Additional details: To contact the community services coordinator call: Sai Gotti [phone] Business cards left with education packet for additional questions ULUS TUTOR * Lisa Chow RD - 10/10/2024 10:17 AM CST NUTRITION ASSESSMENT Nutrition Status: Patient appears adequately nourished at this time. REASON FOR ASSESSMENT: follow up Encounter Date: 10/10/24 10:17 AM Admission Date: 10/08/2024 LOS: 2 days HPI: Patient is a 74 y.o. female fall. PMH of hypertension, hyperlipidemia, GERD, generalized anxiety disorder transferring from [facility] to [facility]. Per , the patient was having a warm bath. He noticed the bathroom door was open and heard a loud thud. He saw his leaning on her right side against the wall, without loss of consciousness. Objective Past Medical History: Diagnosis Date Closed right ankle fracture 12/2012 Essential hypertension 07/22/2023 Fibrocystic breast Hyperlipidemia Pneumonia 04/06/2010 Prediabetes 04/23/2023 Past Surgical History: Procedure Laterality Date CARDIOVASCULAR STRESS TEST 04/05/2012 COLONOSCOPY 06/26/2011 COLONOSCOPY W/ POLYPECTOMY 07/17/2021 DILATION AND CURETTAGE, DIAGNOSTIC / THERAPEUTIC 1985 TONSILLECTOMY Social History Tobacco Use Smoking status: Never Smokeless tobacco: Never Substance and Sexual Activity Drug use: Never Sexual activity: Not Currently Alcohol Use: Not At Risk (04/21/2023) AUDIT-C Frequency of Alcohol Consumption: 2-4 times a month Average Number of Drinks: 1 or 2 Frequency of Binge Drinking: Never MEDICATION/LAB REVIEW: Scheduled Meds: [START ON 10/11/2024] atorvastatin, 40 mg, feeding tube, Daily docusate sodium, 100 mg, oral, BID Or docusate, 100 mg, feeding tube, BID famotidine, 20 mg, feeding tube, BID heparin, 5,000 Units, subcutaneous, Q8H ARELY ramelteon, 8 mg, feeding tube, Nightly senna, 1 tablet, oral, BID Or senna, 8.8 mg, feeding tube, BID Continuous Infusions: PRN Meds: acetaminophen labetalol OR hydrALAZINE ondansetron Recent Labs Lab Units 10/09/24212510/08/24215510/08/24 1151 SODIUM mmol/L 145 148* 143 POTASSIUM PLASMA mmol/L 4.2 3.7 4.4 CHLORIDE mmol/L 109 114* 103 CO2 mmol/L 28 24 28 BUN SERUM mg/dL 12 11 16 CREATININE mg/dL 0.80 0.74 0.81 [id number] mL/min/1.73 m2 78 85 77 CALCIUM mg/dL 9.1 7.4* 9.4 ALBUMIN g/dL -- 3.1* 4.1 PHOSPHORUS PLASMA mg/dL -- 2.8 3.0 MAGNESIUM mg/dL 2.6* 1.9 2.3 Recent Labs Lab Units 10/09/246 10/09/24 0753 10/08/24 2156 10/08/24 1151 10/08/24 1134 10/08/24 0932 10/08/24 0920 GLUCOSE mg/dL 134 -- 82 109 -- 109 -- POC GLUCOSE MONITOR mg/dL -- 95 -- -- 100 -- 95 ALT Date Value Ref Range Status 10/08/2024 16 7 - 45 Units/L Final AST Date Value Ref Range Status 10/08/2024 19 10 - 45 Units/L Final Alk phos Date Value Ref Range Status 10/08/2024 53 40 - 130 Units/L Final Lab Results Component Value Date HGBA1C 5.8 (H) 04/13/2024 HDL 70 04/13/2024 LDLCALC 71 04/13/2024 CHOL 153 04/13/2024 TRIG 58 04/13/2024 NURSING ASSESSMENT: Last BM Date: (ASSISTANT MANAGER TRAINEE) Bowel Sounds (All Quadrants): Active Hi Scale Score: 15 Skin Integrity: Abrasion Vital Signs BP: 121/61 Temp: 36.9 ??C (98.5 ??F) Pulse: 63 Resp: 16 SpO2: 95 % Intake/Output Summary (Last 24 hours) at 10/10/2024 1017 Last data filed at 10/10/2024 1000 Gross per 24 hour Intake 1032.5 ml Output 925 ml Net 107.5 ml Adult Malnutrition Scoring Tool (MST) What diet do you follow at home?: jason Have You Recently Lost Weight Without Trying?: Unsure Have you been eating poorly because of a decreased appetite?: No Malnutrition Screening Tool (MST) Score: 2 Anthropometrics Weight: 86.5 kg (190 lb 11.2 oz) Admission Weight : 86.5 kg Weight Change: -1.58 kg (-3.50 lbs) IBW/kg (Calculated) : 52.2 kg Height: 160 cm (5' 3 ) Weight in (lb) to have BMI = 25: 140.8 BMI (Calculated): 33.8 Wt Readings from Last 10 Encounters: 10/08/24 86.5 kg (190 lb 11.2 oz) 10/08/24 88.1 kg (194 lb 3.2 oz) 07/18/24 83.5 kg (184 lb) 05/24/24 82.6 kg (182 lb) 04/25/24 84 kg (185 lb 3.2 oz) 04/06/24 85.3 kg (188 lb) 12/02/23 90.3 kg (199 lb) 07/22/23 89.8 kg (198 lb) 04/21/23 94.3 kg (208 lb) 12/28/22 94.3 kg (208 lb) ESTIMATED NEEDS: Total Kcal/kg Estimated Needs : 1557 Kcal/k (3093-0017 kcal/day). Type of Weight Used for Estimated Kcals: Current Total Protein Estimated Needs (gm): 73.08 Protein Needs Based on g/k.4 (62- 73 G/protein/day) Type of Weight Used for Estimated Protein : Crosby Dietary Orders (From admission, onward) Start Ordered 10/10/24 0929 Tube Feeding Diet Continuous; Jevity 1.5 Mauro; 40; Nasogastric tube (NGT); 150; Saline; Every 4 hours (Tube Feeding Diet Panel) Diet effective now Comments: Start at 10 ml/hr and increase 10 ml Q 4 hours goal 40 ml/hour Question Answer Comment Tube feeding type: Continuous (BJ) Tube Feeding Formula: Jevity 1.5 Mauro Tube Feeding Continuous (mL/hr): 40 Per Tube: Nasogastric tube (NGT) Tube Feeding Flush (mL): 150 Flush Type: Saline Flush Frequency: Every 4 hours 10/10/24 0929 Allergies: Reviewed. IMPRESSION: A/o x 0, drowsy Pt too drowsy for bedside swallow at this time. 2/2 NGT Tip terminates gastric body, gas pattern WNL Jevity 1.5 mauro at 40 ml/hour, tolerating TF at goal per nurse. No issues with NV Skin intact per nursing assessments Last BM ASSISTANT MANAGER TRAINEE, colace, senna. Glucose 95 today 460 ml TF given over the past 24 hours AAIM (ASPEN) MALNUTRITION ASSESSMENT: Date of completion: 10/09/24 NUTRITION FOCUSED PHYSICAL EXAM: Completed, no signs of wasting noted. NUTRITION DIAGNOSIS: Nutrition Diagnosis 1: Inadequate oral intake Related to: NPO status Evidenced by: Need for full tube feeding INTERVENTION(S): Summary: Enteral nutrition administration Recommend continue with Jevity 1.5 mauro goal 40 ml/hour and 1 packet Prosource daily @ via nasogastric tube Water flushes/hydration ICU to manage. Nutrition Additives: Prosource daily Enteral regimen provides 1,480 calories ( calories / kg), 72 g protein (1.4 g/kg IBW), 207 g carbohydrate, 729 mL free water. Monitor electrolytes replete PRN. Follow aspiration precautions. GOAL(S): Tolerance of enteral feeding at goal rate MONITORING/EVALUATION: Labs, Stool patterns, Weight changes, TF tolerance Nicky Chow RD [phone] (weekend clinical documentation nurse) ULUS TUTOR * Lisa Chow RD - 10/09/2024 9:45 AM CSTAssociated Order(s): IP CONSULT TO NUTRITION SERVICES NUTRITION ASSESSMENT Nutrition Status: Patient appears adequately nourished at this time. REASON FOR ASSESSMENT: Consult/Referral - Tube Feeding Assessment Encounter Date: 10/09/24 11:38 AM Admission Date: 10/08/2024 LOS: 1 days HPI: Patient is a 74 y.o. female fall. PMH of hypertension, hyperlipidemia, GERD, generalized anxiety disorder transferring from [facility] to [facility]. Per , the patient was having a warm bath. He noticed the bathroom door was open and heard a loud thud. He saw his leaning on her right side against the wall, without loss of consciousness. Objective Past Medical History: Diagnosis Date Closed right ankle fracture 12/2012 Essential hypertension 07/22/2023 Fibrocystic breast Hyperlipidemia Pneumonia 04/06/2010 Prediabetes 04/23/2023 Past Surgical History: Procedure Laterality Date CARDIOVASCULAR STRESS TEST 04/05/2012 COLONOSCOPY 06/26/2011 COLONOSCOPY W/ POLYPECTOMY 07/17/2021 DILATION AND CURETTAGE, DIAGNOSTIC / THERAPEUTIC 1985 TONSILLECTOMY Social History Tobacco Use Smoking status: Never Smokeless tobacco: Never Substance and Sexual Activity Drug use: Never Sexual activity: Not Currently Alcohol Use: Not At Risk (04/21/2023) AUDIT-C Frequency of Alcohol Consumption: 2-4 times a month Average Number of Drinks: 1 or 2 Frequency of Binge Drinking: Never MEDICATION/LAB REVIEW: Scheduled Meds: atorvastatin, 40 mg, oral, Daily docusate sodium, 100 mg, oral, BID Or docusate, 100 mg, feeding tube, BID famotidine, 20 mg, intravenous, Q12H ARELY ramelteon, 8 mg, oral, Nightly senna, 1 tablet, oral, BID Or senna, 8.8 mg, feeding tube, BID tamsulosin, 0.4 mg, oral, Daily with dinner Continuous Infusions: sodium chloride 0.9%, 75 mL/hr, Last Rate: 75 mL/hr (10/08/242221) PRN Meds: acetaminophen labetalol OR hydrALAZINE ondansetron Recent Labs Lab Units 10/08/24215510/08/24 11510/08/24 0932 10/08/24 0932 SODIUM mmol/L 148* 143 -- 140 POTASSIUM PLASMA mmol/L 3.7 4.4 -- 4.1 CHLORIDE mmol/L 114* 103 -- 105 CO2 mmol/L 24 28 -- 24 BUN SERUM mg/dL 11 16 -- 18 CREATININE mg/dL 0.74 0.81 -- 0.79 [id number] mL/min/1.73 m2 85 77 -- 79 CALCIUM mg/dL 7.4* 9.4 -- 9.1 ALBUMIN g/dL 3.1* 4.1 -- 3.8 PHOSPHORUS PLASMA mg/dL 2.8 3.0 < > -- MAGNESIUM mg/dL 1.9 2.3 -- 2.2 < > = values in this interval not displayed. Recent Labs Lab Units 10/09/24 0753 10/08/24215510/08/24 1151 10/08/24 0932 GLUCOSE mg/dL -- 82 109 109 POC GLUCOSE MONITOR mg/dL 95 -- -- -- ALT Date Value Ref Range Status 10/08/2024 16 7 - 45 Units/L Final AST Date Value Ref Range Status 10/08/2024 19 10 - 45 Units/L Final Alk phos Date Value Ref Range Status 10/08/2024 53 40 - 130 Units/L Final Lab Results Component Value Date HGBA1C 5.8 (H) 04/13/2024 HDL 70 04/13/2024 LDLCALC 71 04/13/2024 CHOL 153 04/13/2024 TRIG 58 04/13/2024 NURSING ASSESSMENT: Last BM Date: (ASSISTANT MANAGER TRAINEE) Bowel Sounds (All Quadrants): Active Hi Scale Score: 14 Skin Integrity: Abrasion Vital Signs BP: 147/70 Temp: 37.2 ??C (99 ??F) Pulse: 91 Resp: 24 SpO2: 95 % Intake/Output Summary (Last 24 hours) at 10/09/2024 1138 Last data filed at 10/09/2024 1000 Gross per 24 hour Intake 2439.33 ml Output 1675 ml Net 764.33 ml Adult Malnutrition Scoring Tool (MST) What diet do you follow at home?: jason Have You Recently Lost Weight Without Trying?: Unsure Have you been eating poorly because of a decreased appetite?: No Malnutrition Screening Tool (MST) Score: 2 Anthropometrics Weight: 86.5 kg (190 lb 11.2 oz) Admission Weight : 86.5 kg Weight Change: -1.58 kg (-3.50 lbs) IBW/kg (Calculated) : 52.2 kg Height: 160 cm (5' 3 ) Weight in (lb) to have BMI = 25: 140.8 BMI (Calculated): 33.8 Wt Readings from Last 10 Encounters: 10/08/24 86.5 kg (190 lb 11.2 oz) 10/08/24 88.1 kg (194 lb 3.2 oz) 07/18/24 83.5 kg (184 lb) 05/24/24 82.6 kg (182 lb) 04/25/24 84 kg (185 lb 3.2 oz) 04/06/24 85.3 kg (188 lb) 12/02/23 90.3 kg (199 lb) 07/22/23 89.8 kg (198 lb) 04/21/23 94.3 kg (208 lb) 12/28/22 94.3 kg (208 lb) ESTIMATED NEEDS: Total Kcal/kg Estimated Needs : 1557 Kcal/k (0725-5031 kcal/day). Type of Weight Used for Estimated Kcals: Current Total Protein Estimated Needs (gm): 73.08 Protein Needs Based on g/k.4 (62- 73 G/protein/day) Type of Weight Used for Estimated Protein : Crosby Dietary Orders (From admission, onward) Start Ordered 10/08/24 1141 NPO Diet Diet effective now 10/08/24 1142 Allergies: Reviewed. IMPRESSION: +vent 2/2 NGT Tip terminates gastric body, gas pattern WNL Spoke with family at bedside. Pt consumes regular diet at home, 3 meals and pt usually does not snack. Pt has intentionally lost some wt prior to the holidays then gained 5# back per . Pt swims usually once a week No issues with NV Skin intact per nursing assessments Last BM ASSISTANT MANAGER TRAINEE, juanito wick. TYE (ASPEN) MALNUTRITION ASSESSMENT: Date of completion: 10/09/24 NUTRITION FOCUSED PHYSICAL EXAM: Completed, no signs of wasting noted. NUTRITION DIAGNOSIS: Nutrition Diagnosis 1: Inadequate oral intake Related to: NPO status Evidenced by: Need for full tube feeding INTERVENTION(S): Summary: Enteral nutrition administration When ready to start enteral nutrition, recommend Jevity 1.5 mauro 10 ml/hour, increase 10 ml Q 4 hours goal 40 ml/hour 1 packet Prosource daily @ via nasogastric tube Water flushes/hydration ICU to manage. Nutrition Additives: Prosource daily Enteral regimen provides 1,480 calories ( calories / kg), 72 g protein (1.4 g/kg IBW), 207 g carbohydrate, 729 mL free water. Monitor electrolytes replete PRN. Follow aspiration precautions. GOAL(S): Tolerance of enteral feeding at goal rate MONITORING/EVALUATION: Labs, Stool patterns, Weight changes, TF tolerance Nicky Chow RD [phone] (weekend clinical documentation nurse) ULUS TUTOR documented in this encounter Nursing Notes * Owen Florian RN - 10/11/2024 10:14 PM CST Patient was transferred to [address] [place] [address] via bed with all personal belongings, patient's vital signs werestable upon arrival. Bedside report given to OLE Hammonds, all questions were answered. Family was notified about patient's transfer via voice mail. ULUS TUTOR documented in this encounter Miscellaneous Notes * Hospital Course - Ashok Hauser MD - 10/17/2024 3:40 PM CALCULUS TUTOR Megan Salas is a 74 y.o. female with PMH of hypertension, hyperlipidemia, GERD, generalized anxiety disorder, who presented on 10/08 to [place] with acute onset right-sided weakness and aphasia, found to have large left basal ganglia and internal capsule intraparenchymal hematoma (ICH score 1 for GCS), subsequently transferred to [facility]. Her ICU course was complicated by persistent encephalopathy felt out of proportion to her IPH. 24 hour cvEEG was without seizures, just L>R slowing. Other workup for toxic-metabolic causes negative, and her encephalopathy improved over time, still withdense aphasia. Etiology of her IPH presumed to be hypertensive, although she will need a brain MRI with and without contrast in 3 months (01/2025). She was evaluated by PT and OT, who recommended discharge to inpatient rehab. # L BG/IC IPH (hemorrhagic CVA) Patient presented 10/08 after a fall at home. Found by her leaning to her right side and not speaking. Arrived to [facility] alert, but mute, globally weak. NIHSS 23 (aphasia, globally weak). CTH with6.3 x 2.0 x 3.2 cm. Exam here notable for dense global aphasia, LUE and LLE 4/5, RUE and RLE 2/5. 24h EEG 10/08 - 10/09 with L>R slowing, no seizures. Etiology likely hypertensive, although BP fairly well controlled over the past 10+ years. UDS just with home benzos. CTA without vascular abnormality. Will need to obtain bMRI in 3 months. - BP control as in hypertension - brain MRI wwo 3 months (01/2025) # Hypertension Home lisinopril 5 mg daily. Longitudinal SBP 120s-140s over past 10 years. 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 # Likely SHAMAR While hospitalized, she intermittently had O2 sats 90-91% when sleeping. She will require outpatient follow up for sleep study. # Constipation -Continue Miralax/docusate BID, or bowel regimen as determined by Inpatient Rehab. # GERD -Continue home pepcid 20 mg BID #Delirium # Insomnia -Nightly ramelteon -Delirium precautions # Mood disorder -Held home xanax 0.25 mg TID PRN and home doxepin 10 mg daily ULUS TUTOR * Plan of Care - Zohaib Zheng RN - 10/17/2024 2:34 PM CST Goals: Clinical Goals for the Shift: VSS, neuro checks, q2turn, aspiration precautions, promote BM, assistw/ meals if needed, promote comfort and safety Summary: Problem: Skin Integrity Impairment Risk Goal: Mobility will improve Outcome: Progressing Goal: Understanding of ways to prevent future skin breakdown will improve Outcome: Progressing Goal: Nutritional status will improve Outcome: Progressing Goal: Risk for impaired skin integrity will decrease Outcome: Progressing Problem: Neurosensory Goal: Achieves stable or improved neurological status Outcome: Progressing Goal: Absence of seizures Outcome: Progressing Goal: Remains free of injury related to seizures activity Outcome: Progressing Goal: Achieves maximal functionality and self care Outcome: Progressing Goal: Ability to maintain intracranial pressure will improve Outcome: Progressing Problem: Respiratory Goal: Achieves optimal ventilation and oxygenation Outcome: Progressing Goal: Ability to maintain a clear airway will improve Outcome: Progressing Goal: Mechanical Ventilation will be safely managed Outcome: Progressing Problem: Cardiovascular Goal: Maintains optimal cardiac output and hemodynamic stability Outcome: Progressing Goal: Absence of cardiac dysrhythmias or at baseline Outcome: Progressing Goal: Cardiovascular status will improve Outcome: Progressing Problem: Skin/Tissue Integrity Goal: Skin integrity remains intact Outcome: Progressing Goal: Incisions, wounds, or drain sites healing without S/S of infection Outcome: Progressing Goal: Oral mucous membranes remain intact Description: Outcome: Progressing Problem: Musculoskeletal Goal: Return mobility to safest level of function Outcome: Progressing Goal: Maintain proper alignment of affected body part Outcome: Progressing Goal: Return ADL status to a safe level of function Outcome: Progressing Goal: Ability to perform activities at highest level will improve Outcome: Progressing Goal: Mobility, ROM and muscle strength will improve Outcome: Progressing Problem: Gastrointestinal Goal: Minimal or absence of nausea and vomiting Outcome: Progressing Goal: Maintains or returns to baseline bowel function Outcome: Progressing Goal: Maintains adequate nutritional intake Outcome: Progressing Goal: Establish and maintain optimal ostomy function Outcome: Progressing Goal: Will show no signs and symptoms of gastrointestinal bleeding Outcome: Progressing Problem: Genitourinary Goal: Absence of urinary retention Outcome: Progressing Goal: Urinary catheter remains patent Outcome: Progressing Problem: Infection Goal: Absence of infection during hospitalization Outcome: Progressing Goal: Absence of fever/infection during anticipated neutropenic period Outcome: Progressing Problem: Metabolic/Fluid and Electrolytes Goal: Electrolytes maintained within normal limits Outcome: Progressing Goal: Hemodynamic stability and optimal renal function maintained Outcome: Progressing Goal: Glucose maintained within prescribed range Outcome: Progressing Problem: Hematologic Goal: Maintains hematologic stability Outcome: Progressing Problem: Activity Goal: Ability to maintain optimal joint mobility will improve Outcome: Progressing Goal: Mobility will improve Outcome: Progressing Problem: Lack of Knowledge Goal: Knowledge of disease or condition will improve Outcome: Progressing Goal: Knowledge of the prescribed therapeutic regimen will improve Outcome: Progressing Problem: Coping Goal: Ability to identify and develop effective coping behavior will improve Outcome: Progressing Goal: Ability to verbalize positive feelings about self will improve Outcome: Progressing Goal: Communication of feelings of control over situation will improve Outcome: Progressing Goal: Ability to identify strategies to decrease anxiety will improve Outcome: Progressing Problem: Health Behavior Goal: Ability to manage health-related needs will improve Outcome: Progressing Problem: Nutritional Goal: Maintenance of adequate nutrition will improve Outcome: Progressing Problem: Physical Regulation Goal: Complications related to the disease process, condition or treatment will be avoided or minimized Outcome: Progressing Goal: Hemodynamic stability will improve Outcome: Progressing Problem: Respiratory Goal: Ability to maintain a clear airway will improve Outcome: Progressing Goal: Ability to maintain adequate ventilation will improve Outcome: Progressing Problem: Role Relationship Goal: Ability to communicate needs accurately will improve Outcome: Progressing Problem: Safety Goal: Ability to chew and swallow food without choking will improve Outcome: Progressing Goal: Ability to remain free from injury will improve Outcome: Progressing Problem: Self-Care Goal: General experience of comfort will improve Outcome: Progressing Problem: Sensory Goal: General experience of comfort will improve Outcome: Progressing Problem: Tissue Perfusion Goal: Signs of adequate cerebral perfusion will increase Outcome: Progressing Problem: Restraint for Interference with Medical Safety Goal: Knowledge of restraints will improve Outcome: Progressing Goal: Remains free from injury from restraints Outcome: Progressing Goal: Free from restraint(s) Outcome: Progressing Problem: Discharge Planning Goal: Understanding discharge needs will improve Outcome: Progressing ULUS TUTOR * Plan of Care - Zora Peralta RN - 10/17/2024 1:09 PM CST 10/17/24 9906 Discharge Planning Support System Spouse/Significant Other (Yared Salas (Spouse) ) Anticipated discharge level of care Acute Rehab Does the patient need discharge transport arranged? Yes Type of Transportation Ambulance/EMS Has discharge transport been arranged? No Discharge Transportation Communication Mode of transport has been discussed with the patient/family. All are agreeable to the plan and understand their responsibilities to ensure the safe transfer. No further CM/SW intervention is anticipated at this time. Post Acute Care Plan Home Care Services N/A OP Services N/A DME N/A Post Acute Care Facility Yes Referral Status Accepted Accepted Post Acute Care Location and Contact [address] [address]/ Kristin [phone] CM Progression of Care Update Per Medical Chart/Rounds/IDR: Pt is medically ready for discharge at this time. ADD: 10/17 vs 10/18 Discharge Barriers: Pt has not had a BM since 10/12. Education Needs Identified (plan): Kristin (Clinical Liaison for [facility]) [phone] notified this CM that insurance authorization has been received, however she noted that pt has not had aBM and they are unable to accept until she has a BM or a negative KUB. Notified Ashok Boggs MD and Floor RN, and pt's (via Voicemail). Once pt has a BM. CM to set up transportation via EMS and notify Kristin. F/U Appointments: To be scheduled. Patient's Identified Problem/Goal Problem:?Ensure acute medical needs are met and that patient has a safe discharge plan. Goal:?Secure a discharge plan that patient/family are agreeable with?and ensure patient has continuum of care. Patient and/or family are agreeable with plan. medical territory manager will continue to follow and assist with discharge planning as needed. If any further discharge needs arise, please contact the covering rn case manager hospice. ULUS TUTOR * Plan of Care - Jim Lyn - 10/17/2024 2:44 AM CST Goals: Clinical Goals for the Shift: neuro checks, promote PO intake, promote comfort and safety, increasefluid intake, up to the chair Summary: Problem: Skin Integrity Impairment Risk Goal: Mobility will improve Outcome: Progressing Goal: Understanding of ways to prevent future skin breakdown will improve Outcome: Progressing Goal: Nutritional status will improve Outcome: Progressing Goal: Risk for impaired skin integrity will decrease Outcome: Progressing Problem: Neurosensory Goal: Achieves stable or improved neurological status Outcome: Progressing Goal: Absence of seizures Outcome: Progressing Goal: Remains free of injury related to seizures activity Outcome: Progressing Goal: Achieves maximal functionality and self care Outcome: Progressing Goal: Ability to maintain intracranial pressure will improve Outcome: Progressing ULUS TUTOR * [facility] Note - Ronit Cruz RN - 10/16/2024 8:05 PM CST Images from the original note were not included. Patient Information: OT Eval and Treat Last 72 Hours OT Evaluation No documentation. OT Treatment Row Name 10/16/24 1226 10/10/24 1350 Session Type Treatment - Treatment - OT Received On 10/16/24 - 10/10/24 [facility] Safe Environment Arm band checked;Patient found in supine;Session completed bedside;Gait belt utilized for all out of bed mobility - Arm band checked;Patient found sitting in chair;Gait belt utilized for all out of bed mobility - Subjective Agreeable to Therapy - Agreeable to Therapy - Family/Caregiver Present No -SS Yes Son - Precautions Fall risk;SHAMAR - Fall risk - Pain Assessment No/denies pain - N-PAT - Pain Score 0 - No pain -SS -- N-PAT N-V Smiling.calm, relaxed none -- 0 - N-PAT N-V Movement -- 0 - N-PAT N-V Facial Cues -- 0 -MH N-PAT N-V Position/Guarding -- 0 -MH N-PAT N-V Score -- 0 -MH Arousal/Alertness Alert;Appropriate responses to stimuli - Alert - Attention Span -- Unable to attend/complete tasks Brief attention to grooming task - Memory -- Unable to assess - Orientation Oriented x 0 -SS Oriented to person Pt nodded yes to her name 1/2 trials - Following Commands Follows one step commands with repetition -SS -- Compliance/Behavior Easy to engage -SS -- Sitting Balance 0 -SS -- Arises 0 -SS -- Attempts to Arise 0 -SS -- Immediate Standing Balance (First 5 Seconds) 0 -SS -- Standing Balance 0 -SS -- Nudged 0 -SS -- Eyes Closed 0 -SS -- Turned 360 Degrees: Steadiness 0 -SS -- Turned 360 Degrees: Continuity of Steps 0 -SS -- Sitting Down 0 -SS -- Balance Score 0 -SS -- Static Sitting-Level of Assistance Close supervision - Minimum assistance - Dynamic Sitting-Level of Assistance Contact guard -SS -- Static Standing-Level of Assistance Moderate assistance - Moderate assistance - Dynamic Standing-Level of Assistance Moderate assistance - -- Feeding: Where assessed Chair - -- Feeding: Level of assistance Minimum Assist Min A for spillage - -- Grooming: Where assessed Chair - Chair - Grooming: Level of assistance Maximum Assist Mod A task; Unable to perform in standing - Dependent Pt maintained grasp on item and initiated appropriate use - LE Dressing: Where assessed Chair - Chair - LE Dressing: Level of assistance Dependent - Dependent - Bed Mobility -- Yes - Bed Mobility From 1 -- Edge of bed - Bed Mobility Type 1 -- To - Bed Mobility to 1 -- Supine - Level of Assistance 1 -- Moderate Assist - Bed Mobility Comments 1 -- assist with balance, maneuver LEs, control descent of trunk - Transfer -- Yes -MH Transfer From 1 Sit -SS Chair with arms -MH Transfer Type 1 To and from - To - Transfer to 1 Stand -SS Bed - Technique 1 Sit to stand;Stand to sit -SS Stand and step - Transfer Device 1 No device - -- Transfer Level of Assistance 1 Moderate Assist - Moderate Assist - Trials/Comments 1 Mod A for balance and safety, decreased force production, blocking of right LE -SS Impaired balance, decreased force production - Transfer From 2 Chair with arms - Sit - Transfer Type 2 To and from - To and from - Transfer to 2 Bed -SS Stand - Technique 2 Stand and step - Sit to stand;Stand to sit - Transfer Device 2 No device - -- Transfer Level of Assistance 2 Moderate Assist -SS Moderate Assist - Trials/Comments 2 Mod A for balance and safety, blocking of right LE -SS Decreased force production, impaired balance, to control descent - ROM/STRENGTH -- Yes R PROM shoulder flexion/extension, elbow flexion/extension, forearm supination/pronation, wrist flexion/extension, thumb extension/flexion, finger flexion/extension - Comments Pt with episode of urinary incontinence requiring tech assist to clean patient and change linens on chair. -SS -- Putting on and taking off regular lower body clothing 1 -SS 1 - Bathing 2 -SS 1 - Toileting 1 -SS 1 - Putting on and taking off upper body clothing 2 -SS 1 - Personal Grooming 2 -SS 1 - Eating Meals 3 -SS 1 - Total Score (range 6-24) 11 -SS 6 - Score Interpretation 29.04 -SS 17.07 - Safe Environment End of Therapy Session Patient left in chair;Chair alarm in place and activated;RNnotified;Call light within reach;Overbed table within reach - Patient left supine in bed;RN notified;Restraint or restraint alternative in place - Problem List Decreased ADL independence;Decreased IADL independence;Debility;Decreased mobility;Decreased 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 strength;Decreased safe judgment during ADL;Decreased cognition;Decreased endu madeleine;Decreased balance;Decreased fine motor control;Decreased functional mobility;Decreased gross motor control - Decreased mobility;Decreased 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 strength;Decreased safe judgment during ADL;Decreased cognition;Decreased endurance;Decreased balance;Decreased functional mobility;Decreased ADL independence;Decreased IADL independence;Decreased response to environment;Decreased fine motor control - Barriers to Discharge Current Mobility Status;Cognition - -- Plan Continue with current plan;If this is the last note, consider this the discharge summary - Continue with current plan;If this is the last note, consider this the discharge summary - OT Recommendation Inpatient Rehab Facility - Inpatient Rehab Facility - Patient is motivated to actively participate in therapy 3hr/day, 5days/wk (900min) -- Yes - Final discharge destination post acute care will be community based (home, independent living, assisted living) -- Yes - Patient requires more than one skilled therapy discipline -- Yes - Patient requires at least minimal assistance with toileting/toilet transfers, transfers AND locomotion (amb or w/c mobility) -- Yes - Patient has cognitive function to actively participate and benefit from intensive rehab -- Yes - Recommend Inpatient Rehab/Acute Rehab due to Ability to actively participate in intensive therapy 3hours/day, 5 days/week or 900 minutes per week;Highly motivated to participate in therapy;Requires greater than 25% physical assistance with most mobility tasks;Requires greater than 25% physical assi stance with most ADL tasks;Requires multiple therapy disciplines to address functional deficits;Requires skilled therapy interventions to address neurological deficits -SS Not at baseline due to impaired ability to complete ADLs;Requires greater than 25% physical assistance with most mobility tasks; Requires greater than 25% physical assistance with most ADL tasks;Requires multiple therapy disciplines to address functional deficits - Patient at high risk for -- Falls;Injury due to decreased ability to care for self;Injury due to reduced functional status;Injury due to impaired cognition;Injury due to balance deficits;Injury at home as patient has not returned to prior level of function - OT Frequency during current admission 5-7x/wk - 5-7x/wk - Treatment/Interventions during current admission ADL/IADL retraining;Balance Training;Bed mobility;Cognitive retraining;Compensatory technique education;Endurance training;Equipment eval/education;Functional activity;Functional mobility training;Functional transfer training;Neuromuscular re-education;Parent/caregiver training and education;Positioning;Strengthening;Therapeutic activity;Therapeutic exercise;Transfer training - ADL/IADL retraining;Balance Training;Bed mobility;Cognitive retraining;Endurance training;Functional activity;Functional mobility training;Functional transfer training;Neuromuscular re-education;Range of motion;Strengthening;Therapeutic activity;Therapeutic exercise;Transfer training - Progress during current admission Progressing toward goals - Progressing toward goals - OT - Next Appointment 10/17/24 -SS 10/11/24 - OT Start Time 1226 - 1350 - OT Stop Time 1252 -SS 1417 - OT Time Calculation (min) 26 min - 27 min - User Olguin (r) = Recorded By, (t) = Taken By, (c) = Cosigned By Initials Name Effective Dates Citlalli Villalta 08/07/24 - SS Alejandra Navarrete, OT 03/05/23 - OT Notes 10/16/2024 1:04 PM Progress Notes signed by Alejandra Navarrete, OT , OT Eval and Treat Last Documented OT ASSESSMENT FLOWSHEET LAST DOCUMENTED (most recent) OT Evaluation - 10/16/24 1345 Cognition Orientation Oriented to person;Able to orient when provided with multiple choice options OT TREATMENT FLOWSHEET LAST DOCUMENTED (most recent) OT Treatment - 10/16/24 1345 Cognition Orientation Oriented to person;Able to orient when provided with multiple choice options OT Notes 10/16/2024 1:04 PM Progress Notes signed by Alejandra Navarrete, OT , PT Eval and Treat Last 72 Hours PT Evaluation Row Name 10/12/24 1154 10/11/24 1329 10/10/24 0825 Chart Reviewed -- -- -KQ (r) LG (c) Yes -DT Session Type Treatment -MV Treatment -KQ (r) LG (c) Evaluation -DT Safe Environment -- -- Arm band checked;Session completed bedside;Gait belt utilized for all out ofbed mobility;Patient found in supine -DT Subjective Agreeable to Therapy -MV -- Agreeable to Therapy -DT Family/Caregiver Present -- -- Yes , son -DT Precautions Fall risk -MV -- Fall risk -DT Type of Home -- -- House -DT Home Layout -- -- One level -DT Home Mobility Equipment-Available -- -- None -DT Home Mobility Equipment-Currently Using -- -- None -DT Level of [place] -- -- Independent with ADLs;Independent functional transfers;Independent withambulation -DT Lives With -- -- Spouse -DT Receives Help From -- -- Spouse/Significant other -DT Fall within the last 6 months -- -- No -DT Pain Assessment -- -- N-PAT -DT N-PAT N-V Smiling.calm, relaxed none -- -- 0 -DT N-PAT N-V Movement -- -- 0 -DT N-PAT N-V Facial Cues -- -- 0 -DT N-PAT N-V Position/Guarding -- -- 0 -DT N-PAT N-V Score -- -- 0 -DT Vision Comments -- -- left gaze preference -DT Arousal/Alertness Alert -MV -- Alert -DT Orientation -- -- Unable to assess -DT Following Commands -- -- Unable to follow commands -DT Compliance/Behavior Easy to engage -MV -- -- Light Touch -- -- Not tested patient unable to follow commands for testing -DT 1. Sitting to Standing -- -- 0 -DT 2. Standing Unsupported -- -- 0 -DT 3. Sitting with Back Unsupported but Feet Supported on Floor or on a Stool -- -- 3 -DT 4. Standing to Sitting -- -- 0 -DT 5. Transfers -- -- 0 -DT 6. Standing Unsupported with Eyes Closed -- -- 0 -DT 7. Standing Unsupported with Feet Together -- -- 0 -DT 8. Reach Forward with Outstretched Arm While Standing -- -- 0 -DT 9. 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 Turning to Look Behind Over Left and Right Shoulders While Standing -- -- 0 -DT 11. Turn 360 Degrees -- -- 0 -DT 12. Place Alternate Foot on Step or Stool While Standing Unsupported -- -- 0 -DT 13. Standing Unsupported One Foot in Front -- -- 0 -DT 14. Standing on One Leg -- -- 0 -DT [place] Balance Score -- -- 3 -DT Static Sitting-Sitting Surface Bed -MV -- -- Static Sitting-Level of Assistance -- -- Contact guard -DT Static Standing-Standing Surface Floor -MV -- -- Static Standing-Level of Assistance -- -- Moderate assistance -DT Bed Mobility From 1 Supine -MV -- Supine -DT Bed Mobility Type 1 To -MV -- To -DT Bed Mobility to 1 Edge of bed -MV -- Edge of bed -DT Level of Assistance 1 -- -- Moderate Assist -DT Bed Mobility Comments 1 -- -- assist with manuevering LEs and elevation of trunk -DT Transfer From 1 Sit -MV -- Sit -DT Transfer Type 1 To -MV -- To and from -DT Transfer to 1 Stand -MV -- Stand -DT Technique 1 -- -- Sit to stand;Stand to sit -DT Transfer Device 1 -- -- Hand held assist -DT Transfer Level of Assistance 1 -- -- Moderate Assist -DT Trials/Comments 1 -- -- decreased force production, blocking right knee, assist with balance -DT Transfer From 2 -- -- Bed;Sit -DT Transfer Type 2 -- -- To -DT Transfer to 2 -- -- Chair with arms -DT Technique 2 -- -- Stand pivot -DT Transfer Device 2 -- -- Hand held assist -DT Transfer Level of Assistance 2 -- -- Maximum Assist -DT Trials/Comments 2 -- -- decreased force production, blocking right knee, assist with balance -DT RUE Comments -- -- PROM WFL -DT R Shoulder Flexion -- -- 2/5 -DT R Elbow Flexion -- -- 2/5 -DT R Elbow Extension -- -- 0/5 -DT LUE Assessment -- -- WFL -DT LUE Comments -- -- at least 3/5 -DT RLE Comments -- -- PROM WFL -DT R Hip Flexion -- -- 0/5 -DT R Knee Flexion -- -- 2/5 -DT R Knee Extension -- -- 0/5 -DT R Ankle Dorsiflexion -- -- 0/5 -DT LLE Assessment -- -- WFL -DT LLE Comments -- -- at least 3/5 -DT How much difficulty does the patient have: Turning over in bed -- -- 2 -DT How much difficulty does the patient currently have: Sitting down and standing up from a chair witharms? -- -- 2 -DT How much difficulty does the patient have: Moving from lying on back to sitting on the side of the bed? -- -- 2 -DT How much difficulty does the patient have: Moving to and from a bed to a chair including wheelchair? -- -- 2 -DT How much help does the patient currently need: Walk in hospital room? -- -- 1 -DT How much help from another person does the patient currently need: Climbing 3-5 steps with a railing? -- -- 1 -DT Total 6 Click Score (range 6-24) -- -- 10 -DT Score Interpretation -- -- 28.13 -DT Safe Environment End of Therapy Session -- -- Patient left in recliner;Chair alarm in place and activated;RN notified;Call light within reach -DT Prognosis Good -MV -- -- Problem List -- -- Reduced mobility;Gait deviations;Decreased strength;Decreased range of motion;Impaired balance -DT Problem List Comments -- -- Pt with left BG IPH presents with deficits in all functional mobility due to impairments in strength, balance, cognition. These deficits prevent full participation in homeambulation. -DT Plan Continue with current plan;If this is the last note, consider this the discharge summary -MV -- Plan of care initiated;If this is the last note, consider this the discharge summary -DT PT Recommendation/Plan -- -- Inpatient Rehab Facility -DT Recommend Inpatient Rehab/Acute Rehab due to -- -- Ability to actively participate in intensive therapy 3 hours/day, 5 days/week or 900 minutes per week;Highly motivated to participate in therapy;Impaired ability to complete functional mobility;Likely to return to the community at discharge with support system in place;Requires greater than 25% physical assistance with most mobility tasks;Requires multiple therapy disciplines to address functional deficits;Patient and caregiver require specialized skilled training due to new level of function/diagnosis;Requires skilled therapy interventions to address neurological deficits -DT PT Recommendation/Plan Comments Patient in agreement with PT plan of care. -MV -- -- PT Frequency during current admission -- -- 5-7x/wk -DT Treatment/Interventions during current admission Balance Training;Bed mobility;Endurance training;Functional transfer training;Neuromuscular re- education;Positioning;Range of motion;Therapeutic activity;Therapeutic exercise;Strengthening;Transfer training -MV -- Balance Training;Bed mobility;Endurance training;Functional activity;Functional transfer training;Strengthening;Therapeutic activity;Therapeutic exercise;Transfer training -DT PT Evaluation Complete -- -- Yes -DT PT Start Time -- -- 0825 -DT PT Stop Time -- -- 0850 -DT PT Time Calculation (min) -- -- 25 min -DT User Olguin (r) = Recorded By, (t) = Taken By, (c) = Cosigned By Initials Name Effective Dates MV Duong Mondragon, PT 04/26/23 - Shiraz Bautista 08/28/24 - DT Nikki Taylor, PT 01/15/22 - Verona Gutiérrez, PT 05/29/19 - PT TREATMENT (Last 168 Hours) PT Treatment Row Name 10/16/24 1037 10/12/24 1154 10/11/24 1329 PT Last Visit Session Type Treatment - -- -- Safe Environment Patient found in supine;Arm band checked;Session completed bedside;Gait belt utilized for all out of bed mobility - Arm band checked;Patient found in supine;Gait belt utilized for all out of bed mobility - Arm band checked;Patient found in supine;Gait belt utilized for all out of bed mobility -KQ (r) LG (c) Subjective Agreeable to Therapy - -- Other Unable to agree due to aphasia, RN stated appropriate for PT -KQ (r) LG (c) Family/Caregiver Present Yes spouse - Yes -MV Yes -KQ (r) LG (c) Precautions Precautions Fall risk;SHAMAR - -- Fall risk -KQ (r) LG (c) Precaution Comments Verbally reviewed precautions, patient unable to verbalize understanding d/t aphasia. - Verbally reviewed precautions prior to mobility. - -- Activity Tolerance Activity Tolerance Comments Bettina: Unable to rate d/t aphasia. - BETTINA: Unable to assess - -- Pain Assessment Pain Assessment -- N-PAT -MV N-PAT -KQ (r) LG (c) Pain Score -- 0 - No pain - -- N-PAT Verbal Pain Assessment Tool N-PAT Verbal Emotion -- -- 0 -KQ (r) LG (c) N-PAT Verbal Movement -- -- 0 -KQ (r) LG (c) N-PAT Verbal Cues -- -- 0 -KQ (r) LG (c) N-PAT Verbal Facial Cues -- -- 0 -KQ (r) LG (c) N-PAT Verbal Position/Guarding -- -- 0 -KQ (r) LG (c) N-PAT Verbal Score -- -- 0 -KQ Cognition Arousal/Alertness Alert;Appropriate responses to stimuli - -- Appropriate responses to stimuli -KQ (r) LG (c) Orientation Oriented x 0 - Oriented to person;Oriented to place;Oriented to situation;Able to orient when provided with multiple choice options - Oriented x 0 -KQ (r) LG (c) Following Commands Follows one step commands with repetition -MH Follows one step commands with repetition -MV Unable to follow commands -KQ (r) LG (c) Balance Balance -- -- Yes -KQ (r) LG (c) Static Sitting Balance Static Sitting-Balance Support Feet supported;Left 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 supported -MH Feet supported;Left 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 supported -MV Bilateral 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 supported;Feet unsupported -KQ (r) LG (c) Static Sitting-Sitting Surface Bed -MH -- Bed -KQ (r) LG (c) Static Sitting-Level of Assistance Minimum assistance -MH Minimum assistance -MV Moderate assistance -KQ (r) LG (c) Static Sitting-Comment/# of Minutes Leans to R requiring assist -MH Progresses to SBA w/ increased time -MV -- Static Standing Balance Static Standing-Balance Support Bilateral 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 supported -MH 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 -MV No 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 supported -KQ (r) LG (c) Static Standing-Standing Surface Floor -MH -- Floor -KQ (r) LG (c) Static Standing-Level of Assistance Minimum assistance -MH Moderate assistance - MV Maximum assistance -KQ (r) LG (c) Static Standing-Comment/# of Minutes assist steadying, 30 seconds - For balance -MV -- Seated Seated-Exercises -- Lower extremity;Specific exercises -MV -- Seated-Exercise Type -- Ankle pumps;Hip flexion;Long arc quads -MV -- Reps/Sets -- 10/1 -MV -- Seated-Motion -- AROM -MV -- Seated-Exercise Comments -- Visual demonstration provided for participation -MV -- Bed Mobility Bed Mobility -- -- Yes -KQ (r) LG (c) Bed Mobility 1 Bed Mobility From 1 Supine - -- Supine -KQ (r) LG (c) Bed Mobility Type 1 To -MH -- To -KQ (r) LG (c) Bed Mobility to 1 Edge of bed - -- Edge of bed -KQ (r) LG (c) Level of Assistance 1 Moderate Assist;Minimal verbal cues - Moderate Assist - MV Moderate Assist -KQ (r) LG (c) Bed Mobility Comments 1 assist scooting hips and elevating trunk - HOB Elevated, Pt initiates LE to EOB, requires assist for LE and trunk -MV assist with elevation of trunk and mobility of LEs -KQ (r) LG (c) Transfers Transfer -- -- Yes -KQ (r) LG (c) Transfer 1 Transfer From 1 Sit - -- Sit -KQ (r) LG (c) Transfer Type 1 To and from - -- To and from -KQ (r) LG (c) Transfer to 1 Stand - -- Stand -KQ (r) LG (c) Technique 1 Sit to stand;Stand to sit - Sit to stand;Stand to sit - Sit to stand;Stand to sit -KQ (r) LG (c) Transfer Device 1 No device;Hand held assist - Hand held assist -MV No device -KQ (r) LG (c) Transfer Level of Assistance 1 Moderate Assist - Moderate Assist - Maximum Assist -KQ (r) LG (c) Trials/Comments 1 assist with force production, cues for positioning - Assist for balance and force production - Assist with decreased force production (B knee buckling), balance -KQ (r) LG (c) Transfers 2 Transfer From 2 Bed - Bed - Bed -KQ (r) LG (c) Transfer Type 2 To - To - To -KQ (r) LG (c) Transfer to 2 Chair with arms - Chair with arms - Chair with arms -KQ (r) LG (c) Technique 2 Stand and step - Stand pivot - Stand pivot -KQ (r) LG (c) Transfer Device 2 Hand held assist;No device - Hand held assist -MV No device -KQ (r) LG (c) Transfer Level of Assistance 2 Moderate Assist;Minimal verbal cues - Maximum Assist - Maximum Assist -KQ (r) LG (c) Trials/Comments 2 assist with weight shifting, pivoting, stepping, and cues for positioning. - Emerging Mod A, difficulty w/ RLE movement toward chair, minor knee buckling, attempts to sit prior toappropriate proximty to chair - Assist with decreased force production and balance -KQ (r) LG (c) Ambulation Functional Ambulation Category 0 - -- -- Ambulation No -MH No 2/2 safety concerns - No -KQ (r) LG (c) Ambulation 1 Ambulation Comments 1 NT 2/2 assist required for transfers and command following. Able to take steps during transfer. - -- -- Stairs Stairs -- -- No -KQ (r) LG (c) Other Comments Other PT Comments -- Pt exhibits improved command following and sitting balance, able demonstrate unsupported sitting. Pt continues to exhibit significant expressive communication deficits throughout, but is able to orient when provided options. - -- Strength RLE R Hip Flexion 0/5 - -- -- R Knee Flexion 2/5 - -- -- R Knee Extension 0/5 - -- -- R Ankle Dorsiflexion /5 - -- -- Basic Mobility - 6 Click How much difficulty does the patient have: Turning over in bed 3 - 3 -MV 2 -KQ (r) LG (c) How much difficulty does the patient currently have: Sitting down and standing up from a chair witharms? 2 - 2 -MV 2 -KQ (r) LG (c) How much difficulty does the patient have: Moving from lying on back to sitting on the side of the bed? 2 - 2 -MV 2 -KQ (r) LG (c) How much difficulty does the patient have: Moving to and from a bed to a chair including wheelchair? 2 - 2 -MV 2 -KQ (r) LG (c) How much help does the patient currently need: Walk in hospital room? 1 - 1 - 1 -KQ (r) LG (c) How much help from another person does the patient currently need: Climbing 3-5 steps with a railing? 1 - 1 - 1 -KQ (r) LG (c) Total 6 Click Score (range 6-24) 11 - 11 - 10 -KQ Score Interpretation 30.25 - 30.25 - 28.13 -KQ (r) LG (c) Safe Environment End of Therapy Session Safe Environment End of Therapy Session Patient left in chair;Chair alarm in place and activated;RNnotified;Call light within reach in room - RN notified;Call light within reach;Overbed table within reach;Restraint or restraint alternative in place;Patient left in chair;Chair alarm in place and activated - Patient left in recliner;Chair alarm in place and activated;Call light within reach -KQ (r) LG (t) LG (c) Assessment Prognosis Good - -- -- Problem List Reduced mobility;Decreased strength;Decreased range of motion;Decreased endurance;Impaired balance - Reduced mobility;Gait deviations;Decreased strength;Impaired balance;Decreased cognition;Decreased safety awareness - -- Barriers to Discharge Current Mobility Status - -- -- Plan Plan Continue with current plan;If this is the last note, consider this the discharge summary - -- Continue with current plan;If this is the last note, consider this the discharge summary -KQ (r) LG (c) Recommendation/Plan PT Recommendation/Plan Inpatient Rehab Facility - Inpatient Rehab Facility - MV Inpatient Rehab Facility -KQ (r) LG (c) Patient is motivated to actively participate in therapy 3hr/day, 5days/wk (900min) Yes - Yes -MV -- Final discharge destination post acute care will be community based (home, independent living, assisted living) Yes - Yes -MV -- Patient requires more than one skilled therapy discipline Yes - Yes -MV -- Patient requires at least minimal assistance with toileting/toilet transfers, transfers AND locomotion (amb or w/c mobility) Yes - Yes -MV -- Patient has cognitive function to actively participate and benefit from intensive rehab Yes - Yes- -- Recommend Inpatient Rehab/Acute Rehab due to Ability to actively participate in intensive therapy 3hours/day, 5 days/week or 900 minutes per week;Highly motivated to participate in therapy;Impaired ability to complete functional mobility;Requires multiple therapy disciplines to address functional d eficits;Requires greater than 25% physical assistance with most mobility tasks - Ability to actively participate in intensive therapy 3 hours/day, 5 days/week or 900 minutes per week - Highly motivated to participate in therapy;Requires greater than 25% physical assistance with most mobility tasks;Not at baseline due to impaired ability to complete ADLs;Impaired ability to complete functional mobility;Requires multiple therapy disciplines to address functional deficits - KQ (r) LG (c) Patient at high risk for Falls;Readmission;Injury due to reduced functional status;Injury at home as patient has not returned to prior level of function - Falls;Readmission;Injury due to reduced functional status;Injury due to impaired cognition;Injury due to balance deficits;Injury at home as patient has not returned to prior level of function - Falls;Injury due to reduced functional status;Injury due to balance deficits -KQ (r) LG (c) PT Recommendation/Plan Comments Patient and spouse agreeable with PT POC -MH -- -- PT Frequency during current admission 5-7x/wk -MH 5-7x/wk -MV 5-7x/wk -KQ (r) LG (c) Treatment/Interventions during current admission Balance Training;Bed mobility;Functional transfer training;Gait training;Therapeutic exercise;Therapeutic activity -MH -- Balance Training;Bed mobility;Endurance training;Functional activity;Functional transfer training;Gait training;Strengthening;Therapeutic activity;Therapeutic exercise;Transfer training -KQ (r) LG (c) PT Equipment Recommended -- Other (Comment) Defer to next level of care -MV -- -LG Progress during current admission Progressing toward goals -MH Progressing toward goals -MV Progressing toward goals -KQ (r) LG (c) PT Time Calculation PT Start Time 1037 -MH 1154 -MV 1329 -KQ (r) LG (c) PT Stop Time 1104 -MH 1227 -MV 1401 -KQ (r) LG (c) PT Time Calculation (min) 27 min -MH 33 min -MV 32 min -KQ User Olguin (r) = Recorded By, (t) = Taken By, (c) = Cosigned By Initials Name Effective Dates MV Duong Mondragon, PT 04/26/23 - Shiraz Bautista 08/28/24 - MH Adarsh Regan, PT 01/15/22 - LG Verona Wise, PT 05/29/19 - PT Notes 10/16/2024 11:25 AM Progress Notes signed by Adarsh Regan, PT , PT Eval and Treat Last Documented OT ASSESSMENT FLOWSHEET LAST DOCUMENTED (most recent) PT Evaluation - 10/16/24 1345 Cognition Orientation Oriented to person;Able to orient when provided with multiple choice options PT TREATMENT (most recent) PT Treatment - 10/16/24 1345 Cognition Orientation Oriented to person;Able to orient when provided with multiple choice options PT Notes 10/16/2024 11:25 AM Progress Notes signed by Adarsh Regan, PT [employer] * Plan of Care - Shiraz Saunders - 10/16/2024 2:06 PM CST Problem: Skin Integrity Impairment Risk Goal: Mobility will improve Outcome: Ongoing Goal: Understanding of ways to prevent future skin breakdown will improve Outcome: Ongoing Goal: Nutritional status will improve Outcome: Ongoing Goal: Risk for impaired skin integrity will decrease Outcome: Ongoing Problem: Neurosensory Goal: Achieves stable or improved neurological status Outcome: Ongoing Goal: Absence of seizures Outcome: Ongoing Goal: Remains free of injury related to seizures activity Outcome: Ongoing Goal: Achieves maximal functionality and self care Outcome: Ongoing Goal: Ability to maintain intracranial pressure will improve Outcome: Ongoing Problem: Respiratory Goal: Achieves optimal ventilation and oxygenation Outcome: Ongoing Goal: Ability to maintain a clear airway will improve Outcome: Ongoing Goal: Mechanical Ventilation will be safely managed Outcome: Ongoing Problem: Cardiovascular Goal: Maintains optimal cardiac output and hemodynamic stability Outcome: Ongoing Goal: Absence of cardiac dysrhythmias or at baseline Outcome: Ongoing Goal: Cardiovascular status will improve Outcome: Ongoing Problem: Skin/Tissue Integrity Goal: Skin integrity remains intact Outcome: Ongoing Goal: Incisions, wounds, or drain sites healing without S/S of infection Outcome: Ongoing Goal: Oral mucous membranes remain intact Description: Outcome: Ongoing Problem: Musculoskeletal Goal: Return mobility to safest level of function Outcome: Ongoing Goal: Maintain proper alignment of affected body part Outcome: Ongoing Goal: Return ADL status to a safe level of function Outcome: Ongoing Goal: Ability to perform activities at highest level will improve Outcome: Ongoing Goal: Mobility, ROM and muscle strength will improve Outcome: Ongoing Problem: Gastrointestinal Goal: Minimal or absence of nausea and vomiting Outcome: Ongoing Goal: Maintains or returns to baseline bowel function Outcome: Ongoing Goal: Maintains adequate nutritional intake Outcome: Ongoing Goal: Establish and maintain optimal ostomy function Outcome: Ongoing Goal: Will show no signs and symptoms of gastrointestinal bleeding Outcome: Ongoing Problem: Genitourinary Goal: Absence of urinary retention Outcome: Ongoing Goal: Urinary catheter remains patent Outcome: Ongoing Problem: Infection Goal: Absence of infection during hospitalization Outcome: Ongoing Goal: Absence of fever/infection during anticipated neutropenic period Outcome: Ongoing Problem: Metabolic/Fluid and Electrolytes Goal: Electrolytes maintained within normal limits Outcome: Ongoing Goal: Hemodynamic stability and optimal renal function maintained Outcome: Ongoing Goal: Glucose maintained within prescribed range Outcome: Ongoing Problem: Hematologic Goal: Maintains hematologic stability Outcome: Ongoing Problem: Restraint for Interference with Medical Safety Goal: Knowledge of restraints will improve Outcome: Ongoing Goal: Remains free from injury from restraints Outcome: Ongoing Goal: Free from restraint(s) Outcome: Ongoing Goals: Clinical Goals for the Shift: neuro checks, promote PO intake, promote comfort and safety, increasefluid intake, up to the chair Summary: Up in chair today. Adequate thickened PO intake. Discharge planning for SNF [facility] * [facility] Note - Ronit Cruz RN - 10/16/2024 2:05 PM CST Images from the original note were not included. Patient Information: OT Eval and Treat Last 72 Hours OT Evaluation Row Name 10/09/24 1430 Chart Reviewed Yes -ML Session Type Evaluation -ML OT Received On 10/09/24 -ML Safe Environment Arm band checked;Patient found in supine;Gait belt utilized for all out of bed mobility -ML Subjective -- RN and family agreeable to OT eval -ML Family/Caregiver Present Yes spouse, sister, brother in law -ML Occupational Therapy-Patient Goal pt unable to state goals due to language impairments -ML Precautions Fall risk -ML Type of Home House -ML Home Layout One level;Basement;Laundry in basement -ML Home Mobility Equipment-Currently Using None -ML Level of [place] Independent with ADLs;Independent with homemaking with ambulation -ML Lives With Spouse -ML Driving Yes -ML ADL Assistance Independent -ML Instrumental ADL (IADL) Assistance Independent -ML Vocational/Occupation Retired -ML Fall within the last 6 months No -ML Prior Function Comments Information provided by pt's spouse -ML Grooming: Where assessed Supine, bed -ML Grooming: Level of assistance Dependent pt grasped item, some carryover noted once task was initiated -ML LE Dressing: Where assessed Edge of bed -ML LE Dressing: Level of assistance Dependent -ML Toilet Transfers Comments RN requested pt return to supine at end of session -ML Pain Assessment N-PAT -ML N-PAT N-V Smiling.calm, relaxed none 0 -ML N-PAT N-V Movement 0 -ML N-PAT N-V Facial Cues 0 -ML N-PAT N-V Position/Guarding 0 -ML N-PAT N-V Score 0 -ML Vision Comments Pt unable to report vision changes or participate in vision screenings. -ML Arousal/Alertness Alert -ML Attention Span Unable to attend/complete tasks -ML Memory Unable to assess due to language deficits -ML Current communication -- expressive and receptive language impairments -ML Orientation Unable to assess -ML Following Commands Unable to follow commands mimicked 1/4 commands -ML Safety Judgment Decreased awareness of need for assistance -ML [place] Comments pt unable to participate in screening due to language deficits -ML [place] Unable to complete standardized testing -ML Unable to complete Trails A due to Cognition -ML Unable to complete Trails B due to Cognition -ML Unable to complete Trails B Verbal due to Cognition -ML Serial Opposition -- pt unable to follow commands for screening -ML RUE Grasp -- 1/5 -ML LUE Grasp -- at least 4/5 -ML Sitting Balance 0 -ML Arises 0 -ML Attempts to Arise 0 -ML Immediate Standing Balance (First 5 Seconds) 0 -ML Standing Balance 0 -ML Nudged 0 -ML Eyes Closed 0 -ML Turned 360 Degrees: Steadiness 0 -ML Turned 360 Degrees: Continuity of Steps 0 -ML Sitting Down 0 -ML Balance Score 0 -ML Static Sitting-Sitting Surface Bed -ML Static Sitting-Level of Assistance Minimum assistance -ML Static Standing-Standing Surface Floor -ML Static Standing-Level of Assistance Moderate assistance -ML Bed Mobility From 1 Supine -ML Bed Mobility Type 1 To and from -ML Bed Mobility to 1 Edge of bed -ML Level of Assistance 1 Moderate Assist -ML Bed Mobility Comments 1 assist to elevate trunk, to bring hips to EOB, to control descent of trunk -ML Transfer From 1 Sit -ML Transfer Type 1 To and from -ML Transfer to 1 Stand -ML Transfer Device 1 No device -ML Transfer Level of Assistance 1 Moderate Assist -ML Trials/Comments 1 impaired balance, decreased force production, assist to control descent, performed x2 trials -ML RUE Assessment X -ML RUE Comments no active movement, PROM WFL -ML LUE Assessment X -ML LUE Comments spontaneous movement, PROM WFL -ML Putting on and taking off regular lower body clothing 1 -ML Bathing 1 -ML Toileting 1 -ML Putting on and taking off upper body clothing 1 -ML Personal Grooming 1 -ML Eating Meals 1 -ML Total Score (range 6-24) 6 -ML Score Interpretation 17.07 -ML Safe Environment End of Therapy Session Patient left supine in bed;RN notified;Call light within reach;Bed in lowest position with wheels locked;Restraint or restraint alternative in place;Bed rails up per protocol - Problem List Decreased gross motor control;Decreased fine motor control;Decreased balance;Decreasedfunctional mobility;Decreased IADL independence;Decreased ADL independence;Decreased cognition;Decreased safe judgment during ADL;Decreased 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 strength;Decreased UE function;Decreased trunk control for functional activities;Poor/Decreased functional positioning;Non-functional right 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;Decreased frequency/variety of movement - Plan Plan of care initiated;If this is the last note, consider this the discharge summary - OT Recommendation Inpatient Rehab Facility - Recommend Inpatient Rehab/Acute Rehab due to Not at baseline due to impaired ability to complete ADLs;Requires greater than 25% physical assistance with most ADL tasks;Requires multiple therapy disciplines to address functional deficits - Patient at high risk for Falls;Injury due to impaired cognition;Injury due to balance deficits;Developing impaired skin integrity;Prolonged dependence for self care tasks - OT Frequency during current admission 5-7x/wk - Treatment/Interventions during current admission ADL/IADL retraining;Balance Training;Bed mobility;Cognitive retraining;Compensatory technique education;Functional activity;Functional mobility training;Functional transfer training;Neuromuscular re-education;Positioning;Parent/caregiver training and education;Therapeutic exercise;Therapeutic activity;Upper extremity motor function/functional skills;Range of motion - OT - Next Appointment 10/10/24 - OT Evaluation Complete Yes -ML OT Start Time 1430 -ML OT Stop Time 1501 -ML OT Time Calculation (min) 31 min -ML User Olguin (r) = Recorded By, (t) = Taken By, (c) = Cosigned By Initials Name Effective Dates ML Kristi Robles, OT 01/15/22 - OT Treatment Row Name 10/16/24 1226 10/10/24 1350 Session Type Treatment - Treatment - OT Received On 10/16/24 - 10/10/24 - Safe Environment Arm band checked;Patient found in supine;Session completed bedside;Gait belt utilized for all out of bed mobility - Arm band checked;Patient found sitting in chair;Gait belt utilized for all out of bed mobility - Subjective Agreeable to Therapy - Agreeable to Therapy - Family/Caregiver Present No -SS Yes Son - Precautions Fall risk;SHAMAR -SS Fall risk - Pain Assessment No/denies pain -SS N-PAT -MH Pain Score 0 - No pain -SS -- N-PAT N-V Smiling.calm, relaxed none -- 0 -MH N-PAT N-V Movement -- 0 -MH N-PAT N-V Facial Cues -- 0 - N-PAT N-V Position/Guarding -- 0 -MH N-PAT N-V Score -- 0 - Arousal/Alertness Alert;Appropriate responses to stimuli - Alert - Attention Span -- Unable to attend/complete tasks Brief attention to grooming task - Memory -- Unable to assess - Orientation Oriented x 0 -SS Oriented to person Pt nodded yes to her name 1/2 trials - Following Commands Follows one step commands with repetition - -- Compliance/Behavior Easy to engage -SS -- Sitting Balance 0 -SS -- Arises 0 -SS -- Attempts to Arise 0 -SS -- Immediate Standing Balance (First 5 Seconds) 0 -SS -- Standing Balance 0 -SS -- Nudged 0 -SS -- Eyes Closed 0 -SS -- Turned 360 Degrees: Steadiness 0 -SS -- Turned 360 Degrees: Continuity of Steps 0 -SS -- Sitting Down 0 -SS -- Balance Score 0 -SS -- Static Sitting-Level of Assistance Close supervision - Minimum assistance - Dynamic Sitting-Level of Assistance Contact guard -SS -- Static Standing-Level of Assistance Moderate assistance - Moderate assistance - Dynamic Standing-Level of Assistance Moderate assistance - -- Feeding: Where assessed Chair - -- Feeding: Level of assistance Minimum Assist Min A for spillage - -- Grooming: Where assessed Chair - Chair - Grooming: Level of assistance Maximum Assist Mod A task; Unable to perform in standing - Dependent Pt maintained grasp on item and initiated appropriate use - LE Dressing: Where assessed Chair - Chair - LE Dressing: Level of assistance Dependent - Dependent - Bed Mobility -- Yes - Bed Mobility From 1 -- Edge of bed - Bed Mobility Type 1 -- To - Bed Mobility to 1 -- Supine - Level of Assistance 1 -- Moderate Assist - Bed Mobility Comments 1 -- assist with balance, maneuver LEs, control descent of trunk - Transfer -- Yes - Transfer From 1 Sit - Chair with arms - Transfer Type 1 To and from -SS To - Transfer to 1 Stand -SS Bed - Technique 1 Sit to stand;Stand to sit -SS Stand and step - Transfer Device 1 No device -SS -- Transfer Level of Assistance 1 Moderate Assist -SS Moderate Assist - Trials/Comments 1 Mod A for balance and safety, decreased force production, blocking of right LE -SS Impaired balance, decreased force production - Transfer From 2 Chair with arms -SS Sit - Transfer Type 2 To and from - To and from - Transfer to 2 Bed -SS Stand - Technique 2 Stand and step -SS Sit to stand;Stand to sit - Transfer Device 2 No device -SS -- Transfer Level of Assistance 2 Moderate Assist -SS Moderate Assist - Trials/Comments 2 Mod A for balance and safety, blocking of right LE -SS Decreased force production, impaired balance, to control descent - ROM/STRENGTH -- Yes R PROM shoulder flexion/extension, elbow flexion/extension, forearm supination/pronation, wrist flexion/extension, thumb extension/flexion, finger flexion/extension - Comments Pt with episode of urinary incontinence requiring tech assist to clean patient and change linens on chair. -SS -- Putting on and taking off regular lower body clothing 1 -SS 1 - Bathing 2 -SS 1 - Toileting 1 -SS 1 - Putting on and taking off upper body clothing 2 -SS 1 - Personal Grooming 2 -SS 1 - Eating Meals 3 -SS 1 - Total Score (range 6-24) 11 -SS 6 - Score Interpretation 29.04 -SS 17.07 - Safe Environment End of Therapy Session Patient left in chair;Chair alarm in place and activated;RNnotified;Call light within reach;Overbed table within reach - Patient left supine in bed;RN notified;Restraint or restraint alternative in place - Problem List Decreased ADL independence;Decreased IADL independence;Debility;Decreased mobility;Decreased 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 strength;Decreased safe judgment during ADL;Decreased cognition;Decreased endu madeleine;Decreased balance;Decreased fine motor control;Decreased functional mobility;Decreased gross motor control - Decreased mobility;Decreased 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 strength;Decreased safe judgment during ADL;Decreased cognition;Decreased endurance;Decreased balance;Decreased functional mobility;Decreased ADL independence;Decreased IADL independence;Decreased response to environment;Decreased fine motor control - Barriers to Discharge Current Mobility Status;Cognition - -- Plan Continue with current plan;If this is the last note, consider this the discharge summary -SS Continue with current plan;If this is the last note, consider this the discharge summary - OT Recommendation Inpatient Rehab Facility - Inpatient Rehab Facility - Patient is motivated to actively participate in therapy 3hr/day, 5days/wk (900min) -- Yes - Final discharge destination post acute care will be community based (home, independent living, assisted living) -- Yes -MH Patient requires more than one skilled therapy discipline -- Yes - Patient requires at least minimal assistance with toileting/toilet transfers, transfers AND locomotion (amb or w/c mobility) -- Yes - Patient has cognitive function to actively participate and benefit from intensive rehab -- Yes - Recommend Inpatient Rehab/Acute Rehab due to Ability to actively participate in intensive therapy 3hours/day, 5 days/week or 900 minutes per week;Highly motivated to participate in therapy;Requires greater than 25% physical assistance with most mobility tasks;Requires greater than 25% physical assi stance with most ADL tasks;Requires multiple therapy disciplines to address functional deficits;Requires skilled therapy interventions to address neurological deficits -SS Not at baseline due to impaired ability to complete ADLs;Requires greater than 25% physical assistance with most mobility tasks; Requires greater than 25% physical assistance with most ADL tasks;Requires multiple therapy disciplines to address functional deficits - Patient at high risk for -- Falls;Injury due to decreased ability to care for self;Injury due to reduced functional status;Injury due to impaired cognition;Injury due to balance deficits;Injury at home as patient has not returned to prior level of function - OT Frequency during current admission 5-7x/wk - 5-7x/wk - Treatment/Interventions during current admission ADL/IADL retraining;Balance Training;Bed mobility;Cognitive retraining;Compensatory technique education;Endurance training;Equipment eval/education;Functional activity;Functional mobility training;Functional transfer training;Neuromuscular re-education;Parent/caregiver training and education;Positioning;Strengthening;Therapeutic activity;Therapeutic exercise;Transfer training - ADL/IADL retraining;Balance Training;Bed mobility;Cognitive retraining;Endurance training;Functional activity;Functional mobility training;Functional transfer training;Neuromuscular re-education;Range of motion;Strengthening;Therapeutic activity;Therapeutic exercise;Transfer training - Progress during current admission Progressing toward goals - Progressing toward goals - OT - Next Appointment 10/17/24 - 10/11/24 - OT Start Time 1226 - 1350 - OT Stop Time 1252 -SS 1417 - OT Time Calculation (min) 26 min - 27 min - User Olguin (r) = Recorded By, (t) = Taken By, (c) = Cosigned By Initials Name Effective Dates Citlalli Eason 08/07/24 - SS Alejandra Navarrete OT 03/05/23 - OT Notes 10/16/2024 1:04 PM Progress Notes signed by Alejandra Navarrete, OT , OT Eval and Treat Last Documented OT ASSESSMENT FLOWSHEET LAST DOCUMENTED (most recent) OT Evaluation - 10/16/24 1226 General Session Type Treatment OT Received On 10/16/24 Safe Environment Arm band checked;Patient found in supine;Session completed bedside;Gait belt utilized for all out of bed mobility Subjective Agreeable to Therapy Family/Caregiver Present No Precautions Precautions Fall risk;SHAMAR Feeding Feeding: Where assessed Chair Feeding: Level of assistance Minimum Assist Min A for spillage Grooming Grooming: Where assessed Chair Grooming: Level of assistance Maximum Assist Mod A task; Unable to perform in standing LE Dressing LE Dressing: Where assessed Chair LE Dressing: Level of assistance Dependent Pain Assessment Pain Assessment No/denies pain Pain Score 0 - No pain Cognition Arousal/Alertness Alert;Appropriate responses to stimuli Orientation Oriented x 0 Following Commands Follows one step commands with repetition Compliance/Behavior Easy to engage Tinetti Sitting Balance 0 Arises 0 Attempts to Arise 0 Immediate Standing Balance (First 5 Seconds) 0 Standing Balance 0 Nudged 0 Eyes Closed 0 Turned 360 Degrees: Steadiness 0 Turned 360 Degrees: Continuity of Steps 0 Sitting Down 0 Balance Score 0 Static Sitting Balance Static Sitting-Level of Assistance Close supervision Dynamic Sitting Balance Dynamic Sitting-Level of Assistance Contact guard Static Standing Balance Static Standing-Level of Assistance Moderate assistance Dynamic Standing Balance Dynamic Standing-Level of Assistance Moderate assistance Transfer 1 Transfer From 1 Sit Transfer Type 1 To and from Transfer to 1 Stand Technique 1 Sit to stand;Stand to sit Transfer Device 1 No device Transfer Level of Assistance 1 Moderate Assist Trials/Comments 1 Mod A for balance and safety, decreased force production, blocking of right LE Transfers 2 Transfer From 2 Chair with arms Transfer Type 2 To and from Transfer to 2 Bed Technique 2 Stand and step Transfer Device 2 No device Transfer Level of Assistance 2 Moderate Assist Trials/Comments 2 Mod A for balance and safety, blocking of right LE Other Comments Comments Pt with episode of urinary incontinence requiring tech assist to clean patient and change linens on chair. Daily Activity - 6 Clicks Putting on and taking off regular lower body clothing 1 Bathing 2 Toileting 1 Putting on and taking off upper body clothing 2 Personal Grooming 2 Eating Meals 3 Total Score (range 6-24) 11 Score Interpretation 29.04 Safe Environment End of Therapy Session Safe Environment End of Therapy Session Patient left in chair;Chair alarm in place and activated;RNnotified;Call light within reach;Overbed table within reach Assessment Problem List Decreased ADL independence;Decreased IADL independence;Debility;Decreased mobility;Decreased 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 strength;Decreased safe judgment during ADL;Decreased cognition;Decreased endu madeleine;Decreased balance;Decreased fine motor control;Decreased functional mobility;Decreased gross motor control Barriers to Discharge Current Mobility Status;Cognition Plan Plan Continue with current plan;If this is the last note, consider this the discharge summary Recommendation/Plan OT Recommendation Inpatient Rehab Facility Recommend Inpatient Rehab/Acute Rehab due to Ability to actively participate in intensive therapy 3 hours/day, 5 days/week or 900 minutes per week;Highly motivated to participate in therapy;Requires greater than 25% physical assistance with most mobility ta sks;Requires greater than 25% physical assistance with most ADL tasks;Requires multiple therapy disciplines to address functional deficits;Requires skilled therapy interventions to address neurological deficits OT Frequency during current admission 5-7x/wk Treatment/Interventions during current admission ADL/IADL retraining;Balance Training;Bed mobility;Cognitive retraining;Compensatory technique education;Endurance training;Equipment eval/education;Functional activity;Functional mobility training;Functional transfer training;Neuromuscular re-education;Parent/caregiver training and education;Positioning;Strengthening;Therapeutic activity;Therapeutic exercise;Transfer training Progress during current admission Progressing toward goals OT - Next Appointment 10/17/24 OT Time Calculation OT Start Time 1226 OT Stop Time 1252 OT Time Calculation (min) 26 min OT TREATMENT FLOWSHEET LAST DOCUMENTED (most recent) OT Treatment - 10/16/24 1226 General Session Type Treatment OT Received On 10/16/24 Safe Environment Arm band checked;Patient found in supine;Session completed bedside;Gait belt utilized for all out of bed mobility Subjective Agreeable to Therapy Family/Caregiver Present No Precautions Precautions Fall risk;SHAMAR Pain Assessment Pain Assessment No/denies pain Pain Score 0 - No pain Cognition Arousal/Alertness Alert;Appropriate responses to stimuli Orientation Oriented x 0 Following Commands Follows one step commands with repetition Compliance/Behavior Easy to engage Tinetti Sitting Balance 0 Arises 0 Attempts to Arise 0 Immediate Standing Balance (First 5 Seconds) 0 Standing Balance 0 Nudged 0 Eyes Closed 0 Turned 360 Degrees: Steadiness 0 Turned 360 Degrees: Continuity of Steps 0 Sitting Down 0 Balance Score 0 Static Sitting Balance Static Sitting-Level of Assistance Close supervision Dynamic Sitting Balance Dynamic Sitting-Level of Assistance Contact guard Static Standing Balance Static Standing-Level of Assistance Moderate assistance Dynamic Standing Balance Dynamic Standing-Level of Assistance Moderate assistance Feeding Feeding: Where assessed Chair Feeding: Level of assistance Minimum Assist Min A for spillage Grooming Grooming: Where assessed Chair Grooming: Level of assistance Maximum Assist Mod A task; Unable to perform in standing LE Dressing LE Dressing: Where assessed Chair LE Dressing: Level of assistance Dependent Transfer 1 Transfer From 1 Sit Transfer Type 1 To and from Transfer to 1 Stand Technique 1 Sit to stand;Stand to sit Transfer Device 1 No device Transfer Level of Assistance 1 Moderate Assist Trials/Comments 1 Mod A for balance and safety, decreased force production, blocking of right LE Transfers 2 Transfer From 2 Chair with arms Transfer Type 2 To and from Transfer to 2 Bed Technique 2 Stand and step Transfer Device 2 No device Transfer Level of Assistance 2 Moderate Assist Trials/Comments 2 Mod A for balance and safety, blocking of right LE Other Comments Comments Pt with episode of urinary incontinence requiring tech assist to clean patient and change linens on chair. Daily Activity - 6 Clicks Putting on and taking off regular lower body clothing 1 Bathing 2 Toileting 1 Putting on and taking off upper body clothing 2 Personal Grooming 2 Eating Meals 3 Total Score (range 6-24) 11 Score Interpretation 29.04 Safe Environment End of Therapy Session Safe Environment End of Therapy Session Patient left in chair;Chair alarm in place and activated;RNnotified;Call light within reach;Overbed table within reach Assessment Problem List Decreased ADL independence;Decreased IADL independence;Debility;Decreased mobility;Decreased 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 strength;Decreased safe judgment during ADL;Decreased cognition;Decreased endu madeleine;Decreased balance;Decreased fine motor control;Decreased functional mobility;Decreased gross motor control Barriers to Discharge Current Mobility Status;Cognition Plan Plan Continue with current plan;If this is the last note, consider this the discharge summary Recommendation/Plan OT Recommendation Inpatient Rehab Facility Recommend Inpatient Rehab/Acute Rehab due to Ability to actively participate in intensive therapy 3 hours/day, 5 days/week or 900 minutes per week;Highly motivated to participate in therapy;Requires greater than 25% physical assistance with most mobility ta sks;Requires greater than 25% physical assistance with most ADL tasks;Requires multiple therapy disciplines to address functional deficits;Requires skilled therapy interventions to address neurological deficits OT Frequency during current admission 5-7x/wk Treatment/Interventions during current admission ADL/IADL retraining;Balance Training;Bed mobility;Cognitive retraining;Compensatory technique education;Endurance training;Equipment eval/education;Functional activity;Functional mobility training;Functional transfer training;Neuromuscular re-education;Parent/caregiver training and education;Positioning;Strengthening;Therapeutic activity;Therapeutic exercise;Transfer training Progress during current admission Progressing toward goals OT - Next Appointment 10/17/24 OT Time Calculation OT Start Time 1226 OT Stop Time 1252 OT Time Calculation (min) 26 min OT Notes 10/16/2024 1:04 PM Progress Notes signed by Alejandra Navarrete, OT , PT Eval and Treat Last 72 Hours PT Evaluation Row Name 10/12/24 1154 10/11/24 1329 10/10/24 0825 Chart Reviewed -- -- -KQ (r) LG (c) Yes -DT Session Type Treatment -MV Treatment -KQ (r) LG (c) Evaluation -DT Safe Environment -- -- Arm band checked;Session completed bedside;Gait belt utilized for all out ofbed mobility;Patient found in supine -DT Subjective Agreeable to Therapy -MV -- Agreeable to Therapy -DT Family/Caregiver Present -- -- Yes , son -DT Precautions Fall risk -MV -- Fall risk -DT Type of Home -- -- House -DT Home Layout -- -- One level -DT Home Mobility Equipment-Available -- -- None -DT Home Mobility Equipment-Currently Using -- -- None -DT Level of [place] -- -- Independent with ADLs;Independent functional transfers;Independent withambulation -DT Lives With -- -- Spouse -DT Receives Help From -- -- Spouse/Significant other -DT Fall within the last 6 months -- -- No -DT Pain Assessment -- -- N-PAT -DT N-PAT N-V Smiling.calm, relaxed none -- -- 0 -DT N-PAT N-V Movement -- -- 0 -DT N-PAT N-V Facial Cues -- -- 0 -DT N-PAT N-V Position/Guarding -- -- 0 -DT N-PAT N-V Score -- -- 0 -DT Vision Comments -- -- left gaze preference -DT Arousal/Alertness Alert -MV -- Alert -DT Orientation -- -- Unable to assess -DT Following Commands -- -- Unable to follow commands -DT Compliance/Behavior Easy to engage -MV -- -- Light Touch -- -- Not tested patient unable to follow commands for testing -DT 1. Sitting to Standing -- -- 0 -DT 2. Standing Unsupported -- -- 0 -DT 3. Sitting with Back Unsupported but Feet Supported on Floor or on a Stool -- -- 3 -DT 4. Standing to Sitting -- -- 0 -DT 5. Transfers -- -- 0 -DT 6. Standing Unsupported with Eyes Closed -- -- 0 -DT 7. Standing Unsupported with Feet Together -- -- 0 -DT 8. Reach Forward with Outstretched Arm While Standing -- -- 0 -DT 9. 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 Turning to Look Behind Over Left and Right Shoulders While Standing -- -- 0 -DT 11. Turn 360 Degrees -- -- 0 -DT 12. Place Alternate Foot on Step or Stool While Standing Unsupported -- -- 0 -DT 13. Standing Unsupported One Foot in Front -- -- 0 -DT 14. Standing on One Leg -- -- 0 -DT [place] Balance Score -- -- 3 -DT Static Sitting-Sitting Surface Bed -MV -- -- Static Sitting-Level of Assistance -- -- Contact guard -DT Static Standing-Standing Surface Floor -MV -- -- Static Standing-Level of Assistance -- -- Moderate assistance -DT Bed Mobility From 1 Supine -MV -- Supine -DT Bed Mobility Type 1 To -MV -- To -DT Bed Mobility to 1 Edge of bed -MV -- Edge of bed -DT Level of Assistance 1 -- -- Moderate Assist -DT Bed Mobility Comments 1 -- -- assist with manuevering LEs and elevation of trunk -DT Transfer From 1 Sit -MV -- Sit -DT Transfer Type 1 To -MV -- To and from -DT Transfer to 1 Stand -MV -- Stand -DT Technique 1 -- -- Sit to stand;Stand to sit -DT Transfer Device 1 -- -- Hand held assist -DT Transfer Level of Assistance 1 -- -- Moderate Assist -DT Trials/Comments 1 -- -- decreased force production, blocking right knee, assist with balance -DT Transfer From 2 -- -- Bed;Sit -DT Transfer Type 2 -- -- To -DT Transfer to 2 -- -- Chair with arms -DT Technique 2 -- -- Stand pivot -DT Transfer Device 2 -- -- Hand held assist -DT Transfer Level of Assistance 2 -- -- Maximum Assist -DT Trials/Comments 2 -- -- decreased force production, blocking right knee, assist with balance -DT RUE Comments -- -- PROM WFL -DT R Shoulder Flexion -- -- 2/5 -DT R Elbow Flexion -- -- 2/5 -DT R Elbow Extension -- -- 0/5 -DT LUE Assessment -- -- WFL -DT LUE Comments -- -- at least 3/5 -DT RLE Comments -- -- PROM WFL -DT R Hip Flexion -- -- 0/5 -DT R Knee Flexion -- -- 2/5 -DT R Knee Extension -- -- 0/5 -DT R Ankle Dorsiflexion -- -- 0/5 -DT LLE Assessment -- -- WFL -DT LLE Comments -- -- at least 3/5 -DT How much difficulty does the patient have: Turning over in bed -- -- 2 -DT How much difficulty does the patient currently have: Sitting down and standing up from a chair witharms? -- -- 2 -DT How much difficulty does the patient have: Moving from lying on back to sitting on the side of the bed? -- -- 2 -DT How much difficulty does the patient have: Moving to and from a bed to a chair including wheelchair? -- -- 2 -DT How much help does the patient currently need: Walk in hospital room? -- -- 1 -DT How much help from another person does the patient currently need: Climbing 3-5 steps with a railing? -- -- 1 -DT Total 6 Click Score (range 6-24) -- -- 10 -DT Score Interpretation -- -- 28.13 -DT Safe Environment End of Therapy Session -- -- Patient left in recliner;Chair alarm in place and activated;RN notified;Call light within reach -DT Prognosis Good -MV -- -- Problem List -- -- Reduced mobility;Gait deviations;Decreased strength;Decreased range of motion;Impaired balance -DT Problem List Comments -- -- Pt with left BG IPH presents with deficits in all functional mobility due to impairments in strength, balance, cognition. These deficits prevent full participation in homeambulation. -DT Plan Continue with current plan;If this is the last note, consider this the discharge summary -MV -- Plan of care initiated;If this is the last note, consider this the discharge summary -DT PT Recommendation/Plan -- -- Inpatient Rehab Facility -DT Recommend Inpatient Rehab/Acute Rehab due to -- -- Ability to actively participate in intensive therapy 3 hours/day, 5 days/week or 900 minutes per week;Highly motivated to participate in therapy;Impaired ability to complete functional mobility;Likely to return to the community at discharge with support system in place;Requires greater than 25% physical assistance with most mobility tasks;Requires multiple therapy disciplines to address functional deficits;Patient and caregiver require specialized skilled training due to new level of function/diagnosis;Requires skilled therapy interventions to address neurological deficits -DT PT Recommendation/Plan Comments Patient in agreement with PT plan of care. -MV -- -- PT Frequency during current admission -- -- 5-7x/wk -DT Treatment/Interventions during current admission Balance Training;Bed mobility;Endurance training;Functional transfer training;Neuromuscular re- education;Positioning;Range of motion;Therapeutic activity;Therapeutic exercise;Strengthening;Transfer training -MV -- Balance Training;Bed mobility;Endurance training;Functional activity;Functional transfer training;Strengthening;Therapeutic activity;Therapeutic exercise;Transfer training -DT PT Evaluation Complete -- -- Yes -DT PT Start Time -- -- 0825 -DT PT Stop Time -- -- 0850 -DT PT Time Calculation (min) -- -- 25 min -DT User Olguin (r) = Recorded By, (t) = Taken By, (c) = Cosigned By Initials Name Effective Dates MV Duong Mondragon, PT 04/26/23 - KQ KerrieMarshallin 08/28/24 - DT Nikki Taylor, PT 01/15/22 - LG Verona Wise, PT 05/29/19 - PT TREATMENT (Last 168 Hours) PT Treatment Row Name 10/16/24 1037 10/12/24 1154 10/11/24 1329 PT Last Visit Session Type Treatment - -- -- Safe Environment Patient found in supine;Arm band checked;Session completed bedside;Gait belt utilized for all out of bed mobility - Arm band checked;Patient found in supine;Gait belt utilized for all out of bed mobility - Arm band checked;Patient found in supine;Gait belt utilized for all out of bed mobility -KQ (r) LG (c) Subjective Agreeable to Therapy - -- Other Unable to agree due to aphasia, RN stated appropriate for PT -KQ (r) LG (c) Family/Caregiver Present Yes spouse - Yes -MV Yes -KQ (r) LG (c) Precautions Precautions Fall risk;SHAMAR - -- Fall risk -KQ (r) LG (c) Precaution Comments Verbally reviewed precautions, patient unable to verbalize understanding d/t aphasia. - Verbally reviewed precautions prior to mobility. - -- Activity Tolerance Activity Tolerance Comments Bettina: Unable to rate d/t aphasia. - BETTINA: Unable to assess -MV -- Pain Assessment Pain Assessment -- N-PAT -MV N-PAT -KQ (r) LG (c) Pain Score -- 0 - No pain - -- N-PAT Verbal Pain Assessment Tool N-PAT Verbal Emotion -- -- 0 -KQ (r) LG (c) N-PAT Verbal Movement -- -- 0 -KQ (r) LG (c) N-PAT Verbal Cues -- -- 0 -KQ (r) LG (c) N-PAT Verbal Facial Cues -- -- 0 -KQ (r) LG (c) N-PAT Verbal Position/Guarding -- -- 0 -KQ (r) LG (c) N-PAT Verbal Score -- -- 0 -KQ Cognition Arousal/Alertness Alert;Appropriate responses to stimuli - -- Appropriate responses to stimuli -KQ (r) LG (c) Orientation Oriented x 0 -MH Oriented to person;Oriented to place;Oriented to situation;Able to orient when provided with multiple choice options -MV Oriented x 0 -KQ (r) LG (c) Following Commands Follows one step commands with repetition -MH Follows one step commands with repetition -MV Unable to follow commands -KQ (r) LG (c) Balance Balance -- -- Yes -KQ (r) LG (c) Static Sitting Balance Static Sitting-Balance Support Feet supported;Left 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 supported -MH Feet supported;Left 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 supported -MV Bilateral 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 supported;Feet unsupported -KQ (r) LG (c) Static Sitting-Sitting Surface Bed - -- Bed -KQ (r) LG (c) Static Sitting-Level of Assistance Minimum assistance -MH Minimum assistance -MV Moderate assistance -KQ (r) LG (c) Static Sitting-Comment/# of Minutes Leans to R requiring assist - Progresses to SBA w/ increased time -MV -- Static Standing Balance Static Standing-Balance Support Bilateral 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 supported -MH 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 -MV No 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 supported -KQ (r) LG (c) Static Standing-Standing Surface Floor - -- Floor -KQ (r) LG (c) Static Standing-Level of Assistance Minimum assistance -MH Moderate assistance - MV Maximum assistance -KQ (r) LG (c) Static Standing-Comment/# of Minutes assist steadying, 30 seconds - For balance -MV -- Seated Seated-Exercises -- Lower extremity;Specific exercises -MV -- Seated-Exercise Type -- Ankle pumps;Hip flexion;Long arc quads -MV -- Reps/Sets -- 10/1 -MV -- Seated-Motion -- AROM -MV -- Seated-Exercise Comments -- Visual demonstration provided for participation -MV -- Bed Mobility Bed Mobility -- -- Yes -KQ (r) LG (c) Bed Mobility 1 Bed Mobility From 1 Supine - -- Supine -KQ (r) LG (c) Bed Mobility Type 1 To -MH -- To -KQ (r) LG (c) Bed Mobility to 1 Edge of bed - -- Edge of bed -KQ (r) LG (c) Level of Assistance 1 Moderate Assist;Minimal verbal cues - Moderate Assist - MV Moderate Assist -KQ (r) LG (c) Bed Mobility Comments 1 assist scooting hips and elevating trunk - HOB Elevated, Pt initiates LE to EOB, requires assist for LE and trunk - assist with elevation of trunk and mobility of LEs -KQ (r) LG (c) Transfers Transfer -- -- Yes -KQ (r) LG (c) Transfer 1 Transfer From 1 Sit - -- Sit -KQ (r) LG (c) Transfer Type 1 To and from - -- To and from -KQ (r) LG (c) Transfer to 1 Stand - -- Stand -KQ (r) LG (c) Technique 1 Sit to stand;Stand to sit - Sit to stand;Stand to sit - Sit to stand;Stand to sit -KQ (r) LG (c) Transfer Device 1 No device;Hand held assist - Hand held assist - No device -KQ (r) LG (c) Transfer Level of Assistance 1 Moderate Assist - Moderate Assist - Maximum Assist -KQ (r) LG (c) Trials/Comments 1 assist with force production, cues for positioning - Assist for balance and force production - Assist with decreased force production (B knee buckling), balance -KQ (r) LG (c) Transfers 2 Transfer From 2 Bed - Bed - Bed -KQ (r) LG (c) Transfer Type 2 To - To - To -KQ (r) LG (c) Transfer to 2 Chair with arms - Chair with arms - Chair with arms -KQ (r) LG (c) Technique 2 Stand and step - Stand pivot - Stand pivot -KQ (r) LG (c) Transfer Device 2 Hand held assist;No device - Hand held assist -MV No device -KQ (r) LG (c) Transfer Level of Assistance 2 Moderate Assist;Minimal verbal cues - Maximum Assist - Maximum Assist -KQ (r) LG (c) Trials/Comments 2 assist with weight shifting, pivoting, stepping, and cues for positioning. - Emerging Mod A, difficulty w/ RLE movement toward chair, minor knee buckling, attempts to sit prior toappropriate proximty to chair - Assist with decreased force production and balance -KQ (r) LG (c) Ambulation Functional Ambulation Category 0 - -- -- Ambulation No - No 2/2 safety concerns -MV No -KQ (r) LG (c) Ambulation 1 Ambulation Comments 1 NT 2/2 assist required for transfers and command following. Able to take steps during transfer. - -- -- Stairs Stairs -- -- No -KQ (r) LG (c) Other Comments Other PT Comments -- Pt exhibits improved command following and sitting balance, able demonstrate unsupported sitting. Pt continues to exhibit significant expressive communication deficits throughout, but is able to orient when provided options. - -- Strength RLE R Hip Flexion 0/5 - -- -- R Knee Flexion 2/5 - -- -- R Knee Extension 0/5 - -- -- R Ankle Dorsiflexion / - -- -- Basic Mobility - 6 Click How much difficulty does the patient have: Turning over in bed 3 - 3 - 2 -KQ (r) LG (c) How much difficulty does the patient currently have: Sitting down and standing up from a chair witharms? 2 - 2 -MV 2 -KQ (r) LG (c) How much difficulty does the patient have: Moving from lying on back to sitting on the side of the bed? 2 - 2 -MV 2 -KQ (r) LG (c) How much difficulty does the patient have: Moving to and from a bed to a chair including wheelchair? 2 - 2 -MV 2 -KQ (r) LG (c) How much help does the patient currently need: Walk in hospital room? 1 - 1 - 1 -KQ (r) LG (c) How much help from another person does the patient currently need: Climbing 3-5 steps with a railing? 1 - 1 - 1 -KQ (r) LG (c) Total 6 Click Score (range 6-24) 11 - 11 - 10 -KQ Score Interpretation 30.25 - 30.25 - 28.13 -KQ (r) LG (c) Safe Environment End of Therapy Session Safe Environment End of Therapy Session Patient left in chair;Chair alarm in place and activated;RNnotified;Call light within reach in room - RN notified;Call light within reach;Overbed table within reach;Restraint or restraint alternative in place;Patient left in chair;Chair alarm in place and activated -MV Patient left in recliner;Chair alarm in place and activated;Call light within reach -KQ (r) LG (t) LG (c) Assessment Prognosis Good - -- -- Problem List Reduced mobility;Decreased strength;Decreased range of motion;Decreased endurance;Impaired balance - Reduced mobility;Gait deviations;Decreased strength;Impaired balance;Decreased cognition;Decreased safety awareness - -- Barriers to Discharge Current Mobility Status - -- -- Plan Plan Continue with current plan;If this is the last note, consider this the discharge summary - -- Continue with current plan;If this is the last note, consider this the discharge summary -KQ (r) LG (c) Recommendation/Plan PT Recommendation/Plan Inpatient Rehab Facility - Inpatient Rehab Facility -MV Inpatient Rehab Facility -KQ (r) LG (c) Patient is motivated to actively participate in therapy 3hr/day, 5days/wk (900min) Yes - Yes - -- Final discharge destination post acute care will be community based (home, independent living, assisted living) Yes - Yes -MV -- Patient requires more than one skilled therapy discipline Yes - Yes -MV -- Patient requires at least minimal assistance with toileting/toilet transfers, transfers AND locomotion (amb or w/c mobility) Yes - Yes -MV -- Patient has cognitive function to actively participate and benefit from intensive rehab Yes - Yes- -- Recommend Inpatient Rehab/Acute Rehab due to Ability to actively participate in intensive therapy 3hours/day, 5 days/week or 900 minutes per week;Highly motivated to participate in therapy;Impaired ability to complete functional mobility;Requires multiple therapy disciplines to address functional d eficits;Requires greater than 25% physical assistance with most mobility tasks - Ability to actively participate in intensive therapy 3 hours/day, 5 days/week or 900 minutes per week - Highly motivated to participate in therapy;Requires greater than 25% physical assistance with most mobility tasks;Not at baseline due to impaired ability to complete ADLs;Impaired ability to complete functional mobility;Requires multiple therapy disciplines to address functional deficits - KQ (r) LG (c) Patient at high risk for Falls;Readmission;Injury due to reduced functional status;Injury at home as patient has not returned to prior level of function -MH Falls;Readmission;Injury due to reduced functional status;Injury due to impaired cognition;Injury due to balance deficits;Injury at home as patient has not returned to prior level of function -MV Falls;Injury due to reduced functional status;Injury due to balance deficits -KQ (r) LG (c) PT Recommendation/Plan Comments Patient and spouse agreeable with PT POC -MH -- -- PT Frequency during current admission 5-7x/wk -MH 5-7x/wk -MV 5-7x/wk -KQ (r) LG (c) Treatment/Interventions during current admission Balance Training;Bed mobility;Functional transfer training;Gait training;Therapeutic exercise;Therapeutic activity -MH -- Balance Training;Bed mobility;Endurance training;Functional activity;Functional transfer training;Gait training;Strengthening;Therapeutic activity;Therapeutic exercise;Transfer training -KQ (r) LG (c) PT Equipment Recommended -- Other (Comment) Defer to next level of care -MV -- -LG Progress during current admission Progressing toward goals -MH Progressing toward goals -MV Progressing toward goals -KQ (r) LG (c) PT Time Calculation PT Start Time 1037 -MH 1154 -MV 1329 -KQ (r) LG (c) PT Stop Time 1104 -MH 1227 -MV 1401 -KQ (r) LG (c) PT Time Calculation (min) 27 min -MH 33 min -MV 32 min -KQ User Olguin (r) = Recorded By, (t) = Taken By, (c) = Cosigned By Initials Name Effective Dates MV Duong Mondragon, PT 04/26/23 - KQ Shiraz Sy 08/28/24 - Adarsh Regan, PT 01/15/22 - LG Verona Wise, PT 05/29/19 - PT Notes 10/16/2024 11:25 AM Progress Notes signed by Adarsh Regan, PT , PT Eval and Treat Last Documented OT ASSESSMENT FLOWSHEET LAST DOCUMENTED (most recent) PT Evaluation - 10/16/24 1226 General Session Type Treatment Safe Environment Arm band checked;Patient found in supine;Session completed bedside;Gait belt utilized for all out of bed mobility Precautions Precautions Fall risk;SHAMAR Feeding Feeding: Where assessed Chair Feeding: Level of assistance Minimum Assist Min A for spillage Grooming Grooming: Where assessed Chair Grooming: Level of assistance Maximum Assist Mod A task; Unable to perform in standing LE Dressing LE Dressing: Where assessed Chair LE Dressing: Level of assistance Dependent Pain Assessment Pain Assessment No/denies pain Pain Score 0 - No pain Cognition Arousal/Alertness Alert;Appropriate responses to stimuli Orientation Oriented x 0 Following Commands Follows one step commands with repetition Compliance/Behavior Easy to engage Tinetti Sitting Balance 0 Arises 0 Attempts to Arise 0 Immediate Standing Balance (First 5 Seconds) 0 Standing Balance 0 Nudged 0 Eyes Closed 0 Turned 360 Degrees: Steadiness 0 Turned 360 Degrees: Continuity of Steps 0 Sitting Down 0 Balance Score 0 Static Sitting Balance Static Sitting-Level of Assistance Close supervision Dynamic Sitting Balance Dynamic Sitting-Level of Assistance Contact guard Static Standing Balance Static Standing-Level of Assistance Moderate assistance Dynamic Standing Balance Dynamic Standing-Level of Assistance Moderate assistance Transfer 1 Transfer From 1 Sit Transfer Type 1 To and from Transfer to 1 Stand Technique 1 Sit to stand;Stand to sit Transfer Device 1 No device Transfer Level of Assistance 1 Moderate Assist Trials/Comments 1 Mod A for balance and safety, decreased force production, blocking of right LE Transfers 2 Transfer From 2 Chair with arms Transfer Type 2 To and from Transfer to 2 Bed Technique 2 Stand and step Transfer Device 2 No device Transfer Level of Assistance 2 Moderate Assist Trials/Comments 2 Mod A for balance and safety, blocking of right LE Safe Environment End of Therapy Session Safe Environment End of Therapy Session Patient left in chair;Chair alarm in place and activated;RNnotified;Call light within reach;Overbed table within reach PT TREATMENT (most recent) PT Treatment - 10/16/24 1226 PT Last Visit Session Type Treatment Safe Environment Arm band checked;Patient found in supine;Session completedbedside;Gait belt utilized for all out of bed mobility Precautions Precautions Fall risk;SHAMAR Pain Assessment Pain Assessment No/denies pain Pain Score 0 - No pain Cognition Arousal/Alertness Alert;Appropriate responses to stimuli Orientation Oriented x 0 Following Commands Follows one step commands with repetition Compliance/Behavior Easy to engage Tinetti Sitting Balance 0 Arises 0 Attempts to Arise 0 Immediate Standing Balance (First 5 Seconds) 0 Standing Balance 0 Nudged 0 Eyes Closed 0 Turned 360 Degrees: Steadiness 0 Turned 360 Degrees: Continuity of Steps 0 Sitting Down 0 Balance Score 0 Static Sitting Balance Static Sitting-Level of Assistance Close supervision Dynamic Sitting Balance Dynamic Sitting-Level of Assistance Contact guard Static Standing Balance Static Standing-Level of Assistance Moderate assistance Dynamic Standing Balance Dynamic Standing-Level of Assistance Moderate assistance Transfer 1 Transfer From 1 Sit Transfer Type 1 To and from Transfer to 1 Stand Technique 1 Sit to stand;Stand to sit Transfer Device 1 No device Transfer Level of Assistance 1 Moderate Assist Trials/Comments 1 Mod A for balance and safety, decreased force production, blocking of right LE Transfers 2 Transfer From 2 Chair with arms Transfer Type 2 To and from Transfer to 2 Bed Technique 2 Stand and step Transfer Device 2 No device Transfer Level of Assistance 2 Moderate Assist Trials/Comments 2 Mod A for balance and safety, blocking of right LE Safe Environment End of Therapy Session Safe Environment End of Therapy Session Patient left in chair;Chair alarm in place and activated;RNnotified;Call light within reach;Overbed table within reach PT Notes 10/16/2024 11:25 AM Progress Notes signed by Adarsh Regan, PT ULUS TUTOR * Plan of Care - Ronit Cruz RN - 10/16/2024 12:44 PM CST 10/16/24 1242 Discharge Planning Support System Spouse/Significant Other;Children Anticipated discharge level of care Acute Rehab Does the patient need discharge transport arranged? Yes Type of Transportation Ambulance/EMS Has discharge transport been arranged? No Post Acute Care Plan OP Services N/A DME N/A Post Acute Care Facility Yes Referral Status Accepted Accepted Post Acute Care Location and Contact [facility]- lialaquita Mas--- Auth req'd updated pt/ot notes--- auth to be submitted 10/16 or 10/17 CM Progression of Care Update Per Medical Chart/Rounds/IDR: medically ready for transfer ADD: 10/21 Discharge Barriers: ins auth- has medicare adv plan Education Needs Identified (plan):Notified spouse auth will be started when new pt/ot notes in F/U Appointments: per avs Patient's Identified Problem/Goal Problem:?Ensure acute medical needs are met and that patient has a safe discharge plan. Goal:?Secure a discharge plan that patient/family are agreeable with?and ensure patient has continuum of care. Patient and/or family are agreeable with plan. medical territory manager will continue to follow and assist with discharge planning as needed. If any further discharge needs arise, please contact the covering rn case manager hospice. UPDATE: This CM sent updated notes via [facility]port ULUS TUTOR ULUS TUTOR * Plan of Care - Edd Pelaez SLP - 10/16/2024 11:06 AM CST Problem: Swallowing Goal: LTG - Patient will tolerate the least restrictive diet consistency to allow for safe consumption of daily meals Outcome: Progressing Goal: STG - Patient will tolerate recommended food and liquid consistencies without clinical signs and symptoms of aspirations Outcome: Progressing Goal: STG - Patient will demonstrate safe oral intake to advance diet Outcome: Progressing Clinical Impression & Professional Recommendations Diet Solids Recommendation: Regular Diet Liquids Recommendations: Honey thick (small sips from cup edge) Recommended Form of Medications: Crushed, With puree Compensatory Strategies/Modifications: Alternate solids and liquids, Small bites, Single sips Postural Recommendations: Upright Assistance with feeding/swallowing: Assist with aggressive oral hygiene prior to po, Assistance with thickening liquid, Frequent supervision Pt seen this date for swallow tx. Alert sitting upright in bedside chair. Accepted few ice chips, tsps of thin water and small sips of water from straw. Frequent coughing with straw sips of water, suggestive of aspiration. Pt able to take small volume sips of honey thick liquids from cup edge with adequate oral retrieval and transit, no anterior spillage. Slow but complete mastication of hard solids. No residue of solids. Recommend diet advancement to regular solids and continue honey thick liquids. ULUS TUTOR * Plan of Care - Ally Medina RN - 10/15/2024 11:31 PM CST Goals: Clinical Goals for the Shift: neuro checks, promote PO intake, promote comfort and safety, increasefluid intake, up to the chair Summary: Problem: Skin Integrity Impairment Risk Goal: Mobility will improve Outcome: Progressing Goal: Understanding of ways to prevent future skin breakdown will improve Outcome: Progressing Goal: Nutritional status will improve Outcome: Progressing Goal: Risk for impaired skin integrity will decrease Outcome: Progressing Problem: Neurosensory Goal: Achieves stable or improved neurological status Outcome: Progressing Goal: Absence of seizures Outcome: Progressing Goal: Remains free of injury related to seizures activity Outcome: Progressing Goal: Achieves maximal functionality and self care Outcome: Progressing Goal: Ability to maintain intracranial pressure will improve Outcome: Progressing Problem: Respiratory Goal: Achieves optimal ventilation and oxygenation Outcome: Progressing Goal: Ability to maintain a clear airway will improve Outcome: Progressing Goal: Mechanical Ventilation will be safely managed Outcome: Progressing Problem: Cardiovascular Goal: Maintains optimal cardiac output and hemodynamic stability Outcome: Progressing Goal: Absence of cardiac dysrhythmias or at baseline Outcome: Progressing Goal: Cardiovascular status will improve Outcome: Progressing Problem: Skin/Tissue Integrity Goal: Skin integrity remains intact Outcome: Progressing Goal: Incisions, wounds, or drain sites healing without S/S of infection Outcome: Progressing Goal: Oral mucous membranes remain intact Description: Outcome: Progressing Problem: Musculoskeletal Goal: Return mobility to safest level of function Outcome: Progressing Goal: Maintain proper alignment of affected body part Outcome: Progressing Goal: Return ADL status to a safe level of function Outcome: Progressing Goal: Ability to perform activities at highest level will improve Outcome: Progressing Goal: Mobility, ROM and muscle strength will improve Outcome: Progressing Problem: Gastrointestinal Goal: Minimal or absence of nausea and vomiting Outcome: Progressing Goal: Maintains or returns to baseline bowel function Outcome: Progressing Goal: Maintains adequate nutritional intake Outcome: Progressing Goal: Establish and maintain optimal ostomy function Outcome: Progressing Goal: Will show no signs and symptoms of gastrointestinal bleeding Outcome: Progressing Problem: Genitourinary Goal: Absence of urinary retention Outcome: Progressing Goal: Urinary catheter remains patent Outcome: Progressing Problem: Infection Goal: Absence of infection during hospitalization Outcome: Progressing Goal: Absence of fever/infection during anticipated neutropenic period Outcome: Progressing Problem: Metabolic/Fluid and Electrolytes Goal: Electrolytes maintained within normal limits Outcome: Progressing Goal: Hemodynamic stability and optimal renal function maintained Outcome: Progressing Goal: Glucose maintained within prescribed range Outcome: Progressing Problem: Hematologic Goal: Maintains hematologic stability Outcome: Progressing Problem: Activity Goal: Ability to maintain optimal joint mobility will improve Outcome: Progressing Goal: Mobility will improve Outcome: Progressing Problem: Lack of Knowledge Goal: Knowledge of disease or condition will improve Outcome: Progressing Goal: Knowledge of the prescribed therapeutic regimen will improve Outcome: Progressing Problem: Coping Goal: Ability to identify and develop effective coping behavior will improve Outcome: Progressing Goal: Ability to verbalize positive feelings about self will improve Outcome: Progressing Goal: Communication of feelings of control over situation will improve Outcome: Progressing Goal: Ability to identify strategies to decrease anxiety will improve Outcome: Progressing Problem: Health Behavior Goal: Ability to manage health-related needs will improve Outcome: Progressing Problem: Nutritional Goal: Maintenance of adequate nutrition will improve Outcome: Progressing Problem: Physical Regulation Goal: Complications related to the disease process, condition or treatment will be avoided or minimized Outcome: Progressing Goal: Hemodynamic stability will improve Outcome: Progressing Problem: Respiratory Goal: Ability to maintain a clear airway will improve Outcome: Progressing Goal: Ability to maintain adequate ventilation will improve Outcome: Progressing Problem: Role Relationship Goal: Ability to communicate needs accurately will improve Outcome: Progressing Problem: Safety Goal: Ability to chew and swallow food without choking will improve Outcome: Progressing Goal: Ability to remain free from injury will improve Outcome: Progressing Problem: Restraint for Interference with Medical Safety Goal: Knowledge of restraints will improve Outcome: Progressing Goal: Remains free from injury from restraints Outcome: Progressing Goal: Free from restraint(s) Outcome: Progressing ULUS TUTOR * Plan of Care - Anju Vazquez - 10/15/2024 5:10 PM CST Problem: Skin Integrity Impairment Risk Goal: Mobility will improve Outcome: Progressing Goal: Nutritional status will improve Outcome: Progressing Problem: Skin/Tissue Integrity Goal: Skin integrity remains intact Outcome: Progressing Problem: Gastrointestinal Goal: Maintains adequate nutritional intake Outcome: Progressing Problem: Safety Goal: Ability to chew and swallow food without choking will improve Outcome: Progressing Goal: Ability to remain free from injury will improve Outcome: Progressing Problem: Restraint for Interference with Medical Safety Goal: Free from restraint(s) Outcome: Progressing Goals: Clinical Goals for the Shift: neuro checks, promote PO intake, promote comfort and safety, increasefluid intake, up to the chair Summary: ULUS TUTOR * Plan of Care - Ally Medina RN - 10/15/2024 1:02 AM CST Goals: Clinical Goals for the Shift: neuro checks, promote rest and comfort, maintain self environment, increase nutritional intake PO, turns, get to chair Summary: Problem: Skin Integrity Impairment Risk Goal: Mobility will improve Outcome: Progressing Goal: Understanding of ways to prevent future skin breakdown will improve Outcome: Progressing Goal: Nutritional status will improve Outcome: Progressing Goal: Risk for impaired skin integrity will decrease Outcome: Progressing Problem: Neurosensory Goal: Achieves stable or improved neurological status Outcome: Progressing Goal: Absence of seizures Outcome: Progressing Goal: Remains free of injury related to seizures activity Outcome: Progressing Goal: Achieves maximal functionality and self care Outcome: Progressing Goal: Ability to maintain intracranial pressure will improve Outcome: Progressing Problem: Respiratory Goal: Achieves optimal ventilation and oxygenation Outcome: Progressing Goal: Ability to maintain a clear airway will improve Outcome: Progressing Goal: Mechanical Ventilation will be safely managed Outcome: Progressing Problem: Cardiovascular Goal: Maintains optimal cardiac output and hemodynamic stability Outcome: Progressing Goal: Absence of cardiac dysrhythmias or at baseline Outcome: Progressing Goal: Cardiovascular status will improve Outcome: Progressing Problem: Skin/Tissue Integrity Goal: Skin integrity remains intact Outcome: Progressing Goal: Incisions, wounds, or drain sites healing without S/S of infection Outcome: Progressing Goal: Oral mucous membranes remain intact Description: Outcome: Progressing Problem: Musculoskeletal Goal: Return mobility to safest level of function Outcome: Progressing Goal: Maintain proper alignment of affected body part Outcome: Progressing Goal: Return ADL status to a safe level of function Outcome: Progressing Goal: Ability to perform activities at highest level will improve Outcome: Progressing Goal: Mobility, ROM and muscle strength will improve Outcome: Progressing Problem: Gastrointestinal Goal: Minimal or absence of nausea and vomiting Outcome: Progressing Goal: Maintains or returns to baseline bowel function Outcome: Progressing Goal: Maintains adequate nutritional intake Outcome: Progressing Goal: Establish and maintain optimal ostomy function Outcome: Progressing Goal: Will show no signs and symptoms of gastrointestinal bleeding Outcome: Progressing Problem: Genitourinary Goal: Absence of urinary retention Outcome: Progressing Goal: Urinary catheter remains patent Outcome: Progressing Problem: Infection Goal: Absence of infection during hospitalization Outcome: Progressing Goal: Absence of fever/infection during anticipated neutropenic period Outcome: Progressing Problem: Metabolic/Fluid and Electrolytes Goal: Electrolytes maintained within normal limits Outcome: Progressing Goal: Hemodynamic stability and optimal renal function maintained Outcome: Progressing Goal: Glucose maintained within prescribed range Outcome: Progressing Problem: Hematologic Goal: Maintains hematologic stability Outcome: Progressing Problem: Activity Goal: Ability to maintain optimal joint mobility will improve Outcome: Progressing Goal: Mobility will improve Outcome: Progressing Problem: Lack of Knowledge Goal: Knowledge of disease or condition will improve Outcome: Progressing Goal: Knowledge of the prescribed therapeutic regimen will improve Outcome: Progressing Problem: Coping Goal: Ability to identify and develop effective coping behavior will improve Outcome: Progressing Goal: Ability to verbalize positive feelings about self will improve Outcome: Progressing Goal: Communication of feelings of control over situation will improve Outcome: Progressing Goal: Ability to identify strategies to decrease anxiety will improve Outcome: Progressing Problem: Health Behavior Goal: Ability to manage health-related needs will improve Outcome: Progressing Problem: Nutritional Goal: Maintenance of adequate nutrition will improve Outcome: Progressing Problem: Physical Regulation Goal: Complications related to the disease process, condition or treatment will be avoided or minimized Outcome: Progressing Goal: Hemodynamic stability will improve Outcome: Progressing Problem: Respiratory Goal: Ability to maintain a clear airway will improve Outcome: Progressing Goal: Ability to maintain adequate ventilation will improve Outcome: Progressing Problem: Role Relationship Goal: Ability to communicate needs accurately will improve Outcome: Progressing Problem: Safety Goal: Ability to chew and swallow food without choking will improve Outcome: Progressing Goal: Ability to remain free from injury will improve Outcome: Progressing Problem: Restraint for Interference with Medical Safety Goal: Knowledge of restraints will improve Outcome: Progressing Goal: Remains free from injury from restraints Outcome: Progressing Goal: Free from restraint(s) Outcome: Progressing [facility] * Plan of Anju López - 10/14/2024 6:27 PM CST Problem: Skin Integrity Impairment Risk Goal: Mobility will improve 10/14/20241821 by Anju Vazquez Outcome: Progressing 10/14/2024 165 by Anju Vazquez Outcome: Progressing Goal: Nutritional status will improve Outcome: Progressing Problem: Skin/Tissue Integrity Goal: Skin integrity remains intact Outcome: Progressing Problem: Gastrointestinal Goal: Maintains adequate nutritional intake Outcome: Progressing Problem: Activity Goal: Mobility will improve Outcome: Progressing Problem: Restraint for Interference with Medical Safety Goal: Free from restraint(s) 10/14/20241821 by Anju Vazquez Outcome: Progressing 10/14/20241653 by Anju Vazquez Outcome: Progressing Goals: Clinical Goals for the Shift: neuro checks, promote rest and comfort, maintain self environment, increase nutritional intake PO, turns, get to chair Summary: [facility] T[employer]OR * Plan of Chau - Deya Vargas RN - 10/14/2024 5:08 AM CST Goals: Clinical Goals for the Shift: VSS, neuro assessments, sleep hygiene, promote rest and comfort, maintain safe environment, tele, restraints, meds via NGT, turns Summary: Problem: Skin Integrity Impairment Risk Goal: Risk for impaired skin integrity will decrease Outcome: Progressing Flowsheets (Taken 10/13/2024710) Risk for impaired skin integrity will decrease: Identify risk factors for impaired skin integrity and/or pressure injuries Monitor skin integrity, appearance and temperature Implement precautions to protect skin integrity Perform cleansing of skin when soiled Provide moisture management and/or incontinence care Provide pressure-redistribution bed, mattress and/or chair cushion Problem: Restraint for Interference with Medical Safety Goal: Remains free from injury from restraints Outcome: Progressing Flowsheets (Taken 10/14/2024504) Remains free of injury from restraints: Identify and document the criteria for restraint Determine that other, less restrictive measures have been tried or would not be effective before applying the restraint Evaluate the patient's condition at the time of restraint application and continue to monitor patient's condition Inform patient/family regarding the reason for restraint Q2H: Monitor safety checks including skin, circulation, sensory, respiratory, psychosocial status, comfort, nutrition and hydration Problem: Cardiovascular Goal: Absence of cardiac dysrhythmias or at baseline Outcome: Progressing Flowsheets (Taken 10/14/2024504) Absence of cardiac dysrhythmias or at baseline: Continuous cardiac monitoring, monitor vital signs,obtain 12 lead EKG if indicated Problem: Gastrointestinal Goal: Maintains adequate nutritional intake Outcome: Progressing Flowsheets (Taken 10/14/2024504) Maintains adequate nutritional intake: Assist with meals as needed Problem: Genitourinary Goal: Urinary catheter remains patent Outcome: Progressing Flowsheets (Taken 10/13/2024710) Urinary catheter remains patent: Assess patency of urinary catheter Problem: Activity Goal: Ability to maintain optimal joint mobility will improve Outcome: Progressing Flowsheets (Taken 10/14/2024504) Ability to maintain optimal joint mobility will improve: Assist active range of motion Perform passive range of motion Problem: Lack of Knowledge Goal: Knowledge of disease or condition will improve Outcome: Progressing Flowsheets (Taken 10/13/2024710) Knowledge of disease or condition will improve: Teach information regarding disease process or condition Problem: Health Behavior Goal: Ability to manage health-related needs will improve Outcome: Progressing Flowsheets (Taken 10/13/2024710) Ability to manage health-related needs will improve: Collaborate with speech- language pathology Problem: Nutritional Goal: Maintenance of adequate nutrition will improve Outcome: Progressing Flowsheets (Taken 10/14/2024 0505) Maintenance of adequate nutrition will improve: Monitor nutritional intake Provide assistance with feeding Problem: Physical Regulation Goal: Complications related to the disease process, condition or treatment will be avoided or minimized Outcome: Progressing Flowsheets (Taken 10/13/2024710) Complications related to the disease process, condition or treatment will be avoided or minimized: Monitor for complications Provide repositioning Implement venous thromboembolism (VTE) prophylaxis Provide symptom management Implement precautions to protect skin integrity Problem: Role Relationship Goal: Ability to communicate needs accurately will improve Outcome: Progressing Flowsheets (Taken 10/13/2024710) Ability to communicate needs accurately will improve: Assess ability to send, receive and/or process information Problem: Safety Goal: Ability to chew and swallow food without choking will improve Outcome: Progressing Flowsheets (Taken 10/14/2024 050) Ability to chew and swallow food without choking will improve: Implement aspiration precautions Problem: Self-Care Goal: General experience of comfort will improve Outcome: Progressing Flowsheets (Taken 10/14/2024504) Ability to participate in self-care as condition permits will improve: Support self-care activities Problem: Sensory Goal: General experience of comfort will improve Outcome: Progressing Flowsheets (Taken 10/13/2024710) General experience of comfort will improve: Evaluate pain status Problem: Tissue Perfusion Goal: Signs of adequate cerebral perfusion will increase Outcome: Progressing Flowsheets (Taken 10/13/2024710) Signs of adequate cerebral perfusion will increase: Assess neurological status Monitor level of consciousness [facility] * Plan of Care - Zohaib Zheng RN - 10/13/2024 9:15 AM CST Goals: Clinical Goals for the Shift: vss, neuro check, maintain restraint orders, [id number], assist w/ meals, promote comfort and safety Summary: Problem: Skin Integrity Impairment Risk Goal: Mobility will improve Outcome: Progressing Goal: Understanding of ways to prevent future skin breakdown will improve Outcome: Progressing Goal: Nutritional status will improve Outcome: Progressing Goal: Risk for impaired skin integrity will decrease Outcome: Progressing Problem: Neurosensory Goal: Achieves stable or improved neurological status Outcome: Progressing Goal: Absence of seizures Outcome: Progressing Goal: Remains free of injury related to seizures activity Outcome: Progressing Goal: Achieves maximal functionality and self care Outcome: Progressing Goal: Ability to maintain intracranial pressure will improve Outcome: Progressing Problem: Respiratory Goal: Achieves optimal ventilation and oxygenation Outcome: Progressing Goal: Ability to maintain a clear airway will improve Outcome: Progressing Goal: Mechanical Ventilation will be safely managed Outcome: Progressing Problem: Cardiovascular Goal: Maintains optimal cardiac output and hemodynamic stability Outcome: Progressing Goal: Absence of cardiac dysrhythmias or at baseline Outcome: Progressing Goal: Cardiovascular status will improve Outcome: Progressing Problem: Skin/Tissue Integrity Goal: Skin integrity remains intact Outcome: Progressing Goal: Incisions, wounds, or drain sites healing without S/S of infection Outcome: Progressing Goal: Oral mucous membranes remain intact Description: Outcome: Progressing Problem: Musculoskeletal Goal: Return mobility to safest level of function Outcome: Progressing Goal: Maintain proper alignment of affected body part Outcome: Progressing Goal: Return ADL status to a safe level of function Outcome: Progressing Goal: Ability to perform activities at highest level will improve Outcome: Progressing Goal: Mobility, ROM and muscle strength will improve Outcome: Progressing Problem: Gastrointestinal Goal: Minimal or absence of nausea and vomiting Outcome: Progressing Goal: Maintains or returns to baseline bowel function Outcome: Progressing Goal: Maintains adequate nutritional intake Outcome: Progressing Goal: Establish and maintain optimal ostomy function Outcome: Progressing Goal: Will show no signs and symptoms of gastrointestinal bleeding Outcome: Progressing Problem: Genitourinary Goal: Absence of urinary retention Outcome: Progressing Goal: Urinary catheter remains patent Outcome: Progressing Problem: Infection Goal: Absence of infection during hospitalization Outcome: Progressing Goal: Absence of fever/infection during anticipated neutropenic period Outcome: Progressing Problem: Metabolic/Fluid and Electrolytes Goal: Electrolytes maintained within normal limits Outcome: Progressing Goal: Hemodynamic stability and optimal renal function maintained Outcome: Progressing Goal: Glucose maintained within prescribed range Outcome: Progressing Problem: Hematologic Goal: Maintains hematologic stability Outcome: Progressing Problem: Activity Goal: Ability to maintain optimal joint mobility will improve Outcome: Progressing Goal: Mobility will improve Outcome: Progressing Problem: Lack of Knowledge Goal: Knowledge of disease or condition will improve Outcome: Progressing Goal: Knowledge of the prescribed therapeutic regimen will improve Outcome: Progressing Problem: Coping Goal: Ability to identify and develop effective coping behavior will improve Outcome: Progressing Goal: Ability to verbalize positive feelings about self will improve Outcome: Progressing Goal: Communication of feelings of control over situation will improve Outcome: Progressing Goal: Ability to identify strategies to decrease anxiety will improve Outcome: Progressing Problem: Health Behavior Goal: Ability to manage health-related needs will improve Outcome: Progressing Problem: Nutritional Goal: Maintenance of adequate nutrition will improve Outcome: Progressing Problem: Physical Regulation Goal: Complications related to the disease process, condition or treatment will be avoided or minimized Outcome: Progressing Goal: Hemodynamic stability will improve Outcome: Progressing Problem: Respiratory Goal: Ability to maintain a clear airway will improve Outcome: Progressing Goal: Ability to maintain adequate ventilation will improve Outcome: Progressing Problem: Role Relationship Goal: Ability to communicate needs accurately will improve Outcome: Progressing Problem: Safety Goal: Ability to chew and swallow food without choking will improve Outcome: Progressing Goal: Ability to remain free from injury will improve Outcome: Progressing Problem: Self-Care Goal: General experience of comfort will improve Outcome: Progressing Problem: Sensory Goal: General experience of comfort will improve Outcome: Progressing Problem: Tissue Perfusion Goal: Signs of adequate cerebral perfusion will increase Outcome: Progressing Problem: Restraint for Interference with Medical Safety Goal: Knowledge of restraints will improve Outcome: Progressing Goal: Remains free from injury from restraints Outcome: Progressing Goal: Free from restraint(s) Outcome: Progressing Problem: Discharge Planning Goal: Understanding discharge needs will improve Outcome: Progressing [facility] [employer] * Plan of Care - Deya Vargas RN - 10/13/2024 7:11 AM CST Goals: Clinical Goals for the Shift: transfer, VSS, neuro assessments, sleep hygiene, promote rest and comfort, restraint monitoring, maintain safe environment, jj care, tele Summary: Problem: Skin Integrity Impairment Risk Goal: Risk for impaired skin integrity will decrease Outcome: Progressing Flowsheets (Taken 10/13/2024 0711) Risk for impaired skin integrity will decrease: Identify risk factors for impaired skin integrity and/or pressure injuries Monitor skin integrity, appearance and temperature Implement precautions to protect skin integrity Perform cleansing of skin when soiled Provide moisture management and/or incontinence care Provide pressure-redistribution bed, mattress and/or chair cushion Problem: Restraint for Interference with Medical Safety Goal: Remains free from injury from restraints Outcome: Progressing Flowsheets (Taken 10/13/2024710) Remains free of injury from restraints: Q2H: Monitor safety checks including skin, circulation, sensory, respiratory, psychosocial status, comfort, nutrition and hydration Problem: Genitourinary Goal: Urinary catheter remains patent Outcome: Progressing Flowsheets (Taken 10/13/2024710) Urinary catheter remains patent: Assess patency of urinary catheter Problem: Activity Goal: Mobility will improve Outcome: Progressing Flowsheets (Taken 10/13/2024710) Mobility will improve: Encourage mobilization of extent of ability Problem: Lack of Knowledge Goal: Knowledge of disease or condition will improve Outcome: Progressing Flowsheets (Taken 10/13/2024710) Knowledge of disease or condition will improve: Teach information regarding disease process or condition Goal: Knowledge of the prescribed therapeutic regimen will improve Outcome: Progressing Flowsheets (Taken 10/13/2024710) Knowledge of prescribed therapeutic regimen will improve: Teach information regarding therapeutic regimen Explain information regarding preoperative preparation and procedure Problem: Coping Goal: Communication of feelings of control over situation will improve Outcome: Progressing Flowsheets (Taken 10/13/2024710) Communciation of feelings of control over situation will improve: Provide encouragement to ask questions Problem: Health Behavior Goal: Ability to manage health-related needs will improve Outcome: Progressing Flowsheets (Taken 10/13/2024710) Ability to manage health-related needs will improve: Collaborate with speech- language pathology Problem: Physical Regulation Goal: Complications related to the disease process, condition or treatment will be avoided or minimized Outcome: Progressing Flowsheets (Taken 10/13/2024710) Complications related to the disease process, condition or treatment will be avoided or minimized: Monitor for complications Provide repositioning Implement venous thromboembolism (VTE) prophylaxis Provide symptom management Implement precautions to protect skin integrity Problem: Respiratory Goal: Ability to maintain a clear airway will improve Outcome: Progressing Flowsheets (Taken 10/13/2024710) Ability to maintain a clear airway will improve: Performs actions to maintain a patent airway Problem: Role Relationship Goal: Ability to communicate needs accurately will improve Outcome: Progressing Flowsheets (Taken 10/13/2024710) Ability to communicate needs accurately will improve: Assess ability to send, receive and/or process information Problem: Sensory Goal: General experience of comfort will improve Outcome: Progressing Flowsheets (Taken 10/13/2024 0711) General experience of comfort will improve: Evaluate pain status Problem: Tissue Perfusion Goal: Signs of adequate cerebral perfusion will increase Outcome: Progressing Flowsheets (Taken 10/13/2024 0711) Signs of adequate cerebral perfusion will increase: Assess neurological status Monitor level of consciousness [facility] * Plan of Care - Justin Vegas RN - 10/12/2024 10:39 PM CST Problem: Skin Integrity Impairment Risk Goal: Nutritional status will improve Outcome: Progressing Problem: Restraint for Interference with Medical Safety Goal: Remains free from injury from restraints Outcome: Progressing Goal: Free from restraint(s) Outcome: Not Progressing Problem: Neurosensory Goal: Achieves stable or improved neurological status Outcome: Not Progressing Goal: Absence of seizures Outcome: Progressing Problem: Musculoskeletal Goal: Return mobility to safest level of function Outcome: Progressing Goal: Mobility, ROM and muscle strength will improve Outcome: Progressing Problem: Genitourinary Goal: Absence of urinary retention Outcome: Not Progressing Goal: Urinary catheter remains patent Outcome: Progressing Problem: Hematologic Goal: Maintains hematologic stability Outcome: Progressing Goals: Clinical Goals for the Shift: VSS, pain management, comfort and safety, restraint management. [facility] T[employer]OR * Plan of Care - Eleonora Angel RN - 10/12/2024 6:48 PM CST Problem: Skin Integrity Impairment Risk Goal: Mobility will improve Outcome: Progressing Goal: Risk for impaired skin integrity will decrease Outcome: Progressing Problem: Neurosensory Goal: Achieves stable or improved neurological status Outcome: Progressing Goal: Absence of seizures Outcome: Progressing Goal: Remains free of injury related to seizures activity Outcome: Progressing Goal: Ability to maintain intracranial pressure will improve Outcome: Progressing Problem: Respiratory Goal: Achieves optimal ventilation and oxygenation Outcome: Progressing Goal: Ability to maintain a clear airway will improve Outcome: Progressing Goal: Mechanical Ventilation will be safely managed Outcome: Progressing Problem: Cardiovascular Goal: Maintains optimal cardiac output and hemodynamic stability Outcome: Progressing Goal: Absence of cardiac dysrhythmias or at baseline Outcome: Progressing Goal: Cardiovascular status will improve Outcome: Progressing Problem: Skin/Tissue Integrity Goal: Skin integrity remains intact Outcome: Progressing Goal: Incisions, wounds, or drain sites healing without S/S of infection Outcome: Progressing Goal: Oral mucous membranes remain intact Description: Outcome: Progressing Problem: Musculoskeletal Goal: Return mobility to safest level of function Outcome: Progressing Goal: Maintain proper alignment of affected body part Outcome: Progressing Goal: Return ADL status to a safe level of function Outcome: Progressing Goal: Ability to perform activities at highest level will improve Outcome: Progressing Goal: Mobility, ROM and muscle strength will improve Outcome: Progressing Problem: Gastrointestinal Goal: Minimal or absence of nausea and vomiting Outcome: Progressing Goal: Establish and maintain optimal ostomy function Outcome: Progressing Goal: Will show no signs and symptoms of gastrointestinal bleeding Outcome: Progressing Problem: Genitourinary Goal: Absence of urinary retention Outcome: Progressing Goal: Urinary catheter remains patent Outcome: Progressing Problem: Infection Goal: Absence of infection during hospitalization Outcome: Progressing Goal: Absence of fever/infection during anticipated neutropenic period Outcome: Progressing Problem: Metabolic/Fluid and Electrolytes Goal: Electrolytes maintained within normal limits Outcome: Progressing Goal: Hemodynamic stability and optimal renal function maintained Outcome: Progressing Goal: Glucose maintained within prescribed range Outcome: Progressing Problem: Hematologic Goal: Maintains hematologic stability Outcome: Progressing Problem: Activity Goal: Ability to maintain optimal joint mobility will improve Outcome: Progressing Goal: Mobility will improve Outcome: Progressing Problem: Physical Regulation Goal: Complications related to the disease process, condition or treatment will be avoided or minimized Outcome: Progressing Goal: Hemodynamic stability will improve Outcome: Progressing Problem: Respiratory Goal: Ability to maintain a clear airway will improve Outcome: Progressing Goal: Ability to maintain adequate ventilation will improve Outcome: Progressing Problem: Safety Goal: Ability to chew and swallow food without choking will improve Outcome: Progressing Goal: Ability to remain free from injury will improve Outcome: Progressing Problem: Self-Care Goal: General experience of comfort will improve Outcome: Progressing Problem: Sensory Goal: General experience of comfort will improve Outcome: Progressing Problem: Tissue Perfusion Goal: Signs of adequate cerebral perfusion will increase Outcome: Progressing Problem: Restraint for Interference with Medical Safety Goal: Remains free from injury from restraints Outcome: Progressing Problem: Skin Integrity Impairment Risk Goal: Nutritional status will improve Outcome: Not Progressing Problem: Neurosensory Goal: Achieves maximal functionality and self care Outcome: Not Progressing Problem: Gastrointestinal Goal: Maintains or returns to baseline bowel function Outcome: Not Progressing Goal: Maintains adequate nutritional intake Outcome: Not Progressing Problem: Health Behavior Goal: Ability to manage health-related needs will improve Outcome: Not Progressing Problem: Nutritional Goal: Maintenance of adequate nutrition will improve Outcome: Not Progressing Problem: Role Relationship Goal: Ability to communicate needs accurately will improve Outcome: Not Progressing Problem: Restraint for Interference with Medical Safety Goal: Free from restraint(s) Outcome: Not Progressing [employer] * Plan of Care - Nadia Renee RN - 10/12/2024 10:34 AM CST Medical team stated that this patient can TTF Cm snet referral to closer rehabs, [facility] is [place] far from [place] they [place] [facility] 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 Problem: Skin Integrity Impairment Risk Goal: Mobility will improve Outcome: Progressing Goal: Understanding of ways to prevent future skin breakdown will improve Outcome: Progressing Goal: Nutritional status will improve Outcome: Progressing Goal: Risk for impaired skin integrity will decrease Outcome: Progressing Problem: Restraint for Interference with Medical Safety Goal: Knowledge of restraints will improve Outcome: Progressing Goal: Remains free from injury from restraints Outcome: Progressing Goal: Free from restraint(s) Outcome: Progressing Problem: Neurosensory Goal: Achieves stable or improved neurological status Outcome: Progressing Goal: Absence of seizures Outcome: Progressing Goal: Remains free of injury related to seizures activity Outcome: Progressing Goal: Achieves maximal functionality and self care Outcome: Progressing Goal: Ability to maintain intracranial pressure will improve Outcome: Progressing Problem: Respiratory Goal: Achieves optimal ventilation and oxygenation Outcome: Progressing Goal: Ability to maintain a clear airway will improve Outcome: Progressing Goal: Mechanical Ventilation will be safely managed Outcome: Progressing Problem: Cardiovascular Goal: Maintains optimal cardiac output and hemodynamic stability Outcome: Progressing Goal: Absence of cardiac dysrhythmias or at baseline Outcome: Progressing Goal: Cardiovascular status will improve Outcome: Progressing Problem: Skin/Tissue Integrity Goal: Skin integrity remains intact Outcome: Progressing Goal: Incisions, wounds, or drain sites healing without S/S of infection Outcome: Progressing Goal: Oral mucous membranes remain intact Description: Outcome: Progressing Problem: Musculoskeletal Goal: Return mobility to safest level of function Outcome: Progressing Goal: Maintain proper alignment of affected body part Outcome: Progressing Goal: Return ADL status to a safe level of function Outcome: Progressing Goal: Ability to perform activities at highest level will improve Outcome: Progressing Goal: Mobility, ROM and muscle strength will improve Outcome: Progressing Problem: Gastrointestinal Goal: Minimal or absence of nausea and vomiting Outcome: Progressing Goal: Maintains or returns to baseline bowel function Outcome: Progressing Goal: Maintains adequate nutritional intake Outcome: Progressing Goal: Establish and maintain optimal ostomy function Outcome: Progressing Goal: Will show no signs and symptoms of gastrointestinal bleeding Outcome: Progressing Problem: Genitourinary Goal: Absence of urinary retention Outcome: Progressing Goal: Urinary catheter remains patent Outcome: Progressing Problem: Infection Goal: Absence of infection during hospitalization Outcome: Progressing Goal: Absence of fever/infection during anticipated neutropenic period Outcome: Progressing Problem: Metabolic/Fluid and Electrolytes Goal: Electrolytes maintained within normal limits Outcome: Progressing Goal: Hemodynamic stability and optimal renal function maintained Outcome: Progressing Goal: Glucose maintained within prescribed range Outcome: Progressing Problem: Hematologic Goal: Maintains hematologic stability Outcome: Progressing Problem: Activity Goal: Ability to maintain optimal joint mobility will improve Outcome: Progressing Goal: Mobility will improve Outcome: Progressing Problem: Lack of Knowledge Goal: Knowledge of disease or condition will improve Outcome: Progressing Goal: Knowledge of the prescribed therapeutic regimen will improve Outcome: Progressing Problem: Coping Goal: Ability to identify and develop effective coping behavior will improve Outcome: Progressing Goal: Ability to verbalize positive feelings about self will improve Outcome: Progressing Goal: Communication of feelings of control over situation will improve Outcome: Progressing Goal: Ability to identify strategies to decrease anxiety will improve Outcome: Progressing Problem: Health Behavior Goal: Ability to manage health-related needs will improve Outcome: Progressing Problem: Nutritional Goal: Maintenance of adequate nutrition will improve Outcome: Progressing Problem: Physical Regulation Goal: Complications related to the disease process, condition or treatment will be avoided or minimized Outcome: Progressing Goal: Hemodynamic stability will improve Outcome: Progressing Problem: Respiratory Goal: Ability to maintain a clear airway will improve Outcome: Progressing Goal: Ability to maintain adequate ventilation will improve Outcome: Progressing Problem: Role Relationship Goal: Ability to communicate needs accurately will improve Outcome: Progressing Problem: Safety Goal: Ability to chew and swallow food without choking will improve Outcome: Progressing Goal: Ability to remain free from injury will improve Outcome: Progressing ULUS TUTOR * Significant Event - Julieta Madelinflo Carty, ISHA - 10/11/2024 9:29 PM CALCULUS TUTOR Neuro Critical Care Transfer Note Dx: L Basal ganglia IPH HPI: Megan Salas is a 74 year old with PMH of hypertension, hyperlipidemia, GERD, generalized anxietydisorder transferring from [facility] to [facility] NNICU. Ms. Salas's last known well was 10/08 08:30 am. Per , the patient was having a warm bath. He noticed the bathroom door was open and heard a loud thud. He saw his leaning on her right side against the wall, without loss of consciousness. She was looking around and acting confused. The became concerned for stroke and called EMS. When EMS arrived, they noted she was alert but oriented x0 with some right sided weakness. She was then taken to the OSH ED. Initial blood pressure was 115/91, glucose 92. NIHSS 23. CT head revealed a large left basal ganglia IPH with no MLS but notable effacement of left lateral ventricle. CTA was negative for aneurysm or vascular malformation. While at the ED, she was given zofran 4 mg IV. She was taken to [facility] NNICU for further monitoring. On arrival to the NNICU, she was hemodynamically stable and saturating well on 2L nasal cannula. Hospital Course: Admitted to the NNICU 10/08/2024. She was hemodynamically unsupported on 2L nasal cannula. Repeat CT head demonstrated stable left BG IPH from prior imaging. Failed bedside swallow evaluation, an NGT was placed. Started cEEG which demonstrated no seizures, left sided slowing, discontinued on 10/09/2024. Over the next two days patient's level of alertness improved. MACHINE ASSEMBLER SUPERVISOR evaluated patient and recommended MBS for 10/12. Ongoing urinary retention requiring multiple straight caths, jj was replaced on 10/11. PHYSICAL EXAM: General: sitting up in bed, NAD HEENT: Mucous membranes moist, sclera anicteric Cardiac: S1, S2, RRR, no M/R/G Pulmonary: Even, unlabored respirations. Symmetric chest rise and fall. Lungs clear with diminishedbases to auscultation anterior guo. Abdomen: Obese abdomen, Non-distended in appearance, bowel sounds present, soft/non-tender to palpation. NGT in situ Ext: No peripheral edema or digital cyanosis Skin: No rashes or lesions NEURO EXAM Mental Status Awake, alert, eyes open spontaneously, regards, does not follow commands, mimics (protrudes tongue,thumbs up), unable to assess orientation, attempts speech but mostly incomprehensible, can understand some one syllable words okay hello Cranial Nerves PERRL 3mm, able to look to right past midline, but does not fully bury, right facial weakness, severe dysarthria Motor LUE/LLE moving spontaneously, full RUE movement distally within plane of bed RLE brief antigravity, spontaneous movement of foot # Large left basal ganglia IPH -- ICH score 1 -- etiology likely hypertensive -- SMART c/s -- NC q4hr + SH -- SBP <160 -- most recent CT head 2/3, stable left BG IPH -- brain MRI at some point -- UDS +benzos, ethanol <10 -- 2/2 - 2/3 cEEG: no sz, L slowing # Insomnia -- ramelteon 8mg nightly -- delirium precautions # Acute pain -- PRN Tylenol 650 mg q4h # Mood disorder -- hold home xanax 0.25 mg TID PRN -- hold home doxepin 10 mg daily # Hypertension -- home regimen: lisinopril 5 mg daily -- SBP <160 -- PRN labetalol/hydralazine -- continue reduced dose lisinopril 2.5mg daily (started 10/11) # HLD -- continue atorvastatin 40 mg daily # Likely SHAMAR -- intermittently required NC 2L when sleeping as sats dip to 90-91% -- unable to participate with IS, OOBTC as tolerated -- O2 for SPO2 >92% -- outpatient follow up for sleep study # Urinary retention -- 2/3 discontinued tamsulosin -- had been voiding spontaneously, with purwic in place, but 2/4 began to retain reqiring multiple straight caths, jj replaced 10/11 -- consider void trial again in next 1-2 days # Nutrition # Dysphagia -- NGT in situ, conitnue TF Jevity 1.5 @ 40ml/hr goal + NS flushes 150ml q4hr -- 10/11 seen by MACHINE ASSEMBLER SUPERVISOR, plan for MBS tomorrow 10/12 # Constipation -- no BM since admission -- continue colace 100mg BID and senna 1 tab BID -- give dulcolax suppository today # GERD -- continue home pepcid 20 mg BID ACCESS Lines PIV x2 Jj Replaced 10/11 due to retention VTE Prophylaxis Last Venous Doppler: none Prophylaxis: SCDs, SQH CODE STATUS: Full Code Madelin Rendon NP Sign out called to Tana Ross MD. For any question please call [phone]. ULUS TUTOR * Plan of Care - Wu Rehman RN - 10/11/2024 9:04 AM CST Report per IDR: Patient not medically ready to discharge from the hospital. Impression: Patient admitted to [facility] NN[facility] for ICH work up protocol. At minimum, patient will need IRF. Referrals: Press Clipper noted patient has been recommended for Inpatient Rehab by PT/OT. Press Clipper proactively initiated a referral to [facility] preferred Inpatient Rehab Facility - [facility]. Press Clipper met with the patient/family at bedside to discuss recommendations by therapy and to work on a potential discharge disposition plan. Press Clipper provided education to patient/family on the rehabilitation process. Patient reported he/she was interested in placementfor rehabilitation. medical territory manager provided a list of additional potential Inpatient Rehab Facility choices to patient and family. Patient and family selected the following choices (preference order): [id number] Referral created, saved, but not yet sent. Will update and send when patient is less complex. Support: Spouse-Yared Salas [phone] Transportation: EMS F/U Appt: to be scheduled ADD: Patient may move out of ICU today vs tomorrow. Problem: Establish a safe discharge Goal: Implement a safe discharge to IRF. Case Management will follow for planning and referrals as needed. LAUREN Romero, technical project manager ULUS TUTOR * Provider Query - Lelia Freitas NP - 10/10/2024 12:47 PM CALCULUS TUTOR Specify a diagnosis that accurately reflects the patient???s radiology findings and clinical assessment, and document in the medical record and on the form below. _x__ Cerebral edema, non-traumatic POA ___ Brain Compression, non-traumatic POA ___ Findings not clinically significant ___ Other, specify below Additional Provider Response: Clinical Indicators/Treatments: -74 year old woman with history of hypertension, hyperlipidemia, GERD, anxiety disorder who is transferred here from [facility] with a L BG/Internal capsule ICH after a fall (without LOC) - H&P (Josiah) H&P (oJsiah): Left basal ganglia / internal capsule ICH with mass effect CT 10/08/24: Unchanged intraparenchymal hemorrhage centered within the left basal ganglia measuring 6.3 x 2.1 x 3.0 cm, previously 6.3 x 2.0 x 3.2 cm. There is mild surrounding edema and persistent effacement of the left lateral ventricle CT 10/09/24: Redemonstrated intraparenchymal hemorrhage centered within the left basal ganglia measuring 6.1 x 2.1 cm, previously 6.1 x 2.2 cm. There is mild surrounding edema and persistent effacementof the left lateral ventricle. Unchanged 2mm rightward midline shift Monitoring/Tx: -Repeat imaging -SBP < 160 -neuro checks q1h References: From the ICD-10-CM Official Guidelines for Coding and Reporting, use of terms such as likely, suspected, possible, or probable (associated with a specific diagnosis that is being evaluated, monitored, or treated as if it exists) are acceptable and can be coded in the inpatient setting when documented at the time of discharge. This documentation will become part of the patient???s medical record. Respectfully Mitchell Albert BSN RN [email or web address] [email or web address] [phone] ULUS TUTOR * Plan of Care - Edmund, Altagracia Cottrell RN - 10/10/2024 11:01 AM CALCULUS TUTOR Goals: Clinical Goals for the Shift: Q1 Vitals, Q2 neuro checks, promote comfort & safety Summary: Problem: Skin Integrity Impairment Risk Goal: Understanding of ways to prevent future skin breakdown will improve Outcome: Not Progressing Problem: Lack of Knowledge Goal: Knowledge of disease or condition will improve Outcome: Not Progressing Goal: Knowledge of the prescribed therapeutic regimen will improve Outcome: Not Progressing Problem: Coping Goal: Ability to identify and develop effective coping behavior will improve Outcome: Not Progressing Goal: Ability to verbalize positive feelings about self will improve Outcome: Not Progressing Goal: Communication of feelings of control over situation will improve Outcome: Not Progressing Goal: Ability to identify strategies to decrease anxiety will improve Outcome: Not Progressing Problem: Role Relationship Goal: Ability to communicate needs accurately will improve Outcome: Not Progressing Problem: Safety Goal: Ability to chew and swallow food without choking will improve Outcome: Not Progressing Problem: Restraint for Interference with Medical Safety Goal: Free from restraint(s) Outcome: Not Progressing Problem: Skin Integrity Impairment Risk Goal: Mobility will improve Outcome: Progressing Goal: Nutritional status will improve Outcome: Progressing Goal: Risk for impaired skin integrity will decrease Outcome: Progressing Problem: Neurosensory Goal: Achieves stable or improved neurological status Outcome: Progressing Problem: Respiratory Goal: Achieves optimal ventilation and oxygenation Outcome: Progressing Goal: Ability to maintain a clear airway will improve Outcome: Progressing Problem: Cardiovascular Goal: Maintains optimal cardiac output and hemodynamic stability Outcome: Progressing Goal: Absence of cardiac dysrhythmias or at baseline Outcome: Progressing Goal: Cardiovascular status will improve Outcome: Progressing Problem: Skin/Tissue Integrity Goal: Skin integrity remains intact Outcome: Progressing Goal: Incisions, wounds, or drain sites healing without S/S of infection Outcome: Progressing Goal: Oral mucous membranes remain intact Description: Outcome: Progressing Problem: Musculoskeletal Goal: Return mobility to safest level of function Outcome: Progressing Goal: Maintain proper alignment of affected body part Outcome: Progressing Goal: Return ADL status to a safe level of function Outcome: Progressing Goal: Ability to perform activities at highest level will improve Outcome: Progressing Goal: Mobility, ROM and muscle strength will improve Outcome: Progressing Problem: Gastrointestinal Goal: Minimal or absence of nausea and vomiting Outcome: Progressing Goal: Maintains or returns to baseline bowel function Outcome: Progressing Goal: Maintains adequate nutritional intake Outcome: Progressing Problem: Genitourinary Goal: Absence of urinary retention Outcome: Progressing Problem: Infection Goal: Absence of infection during hospitalization Outcome: Progressing Goal: Absence of fever/infection during anticipated neutropenic period Outcome: Progressing Problem: Metabolic/Fluid and Electrolytes Goal: Electrolytes maintained within normal limits Outcome: Progressing Goal: Hemodynamic stability and optimal renal function maintained Outcome: Progressing Goal: Glucose maintained within prescribed range Outcome: Progressing Problem: Hematologic Goal: Maintains hematologic stability Outcome: Progressing Problem: Activity Goal: Ability to maintain optimal joint mobility will improve Outcome: Progressing Goal: Mobility will improve Outcome: Progressing Problem: Health Behavior Goal: Ability to manage health-related needs will improve Outcome: Progressing Problem: Nutritional Goal: Maintenance of adequate nutrition will improve Outcome: Progressing Problem: Physical Regulation Goal: Complications related to the disease process, condition or treatment will be avoided or minimized Outcome: Progressing Goal: Hemodynamic stability will improve Outcome: Progressing Problem: Respiratory Goal: Ability to maintain a clear airway will improve Outcome: Progressing Problem: Safety Goal: Ability to remain free from injury will improve Outcome: Progressing Problem: Self-Care Goal: General experience of comfort will improve Outcome: Progressing Problem: Sensory Goal: General experience of comfort will improve Outcome: Progressing Problem: Restraint for Interference with Medical Safety Goal: Knowledge of restraints will improve Outcome: Progressing Goal: Remains free from injury from restraints Outcome: Progressing Altagracia Shaffer RN ULUS TUTOR * Plan of Chau - Sridhar Alonzo RN - 10/09/2024 10:05 PM CST Goals: Clinical Goals for the Shift: Q1 VS, Q2 neuro checks, SBP < 160, promote pt safety and comfort Summary: Problem: Skin Integrity Impairment Risk Goal: Mobility will improve Outcome: Ongoing Goal: Understanding of ways to prevent future skin breakdown will improve Outcome: Ongoing Goal: Nutritional status will improve Outcome: Ongoing Goal: Risk for impaired skin integrity will decrease Outcome: Ongoing Problem: Neurosensory Goal: Achieves stable or improved neurological status Outcome: Ongoing Goal: Absence of seizures Outcome: Ongoing Goal: Remains free of injury related to seizures activity Outcome: Ongoing Goal: Achieves maximal functionality and self care Outcome: Ongoing Goal: Ability to maintain intracranial pressure will improve Outcome: Ongoing Problem: Respiratory Goal: Achieves optimal ventilation and oxygenation Outcome: Ongoing Goal: Ability to maintain a clear airway will improve Outcome: Ongoing Goal: Mechanical Ventilation will be safely managed Outcome: Ongoing Problem: Cardiovascular Goal: Maintains optimal cardiac output and hemodynamic stability Outcome: Ongoing Goal: Absence of cardiac dysrhythmias or at baseline Outcome: Ongoing Goal: Cardiovascular status will improve Outcome: Ongoing Problem: Skin/Tissue Integrity Goal: Skin integrity remains intact Outcome: Ongoing Goal: Incisions, wounds, or drain sites healing without S/S of infection Outcome: Ongoing Goal: Oral mucous membranes remain intact Description: Outcome: Ongoing Problem: Musculoskeletal Goal: Return mobility to safest level of function Outcome: Ongoing Goal: Maintain proper alignment of affected body part Outcome: Ongoing Goal: Return ADL status to a safe level of function Outcome: Ongoing Goal: Ability to perform activities at highest level will improve Outcome: Ongoing Goal: Mobility, ROM and muscle strength will improve Outcome: Ongoing Problem: Gastrointestinal Goal: Minimal or absence of nausea and vomiting Outcome: Ongoing Goal: Maintains or returns to baseline bowel function Outcome: Ongoing Goal: Maintains adequate nutritional intake Outcome: Ongoing Goal: Establish and maintain optimal ostomy function Outcome: Ongoing Goal: Will show no signs and symptoms of gastrointestinal bleeding Outcome: Ongoing Problem: Genitourinary Goal: Absence of urinary retention Outcome: Ongoing Goal: Urinary catheter remains patent Outcome: Ongoing Problem: Infection Goal: Absence of infection during hospitalization Outcome: Ongoing Goal: Absence of fever/infection during anticipated neutropenic period Outcome: Ongoing Problem: Metabolic/Fluid and Electrolytes Goal: Electrolytes maintained within normal limits Outcome: Ongoing Goal: Hemodynamic stability and optimal renal function maintained Outcome: Ongoing Goal: Glucose maintained within prescribed range Outcome: Ongoing Problem: Hematologic Goal: Maintains hematologic stability Outcome: Ongoing Problem: Activity Goal: Ability to maintain optimal joint mobility will improve Outcome: Ongoing Goal: Mobility will improve Outcome: Ongoing Problem: Lack of Knowledge Goal: Knowledge of disease or condition will improve Outcome: Ongoing Goal: Knowledge of the prescribed therapeutic regimen will improve Outcome: Ongoing Problem: Coping Goal: Ability to identify and develop effective coping behavior will improve Outcome: Ongoing Goal: Ability to verbalize positive feelings about self will improve Outcome: Ongoing Goal: Communication of feelings of control over situation will improve Outcome: Ongoing Goal: Ability to identify strategies to decrease anxiety will improve Outcome: Ongoing Problem: Health Behavior Goal: Ability to manage health-related needs will improve Outcome: Ongoing Problem: Nutritional Goal: Maintenance of adequate nutrition will improve Outcome: Ongoing Problem: Physical Regulation Goal: Complications related to the disease process, condition or treatment will be avoided or minimized Outcome: Ongoing Goal: Hemodynamic stability will improve Outcome: Ongoing Problem: Respiratory Goal: Ability to maintain a clear airway will improve Outcome: Ongoing Goal: Ability to maintain adequate ventilation will improve Outcome: Ongoing Problem: Role Relationship Goal: Ability to communicate needs accurately will improve Outcome: Ongoing Problem: Safety Goal: Ability to chew and swallow food without choking will improve Outcome: Ongoing Goal: Ability to remain free from injury will improve Outcome: Ongoing Problem: Restraint for Interference with Medical Safety Goal: Knowledge of restraints will improve Outcome: Ongoing Goal: Remains free from injury from restraints Outcome: Ongoing Goal: Free from restraint(s) Outcome: Ongoing ULUS TUTOR * Plan of Care - Julieta Cedillo RN - 10/09/2024 10:56 AM CST Problem: Skin Integrity Impairment Risk Goal: Mobility will improve Outcome: Progressing Goal: Understanding of ways to prevent future skin breakdown will improve Outcome: Progressing Goal: Nutritional status will improve Outcome: Progressing Goal: Risk for impaired skin integrity will decrease Outcome: Progressing Problem: Neurosensory Goal: Achieves stable or improved neurological status Outcome: Progressing Goal: Absence of seizures Outcome: Progressing Goal: Remains free of injury related to seizures activity Outcome: Progressing Goal: Achieves maximal functionality and self care Outcome: Progressing Goal: Ability to maintain intracranial pressure will improve Outcome: Progressing Problem: Respiratory Goal: Achieves optimal ventilation and oxygenation Outcome: Progressing Goal: Ability to maintain a clear airway will improve Outcome: Progressing Goal: Mechanical Ventilation will be safely managed Outcome: Progressing Problem: Cardiovascular Goal: Maintains optimal cardiac output and hemodynamic stability Outcome: Progressing Goal: Absence of cardiac dysrhythmias or at baseline Outcome: Progressing Goal: Cardiovascular status will improve Outcome: Progressing Problem: Skin/Tissue Integrity Goal: Skin integrity remains intact Outcome: Progressing Goal: Incisions, wounds, or drain sites healing without S/S of infection Outcome: Progressing Goal: Oral mucous membranes remain intact Description: Outcome: Progressing Problem: Musculoskeletal Goal: Return mobility to safest level of function Outcome: Progressing Goal: Maintain proper alignment of affected body part Outcome: Progressing Goal: Return ADL status to a safe level of function Outcome: Progressing Goal: Ability to perform activities at highest level will improve Outcome: Progressing Goal: Mobility, ROM and muscle strength will improve Outcome: Progressing Problem: Gastrointestinal Goal: Minimal or absence of nausea and vomiting Outcome: Progressing Goal: Maintains or returns to baseline bowel function Outcome: Progressing Goal: Maintains adequate nutritional intake Outcome: Progressing Goal: Establish and maintain optimal ostomy function Outcome: Progressing Goal: Will show no signs and symptoms of gastrointestinal bleeding Outcome: Progressing Problem: Genitourinary Goal: Absence of urinary retention Outcome: Progressing Goal: Urinary catheter remains patent Outcome: Progressing Problem: Infection Goal: Absence of infection during hospitalization Outcome: Progressing Goal: Absence of fever/infection during anticipated neutropenic period Outcome: Progressing Problem: Metabolic/Fluid and Electrolytes Goal: Electrolytes maintained within normal limits Outcome: Progressing Goal: Hemodynamic stability and optimal renal function maintained Outcome: Progressing Goal: Glucose maintained within prescribed range Outcome: Progressing Problem: Hematologic Goal: Maintains hematologic stability Outcome: Progressing Problem: Activity Goal: Ability to maintain optimal joint mobility will improve Outcome: Progressing Goal: Mobility will improve Outcome: Progressing Problem: Lack of Knowledge Goal: Knowledge of disease or condition will improve Outcome: Progressing Goal: Knowledge of the prescribed therapeutic regimen will improve Outcome: Progressing Problem: Coping Goal: Ability to identify and develop effective coping behavior will improve Outcome: Progressing Goal: Ability to verbalize positive feelings about self will improve Outcome: Progressing Goal: Communication of feelings of control over situation will improve Outcome: Progressing Goal: Ability to identify strategies to decrease anxiety will improve Outcome: Progressing Problem: Health Behavior Goal: Ability to manage health-related needs will improve Outcome: Progressing Problem: Nutritional Goal: Maintenance of adequate nutrition will improve Outcome: Progressing Problem: Physical Regulation Goal: Complications related to the disease process, condition or treatment will be avoided or minimized Outcome: Progressing Goal: Hemodynamic stability will improve Outcome: Progressing Problem: Respiratory Goal: Ability to maintain a clear airway will improve Outcome: Progressing Goal: Ability to maintain adequate ventilation will improve Outcome: Progressing Problem: Role Relationship Goal: Ability to communicate needs accurately will improve Outcome: Progressing Problem: Safety Goal: Ability to chew and swallow food without choking will improve Outcome: Progressing Goal: Ability to remain free from injury will improve Outcome: Progressing Problem: Restraint for Interference with Medical Safety Goal: Knowledge of restraints will improve Outcome: Progressing Goal: Remains free from injury from restraints Outcome: Progressing Goal: Free from restraint(s) Outcome: Progressing Goals: Clinical Goals for the Shift: Q1 VS, Q1 NC, SBP <160, promote pt safety and comfort ULUS TUTOR * Initial Assessments - Wu Rehman RN - 10/09/2024 10:00 AM CALCULUS TUTOR CM Initial Assessment Interview Note Information Obtained From: Spouse Name: SpousePankaj Salas [phone] Admission Source: [facility] Impression: Patient admitted to [address] [facility] for ICH work up protocol. At minimum, patient will need IRF. Plan Includes: medical territory manager will monitor for post acute discharge needs such as therapy, nursing, medical equipment or agency referrals as indicated by the care team. Primary Source of Transportation: Does the patient need discharge transport arranged?: Yes Has discharge transport been arranged?: No EMS Health Insurance Coverage: [facility] Medicare Prescription Coverage: Unverified Pharmacy: [facility] [id number] [place] [id number] [facility] [id number] Primary Care Provider: Nancy Cortez MD Prior to Admission: Functional Status: Independent with ADLs Primary Caregiver: Self Support System: Spouse/Significant Other, Children Home Care Services: No Outpatient Services: No Durable Medical Equipment: Home Modification Assessment (railes in bathroom) Living Arrangements: Spouse/significant other (Sid Salas [phone]) Type of Residence: Private residence Steps in home?: Yes, Outside of home Number of steps outside: 2 steps Potential discharge needs include: Home Health: Other (Comment) (TBD) Behavioral Health Services: Behavioral Health Services: No Anticipated Level of Care: Anticipated discharge level of care: Acute Rehab Pt/Family agrees with Anticipated Level of Care: Yes Patient expects to be Discharged to: Acute Rehab Additional Information: Patient's address verified correct in Epic. If private car is appropriate at discharge, family will provide transport at discharge from hospital. Patient's Identified Problem/Goal Problem: Ensure acute medical needs are met and that patient has a safe discharge plan. Goal: Secure a discharge plan that patient/family are agreeable with and ensure patient has continuum of care. Case management will follow for discharge planning and send referrals as needed. Goals include: To assure continuity of care, To maximize coping skills, To assure patient is in a safe environment and To assure access to community resources. Plan includes: 1. Collaboration with Patient, Provider, Direct Care Nurse, Financial Aid Administrator, and other members of theHealth Care Team to assure needed interventions completed. 2. Return patient to optimal level of self-care post discharge. 3. Press Clipper will follow for Discharge Planning - interventions as needed 4. Anticipated level of care at discharge 5. Planned Discharge Disposition Wu Rehman RN ULUS TUTOR * Plan of Care - Sridhar Alonzo RN - 10/08/2024 10:47 PM CST Goals: Clinical Goals for the Shift: Q1 VS, Q1 NC, SBP <160, promote pt safety and comfort Summary: Problem: Skin Integrity Impairment Risk Goal: Mobility will improve Outcome: Ongoing Goal: Understanding of ways to prevent future skin breakdown will improve Outcome: Ongoing Goal: Nutritional status will improve Outcome: Ongoing Goal: Risk for impaired skin integrity will decrease Outcome: Ongoing Problem: Neurosensory Goal: Achieves stable or improved neurological status Outcome: Ongoing Goal: Absence of seizures Outcome: Ongoing Goal: Remains free of injury related to seizures activity Outcome: Ongoing Goal: Achieves maximal functionality and self care Outcome: Ongoing Goal: Ability to maintain intracranial pressure will improve Outcome: Ongoing Problem: Respiratory Goal: Achieves optimal ventilation and oxygenation Outcome: Ongoing Goal: Ability to maintain a clear airway will improve Outcome: Ongoing Goal: Mechanical Ventilation will be safely managed Outcome: Ongoing Problem: Cardiovascular Goal: Maintains optimal cardiac output and hemodynamic stability Outcome: Ongoing Goal: Absence of cardiac dysrhythmias or at baseline Outcome: Ongoing Goal: Cardiovascular status will improve Outcome: Ongoing Problem: Skin/Tissue Integrity Goal: Skin integrity remains intact Outcome: Ongoing Goal: Incisions, wounds, or drain sites healing without S/S of infection Outcome: Ongoing Goal: Oral mucous membranes remain intact Description: Outcome: Ongoing Problem: Musculoskeletal Goal: Return mobility to safest level of function Outcome: Ongoing Goal: Maintain proper alignment of affected body part Outcome: Ongoing Goal: Return ADL status to a safe level of function Outcome: Ongoing Goal: Ability to perform activities at highest level will improve Outcome: Ongoing Goal: Mobility, ROM and muscle strength will improve Outcome: Ongoing Problem: Gastrointestinal Goal: Minimal or absence of nausea and vomiting Outcome: Ongoing Goal: Maintains or returns to baseline bowel function Outcome: Ongoing Goal: Maintains adequate nutritional intake Outcome: Ongoing Goal: Establish and maintain optimal ostomy function Outcome: Ongoing Goal: Will show no signs and symptoms of gastrointestinal bleeding Outcome: Ongoing Problem: Genitourinary Goal: Absence of urinary retention Outcome: Ongoing Goal: Urinary catheter remains patent Outcome: Ongoing Problem: Infection Goal: Absence of infection during hospitalization Outcome: Ongoing Goal: Absence of fever/infection during anticipated neutropenic period Outcome: Ongoing Problem: Metabolic/Fluid and Electrolytes Goal: Electrolytes maintained within normal limits Outcome: Ongoing Goal: Hemodynamic stability and optimal renal function maintained Outcome: Ongoing Goal: Glucose maintained within prescribed range Outcome: Ongoing Problem: Hematologic Goal: Maintains hematologic stability Outcome: Ongoing Problem: Activity Goal: Ability to maintain optimal joint mobility will improve Outcome: Ongoing Goal: Mobility will improve Outcome: Ongoing Problem: Lack of Knowledge Goal: Knowledge of disease or condition will improve Outcome: Ongoing Goal: Knowledge of the prescribed therapeutic regimen will improve Outcome: Ongoing Problem: Coping Goal: Ability to identify and develop effective coping behavior will improve Outcome: Ongoing Goal: Ability to verbalize positive feelings about self will improve Outcome: Ongoing Goal: Communication of feelings of control over situation will improve Outcome: Ongoing Goal: Ability to identify strategies to decrease anxiety will improve Outcome: Ongoing Problem: Health Behavior Goal: Ability to manage health-related needs will improve Outcome: Ongoing Problem: Nutritional Goal: Maintenance of adequate nutrition will improve Outcome: Ongoing Problem: Physical Regulation Goal: Complications related to the disease process, condition or treatment will be avoided or minimized Outcome: Ongoing Goal: Hemodynamic stability will improve Outcome: Ongoing Problem: Respiratory Goal: Ability to maintain a clear airway will improve Outcome: Ongoing Goal: Ability to maintain adequate ventilation will improve Outcome: Ongoing Problem: Role Relationship Goal: Ability to communicate needs accurately will improve Outcome: Ongoing Problem: Safety Goal: Ability to chew and swallow food without choking will improve Outcome: Ongoing Goal: Ability to remain free from injury will improve Outcome: Ongoing Problem: Restraint for Interference with Medical Safety Goal: Knowledge of restraints will improve Outcome: Ongoing Goal: Remains free from injury from restraints Outcome: Ongoing Goal: Free from restraint(s) Outcome: Ongoing ULUS TUTOR * Plan of Care - Kimberlee Hewitt RN - 10/08/2024 2:24 PM CST Problem: Skin Integrity Impairment Risk Goal: Mobility will improve Outcome: Ongoing Goal: Understanding of ways to prevent future skin breakdown will improve Outcome: Ongoing Goal: Nutritional status will improve Outcome: Ongoing Goal: Risk for impaired skin integrity will decrease Outcome: Ongoing Problem: Neurosensory Goal: Achieves stable or improved neurological status Outcome: Ongoing Goal: Absence of seizures Outcome: Ongoing Goal: Remains free of injury related to seizures activity Outcome: Ongoing Goal: Achieves maximal functionality and self care Outcome: Ongoing Goal: Ability to maintain intracranial pressure will improve Outcome: Ongoing Problem: Respiratory Goal: Achieves optimal ventilation and oxygenation Outcome: Ongoing Goal: Ability to maintain a clear airway will improve Outcome: Ongoing Goal: Mechanical Ventilation will be safely managed Outcome: Ongoing Problem: Cardiovascular Goal: Maintains optimal cardiac output and hemodynamic stability Outcome: Ongoing Goal: Absence of cardiac dysrhythmias or at baseline Outcome: Ongoing Goal: Cardiovascular status will improve Outcome: Ongoing Problem: Skin/Tissue Integrity Goal: Skin integrity remains intact Outcome: Ongoing Goal: Incisions, wounds, or drain sites healing without S/S of infection Outcome: Ongoing Goal: Oral mucous membranes remain intact Description: Outcome: Ongoing Problem: Musculoskeletal Goal: Return mobility to safest level of function Outcome: Ongoing Goal: Maintain proper alignment of affected body part Outcome: Ongoing Goal: Return ADL status to a safe level of function Outcome: Ongoing Goal: Ability to perform activities at highest level will improve Outcome: Ongoing Goal: Mobility, ROM and muscle strength will improve Outcome: Ongoing Problem: Gastrointestinal Goal: Minimal or absence of nausea and vomiting Outcome: Ongoing Goal: Maintains or returns to baseline bowel function Outcome: Ongoing Goal: Maintains adequate nutritional intake Outcome: Ongoing Goal: Establish and maintain optimal ostomy function Outcome: Ongoing Goal: Will show no signs and symptoms of gastrointestinal bleeding Outcome: Ongoing Problem: Genitourinary Goal: Absence of urinary retention Outcome: Ongoing Goal: Urinary catheter remains patent Outcome: Ongoing Problem: Infection Goal: Absence of infection during hospitalization Outcome: Ongoing Goal: Absence of fever/infection during anticipated neutropenic period Outcome: Ongoing Problem: Metabolic/Fluid and Electrolytes Goal: Electrolytes maintained within normal limits Outcome: Ongoing Goal: Hemodynamic stability and optimal renal function maintained Outcome: Ongoing Goal: Glucose maintained within prescribed range Outcome: Ongoing Problem: Hematologic Goal: Maintains hematologic stability Outcome: Ongoing Problem: Activity Goal: Ability to maintain optimal joint mobility will improve Outcome: Ongoing Goal: Mobility will improve Outcome: Ongoing Problem: Lack of Knowledge Goal: Knowledge of disease or condition will improve Outcome: Ongoing Goal: Knowledge of the prescribed therapeutic regimen will improve Outcome: Ongoing Problem: Coping Goal: Ability to identify and develop effective coping behavior will improve Outcome: Ongoing Goal: Ability to verbalize positive feelings about self will improve Outcome: Ongoing Goal: Communication of feelings of control over situation will improve Outcome: Ongoing Goal: Ability to identify strategies to decrease anxiety will improve Outcome: Ongoing Problem: Health Behavior Goal: Ability to manage health-related needs will improve Outcome: Ongoing Problem: Nutritional Goal: Maintenance of adequate nutrition will improve Outcome: Ongoing Problem: Physical Regulation Goal: Complications related to the disease process, condition or treatment will be avoided or minimized Outcome: Ongoing Goal: Hemodynamic stability will improve Outcome: Ongoing Problem: Respiratory Goal: Ability to maintain a clear airway will improve Outcome: Ongoing Goal: Ability to maintain adequate ventilation will improve Outcome: Ongoing Problem: Role Relationship Goal: Ability to communicate needs accurately will improve Outcome: Ongoing Problem: Safety Goal: Ability to chew and swallow food without choking will improve Outcome: Ongoing Goal: Ability to remain free from injury will improve Outcome: Ongoing Problem: Self-Care Goal: General experience of comfort will improve Outcome: Ongoing Problem: Sensory Goal: General experience of comfort will improve Outcome: Ongoing Problem: Tissue Perfusion Goal: Signs of adequate cerebral perfusion will increase Outcome: Ongoing Problem: Restraint for Interference with Medical Safety Goal: Knowledge of restraints will improve Outcome: Ongoing Goal: Remains free from injury from restraints Outcome: Ongoing Goal: Free from restraint(s) Outcome: Ongoing Goals: Clinical Goals for the Shift: Q1 VS, Q1 NC, HCT, SBP < 160, promote comfort and safety Summary: ULUS TUTOR documented in this encounter Plan of Treatment Pending Results Name Type Priority Associated Diagnoses Date /Time Ethanol Lab STAT 10/08/2024 11: 51 AM CALCULUS TUTOR Scheduled Orders Name Type Priority Associated Diagnoses Order Schedule ECG 12 lead ECG STAT As needed unt il discontinued starting 10/08/2024 Ethanol Lab STAT Once for 1 Occurrences starting 10/08/2024 until 10/08/2024 Stop Continuous EEG - Inform EEG department Neurology Routine Once for 1 Occurrences starting 10/09/2024 until 10/09/2024 MRI Brain W WO Contrast Imaging Schedule Routine, Read Routine (OP Routine) Brain bleed (HCC) Expected: 01/14/2025, Expires: 10/17/2025 Scheduled Referrals Name Type Priority Associated Diagnoses Order Schedule Ambulatory referral to Neurology Outpatient Referral Routine Brain bleed (HCC) Expected: 10/31/2024 (Approximate), Expires: 10/17/2025 documented as of this encounter Procedures Procedure Name Priority Date/Time Associated Diagnosis Comments EGFR Routine 10/17/2024 9:12 PM CALCULUS TUTOR CBC WITHOUT DIFFERENTIAL Routine 025 9:12 PM CALCULUS TUTOR BASIC METABOLIC PANEL Routine 10/17/2024 9:12 PM CALCULUS TUTOR XR ABDOMEN AP 1 VIEW ED Urgent/IP Urgent 10/17/2024 2:07 PM CALCULUS TUTOR EGFR Routine 10/16/2024 8:34 PM CALCULUS TUTOR CBC WITHOUT DIFFERENTIAL Routine 025 8:34 PM CALCULUS TUTOR BASIC METABOLIC PANEL Routine 10/16/2024 8:34 PM CALCULUS TUTOR EGFR Routine 10/16/2024 4:14 AM CALCULUS TUTOR CBC WITHOUT DIFFERENTIAL Routine 025 4:14 AM CALCULUS TUTOR BASIC METABOLIC PANEL Routine 10/16/2024 4:14 AM CALCULUS TUTOR EGFR Timed 10/14/2024 9:01 PM CALCULUS TUTOR CBC WITHOUT DIFFERENTIAL Routine 025 9:01 PM CALCULUS TUTOR PHOSPHORUS Timed 10/14/2024 9:01 PM CALCULUS TUTOR MAGNESIUM Timed 10/14/2024 9:01 PM CALCULUS TUTOR COMPREHENSIVE METABOLIC PANEL Timed 10/14/2024 9:01 PM CALCULUS TUTOR POCT GLUCOSE DEVICE Routine 10/14/2024 12:21 PM CALCULUS TUTOR EGFR Routine 10/13/2024 10:21 PM CALCULUS TUTOR CBC WITHOUT DIFFERENTIAL Routine 025 10:21 PM CALCULUS TUTOR BASIC METABOLIC PANEL Routine 10/13/2024 10:21 PM CALCULUS TUTOR EGFR Routine 10/12/2024 8:23 PM CALCULUS TUTOR CBC WITHOUT DIFFERENTIAL Routine 025 8:23 PM CALCULUS TUTOR BASIC METABOLIC PANEL Routine 10/12/2024 8:23 PM CALCULUS TUTOR FL MODIFIED BARIUM SWALLOW W VIDEO IP Routine 10/12/2024 2:45 PM CALCULUS TUTOR MACHINE ASSEMBLER SUPERVISOR EVALUATE AND TREAT VIDEOFLUOROSCOPIC SWALLOW STUDY Routine 10/12/2024 2:35 PM CALCULUS TUTOR EGFR Routine 10/11/2024 9:06 PM CALCULUS TUTOR CBC WITHOUT DIFFERENTIAL Routine 025 9:06 PM CALCULUS TUTOR BASIC METABOLIC PANEL Routine 10/11/2024 9:06 PM CALCULUS TUTOR POTASSIUM, WHOLE BLOOD STAT 2:11 AM CALCULUS TUTOR CBC WITHOUT DIFFERENTIAL STAT 025 2:11 AM CALCULUS TUTOR EGFR Routine 10/10/2024 9:30 PM CALCULUS TUTOR MAGNESIUM Routine 10/10/2024 9:30 PM CALCULUS TUTOR BASIC METABOLIC PANEL Routine 10/10/2024 9:30 PM CALCULUS TUTOR XR ABDOMEN AP 1 VIEW ED Urgent/IP Urgent 10/10/2024 9:06 PM CALCULUS TUTOR EGFR Routine 10/09/2024 9:26 PM CALCULUS TUTOR CBC WITHOUT DIFFERENTIAL Routine 025 9:26 PM CALCULUS TUTOR MAGNESIUM Routine 10/09/2024 9:26 PM CALCULUS TUTOR BASIC METABOLIC PANEL Routine 10/09/2024 9:26 PM CALCULUS TUTOR CONTINUOUS VIDEO EEG Routine 10/09/2024 1:26 PM CALCULUS TUTOR POCT GLUCOSE DEVICE Routine 10/09/2024 7 :[address] HEAD WO CONTRAST IP Routine 10/09/2024 4 :37 AM CALCULUS TUTOR XR ABDOMEN AP 1 VIEW IP Routine 10/08/2024 10:39 PM CALCULUS TUTOR EGFR Timed 10/08/2024 9:56 PM CALCULUS TUTOR CBC WITHOUT DIFFERENTIAL Routine 025 9:56 PM CALCULUS TUTOR PHOSPHORUS Timed 10/08/2024 9:56 PM CALCULUS TUTOR MAGNESIUM Timed 10/08/2024 9:56 PM CALCULUS TUTOR COMPREHENSIVE METABOLIC PANEL Timed 10/08/2024 9:56 PM CALCULUS TUTOR XR ABDOMEN AP 1 VIEW IP Routine 10/08/2024 8:39 PM CALCULUS TUTOR DRUGS OF ABUSE SCREEN, URINE WITH REFLEX CONFIRMATION STAT 10/08/2024 4:48 PM CALCULUS TUTOR URINALYSIS AND REFLEX TO MICROSCOPIC AND CULTURE STAT 10/08/2024 4:48 PM CALCULUS TUTOR XR CHEST 1 VIEW ED Urgent/IP Urgent 10/08/2024 12:[address] HEAD WO CONTRAST ED Urgent/IP Urgent 10/08/2024 12:45 PM CALCULUS TUTOR BLOOD GAS, VENOUS STAT 10/08/2024 12:28 PM CALCULUS TUTOR B CHECK SAMPLE STAT 10/08/2024 12:07 PM CALCULUS TUTOR ECG 12-LEAD STAT 10/08/2024 11:55 AM CALCULUS TUTOR TROPONIN I HIGH-SENSITIVITY SERIES (BASELINE, 2HR, 4HR, 6HR) STAT 10/08/2024 11:51 AM CALCULUS TUTOR EGFR STAT 10/08/2024 11:51 AM CALCULUS TUTOR APTT STAT 10/08/2024 11:51 AM CALCULUS TUTOR PROTIME-INR STAT 10/08/2024 11:51 AM CALCULUS TUTOR CBC WITHOUT DIFFERENTIAL STAT 025 11:51 AM CALCULUS TUTOR TYPE AND SCREEN STAT 10/08/2024 11:51 AM CALCULUS TUTOR PHOSPHORUS STAT 10/08/2024 11:51 AM CALCULUS TUTOR MAGNESIUM STAT 10/08/2024 11:51 AM CALCULUS TUTOR ETHANOL STAT 10/08/2024 11:51 AM CALCULUS TUTOR COMPREHENSIVE METABOLIC PANEL STAT 10/08/2024 11:51 AM CALCULUS TUTOR POCT GLUCOSE DEVICE Routine 10/08/2024 11:34 AM CALCULUS TUTOR documented in this encounter Results * eGFR (10/17/2024 9:12 PM CALCULUS TUTOR) [facility] eGFR 69 >=60 mL/min/1. 73 m2 Comment: [...] last reviewed 2021. Blood 10/17/2024 9:12 PM CALCULUS TUTOR 10/17/2024 9:44 PM CALCULUS TUTOR Francy Stinson NP LAB BLOOD ORDERABLES Final Result [facility] Department [place] [address] * (ABNORMAL) CBC without differential (10/17/2024 9:12 PM CALCULUS TUTOR) WBC 10.5(H) 3.8 - 9.9 K/cumm Hgb 13.0 11.9 - 15.5 g/dL [facility] Hct 40.8 35.6 - 45.5 % [facility] Plt 281 150 - 400 K/cumm [facility] MPV 10.1 9.1 - 12.3 fL [facility] RBC 4.72 3.90 - 5.20 M/cumm [facility] MCV 86.4 81.3 - 96.4 fL [facility] MCH 27.5 27.1 - 33.3 pg [facility] MCHC 31.9(L) 32.3 - 35.7 g/dL [facility] RDW CV 13.0 11.1 - 14.9 % [facility] RDW SD 40.7 35.7 - 48.1 fL [facility] NRBC abs 0.00 0.00 - 0.01 K/cumm [facility] Blood 10/17/2024 9:12 PM CALCULUS TUTOR 10/17/2024 9:44 PM CALCULUS TUTOR us Josefa Keller BRAILLE PROOFREADER LAB BLOOD ORDERABLES Final Result [facility] Department [place] [address] * (ABNORMAL) Basic metabolic panel (10/17/2024 9:12 PM CALCULUS TUTOR) Sodium 146(H) 135 - 145 mmol/L Potassium, pl 3.9 3.3 - 4.9 mmol/L [facility] Chloride 108 97 - 110 mmol/L [facility] CO2 28 22 - 32 mmol/L [facility] Anion gap 10 2 - 15 mmol/L [facility] BUN 21 6 - 25 mg/dL [facility] Creatinine 0.88 0.60 - 1.10 mg/dL [facility] Glucose 108 70 - 199 mg/dL [facility] Comment: Interpretive Data Fasting glucose >/= 126 [...] 2022. Calcium 9.3 8.5 - 10.3 mg/dL [facility] Blood 10/17/2024 9:12 PM CALCULUS TUTOR 10/17/2024 9:44 PM CALCULUS TUTOR Francy Stinson BRAILLE PROOFREADER LAB BLOOD ORDERABLES Final Result Performing Organization Address [facility]/ZIP Co de Phone Number [facility] Department [place] [address] * XR Abdomen Ap 1 Vw (10/17/2024 2:07 PM CALCULUS TUTOR) Anatomical Region Laterality Modality Body, Abdomen N/A Computed Radiogr aphy 10/17/2024 3:01 PM CALCULUS TUTOR Impressions 10/17/2024 4:32 PM CALCULUS TUTOR There is contrast material throughout the colon likely post modified barium swallow. Fecal material and contrast in the normally calibrated colon. No dilated small bowel loops. Dictated by: Anastasiia Guillaume M.D. The radiology attending physician has personally reviewed this study, and had reviewed and/or edited this written report and agrees with it. Electronically signed by: Phillip Yoon M.D. Narrative 10/17/2024 4:32 PM CALCULUS TUTOR EXAMINATION: Abdomen, one view. HISTORY: Constipation. COMPARISON: [...] Re sult * eGFR (10/16/2024 8:34 PM CALCULUS TUTOR) eGFR 73 >=60 mL/min/1. 73 m2 Comment: [...] last reviewed 2021. Blood 10/16/2024 8:34 PM CALCULUS TUTOR 10/16/2024 9:44 PM CALCULUS TUTOR Francy Stinson BRAILLE PROOFREADER LAB BLOOD ORDERABLES Final Result [facility] [place] [address] * CBC without differential (10/16/2024 8:34 PM CALCULUS TUTOR) WBC 8.8 3.8 - 9.9 K/cumm Hgb 12.6 11.9 - 15.5 g/dL [facility] Hct 38.9 35.6 - 45.5 % [facility] Plt 253 150 - 400 K/cumm [facility] MPV 10.5 9.1 - 12.3 fL [facility] RBC 4.52 3.90 - 5.20 M/cumm [facility] MCV 86.1 81.3 - 96.4 fL [facility] MCH 27.9 27.1 - 33.3 pg [facility] MCHC 32.4 32.3 - 35.7 g/dL [facility] RDW CV 13.0 11.1 - 14.9 % [facility] RDW SD 40.7 35.7 - 48.1 fL [facility] NRBC abs 0.00 0.00 - 0.01 K/cumm [facility] Blood 10/16/2024 8:34 PM CALCULUS TUTOR 10/16/2024 9:44 PM CALCULUS TUTOR us Josefa Keller BRAILLE PROOF[employer]ER LAB BLOOD ORDERABLES Final Result [facility] Department [place] [address] * Basic metabolic panel (10/16/2024 8:34 PM CALCULUS TUTOR) Pathologist [facility] Sodium 143 135 - 145 mmol/L Potassium, pl 3.8 3.3 - 4.9 mmol/L [facility] Chloride 105 97 - 110 mmol/L [facility] CO2 27 22 - 32 mmol/L [facility] Anion gap 11 2 - 15 mmol/L [facility] BUN 17 6 - 25 mg/dL [facility] Creatinine 0.84 0.60 - 1.10 mg/dL [facility] [facility] Glucose 173 70 - 199 mg/dL [facility] Comment: Interpretive Data Fasting glucose >/= 126 [...] 2022. Calcium 8.9 8.5 - 10.3 mg/dL [facility] Blood 10/16/2024 8:34 PM CALCULUS TUTOR 10/16/2024 9:44 PM CALCULUS TUTOR Francy Stinson NP LAB BLOOD ORDERABLES Final Result [facility] Department [place] [address] * eGFR (10/16/2024 4:14 AM CALCULUS TUTOR) Pathologist [facility] eGFR 90 >=60 mL/min/1. 73 m2 Comment: [...] last reviewed 2021. Blood 10/16/2024 4:14 AM CALCULUS TUTOR 10/16/2024 4:24 AM CALCULUS TUTOR Francy Stinson NP LAB BLOOD ORDERABLES Final Result [facility] Department [place] [address] * (ABNORMAL) CBC without differential (10/16/2024 4:14 AM CALCULUS TUTOR) WBC 8.2 3.8 - 9.9 K/cumm Hgb 11.7(L) 11.9 - 15.5 g/dL [facility] Hct 37.1 35.6 - 45.5 % [facility] Plt 257 150 - 400 K/cumm [facility] MPV 9.9 9.1 - 12.3 fL [facility] RBC 4.31 3.90 - 5.20 M/cumm [facility] MCV 86.1 81.3 - 96.4 fL [facility] MCH 27.1 27.1 - 33.3 pg [facility] MCHC 31.5(L) 32.3 - 35.7 g/dL [facility] RDW CV 13.2 11.1 - 14.9 % [facility] RDW SD 41.8 35.7 - 48.1 fL [facility] NRBC abs 0.00 0.00 - 0.01 K/cumm [facility] Blood 10/16/2024 4:14 AM CALCULUS TUTOR 10/16/2024 4:24 AM CALCULUS TUTOR Josefa Keller BRAILLE PROOFREADER LAB BLOOD ORDERABLES Final Result Performing Organization Address City/[facility]/ZIP Co de Phone Number [facility] Department [place] [address] * Basic metabolic panel (10/16/2024 4:14 AM CALCULUS TUTOR) Pathologist [facility] Sodium 144 135 - 145 mmol/L Potassium, pl 3.8 3.3 - 4.9 mmol/L [facility] Chloride 109 97 - 110 mmol/L [facility] CO2 29 22 - 32 mmol/L [facility] Anion gap 6 2 - 15 mmol/L [facility] BUN 20 6 - 25 mg/dL [facility] Creatinine 0.71 0.60 - 1.10 mg/dL [facility] Glucose 105 70 - 199 mg/dL [facility] Comment: Interpretive Data Fasting glucose >/= 126 [...] 2022. Calcium 8.8 8.5 - 10.3 mg/dL [facility] Blood 10/16/2024 4:14 AM CALCULUS TUTOR 10/16/2024 4:24 AM CALCULUS TUTOR Francy Stinson BRAILLE PROOFREADER LAB BLOOD ORDERABLES Final Result Performing Organization Address [facility]/ZIP Co de Phone Number [facility] Department [place] [address] * eGFR (10/14/2024 9:01 PM CALCULUS TUTOR) eGFR 72 >=60 mL/min/1. 73 m2 Comment: [...] last reviewed 2021. Blood 10/14/2024 9:01 PM CALCULUS TUTOR 10/14/2024 9:21 PM CALCULUS TUTOR Francy Stinson BRAILLE PROOFREADER LAB BLOOD ORDERABLES Final Result [facility] Department [place] [place] [address] * (ABNORMAL) Magnesium (10/14/2024 9:01 PM CALCULUS TUTOR) Magnesium 2.7(H) 1.4 - 2.5 mg/dL Blood 10/14/2024 9:01 PM CALCULUS TUTOR 10/14/2024 9:21 PM CALCULUS TUTOR Josefa Keller BRAILLE PROOFREADER LAB BLOOD ORDERABLES Final Result [facility] Department [place] [address] * (ABNORMAL) CBC without differential (10/14/2024 9:01 PM CALCULUS TUTOR) WBC 9.7 3.8 - 9.9 K/cumm Hgb 13.3 11.9 - 15.5 g/dL [facility] Hct 42.4 35.6 - 45.5 % [facility] Plt 247 150 - 400 K/cumm [facility] MPV 9.7 9.1 - 12.3 fL [facility] RBC 4.91 3.90 - 5.20 M/cumm [facility] MCV 86.4 81.3 - 96.4 fL [facility] MCH 27.1 27.1 - 33.3 pg [facility] MCHC 31.4(L) 32.3 - 35.7 g/dL [facility] RDW CV 13.2 11.1 - 14.9 % [facility] RDW SD 41.6 35.7 - 48.1 fL [facility] NRBC abs 0.00 0.00 - 0.01 K/cumm [facility] Blood 10/14/2024 9:01 PM CALCULUS TUTOR 10/14/2024 9:20 PM CALCULUS TUTOR Josefa Keller BRAILLE PROOFREADER LAB BLOOD ORDERABLES Final Result [facility] Department [place] [address] * Phosphorus (10/14/2024 9:01 PM CALCULUS TUTOR) Pathologist [facility] Phosphorus, pl 3.3 2.3 - 4.5 mg/dL Blood 10/14/2024 9:01 PM CALCULUS TUTOR 10/14/2024 9:21 PM CALCULUS TUTOR Francy Stinson BRAILLE PROOFREADER LAB BLOOD ORDERABLES Final Result [facility] Department [place] [address] * (ABNORMAL) Comprehensive metabolic panel (10/14/2024 9:01 PM CALCULUS TUTOR) Sodium 147(H) 135 - 145 mmol/L Potassium, pl 3.9 3.3 - 4.9 mmol/L [facility] Chloride 109 97 - 110 mmol/L [facility] CO2 31 22 - 32 mmol/L [facility] Anion gap 7 2 - 15 mmol/L [facility] BUN 26(H) 6 - 25 mg/dL [facility] Creatinine 0.85 0.60 - 1.10 mg/dL [facility] Glucose 124 70 - 199 mg/dL [facility] Comment: Interpretive Data Fasting glucose >/= 126 [...] 2022. Calcium 9.7 8.5 - 10.3 mg/dL [facility] Bilirubin, total 0.4 0.1 - 1.2 mg/dL [facility] Protein, pl 7.1 6.5 - 8.5 g/dL [facility] Albumin 3.7 3.5 - 5.0 g/dL [facility] Alk phos 76 40 - 130 Units/L [facility] ALT 15 7 - 45 Units/L [facility] AST 22 10 - 45 Units/L [facility] Blood 10/14/2024 9:01 PM CALCULUS TUTOR 10/14/2024 9:21 PM CALCULUS TUTOR Francy Stinson NP LAB BLOOD ORDERABLES Final Result [facility] [place] [address] * POCT glucose (10/14/2024 12:21 PM CALCULUS TUTOR) Glucose, POC 111 70 - 199 mg/dL Blood 10/14/2024 12:2 1 PM CALCULUS TUTOR 10/14/2024 12:21 PM CALCULUS TUTOR Germania Mota MD LAB POCT ORDERABLES - D BRADICE Final Result Performing Organization Address [facility] Co de Phone Number [facility] Department [place] [address] * eGFR (10/13/2024 10:21 PM CALCULUS TUTOR) eGFR 71 >=60 mL/min/1. 73 m2 Comment: [...] reviewed 2021. Blood 10/13/2024 10:2 1 PM CALCULUS TUTOR 10/13/2024 10:33 PM CALCULUS TUTOR us Francy Stinson NP LAB BLOOD ORDERABLES Final Result Performing Organization Address City/[facility]/ZIP Co de Phone Number [facility] Department [place] [address] * (ABNORMAL) CBC without differential (10/13/2024 10:21 PM CALCULUS TUTOR) Pathologist [facility] WBC 10.2(H) 3.8 - 9.9 K/cumm Hgb 12.1 11.9 - 15.5 g/dL [facility] Hct 38.1 35.6 - 45.5 % [facility] Plt 253 150 - 400 K/cumm [facility] MPV 9.5 9.1 - 12.3 fL [facility] RBC 4.47 3.90 - 5.20 M/cumm [facility] MCV 85.2 81.3 - 96.4 fL [facility] MCH 27.1 27.1 - 33.3 pg [facility] MCHC 31.8(L) 32.3 - 35.7 g/dL [facility] RDW CV 13.4 11.1 - 14.9 % [facility] RDW SD 41.9 35.7 - 48.1 fL [facility] NRBC abs 0.00 0.00 - 0.01 K/cumm [facility] Blood 10/13/2024 10:2 1 PM CALCULUS TUTOR 10/13/2024 10:34 PM CALCULUS TUTOR Josefa Keller NP LAB BLOOD ORDERABLES Final Result [facility] Department [place] [address] * (ABNORMAL) Basic metabolic panel (10/13/2024 10:21 PM CALCULUS TUTOR) Sodium 146(H) 135 - 145 mmol/L Potassium, pl 4.2 3.3 - 4.9 mmol/L [facility] Chloride 108 97 - 110 mmol/L [facility] CO2 30 22 - 32 mmol/L [facility] Anion gap 8 2 - 15 mmol/L [facility] BUN 25 6 - 25 mg/dL [facility] Creatinine 0.86 0.60 - 1.10 mg/dL [facility] Glucose 100 70 - 199 mg/dL [facility] Comment: Interpretive Data Fasting glucose >/= 126 [...] Calcium 9.6 8.5 - 10.3 mg/dL [facility] Blood 10/13/2024 10:2 1 PM CALCULUS TUTOR 10/13/2024 10:33 PM CALCULUS TUTOR Francy Stinson LAB BLOOD ORDERABLES Final Result [facility] [place] [address] * eGFR (10/12/2024 8:23 PM CALCULUS TUTOR) eGFR 87 >=60 mL/min/1. 73 m2 Comment: [...] last reviewed 2021. Blood 10/12/2024 8:23 PM CALCULUS TUTOR 10/12/2024 9:48 PM CALCULUS TUTOR Francy Stinson BRAILLE PROOFREADER LAB BLOOD ORDERABLES Final Result [facility] Department [place] [address] * (ABNORMAL) CBC without differential (10/12/2024 8:23 PM CALCULUS TUTOR) [facility] WBC 11.1(H) 3.8 - 9.9 K/cumm Hgb 13.1 11.9 - 15.5 g/dL [facility] Hct 41.6 35.6 - 45.5 % [facility] Plt 225 150 - 400 K/cumm [facility] MPV 10.4 9.1 - 12.3 fL [facility] RBC 4.81 3.90 - 5.20 M/cumm [facility] MCV 86.5 81.3 - 96.4 fL [facility] MCH 27.2 27.1 - 33.3 pg [facility] MCHC 31.5(L) 32.3 - 35.7 g/dL [facility] RDW CV 13.6 11.1 - 14.9 % [facility] RDW SD 42.8 35.7 - 48.1 fL [facility] NRBC abs 0.00 0.00 - 0.01 K/cumm [facility] Blood 10/12/2024 8:23 PM CALCULUS TUTOR 10/12/2024 9:47 PM CALCULUS TUTOR Josefa Keller NP LAB BLOOD ORDERABLES Final Result [facility] Department [place] [address] * Basic metabolic panel (10/12/2024 8:23 PM CALCULUS TUTOR) [facility] Sodium 143 135 - 145 mmol/L Potassium, pl 4.2 3.3 - 4.9 mmol/L [facility] Chloride 104 97 - 110 mmol/L [facility] CO2 30 22 - 32 mmol/L [facility] Anion gap 9 2 - 15 mmol/L [facility] BUN 17 6 - 25 mg/dL [facility] Creatinine 0.73 0.60 - 1.10 mg/dL [facility] Glucose 105 70 - 199 mg/dL [facility] Comment: Interpretive Data Fasting glucose >/= 126 [...] Calcium 9.3 8.5 - 10.3 mg/dL [facility] Blood 10/12/2024 8:23 PM CALCULUS TUTOR 10/12/2024 9:48 PM CALCULUS TUTOR Francy Stinson NP LAB BLOOD ORDERABLES Final Result [facility] Department [place] [address] * FL Modified Barium Swallow W Video (10/12/2024 2:45 PM CALCULUS TUTOR) Anatomical Region Laterality Modality Head and Neck N/A Computed Radiogr aphy 10/12/2024 3:29 PM CALCULUS TUTOR Impressions 10/12/2024 3:29 PM CALCULUS TUTOR The swallowing mechanism is abnormal; see above [...] Anjelica Ding M.D. Narrative 10/12/2024 3:29 PM CALCULUS TUTOR EXAMINATION: MODIFIED BARIUM SWALLOW HISTORY: Dysphagia. TECHNIQUE: [...] Anjelica Ding M.D. Lelia Freitas NP IMG LOC CHAVES Final Result * MACHINE ASSEMBLER SUPERVISOR Evaluate and Treat (VFSS) (10/12/2024 2:35 PM CALCULUS TUTOR) Narrative nIgris Pierson SLP - 10/12/2024 2:35 PM CALCULUS TUTOR Ingris Pireson SLP 10/12/2024 3:50 PM Speech-Language Pathology: Videofluoroscopic Study of Swallow (VFSS/MBS) HPI/PMH HPI/PMH: 74 year old woman with history of hypertension, hyperlipidemia, GERD, anxiety disorder who is transferred here from [facility] with a L BG/Internal capsule ICH after a fall (without LOC). Respiratory/Intubation Status: 2L O2 via NC Imaging: hCT 2/: 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 No definite intraventricular extension or significant midline shift. CXR 2/2: No focal opacity, pleural effusion, or pneumothorax. Precautions: fall, SHAMAR Current Diet Order: NPO Baseline Diet: regular diet/thin liquids General Information Megan Salas 10/12/24 MACHINE ASSEMBLER SUPERVISOR Received On: 10/12/24 General Observations: Pt seen [...] at 90 degrees. Consistencies Administered: Thin liquids, [place] thickened liquids, Honey thickened liquids, Purees, Solids Administered consistencies contain barium product. Thin Liquids: Laryngeal Penetration: Present Aspiration Present: No Penetration Aspiration Scale-Thin: 5-Material enters the airway, contacts the vocal folds and is not ejected from the airway [place] Thickened Liquids: Laryngeal Penetration: Present Aspiration Present: Yes Amount: Moderate Response to aspiration: Cough reflex Cough: Non-productive Penetration Aspiration Scale-[place]: 7-Material enters the airway, passes below the [...] treatment goals and details, if indicated. Plan MACHINE ASSEMBLER SUPERVISOR Frequency of Services during current admission: 2-4x/wk MACHINE ASSEMBLER SUPERVISOR Recommendation (Add'l Services): Inpatient Rehab Facility Next Visit Plan: treatment/therapy Additional Referrals: PT/OT Discharge Summary Statement If this is the last swallow therapy visit, this serves as the discharge summary. Lelia Freitas NP MACHINE ASSEMBLER SUPERVISOR ORDERABLES Edite d Result - Final * eGFR (10/11/2024 9:06 PM CALCULUS TUTOR) eGFR 85 >=60 mL/min/1. 73 m2 Comment: [...] last reviewed 2021. Blood 10/11/2024 9:06 PM CALCULUS TUTOR 10/11/2024 9:46 PM CALCULUS TUTOR Francy Stinson BRAILLE PROOFREADER LAB BLOOD ORDERABLES Final Result [facility] Department [place] [address] * (ABNORMAL) CBC without differential (10/11/2024 9:06 PM CALCULUS TUTOR) WBC 12.6(H) 3.8 - 9.9 K/cumm Hgb 12.2 11.9 - 15.5 g/dL [facility] Hct 38.0 35.6 - 45.5 % [facility] Plt 256 150 - 400 K/cumm [facility] MPV 9.8 9.1 - 12.3 fL [facility] RBC 4.37 3.90 - 5.20 M/cumm [facility] MCV 87.0 81.3 - 96.4 fL [facility] MCH 27.9 27.1 - 33.3 pg [facility] MCHC 32.1(L) 32.3 - 35.7 g/dL [facility] RDW CV 13.6 11.1 - 14.9 % [facility] RDW SD 43.5 35.7 - 48.1 fL [facility] NRBC abs 0.00 0.00 - 0.01 K/cumm [facility] Blood 10/11/2024 9:06 PM CALCULUS TUTOR 10/11/2024 9:45 PM CALCULUS TUTOR Josefa Keller BRAILLE PROOFREADER LAB BLOOD ORDERABLES Final Result [facility] Department [place] [address] * Basic metabolic panel (10/11/2024 9:06 PM CALCULUS TUTOR) Pathologist [facility] Sodium 145 135 - 145 mmol/L Potassium, pl 4.2 3.3 - 4.9 mmol/L [facility] Chloride 108 97 - 110 mmol/L [facility] CO2 29 22 - 32 mmol/L [facility] Anion gap 8 2 - 15 mmol/L [facility] BUN 17 6 - 25 mg/dL [facility] Creatinine 0.74 0.60 - 1.10 mg/dL [facility] Glucose 137 70 - 199 mg/dL [facility] Comment: Interpretive Data Fasting glucose >/= 126 [...] 2022. Calcium 9.5 8.5 - 10.3 mg/dL [facility] Blood 10/11/2024 9:06 PM CALCULUS TUTOR 10/11/2024 9:46 PM CALCULUS TUTOR Francy Stinson BRAILLE PROOFREADER LAB BLOOD ORDERABLES Final Result [facility] Department [place] [address] * (ABNORMAL) CBC without differential (10/11/2024 2:11 AM CALCULUS TUTOR) [facility] WBC 10.1(H) 3.8 - 9.9 K/cumm Hgb 12.2 11.9 - 15.5 g/dL [facility] Hct 38.5 35.6 - 45.5 % [facility] Plt 238 150 - 400 K/cumm [facility] MPV 9.7 9.1 - 12.3 fL [facility] RBC 4.40 3.90 - 5.20 M/cumm [facility] MCV 87.5 81.3 - 96.4 fL [facility] MCH 27.7 27.1 - 33.3 pg [facility] MCHC 31.7(L) 32.3 - 35.7 g/dL [facility] RDW CV 13.6 11.1 - 14.9 % [facility] RDW SD 44.1 35.7 - 48.1 fL [facility] NRBC abs 0.00 0.00 - 0.01 K/cumm [facility] Blood 10/11/2024 2:11 AM CALCULUS TUTOR 10/11/2024 2:36 AM CALCULUS TUTOR us Avi Rahman MD LAB BLOOD ORDERABLES Final Resul t Performing Organization Address [facility] de Phone Number [facility] Department [place] [address] * Potassium, whole blood (10/11/2024 2:11 AM CALCULUS TUTOR) Potassium, bld 4.8 3.3 - 4.9 mmol/L Blood 10/11/2024 2:11 AM CALCULUS TUTOR 10/11/2024 2:26 AM CALCULUS TUTOR us Avi Rahman MD LAB BLOOD ORDERABLES Final Resul t Performing Organization Address [facility] de Phone Number [facility] Department [place] [address] * eGFR (10/10/2024 9:30 PM CALCULUS TUTOR) eGFR 90 >=60 mL/min/1. 73 m2 Comment: [...] last reviewed 2021. Blood 10/10/2024 9:30 PM CALCULUS TUTOR 10/10/2024 10:23 PM CALCULUS TUTOR Francy Stinson BRAILLE PROOFREADER LAB BLOOD ORDERABLES Final Result [facility] Department [place] [address] * Magnesium (10/10/2024 9:30 PM CALCULUS TUTOR) [facility] Magnesium 2.2 1.4 - 2.5 mg/dL Blood 10/10/2024 9:30 PM CALCULUS TUTOR 10/10/2024 10:23 PM CALCULUS TUTOR Lauren Myers BRAILLE PROOFREADER LAB BLOOD ORDERABLES Fi nal Result Performing Organization Address City/[facility]/ZIP Co de Phone Number [facility] Department [place] [address] * Basic metabolic panel (10/10/2024 9:30 PM CALCULUS TUTOR) Sodium 142 135 - 145 mmol/L Potassium, pl 4.4 3.3 - 4.9 mmol/L [facility] Comment:Hemolyzed; Potassium value may be falsely elevated by as much as 0.6-1.0 mmol/L. Suggest redraw and reanalysis. Chloride 106 97 - 110 mmol/L [facility] CO2 29 22 - 32 mmol/L [facility] Anion gap 7 2 - 15 mmol/L [facility] BUN 15 6 - 25 mg/dL [facility] Creatinine 0.71 0.60 - 1.10 mg/dL [facility] Glucose 137 70 - 199 mg/dL [facility] Comment: Interpretive Data Fasting glucose >/= 126 [...] 2022. Calcium 8.7 8.5 - 10.3 mg/dL [facility] Blood 10/10/2024 9:30 PM CALCULUS TUTOR 10/10/2024 10:23 PM CALCULUS TUTOR Francy Stinson BRAILLE PROOFREADER LAB BLOOD ORDERABLES Final Result [facility] Department [place] [address] * XR Abdomen Ap 1 Vw (10/10/2024 9:06 PM CALCULUS TUTOR) Anatomical Region Laterality Modality Body, Abdomen N/A Digital Radiogra phy 10/11/2024 8:51 AM CALCULUS TUTOR Impressions 10/11/2024 9:55 AM CALCULUS TUTOR Interval repositioning of feeding tube with tip projecting over the gastric fundus. Dictated by: Brian Baker MD The radiology attending physician has personally reviewed this study, and had reviewed and/or edited this written report and agrees with it. Electronically signed by: Phillip Yoon M.D. Narrative 10/11/2024 9:55 AM CALCULUS TUTOR EXAMINATION: Abdomen, one view. HISTORY: Check tube [...] Final Result * eGFR (10/09/2024 9:26 PM CALCULUS TUTOR) eGFR 78 >=60 mL/min/1. 73 m2 Comment: [...] last reviewed 2021. Blood 10/09/2024 9:26 PM CALCULUS TUTOR 10/09/2024 9:41 PM CALCULUS TUTOR us Francy Stinson BRAILLE PROOFREADER LAB BLOOD ORDERABLES Final Result [facility] [place] [address] * (ABNORMAL) Magnesium (10/09/2024 9:26 PM CALCULUS TUTOR) Magnesium 2.6(H) 1.4 - 2.5 mg/dL Blood 10/09/2024 9:26 PM CALCULUS TUTOR 10/09/2024 9:41 PM CALCULUS TUTOR Lauren Myers BRAILLE PROOFREADER LAB BLOOD ORDERABLES Fi nal Result Performing Organization Address City/[facility]/ZIP Co de Phone Number [facility] Department [place] [address] * Basic metabolic panel (10/09/2024 9:26 PM CALCULUS TUTOR) [facility] Sodium 145 135 - 145 mmol/L Potassium, pl 4.2 3.3 - 4.9 mmol/L [facility] Chloride 109 97 - 110 mmol/L [facility] CO2 28 22 - 32 mmol/L [facility] Anion gap 8 2 - 15 mmol/L [facility] BUN 12 6 - 25 mg/dL [facility] Creatinine 0.80 0.60 - 1.10 mg/dL [facility] Glucose 134 70 - 199 mg/dL [facility] Comment: Interpretive Data Fasting glucose >/= 126 [...] 2022. Calcium 9.1 8.5 - 10.3 mg/dL [facility] Blood 10/09/2024 9:26 PM CALCULUS TUTOR 10/09/2024 9:41 PM CALCULUS TUTOR Francy Stinson BRAILLE PROOFREADER LAB BLOOD ORDERABLES Final Result Performing Organization Address [facility] Co de Phone Number [facility] Department [place] [address] * (ABNORMAL) CBC without differential (10/09/2024 9:26 PM CALCULUS TUTOR) WBC 9.2 3.8 - 9.9 K/cumm Hgb 12.5 11.9 - 15.5 g/dL [facility] Hct 38.8 35.6 - 45.5 % [facility] Plt 261 150 - 400 K/cumm [facility] MPV 9.3 9.1 - 12.3 fL [facility] RBC 4.52 3.90 - 5.20 M/cumm [facility] MCV 85.8 81.3 - 96.4 fL [facility] MCH 27.7 27.1 - 33.3 pg [facility] MCHC 32.2(L) 32.3 - 35.7 g/dL [facility] RDW CV 13.7 11.1 - 14.9 % [facility] RDW SD 42.9 35.7 - 48.1 fL [facility] NRBC abs 0.00 0.00 - 0.01 K/cumm [facility] Blood 10/09/2024 9:26 PM CALCULUS TUTOR 10/09/2024 9:41 PM CALCULUS TUTOR us Francy Stinson NP LAB BLOOD ORDERABLES Final Result Performing Organization Address City/State/[facility] Co de Phone Number [facility] Department [place] [address] * Continuous Video EEG (10/09/2024 1:26 PM CALCULUS TUTOR) Anatomical Region Laterality Modality EEG Narrative 10/16/2024 12:27 PM CALCULUS TUTOR Video-EEG Report Patient Name: Megan Salas [facility] Medical Record Number (MRN): [id number] [facility] Ed Record: [id number] Date of (): 1950 EEG Date: 10/08/2024 Ordering Provider: Francy Stinson NP CC: Nancy Cortez Start Time: 10/08/2024 5:15:59 PM End [...] digital EEG were recorded continuously with a [employer] EEG acquisition system. This was a 32 [...] Jesus Sherwood III, MD us Francy Stinson BRAILLE PROOFREADER NEUROLOGY ORDERABLES Final Result * POCT glucose (10/09/2024 7:53 AM CALCULUS TUTOR) Glucose, POC 95 70 - 199 mg/dL Blood 10/09/2024 7:53 AM CALCULUS TUTOR 10/09/2024 7:53 AM CALCULUS TUTOR us Avi Rahman MD LAB POCT ORDERABLES - DEVICE Fin al Result [facility] Department [place] [address] * CT Head WO Contrast (10/09/2024 4:37 AM CALCULUS TUTOR) Anatomical Region Laterality Modality Head and Neck N/A Computed Tomogra phy 10/09/2024 8:35 AM CALCULUS TUTOR Impressions 10/09/2024 8:35 AM CALCULUS TUTOR 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 No definite intraventricular extension or significant midline shift. Electronically signed by: Daryn Salas M.D. Narrative 10/09/2024 8:35 AM CALCULUS TUTOR EXAMINATION: CT head without contrast HISTORY: Intraparenchymal [...] shift. Electronically signed by: Daryn Salas M.D. Franyc Stinson NP IMG CT PROCEDURES Fi nal Result * XR Abdomen Ap 1 Vw (10/08/2024 10:39 PM CALCULUS TUTOR) Anatomical Region Laterality Modality Body, Abdomen N/A Digital Radiogra phy 10/09/2024 9:04 AM CALCULUS TUTOR Impressions 10/09/2024 9:14 AM CALCULUS TUTOR 10/08/2024, 8:16 PM: Feeding tube with tip [...] Len Mohamud M.D. Narrative 10/09/2024 9:14 AM CALCULUS TUTOR EXAMINATION: Abdomen, one view. HISTORY: Altered mental [...] Final Result * eGFR (10/08/2024 9:56 PM CALCULUS TUTOR) eGFR 85 >=60 mL/min/1. 73 m2 Comment: [...] last reviewed 2021. Blood 10/08/2024 9:56 PM CALCULUS TUTOR 10/08/2024 10:36 PM CALCULUS TUTOR Francysnehal Stinson BRAILLE PROOFREADER LAB BLOOD ORDERABLES Final Result Performing Organization Address City/[facility] Co de Phone Number [facility] [place] [address] * Phosphorus (10/08/2024 9:56 PM CALCULUS TUTOR) Pathologist [facility] Phosphorus, pl 2.8 2.3 - 4.5 mg/dL Blood 10/08/2024 9:56 PM CALCULUS TUTOR 10/08/2024 10:36 PM CALCULUS TUTOR Francy Celestindafne Stinson BRAILLE PROOFREADER LAB BLOOD ORDERABLES Final Result Performing Organization Address [facility] de Phone Number [facility] [place] [address] * Magnesium (10/08/2024 9:56 PM CALCULUS TUTOR) [facility] Magnesium 1.9 1.4 - 2.5 mg/dL Blood 10/08/2024 9:56 PM CALCULUS TUTOR 10/08/2024 10:36 PM CALCULUS TUTOR Francy Maldonado Shantell BRAILLE PROOFREADER LAB BLOOD ORDERABLES Final Result Performing Organization Address [facility] [place] [address] * (ABNORMAL) Comprehensive metabolic panel (10/08/2024 9:56 PM CALCULUS TUTOR) Pathologist [facility] Sodium 148(H) 135 - 145 mmol/L Potassium, pl 3.7 3.3 - 4.9 mmol/L [facility] Chloride 114(H) 97 - 110 mmol/L [facility] Comment:Repeated and Verifie d CO2 24 22 - 32 mmol/L [facility] Anion gap 7 2 - 15 mmol/L [facility] BUN 11 6 - 25 mg/dL [facility] Creatinine 0.74 0.60 - 1.10 mg/dL [facility] Glucose 82 70 - 199 mg/dL [facility] Comment: Interpretive Data Fasting glucose >/= 126 [...] 2022. Calcium 7.4(L) 8.5 - 10.3 mg/dL [facility] Bilirubin, total 0.2 0.1 - 1.2 mg/dL [facility] Protein, pl 5.5(L) 6.5 - 8.5 g/dL [facility] Albumin 3.1(L) 3.5 - 5.0 g/dL [facility] Alk phos 53 40 - 130 Units/L [facility] ALT 16 7 - 45 Units/L [facility] AST 19 10 - 45 Units/L [facility] Blood 10/08/2024 9:56 PM CALCULUS TUTOR 10/08/2024 10:36 PM CALCULUS TUTOR Francy Stinson BRAILLE PROOFREADER LAB BLOOD ORDERABLES Final Result [facility] Department [place] [address] * (ABNORMAL) CBC without differential (10/08/2024 9:56 PM CALCULUS TUTOR) [facility] WBC 8.0 3.8 - 9.9 K/cumm Hgb 11.3(L) 11.9 - 15.5 g/dL [facility] Hct 35.6 35.6 - 45.5 % [facility] Plt 217 150 - 400 K/cumm [facility] MPV 9.6 9.1 - 12.3 fL [facility] RBC 4.15 3.90 - 5.20 M/cumm [facility] MCV 85.8 81.3 - 96.4 fL [facility] MCH 27.2 27.1 - 33.3 pg [facility] MCHC 31.7(L) 32.3 - 35.7 g/dL [facility] RDW CV 13.5 11.1 - 14.9 % [facility] RDW SD 41.9 35.7 - 48.1 fL [facility] NRBC abs 0.00 0.00 - 0.01 K/cumm [facility] Blood 10/08/2024 9:56 PM CALCULUS TUTOR 10/08/2024 10:37 PM CALCULUS TUTOR Francy Stinson NP LAB BLOOD ORDERABLES Final Result [facility] Department [place] [address] * XR Abdomen Ap 1 Vw (10/08/2024 8:39 PM CALCULUS TUTOR) Anatomical Region Laterality Modality Body, Abdomen N/A Computed Radiogr aphy 10/09/2024 9:04 AM CALCULUS TUTOR Impressions 10/09/2024 9:14 AM CALCULUS TUTOR 10/08/2024, 8:16 PM: Feeding tube with tip projecting over the peripyloric region. Normal bowel gas pattern. 10/08/2024, 10:34 PM: The feeding tube has been repositioned. The tip projects over the antrum. Dictated by: Mario Alberto Quach M.D (Ramanan). The radiology attending physician has personally reviewed this study, and had reviewed and/or edited this written report and agrees with it. Electronically signed by: Len Mohamud M.D. Narrative 10/09/2024 9:14 AM CALCULUS TUTOR EXAMINATION: Abdomen, one view. HISTORY: Altered mental [...] Urine with Reflex Confirmation (10/08/2024 4:48 PM CALCULUS TUTOR) Amphetamine, ur Not Detected CutOff 500ng/mL Comment: Interpretive Data - Amphetamines: Samples containing greater than 500 ng/mL d-methamphetamine or other cross-reacting amphetamine compounds are reported as positive. Amphetamine immunoassays are subject to significant false positive rates due to cross-reactivity of non-amphetamine drugs. Confirmatory testing required for definitive results. Current Interpretive Data was last reviewed 2023. Barbiturates, ur Not Detected CutOff 200ng/mL [facility] Comment: Interpretive Data - Barbiturates: Samples containing greater than 200 ng/mL secobarbital or other cross-reacting barbiturate compounds are reported as positive. False positive and false negative results are possible. Confirmatory testing required for definitive results. Current Interpretive Data was last reviewed 2023. Benzodiazepines, ur Screen Positive, presumptive (A) CutOff 100ng/mL [facility] Comment: Interpretive Data - Benzodiazepines: Samples containing greater than 100 ng/mL nordiazepam or other cross-reacting compounds are reported as positive. False positive and false negative results are possible. Confirmatory testing required for definitive results. Current Interpretive Data was last reviewed 2023. Cannabinoids, ur Not Detected CutOff 50 ng/mL [facility] Comment: Interpretive Data - Cannabinoids: Samples containing greater than 50 ng/mL delta-9 THC -COOH or other cross- reacting compounds are reported as positive. False positive and false negative results are possible. Confirmatory testing required for definitive results. Current Interpretive Data was last reviewed 2023. Cocaine, ur Not Detected CutOff 150ng/mL [facility] Comment: Interpretive Data - Cocaine: Samples containing greater than 150 ng/mL benzoylecgonine or other cross- reacting compounds are reported as positive. False positive and false negative results are possible. Confirmatory testing required for definitive results. Current Interpretive Data was last reviewed 2023. Fentanyl, Ur Not Detected CutOff 5 ng/mL [facility] Comment: Interpretive Data - Fentanyl: Samples containing greater than 5 ng/mL norfentanyl, fentanyl, or other cross-reacting fentanyl compounds are reported as positive. False positive and false negative results are possible. Confirmatory testing required for definitive results. Current Interpretive Data was last reviewed 2023. Methadone, ur Not Detected CutOff 300ng/mL [facility] Comment: Interpretive Data - Methadone: Samples containing greater than 300 ng/mL d,l-methadone or other cross-reacting compounds are reported as positive. False positive and false negative results are possible. Confirmatory testing required for definitive results. Current Interpretive Data was last reviewed 2023. Opiates, ur Not Detected CutOff 300ng/mL [facility] Comment: Interpretive Data - Opiates: Samples containing greater than 300 ng/mL morphine or other cross-reacting compounds are reported as positive. False positive and false negative results are possible. Confirmatory testing required for definitive results. Current Interpretive Data was last reviewed 2023. Oxycodone, ur Not Detected CutOff 100ng/mL [facility] Comment: Interpretive Data - Oxycodone: Samples containing greater than 100 ng/mL oxycodone or other cross-reacting compounds are reported as positive. False positive and false negative results are possible. Confirmatory testing required for definitive results. Current Interpretive Data was last reviewed 2023. Phencyclidine, ur Not Detected CutOff 25 ng/mL [facility] Comment: Interpretive Data - Phencyclidine: Samples containing greater than 25 ng/mL phencyclidine or other cross-reacting compounds are reported as positive. False positive and false negative results are possible. Confirmatory testing required for definitive results. Current Interpretive Data was last reviewed 2023. Urine Creatinine 44 mg/dL [facility] Comment: Interpretive Data Urine Creatinine: < 10 mg/dL is extremely dilute = or > 10 but < 20 mg/dL is dilute = or > 20 mg/dL is normal Current Interpretive Data was last revised on 2017. Urine 10/08/2024 4:48 PM CALCULUS TUTOR 10/08/2024 4:58 PM CALCULUS TUTOR Narrative [facility] - 10/08/2024 5:34 PM CALCULUS TUTOR Drug of Abuse screening is performed by immunoassay for medical purposes only. This is not to be used for Pain Management purposes. If Detected, confirmation testing will be performed for Amphetamines, Cocaine, Fentanyl, Methadone, Opiates, Oxycodone or Phencyclidine. Francy Stinson NP LAB URINE ORDERABLES Final Result [facility] Department [place] [address] * (ABNORMAL) Urinalysis reflex to microscopic and culture Urine (10/08/2024 4:48 PM CALCULUS TUTOR) Color, ur Straw Yellow Clarity, ur Clear Clear [facility] Specific gravity, ur >1.042(H) 1.003 - 1.030 [facility] pH, urine 7.0 [facility] Comment: Interpretive Data U rine pH is affected by diet, medications, systemic acid-base disturbances, and renal tubular function. pH may affect urinary stone formation. For example, urine pH below 6.0 may help reduce the tendency for calcium phosphate stones and pH greater than 6.0 may reduce the tendency for uric acid stone formation. Source: [facility] [employer] Current Interpretive Data was last revised on 2017 Protein, ur ql Negative Negative [facility] Glucose, ur ql Negative Negative [facility] Ketones, ur Trace Negative [facility] Bilirubin, ur Negative Negative [facility] Blood, ur Negative Negative [facility] Urobilinogen, ur <2.0 <2.0 mg/dL [facility] Nitrite, ur Negative Negative [facility] Leukocyte esterase, ur Negative Negative [facility] UA reflex comment Reflex conditions for microscopic UA and culture not met. [facility] Urine 10/08/2024 4:48 PM CALCULUS TUTOR 10/08/2024 4:55 PM CALCULUS TUTOR Francy Stinson NP LAB MICROBIOLOGY - G ENERAL ORDERABLES Final Result [facility] Department [place] [address] * XR chest 1 view (Portable) (10/08/2024 12:53 PM CALCULUS TUTOR) Anatomical Region Laterality Modality Body, Chest N/A Digital Radiogra phy 10/09/2024 11:2 6 AM CALCULUS TUTOR Impressions 10/09/2024 12:23 PM CALCULUS TUTOR FINDINGS/IMPRESSION: Small lung volumes. Trace pulmonary edema. Mild bilateral lower lobe atelectasis. No pleural effusion or pneumothorax. Cardiomediastinal silhouette is stable from prior exams. Dictated by: Pito Thakur MD The radiology attending physician has personally reviewed this study, and had reviewed and/or edited this written report and agrees with it. Electronically signed by: Arsen Greenfield M.D. Narrative 10/09/2024 12:23 PM CALCULUS TUTOR EXAMINATION: XR CHEST 1 VIEW HISTORY: new [...] signed by: Arsen Greenfield M.D. Francy Stinson BRAILLE PROOFREADER IMG XR PROCEDURES Fi nal Result * CT Head WO Contrast (10/08/2024 12:45 PM CALCULUS TUTOR) Anatomical Region Laterality Modality Head and Neck N/A Computed Tomogra phy 10/08/2024 12:5 8 PM CALCULUS TUTOR Impressions 10/08/2024 8:59 PM CALCULUS TUTOR Unchanged left basal ganglia intracerebral hemorrhage measuring up to 6.3 cm. No definite intraventricular extension or significant midline shift. Dictated by: Adarsh Grimes MD The radiology attending physician has personally reviewed this study, and had reviewed and/or edited this written report and agrees with it. Electronically signed by: Kasey Booth MD, PhD Narrative 10/08/2024 8:59 PM CALCULUS TUTOR EXAMINATION: CT head without contrast HISTORY: Intraparenchymal [...] (ABNORMAL) Blood gas, venous (10/08/2024 12:28 PM CALCULUS TUTOR) pH, Venous 7.35 7.32 - 7.43 PCO2, Venous 52(H) 40 - 50 mmHg [facility] PO2, Venous 38 mmHg [facility] Comment: Interpretive Data No Reference Range Established Current Interpretive Data was last revised on 2017. HCO3 Venous, Calculated 30 20 - 30 mmol/L [facility] BE, venous 2 mmol/L [facility] Comment: Interpretive Data No Reference Range Established Current Interpretive Data was last revised on 2017. Blood 10/08/2024 12:2 8 PM CALCULUS TUTOR 10/08/2024 12:58 PM CALCULUS TUTOR Francy Stinson NP LAB BLOOD ORDERABLES Final Result [facility] [place] [address] * Check Sample (10/08/2024 12:07 PM CALCULUS TUTOR) ABO Rh A Negative [facility] HCLL OTHER 10/08/2024 12:0 7 PM CALCULUS TUTOR 10/08/2024 12:26 PM CALCULUS TUTOR Avi Rahman MD LAB BLOOD ORDERABLES Final Resul t [facility] Department [place] [address] [facility] * ECG 12 lead (10/08/2024 11:55 AM CALCULUS TUTOR) Ventricular Rate EKG/Min 76 BPM [facility] Atrial Rate 76 BPM [facility] DE-Interval (MSEC) 212 ms [facility] QRS-Interval (MSEC) 92 ms [facility] QT-Interval (MSEC) 358 ms [facility] QTc 402 ms [facility] P Prentiss 67 degrees [facility] R Prentiss 6 degrees [facility] T Prentiss 15 degrees [facility] Diagnosis Sinus rhythm with sinus arrhythmia with 1st degree A-V block Otherwise normal ECG No previous ECGs available Confirmed by STANTON DELA CRUZ M.D ([id number]) on 10/09/2024 1:41:11 PM [facility] 10/08/2024 11:5 5 AM CALCULUS TUTOR 10/09/2024 1:41 PM CALCULUS TUTOR Francy Stinson BRAILLE PROOFREADER ECG ORDERABLES Kinga l Result Performing Organization Address City/[facility]/ZIP Co de Phone Number [facility] * Ethanol (10/08/2024 11:51 AM CALCULUS TUTOR) Ethanol <10 <=10 mg/dL Comment: Interpretive Data Legal limit of intoxication > or = 80 mg/dL Levels > or = 400 mg/dL are potentially TOXIC. Current interpretive data was last revised on 2018. Blood 10/08/2024 11:5 1 AM CALCULUS TUTOR 10/08/2024 12:04 PM CALCULUS TUTOR Avi Rahman MD LAB BLOOD ORDERABLES Final Resul t Performing Organization Address [facility] Co de Phone Number [facility] Department [place] [address] * eGFR (10/08/2024 11:51 AM CALCULUS TUTOR) eGFR 77 >=60 mL/min/1. 73 m2 Comment: [...] reviewed 2021. Blood 10/08/2024 11:5 1 AM CALCULUS TUTOR 10/08/2024 12:04 PM CALCULUS TUTOR us Francy Stinson NP LAB BLOOD ORDERABLES Final Result Performing Organization Address City/[facility]/ZIP Co de Phone Number [facility] [place] [address] * Troponin I high-sensitivity series (baseline, 2hr, 4hr, 6hr) (10/08/2024 11:51 AM CALCULUS TUTOR) Trop I hs <4 <=17 ng/L Comment: Interpretive Data For further hscTnI resources including the diagnostic algorithm and an aid in interpretation, copy and paste this link: https://bjhlab.testcatalog.org/show/[email or web address] Current Interpretive Data last revised 2020. Blood 10/08/2024 11:5 1 AM CALCULUS TUTOR 10/08/2024 12:04 PM CALCULUS TUTOR Francy Stinson BRAILLE PROOFREADER LAB BLOOD ORDERABLES Final Result Performing Organization Address [facility] [place] [address] * Protime-INR (10/08/2024 11:51 AM CALCULUS TUTOR) PT 10.8 9.7 - 13.0 sec INR 1.00 0.90 - 1.20 [facility] Comment: Interpretive data Oral anticoagulant therapeutic ranges: Venous thromboembolism prophylaxis or treatment: 2.0-3.0 CARDIOLOGY Standard range: 2.0-3.0 High-intensity range: 2.5-3.5 Refer to indication-specific guidelines for appropriate target ranges for prosthetic heart valve replacement. Current interpretive data was last revised on 2019. Blood 10/08/2024 11:5 1 AM CALCULUS TUTOR 10/08/2024 12:06 PM CALCULUS TUTOR Francy Stinson BRAILLE PROOFREADER LAB BLOOD ORDERABLES Final Result Performing Organization Address [facility] [place] [address] * aPTT (10/08/2024 11:51 AM CALCULUS TUTOR) aPTT 31 28 - 38 sec Comment: Interpretive Data Heparin therapeutic range: 66.0 - 100.0 seconds. Range based on correlation with therapeutic heparin activity range of 0.3 - 0.7 Units/mL. Current interpretive data was last revised on 2023. Blood 10/08/2024 11:5 1 AM CALCULUS TUTOR 10/08/2024 12:06 PM CALCULUS TUTOR Francy Stinson BRAILLE PROOFREADER LAB BLOOD ORDERABLES Final Result Performing Organization Address [facility]/ZIP Co de Phone Number [facility] [place] [address] * Type and screen (10/08/2024 11:51 AM CALCULUS TUTOR) [facility] Stephanie, indirect Negative ABO Rh A Negative [facility] Blood 10/08/2024 11:5 1 AM CALCULUS TUTOR 10/08/2024 12:03 PM CALCULUS TUTOR Narrative [facility] - 10/08/2024 1:05 PM CALCULUS TUTOR Has the patient had Daratumumab or Isatuximab in the past 6 months?->Unknown Francy Stinson BRAILLE PROOFREADER LAB BLOOD BANK TEST ORDERABLES Final Result Performing Organization Address [facility] de Phone Number [facility] Department [place] [address] * (ABNORMAL) CBC without differential (10/08/2024 11:51 AM CALCULUS TUTOR) [facility] WBC 10.2(H) 3.8 - 9.9 K/cumm Hgb 13.5 11.9 - 15.5 g/dL [facility] Hct 43.1 35.6 - 45.5 % [facility] Plt 270 150 - 400 K/cumm [facility] MPV 9.3 9.1 - 12.3 fL [facility] RBC 4.94 3.90 - 5.20 M/cumm [facility] MCV 87.2 81.3 - 96.4 fL [facility] MCH 27.3 27.1 - 33.3 pg [facility] MCHC 31.3(L) 32.3 - 35.7 g/dL [facility] RDW CV 13.2 11.1 - 14.9 % [facility] RDW SD 42.3 35.7 - 48.1 fL [facility] NRBC abs 0.00 0.00 - 0.01 K/cumm [facility] Blood 10/08/2024 11:5 1 AM CALCULUS TUTOR 10/08/2024 12:04 PM CALCULUS TUTOR Francy Stinson BRAILLE PROOFREADER LAB BLOOD ORDERABLES Final Result [facility] [place] [address] * Phosphorus (10/08/2024 11:51 AM CALCULUS TUTOR) Pathologist [facility] Phosphorus, pl 3.0 2.3 - 4.5 mg/dL Blood 10/08/2024 11:5 1 AM CALCULUS TUTOR 10/08/2024 12:04 PM CALCULUS TUTOR Francy Erica Stinson BRAILLE PROOFREADER LAB BLOOD ORDERABLES Final Result Performing Organization Address City/[facility] [place] [address] * Magnesium (10/08/2024 11:51 AM CALCULUS TUTOR) Pathologist [facility] Magnesium 2.3 1.4 - 2.5 mg/dL Blood 10/08/2024 11:5 1 AM CALCULUS TUTOR 10/08/2024 12:04 PM CALCULUS TUTOR Francy Celestindafne Stinson BRAILLE PROOFREADER LAB BLOOD ORDERABLES Final Result Performing Organization Address City/[facility] [place] [address] * Comprehensive metabolic panel (10/08/2024 11:51 AM CALCULUS TUTOR) Sodium 143 135 - 145 mmol/L Potassium, pl 4.4 3.3 - 4.9 mmol/L [facility] Chloride 103 97 - 110 mmol/L [facility] CO2 28 22 - 32 mmol/L [facility] Anion gap 12 2 - 15 mmol/L [facility] BUN 16 6 - 25 mg/dL [facility] Creatinine 0.81 0.60 - 1.10 mg/dL [facility] Glucose 109 70 - 199 mg/dL [facility] Comment: Interpretive Data Fasting glucose >/= 126 [...] 2022. Calcium 9.4 8.5 - 10.3 mg/dL [facility] Bilirubin, total 0.4 0.1 - 1.2 mg/dL [facility] Protein, pl 7.2 6.5 - 8.5 g/dL [facility] Albumin 4.1 3.5 - 5.0 g/dL [facility] Alk phos 69 40 - 130 Units/L [facility] ALT 21 7 - 45 Units/L [facility] AST 29 10 - 45 Units/L [facility] Blood 10/08/2024 11:5 1 AM CALCULUS TUTOR 10/08/2024 12:04 PM CALCULUS TUTOR us Francy Stinson NP LAB BLOOD ORDERABLES Final Result Performing Organization Address [facility] Co de Phone Number [facility] Department of [place] [id number] * POCT glucose (10/08/2024 11:34 AM CALCULUS TUTOR) [facility] Glucose, POC 100 70 - 199 mg/dL Blood 10/08/2024 11:3 4 AM CALCULUS TUTOR 10/08/2024 11:34 AM CALCULUS TUTOR Avi Rahman MD LAB POCT ORDERABLES - DEVICE Fin al Result Performing Organization Address [facility]/ZIP Co de Phone Number [facility] Department [place] [address] documented in this encounter Visit Diagnoses Diagnosis Brain bleed (HCC)- Primary Intracerebral hemorrhage Brain bleed (HCC) Intracerebral hemorrhage documented in this encounter Admitting Diagnoses Diagnosis Brain bleed (HCC) Intracerebral hemorrhage documented in this encounter Administered Medications Inactive Administered Medications - up to 3 most recent administrations Medication Order MAR Action Action Date Dose Rate Site acetaminophen (TYLENOL) tablet 650 mg 650 mg, oral, Every 4 hours PRN, 1st line for pain, fever, Starting on Wed10/08/24 at 1142 Given 10/10/2024 8:13 AM CALCULUS TUTOR 650 mg Given 10/09/2024 10:20 AM CALCULUS TUTOR 650 mg acetaminophen (TYLENOL) tablet 650 mg 650 mg, feeding tube, Every 4 hours PRN, 1st line for pain, fever, Starting on Wed10/10/24 at 0939 Given 10/15/2024 8:08 AM CALCULUS TUTOR 650 mg Given 10/10/2024 9:00 PM CALCULUS TUTOR 650 mg Given 10/10/2024 1:28 PM CALCULUS TUTOR 650 mg atorvastatin (LIPITOR) tablet 40 mg 40 mg, oral, Daily, First dose on Wed10/09/24 at 0900 Given 10/10/2024 8:13 AM CALCULUS TUTOR 40 mg Given 10/09/2024 8:23 AM CALCULUS TUTOR 40 mg atorvastatin (LIPITOR) tablet 40 mg 40 mg, feeding tube, Daily, First dose (after last modification) on Wed10/11/24 at 0900 Given 10/17/2024 8:32 AM CALCULUS TUTOR 40 mg Given 10/16/2024 9:22 AM CALCULUS TUTOR 40 mg Given 10/15/2024 8:08 AM CALCULUS TUTOR 40 mg bisacodyL (DULCOLAX) suppository 10 mg 10 mg, rectal, Once, On Wed10/11/24 at 0945, For 1 dose, Indications: constipationIndications:c onstipation Given 10/11/2024 10:42 AM CALCULUS TUTOR 10 mg bisacodyL (DULCOLAX) suppository 10 mg 10 mg, rectal, Once, On Wed10/12/24 at 1230, For 1 dose, Indications: constipationIndications:c onstipation Given 10/12/2024 4:34 PM CALCULUS TUTOR 10 mg bisacodyL (DULCOLAX) suppository 10 mg 10 mg, rectal, 2 times daily PRN, constipation, Starting on Wed10/17/24 at 1042, Indications: constipationIndications:c onstipation Given 10/17/2024 11:35 AM CALCULUS TUTOR 10 mg dexmedeTOMIDine in 0.9% sodium chloride (PRECEDEX) 400 mcg/100 mL (4 mcg/mL) infusion (premix) 0-0.7 mcg/kg/hr 86.5 kg (0-15.1375 mL/hr, rounded to 0-15.14 mL/hr), 4 mcg/mL, intravenous, Titrated, Starting on Wed10/08/24 at 1515, Until Wed10/08/24 at 1609, Titration instructions: Titrate, Initial dose: 0.2 mcg/kg/hr, Titrate: Up/Down, Titrate by: 0.1 mcg/kg/hr, Every: 30 minutes, Goal: RASS, RASS Goal: 0, +1, Routine Rate/Dose Change 10/08/2024 3:30 PM CALCULUS TUTOR 0.4 mcg/kg/hr 8.65 mL/hr New Bag 10/08/2024 2:50 PM CALCULUS TUTOR 0.2 mcg/kg/hr 4.33 mL/hr docusate (COLACE) 10 mg/mL oral liquid 100 mg 100 mg, feeding tube, 2 times daily, First dose on Wed10/08/24 at 1215, If able to receive medications per tube. Hold for diarrhea., Indications: constipation, Stool SoftenerIndications:constipation,Stool Softener Given 10/17/2024 9:52 PM CALCULUS TUTOR 100 mg Given 10/17/2024 8:38 AM CALCULUS TUTOR 100 mg Given 10/15/2024 10:02 PM CALCULUS TUTOR 100 mg docusate sodium (COLACE) capsule 100 mg 100 mg, oral, 2 times daily, First dose on Wed10/08/24 at 1215, If able to swallow capsules. Hold for diarrhea., Indications: constipation, Stool SoftenerIndications:constipation,Stool Softener Given 10/16/2024 9:13 PM CALCULUS TUTOR 100 mg Given 10/16/2024 9:22 AM CALCULUS TUTOR 100 mg famotidine (PEPCID) 20 mg/50 mL in sodium chloride 0.9% (premix) 20 mg 20 mg, intravenous, at 150 mL/hr, Administer over 20 Minutes, Every 12 hours scheduled, First dose on Wed10/08/24 at 1230 New Bag 10/09/2024 9:09 PM CALCULUS TUTOR 20 mg 150 mL/hr New Bag 10/09/2024 9:56 AM CALCULUS TUTOR 20 mg 150 mL/hr New Bag 10/08/2024 11:05 PM CALCULUS TUTOR 20 mg 150 mL/hr famotidine (PEPCID) tablet 20 mg 20 mg, oral, 2 times daily, First dose on Wed10/10/24 at 0900 Given 10/10/2024 8:13 AM CALCULUS TUTOR 20 mg famotidine (PEPCID) tablet 20 mg 20 mg, feeding tube, 2 times daily, First dose (after last modification) on Wed10/10/24 at 2100 Given 10/17/2024 9:52 PM CALCULUS TUTOR 20 mg Given 10/17/2024 8:33 AM CALCULUS TUTOR 20 mg Given 10/16/2024 9:07 PM CALCULUS TUTOR 20 mg heparin 5,000 unit/mL injection 5,000 Units 5,000 Units, subcutaneous, Every 8 hours scheduled, First dose on Wed10/10/24 at 1400, Indications: VTE ProphylaxisIndications:VTE Prophylaxis Given 10/17/2024 9:53 PM CALCULUS TUTOR 5,000 Units Left Lower Abdomen Given 10/17/2024 2:20 PM CALCULUS TUTOR 5,000 Units L eft Lower Abdomen Given 10/17/2024 5:54 AM CALCULUS TUTOR 5,000 Units L eft Lower Abdomen hydrALAZINE (APRESOLINE) injection 10 mg 10 mg, intravenous, Administer over 2 Minutes, Every 15 min PRN, high blood pressure, SBP >160 with HR <70, Starting on Wed10/08/24 at 1143 Given 10/09/2024 1:39 AM CALCULUS TUTOR 10 mg Given 10/08/2024 3:01 PM CALCULUS TUTOR 10 mg Given 10/08/2024 2:46 PM CALCULUS TUTOR 10 mg labetaloL (NORMODYNE,TRANDATE) injection 10 mg 10 mg, intravenous, at 60 mL/hr, Administer over 2 Minutes, Every 15 min PRN, high blood pressure, SBP >160 with HR >70, Starting on Wed10/08/24 at 1143 lisinopriL (PRINIVIL,ZESTRIL) tablet 10 mg 10 mg, feeding tube, Daily, First dose (after last modification) on Wed10/14/24 at 0900 Given 10/17/2024 8:32 AM CALCULUS TUTOR 10 mg Given 10/16/2024 9:22 AM CALCULUS TUTOR 10 mg Given 10/15/2024 8:08 AM CALCULUS TUTOR 10 mg lisinopriL (PRINIVIL,ZESTRIL) tablet 2.5 mg 2.5 mg, feeding tube, Daily, First dose on Wed10/11/24 at 0945 Given 10/12/2024 8:24 AM CALCULUS TUTOR 2.5 mg Given 10/11/2024 1:39 PM CALCULUS TUTOR 2.5 mg lisinopriL (PRINIVIL,ZESTRIL) tablet 2.5 mg 2.5 mg, oral, Once, On Wed10/12/24 at 0945, For 1 dose Given 10/12/2024 12:03 PM CALCULUS TUTOR 2.5 mg lisinopriL (PRINIVIL,ZESTRIL) tablet 5 mg 5 mg, feeding tube, Daily, First dose (after last modification) on Wed10/13/24 at 0900 Given 10/13/2024 9:00 AM CALCULUS TUTOR 5 mg magnesium sulfate 1 g/100 mL in dextrose 5% (premix) 1 g 1 g, intravenous, at 100 mL/hr, Administer over 60 Minutes, Once, On Wed10/09/24 at 0045, For 1 dose New Bag 10/09/2024 1:22 AM CALCULUS TUTOR 1 g 100 mL/hr ondansetron (ZOFRAN) injection 4 mg 4 mg, intravenous, Administer over 2 Minutes, Every 6 hours PRN, nausea, vomiting, Starting on Wed10/08/24 at 1139, Proceed to trimethobenzamide if no relief within 30 minutes. , Indications: Nausea and VomitingIndications:Nausea and Vomiting polyethylene glycol (MIRALAX) packet 17 g 17 g, feeding tube, 2 times daily, First dose (after last modification) on Wed10/12/24 at 0030, Indications: constipationIndications:constipation Given 10/17/2024 9:53 PM CALCULUS TUTOR 17 g Given 10/17/2024 8:39 AM CALCULUS TUTOR 17 g Given 10/16/2024 9:13 PM CALCULUS TUTOR 17 g potassium chloride 40 mEq/520 mL in sodium chloride 0.9% (premix) 40 mEq 40 mEq, intravenous, at 130 mL/hr, Administer over 4 Hours, Once, On Wed10/09/24 at 0045, For 1 dose, Indications: hypokalemiaIndications:hypokalemia New Bag 10/09/2024 1:22 AM CALCULUS TUTOR 40 mEq 130 mL/hr ramelteon (ROZEREM) tablet 8 mg 8 mg, oral, Nightly, First dose on Wed10/09/24 at 2100, Indications: Sleep-Onset InsomniaIndications:Sleep-Onset Insomnia Given 10/09/2024 9:09 PM CALCULUS TUTOR 8 mg ramelteon (ROZEREM) tablet 8 mg 8 mg, feeding tube, Nightly, First dose (after last modification) on Wed10/10/24 at 1800, Indications: Sleep-Onset InsomniaIndications:Sleep-Onset Insomnia Given 10/17/2024 7:16 PM CALCULUS TUTOR 8 mg Given 10/16/2024 6:35 PM CALCULUS TUTOR 8 mg Given 10/15/2024 6:23 PM CALCULUS TUTOR 8 mg senna 1.76 mg/mL syrup 8.8 mg 8.8 mg, feeding tube, 2 times daily, First dose on Wed10/08/24 at 1215, If able to receive medications per tube. Hold for diarrhea., Indications: constipationIndications:constipation Given 10/11/2024 8:48 PM CALCULUS TUTOR 8.8 mg Given 10/11/2024 8:33 AM CALCULUS TUTOR 8.8 mg Given 10/10/2024 9:00 PM CALCULUS TUTOR 8.8 mg sodium chloride 0.9% bolus 500 mL 500 mL, intravenous, Once, On Wed10/08/24 at 1645, For 1 dose New Bag 10/08/2024 4:11 PM CALCULUS TUTOR 500 mL sodium chloride 0.9% infusion 75 mL/hr, intravenous, Continuous, Starting on Wed10/08/24 at 1645 New Bag 10/08/2024 10:22 PM CALCULUS TUTOR 75 mL/hr 75 mL/hr New Bag 10/08/2024 4:11 PM CALCULUS TUTOR 75 mL/hr 75 mL/hr sodium chloride 0.9% infusion 100 mL/hr, intravenous, Continuous, Starting on Wed10/15/24 at 0845, For 10 hours New Bag 10/15/2024 6:35 PM CALCULUS TUTOR 100 mL/hr 10 0 mL/hr New Bag 10/15/2024 8:26 AM CALCULUS TUTOR 100 mL/hr 100 mL/hr sodium chloride 0.9% infusion 75 mL/hr, intravenous, Continuous, Starting on Wed10/15/24 at 1915, For 10 hours Rate/Dose Change 10/15/2024 8:00 PM CALCULUS TUTOR 75 mL/hr 75 mL/hr traZODone (DESYREL) tablet 25 mg 25 mg, oral, Once, On Wed10/09/24 at 0215, For 1 dose Given 10/09/2024 1:43 AM CALCULUS TUTOR 25 mg documented in this encounter Discontinued Medications Medication Sig Discontinue Reason Start Date End Da te valACYclovir (VALTREX) 1 gram tablet Take 1 tablet (1,000 mg total) by mouth 2 (two) times a day As needed Stop Taking at Discharge 03/20/2019 10/17/2024 triamcinolone (KENALOG) 0.1 % ointmentIndications:I rritant dermatitis Apply topically 2 (two) times a day as needed for irritation or rash Stop Taking at Discharge 07/21/2022 10/17/2024 lisinopriL (PRINIVIL,ZESTRIL) 5 mg tabletIndications:hyp ertension Take 1 tablet (5 mg total) by mouth daily Stop Taking at Discharge 04/06/2024 10/17/2024 doxepin (SINEquan) 10 mg capsuleIndications:de pression TAKE 1 CAPSULE (10 MG TOTAL) BY MOUTH NIGHTLY. Stop Taking at Discharge 06/15/2024 10/17/2024 lyhdakjaad-CL-nqrnktj nophen 6.25-15-325 mg/15 mL liquid Take by mouth Stop Taking at Discharge 10/17/2024 ALPRAZolam (XANAX) 0.25 mg tabletIndications:anx iety Take 1 tablet (0.25 mg total) by mouth 3 (three) times a day as needed for anxiety Stop Taking at Discharge 09/04/2024 10/17/2024 documented as of this encounter Active and Recently Administered Medications Times are shown in CALCULUS TUTOR. Scheduled Medication Order 10/15/2024 10/16/2024 10/17/2024 atorvastatin (LIPITOR) tablet 40 mg 40 mg, feeding tube, Daily, First dose (after last modification) on Wed10/11/24 at 0900 0808 (Given - Provider: Anju Vazquez) 0922 (Given - Provider: Shiraz Saunders) 0832 (Given - Provider: Zohaib Zheng RN) docusate (COLACE) 10 mg/mL oral liquid 100 mg(Linked Group 1) 100 mg, feeding tube, 2 times daily, First dose on Wed10/08/24 at 1215, If able to receive medications per tube. Hold for diarrhea., Indications: constipation, Stool Softener 0808 (Given - Provider: Anju Vazquez)2201 (Given - Provider: Ally Medina RN) 0922 (See Alternative - Provider: Shiraz Saunders)2112 (See Alternative - Provider: Jim Lyn) 0838 (Given - Provider: Zohaib Zheng RN)2151 (Given - Provider: Latoya Taylor, OLE) docusate sodium (COLACE) capsule 100 mg(Linked Group 1) 100 mg, oral, 2 times daily, First dose on Wed10/08/24 at 1215, If able to swallow capsules. Hold for diarrhea., Indications: constipation, Stool Softener 0808 (See Alternative - Provider: Anju Vazquez)2201 (See Alternative - Provider: Ally Medina RN) 09 (Given - Provider: Shiraz Saunders)2112 (Given - Provider: Jim Lyn) 0838 (See Alternative - Provider: Zohaib Zheng RN)2151 (See Alternative - Provider: Latoya Taylor, OLE) famotidine (PEPCID) tablet 20 mg 20 mg, feeding tube, 2 times daily, First dose (after last modification) on Wed10/10/24 at 2100 0808 (Given - Provider: Anju Vazquez)220 (Given - Provider: Ally Medina RN) 0922 (Given - Provider: Shiraz Saunders)2106 (Given - Provider: Jim Lyn) 0833 (Given - Provider: Zohaib Zheng RN)2151 (Given - Provider: Latoya Taylor, OLE) heparin 5,000 unit/mL injection 5,000 Units 5,000 Units, subcutaneous, Every 8 hours scheduled, First dose on Wed10/10/24 at 1400, Indications: VTE Prophylaxis 0551 (Given - Provider: Ally Medina RN)1406 (Given - Provider: Anju Vazquez)2201 (Given - Provider: Ally Medina RN) 0558 (Given - Provider: Ally Medina RN)1549 (Given - Provider: Shiraz Saunders)2106 (Given - Provider: Jim Lyn) 0554 (Given - Provider: Jim Lyn)1420 (Given - Provider: Zohaib Zheng, OLE)2152 (Given - Provider: Latoya Taylor, RN) lisinopriL (PRINIVIL,ZESTRIL) tablet 10 mg 10 mg, feeding tube, Daily, First dose (after last modification) on 10/14/24 at 0900 0808 (Given - Provider: Anju Vazquez) 0922 (Given - Provider: Shiraz Saunders) 0832 (Given - Provider: Zohaib Zheng RN) polyethylene glycol (MIRALAX) packet 17 g 17 g, feeding tube, 2 times daily, First dose (after last modification) on Arabella 10/12/24 at 0030, Indications: constipation 0826 (Given - Provider: Anju Vzaquez)2202 (Given - Provider: Ally Medina RN) 1120 (Given - Provider: Shiraz Saunders)2112 (Given - Provider: Jim Lyn) 0839 (Given - Provider: Zohaib Zheng RN)2152 (Given - Provider: Latoya Taylor, OLE) ramelteon (ROZEREM) tablet 8 mg 8 mg, feeding tube, Nightly, First dose (after last modification) on Wed10/10/24 at 1800, Indications: Sleep-Onset Insomnia 1823 (Given - Provider: Anju Vazquez) 1835 (Given - Provider: Shiraz Saunders) 191 (Given - Provider: Zohaib Zheng RN) Continuous Medication Order 10/15/2024 10/16/2024 10/17/2024 sodium chloride 0.9% infusion () 100 mL/hr, intravenous, Continuous, Starting on 10/15/24 at 0845, For 10 hours 0826 (New Bag - Provider: Anju Vazquez)0827 (Not Given - Provider: Anju Vazquez - Reason: Other - Comment: duplicate)183 (New Bag - Provider: Patti Ortega RN) sodium chloride 0.9% infusion () 75 mL/hr, intravenous, Continuous, Starting on 10/15/24 at 1915, For 10 hours 1999 (Rate/Dose Change - Provider: Ally Medina RN) 0655 (Stopped - Provider: Ally Medina RN) PRN Medication Order 10/15/2024 10/16/2024 10/17/2024 acetaminophen (TYLENOL) tablet 650 mg 650 mg, feeding tube, Every 4 hours PRN, 1st line for pain, fever, Starting on Wed10/10/24 at 0939 0808 (Given - Provider: Anju Vazquez) bisacodyL (DULCOLAX) suppository 10 mg 10 mg, rectal, 2 times daily PRN, constipation, Starting on Wed10/17/24 at 1042, Indications: constipation 1135 (Given - Provider: Zohaib Zheng RN) hydrALAZINE (APRESOLINE) injection 10 mg(Linked Group 2) 10 mg, intravenous, Administer over 2 Minutes, Every 15 min PRN, high blood pressure, SBP >160 with HR <70, Starting on Wed10/08/24 at 1143 labetaloL (NORMODYNE,TRANDATE) injection 10 mg(Linked Group 2) 10 mg, intravenous, at 60 mL/hr, Administer over 2 Minutes, Every 15 min PRN, high blood pressure, SBP >160 with HR >70, Starting on Wed10/08/24 at 1143 ondansetron (ZOFRAN) injection 4 mg 4 mg, intravenous, Administer over 2 Minutes, Every 6 hours PRN, nausea, vomiting, Starting on Wed10/08/24 at 1139, Proceed to trimethobenzamide if no relief within 30 minutes. , Indications: Nausea and Vomiting Linked Groups Order Group 1: docusate sodium (COLACE) capsule 100 mgJump to med 100 mg, oral, 2 times daily, First dose on Wed10/08/24 at 1215, If able to swallow capsules. Hold for diarrhea., Indications: constipation, Stool Softener Or docusate (COLACE) 10 mg/mL oral liquid 100 mgJump to med 100 mg, feeding tube, 2 times daily, First dose on Wed10/08/24 at 1215, If able to receive medications per tube. Hold for diarrhea., Indications: constipation, Stool Softener Group 2: labetaloL (NORMODYNE,TRANDATE) injection 10 mgJump to med 10 mg, intravenous, at 60 mL/hr, Administer over 2 Minutes, Every 15 min PRN, high blood pressure, SBP >160 with HR >70, Starting on 10/08/24 at 1143 Or hydrALAZINE (APRESOLINE) injection 10 mgJump to med 10 mg, intravenous, Administer over 2 Minutes, Every 15 min PRN, high blood pressure, SBP >160 with HR <70, Starting on 10/08/24 at 1143 documented in this encounter Orders Medications Ordered That Babatunde ht Not Have Been Administered Count Last Ordered Date First Ordered Date polyethylene glycol (MIRALAX) packet 17 g 1 10/11/2024 labetaloL (NORMODYNE,TRANDAT E) injection 10 mg 1 10/08/2024 ondansetron (ZOFRAN) injection 4 mg 1 10/08 senna (SENOKOT) tablet 1 tablet 1 tamsulosin (FLOMAX) extended release capsule 0.4 mg 1 10/08/2024 Lab Orders Without Results Count Last Ordered D ate First Ordered Date BLOOD GAS, VENOUS 1 10/08/2024 ETHANOL 1 10/08/2024 POCT GLUCOSE DEVICE 1 10/08/2024 Nursing Count Last Ordered Date First Orde red Date REMOVE DRAINS/TUBES 1 10/15/2024 INSERT JJ CATHETER 1 10/11/2024 TELEMETRY MONITORING 1 10/11/2024 NURSING SWALLOW ASSESSMENT 1 10/08/2024 STRAIGHT CATH 2 10/08/2024 TUBE INSERTION 1 10/08/2024 WEIGH PATIENT 1 10/08/2024 Consult Count Last Ordered Date First Orde red Date IP CONSULT TO NUTRITION SERVICES 1 10/08/19 PSYCH ASSISTANT CONSULT 1 10/08/2024 Admission Count Last Ordered Date First Orde red Date ADMIT TO INPATIENT 1 10/08/2024 Transfer Count Last Ordered Date First Orde red Date TRANSFER PATIENT TO NEW UNIT 2 10/12/2024 10/11/2024 Discharge Count Last Ordered Date First Orde red Date DISCHARGE PATIENT 1 10/17/2024 CORE MEASURES Count Last Ordered Date First Ord ered Date REASON FOR NO VTE PROPHYLAXI S - HOSPITAL ADMISSION - MEDICATIONS 1 10/08/2024 ADT Patient Update Count Last Ordered Date Firs t Ordered Date PROVIDER TREATMENT TEAM 1 10/08/2024 documented in this encounter Care Teams Fitness Plan Coordinator Relationship Specialty [place] [id number] [address] [facility] [address] [place] [address] PCP - General Family Medicine 03/20/19 [place] [id number] [address] [facility] [address] [place] [address] Consulting Physician Obstetrics and Gynecology 12/26/18 Shiraz Gillespie, PT Physical Therapist Physical Therapy 01/22/23 Joey Sidhu MD [address] [place] [id number] Referring Physician Ophthalmology 05/24/24 documented as of this encounter
--- OUTSIDE RECORDS SUMMARY | 2024-10-18 09:22 | XMS_ITS | Encounter Summary ---
Author Organization [facility] [place] Address 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
--- OUTSIDE RECORDS SUMMARY | 2024-10-18 09:22 | XMS_ITS | Encounter Summary ---
Author Organization [facility] Address 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 PHARMACY NUMBER: [phone] SECTION 1: REQUESTED ACTION jose 09/20/07 at 04:45 pm: MEDICATION REQUEST: MEDICATION REQUEST: Patient requests a refill. alprazolam 0.25mg #40 last refill 06-20-07 DOCTOR`S RESPONSE: austin 09/20/07 at 04:57 pm MEDICATIONS: ALPRAZOLAM ORAL TABLET 0.25 MG, 1 Every Twelve Hours, As Needed, 40 Dispensed, status: CONTINUED, 09/20/2007. 1 fill only pt due fu appt FINAL ACTION: farrjr 09/20/07 at 06:43 pm pharmacy closed. marie 09-21-07/6:03 pharmacy closed. jrf Left message on patient`s recorder or with a family member 09/22/2007 at 10:29 am. re appt Called pharmacy at 09/22/07 at 10:27 am. Electronically Signed by: Sarahy Hurst on September documented in this encounter Plan of Treatment Not on file documented as of this encounter Visit Diagnoses Not on filedocumented in this encounter
--- OUTSIDE RECORDS SUMMARY | 2024-10-18 09:22 | XMS_ITS | Encounter Summary ---
Author Organization [facility] Address 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 HISTORY: HISTORY: 401.1-HYPERTENSION ESSENTIAL BENIGN serge med 782.1-RASH started 3-4 days ago, qu poison skye exposure, has been spreading PHYSICAL EXAMINATION: EYES: CONJUNCTIVAE/LIDS: Conjunctivae and lids appear normal. RESPIRATORY: Clear to auscultation and percussion. Normal respiratory effort. CARDIOVASCULAR: GASTROINTESTINAL: ABDOMEN: Soft, non-tender, without masses. Bowel sounds active. SKIN: diffuse dermatitis arms face ASSESSMENT/PLAN: 401.1-HYPERTENSION ESSENTIAL BENIGN cont med 782.1-RASH cotact dermatitis MEDICATIONS: TRIAMCINOLONE ACETONIDE EXTERNAL CREAME 0.1 %, DIRECTED, 60 Dispensed, 3 Fills, status: CONTINUED, 01/03/2007. MEDROL (KALEN) ORAL TABLET 4 MG, DIRECTED, 1 Dispensed, 3 Fills, status: CONTINUED, 01/03/2007. RETURN VISIT : Instructed to call if not improving. Electronically Signed by: Daryn Mercado MD on Wednesday, January 03, 2007 documented in this encounter Plan of Treatment Not on file documented as of this encounter Visit Diagnoses Not on filedocumented in this encounter
--- OUTSIDE RECORDS SUMMARY | 2024-10-18 09:22 | XMS_ITS | Clinical Summary ---
Author Organization [facility] Address [address] Attn: Epic Prelude ADT [place] [address] Care Team Providers Care Mechanical Pencils Assembler Name Role Phone Unavailable Primary Care Provider Unavailabl e Allergies Active Allergy Reactions Criticality Noted Date Comments Sulfa (Sulfonamide Antibiotics) 0511/2004 Medications PREVACID 30 MG CAP 1 Every Day 30.00 3 10/13/2005 Active MEDROL (KALEN) 4 MG TABS IN A DOSE PACK DIRECTED 1.00 3 01/03/2007 Active TRIAMCINOLONE ACETONIDE 0.1 % TOPICAL CREAM DIRECTED 60.00 3 01/03/2007 Active LEVOTHYROXINE 50 MCG TAB 1 Every Day 30.00 4 12/15/2005 Active LISINOPRIL 2.5 MG TAB 1 Every Day 90.00 3 01/03/2007 Active alprazolam (XANAX) 0.25 mg Oral Tab 1 Every Twelve Hours, As Needed 40.00 0 09/20/2007 Active Active Problems Problem Noted Date Diagnosed Date Unspecified hypothyroidism 12/15/2005 Other and unspecified hyperlipidemia 10/13/2005 Essential hypertension, benign 10/13/2005 Esophageal reflux 10/13/2005 Chest pain, unspecified 10/13/2005 Rash and other nonspecific skin eruption 005 Anxiety state, unspecified 12/26/2004 Immunizations Immunization Administration Dates Next Due (TDVAX)(7 YRS UP) TETANUS AN D DIPHTHERIA TOXOIDS, ADSORBED (2 LF OF TETANUS TOXOID AND 2 LF OF DIPHTHERIA TOXOID), 0.5ML (PF), IM 06/04/1999 Social History Tobacco Use Types Packs/Day Years Used Date Smoking Tobacco: Never Assessed Comments Unknown Sex and Gender Information Value Date Recorded Sex Assigned at Not on file 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 Gender Identity Not on file Sexual Orientation Not on file Last Filed Vital Signs Vital Sign Reading Time Taken Comments Blood Pressure 120/70 01/03/2007 2:00 PM CDT Pulse - - Temperature 37.1 C (98.7 F) 01/03/2007 2:00 PM CDT Respiratory Rate - - Oxygen Saturation - - Inhaled Oxygen Concentration - - Weight 74.4 kg (164 lb) 01/03/2007 2:00 PM CDT Height - - Body Mass Index - - Plan of Treatment Health Maintenance Due Date Last Done Comments BREAST CANCER SCREENING 1991 COLORECTAL SCREENING 1996 Colorectal Cancer Screening 1996 FIT-DNA Q 3 years 1996 FIT/FOBT Q 1 year 1996 Flex Sig/CT Colonography Q 5 years 1996 DTAP/TDAP/TD VACCINES (1 - Tdap) 06/05/1999 06/04/19 99 PNEUMOCOCCAL VACCINE 65+ YEARS (1 of 1 - PCV) 09/28/19 02 ZOSTER VACCINE (1 of 2) 2001 OSTEOPOROSIS SCREENING 2016 INFLUENZA VACCINE (#1) 2024 RSV VACCINE (60+ or ) (1 - 1-dose 75+ series) 2026
--- OUTSIDE RECORDS SUMMARY | 2024-10-18 09:22 | XMS_ITS | Encounter Summary ---
Author Organization [facility] Healthcare Address [address] [place] [address] Care Team Providers Care Filter Press Pumper Name Role Phone Shahana Guzman MD Unavailable Nancy Cortez MD Primary Care Provider [phone] Shiraz Gillespie PT Unavailable Unavailable Joey Sidhu MD Unavailable [phone] Encounter Details Date Type Department Care Team (Late st Contact Info) Description 07/14/2022 Telephone [facility] [address] [place] [address] Cathie Mckeon, RT Social History Tobacco Use Types Packs/Day Years Used Date Smoking Tobacco: Never Smokeless Tobacco: Never Alcohol Use Standard Drinks/Week Comments Yes 0 (1 standard drink = 0.6 oz pur e alcohol) AUDIT-C Answer Date Recorded Q1: How often do you have a drink containing alc ohol? 2-3 times a week 07/17/2021 Q2: How many drinks containi ng alcohol do you have on a typical day when you are drinking? 1 or 2 07/17/2021 Q3: How often do you have si x or more drinks on one occasion? Never 07/17/2021 PHQ-2 Answer Date Recorded PHQ-2 Total Score (If total score is 3 or more points, staff should administer the PHQ-9) 0 04/13/2022 Education Answer Date Recorded What is the highest level of school you have completed or the highest degree you have received? 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[employer] ([employer] & [employer]() Not on f ile Not on file Not on file documented as of this encounter Plan of Treatment Not on file documented as of this encounter Visit Diagnoses Not on filedocumented in this encounter Additional Health Concerns Infection Onset Date Last Indicated Resolved Time COVID: Suspected 07/18/2024 07/18/2024 07/18/2024 11:49 AM BAR WAITER/WAITRESS documented as of this encounter Care Teams Filter Press Pumper Relationship Specialty [place] [address] [address] [address] PCP - General Family Medicine 03/20/19 [place] [address] [facility] [address] [place] [address] Consulting Physician Obstetrics and Gynecology 12/26/18 Shiraz Gillespie, PT Physical Therapist Physical Therapy 01/22/23 Joey Sidhu MD [address] [place] [address] Referring Physician Ophthalmology 05/24/24 documented as of this encounter
--- OUTSIDE RECORDS SUMMARY | 2024-10-18 09:22 | XMS_ITS | Encounter Summary ---
Author Organization [facility] Address 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 HISTORY: HISTORY: 272.4-HYPERLIPIDEMIA The patient's most recent LDL was not at goal. 300.00-ANXIETY stable, uses xanax prn 401.1-HYPERTENSION ESSENTIAL BENIGN better with med 530.81-GASTROESOPHAGEAL REFLUX (GERD) stable 244.9-HYPOTHYROIDISM new onset, few sx ROS: CARDIAC: No chest pain, palpitations, orthopnea, dyspnea on exertion, or paroxysmal nocturnal dyspnea. RESPIRATORY: No dyspnea, cough, hemoptysis or wheezing. : No frequency, urgency, hematuria or dysuria. GI: No abdominal pain, nausea, vomiting, diarrhea, constipation, melena, or hematochezia. PAST MEDICAL HISTORY: as above, eczema, psoriasis FAMILY HISTORY: father [place] 62, had first [place] 54, mother CVA73 SOCIAL HISTORY: TOBACCO USE: Has no significant smoking history. 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 CAFFEINE: A minimal amount of caffeinated beverages daily. PHYSICAL EXAMINATION: CONSTITUTIONAL: GENERAL APPEARANCE: Healthy appearing patient in no distress. EARS, NOSE, MOUTH AND THROAT: EARS: Tympanic membranes shiny without retraction. Canals [...] No induration, obvious subcutaneous nodules or tightening. ASSESSMENT/PLAN: 272.4-HYPERLIPIDEMIA discussed, recheck may need med, cont diet and ex 300.00-ANXIETY cont med prn 401.1-HYPERTENSION ESSENTIAL BENIGN cont med, improved LAB ORDERS: 3mo Order number: [id number] Test Ordered: COMPREHENSIVE METABOLIC PANEL W/ GLOMERULAR FILTRATION RATE, ESTIMATED (EGFR) 33895 Order number: [id number] Test Ordered: LIPID PANEL 7600 Order number: [id number] Test Ordered: TSH 899 530.81-GASTROESOPHAGEAL REFLUX (GERD) pt to call reg repeat egd 244.9-HYPOTHYROIDISM start low dose med reassess MEDICATIONS: LEVOTHYROXINE SODIUM ORAL TABLET 50 MCG, 1 Every Day, 30 Dispensed, 4 Fills, status: NEW PRESCRIPTION, 12/15/2005. RETURN VISIT : Patient instructed to return in 3 months. Electronically Signed by: Daryn Mercado MD on Thursday, December 15, 2005 documented in this encounter Plan of Treatment Not on file documented as of this encounter Visit Diagnoses Not on filedocumented in this encounter
--- OUTSIDE RECORDS SUMMARY | 2024-10-18 09:22 | XMS_ITS | Encounter Summary ---
Author Organization [facility] Address [address] [place] [address] Care Team Providers Care Medical Editor Name Role Phone Unavailable Primary Care Provider Unavailabl e Encounter Details Date Type Department Care Team (Late st Contact Info) Description 08/26/[address] 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 PHARMACY NUMBER: SECTION 1: REQUESTED ACTION [email or web address] 08/26/06 at 03:19 pm: MEDICATION REQUEST: MEDICATION REQUEST: Patient requests a refill. Alprazolam 0.25 mg. 1q 12 hrs prn #40 LF 06/28/06 DOCTOR`S RESPONSE: austin 08/26/06 at 03:23 pm MEDICATIONS: ALPRAZOLAM ORAL TABLET 0.25 MG, 1 Every Twelve Hours, As Needed, 40 Dispensed, 1 Fills, status: CONTINUED, 08/26/2006. FINAL ACTION: licasl 08/26/06 at 04:19 pm Called pharmacy at 08/26/06 at 04:19 pm. Electronically Signed by: Sarahy Hurst on August documented in this encounter Plan of Treatment Not on file documented as of this encounter Visit Diagnoses Not on filedocumented in this encounter
--- OUTSIDE RECORDS SUMMARY | 2024-10-18 09:22 | XMS_ITS | Encounter Summary ---
Author Organization [facility] Address 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
--- NOTE | 2024-10-18 09:43 | PC.NURSE ---
[facility] transfer Center called for more information. states pt will being going to the ICU and will call back with a room number.
[2024-10-18] MEDS: MANNITOL 25% 50 ML BTL 20 ML IVPB (10:01)
--- NOTE | 2024-10-18 11:34 | PC.NURSE ---
[facility] transfer called. pt will be going to [facility] room 9424 bed 1. report called and spoke with OLE Bro. ems in route to take pt to [facility]. family updated.
== END 2024-10-18 12:07 | disposition short-term general hospital (02) ==
PROVIDERS: Emergency Provider Emergency Medicine; PCP Family Medicine
DX: I61.9 Nontraumatic intracerebral hemorrhage, unspecified (principal); R41.82 Altered mental status, unspecified
CPT/HCPCS: 36415; 70450; 80053; 81003; 85025; 85610; 85730; 93005; 96374; 99285; J2150